=== PATIENT | female | born 1975 | race Caucasian/White ===

== ENCOUNTER → 2017-10-31 | Outpatient (CLI) | payer MEDICAID ==
[~2017-10-31] MED LIST: IOHEXOL 350 MG/ML 150 ML (OMNIPAQUE 350) VIAL IV ONE; NS 250 ML (IVPB) BAG IV ONE; RT-ALBUTEROL SULF 2.5 MG/3 ML PRE-MIX VIAL INH ONE
--- NOTE | 2017-10-31 15:38 | Diagnostic Imaging Report ---
PROCEDURE: CT angiography of the chest with contrast. TECHNIQUE: Multiple contiguous axial images were obtained through the chest after uneventful bolus administration of intravenous contrast. Reconstructed CTA MIP acquisitions were also performed. INDICATION: Bronchitis and shortness of air. COMPARISON: No prior studies are available for comparison. FINDINGS: Evaluation of the pulmonary arterial system is without evidence of thromboembolism. No filling defects are identified within the central, lobar or segmental branches. The thoracic aorta is normal caliber. No dissection is seen. No pericardial or pleural fluid is identified. No definite axillary, hilar or mediastinal lymphadenopathy is detected. Central airways are patent. Pulmonary parenchymal evaluation demonstrates the lungs to be clear. No mass or infiltrate is seen. Upper abdomen does show low density throughout the liver suggestive of hepatic steatosis. IMPRESSION: Essentially unremarkable CT angiogram of the chest. Dictated by: Dictated on workstation # [id number]
== END ==
LOC: RT 14:44
PROVIDERS: ATTEND Nurse Practitioner Family
DX: J40 Bronchitis, not specified as acute or chronic (principal); R06.00 Dyspnea, unspecified; Z72.0 Tobacco use
CPT/HCPCS: 71275; 94060; 94726; 94729

== ENCOUNTER 2017-11-25 07:13 | Day surgery (SDC) | payer MEDICAID ==
[~2017-11-25] VITALS: Ht 160 cm; Wt 90.3 kg
[~2017-11-25 07:13] MED LIST changes: +DESV100T PO; -IOHEXOL 350 MG/ML 150 ML (OMNIPAQUE 350) VIAL IV ONE; +LAMO100T69 PO; +LORA1TAB PO; +LTH450TCR PO; +MONT10TA21 PO; -NS 250 ML (IVPB) BAG IV ONE; +RT-ALBUINH IH; -RT-ALBUTEROL SULF 2.5 MG/3 ML PRE-MIX VIAL INH ONE; +SULF500T7 PO
--- OUTSIDE RECORDS SUMMARY | 2017-11-25 07:16 | XMS REPORT | CCD ---
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 Weight Measured 192 lbs 09/17/2015 12:53 Initial VS Height 63 in 09/17/2015 12:53 Initial VS BMI (Body Mass Index) 34.01 kg/m^2 09/17/2015 12:53 Initial VS BSA (Body Surface Area) 1.97 m^2 09/17/2015 12:53 Initial VS Respiratory Rate 17 bpm 09/18/2015 10:56 Initial VS Heart Rate 90 bpm 09/18/2015 10:56 Initial VS O2 % BldC Oximetry 95 % 09/18/2015 10:56 Initial VS BP Systolic 109 mmHg 09/18/2015 10:57 Initial VS BP Diastolic 49 mmHg 09/18/2015 10:57 Initial VS BP Systolic 107 mmHg 09/18/2015 11:36 Most Recent VS BP Diastolic 63 mmHg 09/18/2015 11:36 Most Recent VS Respiratory Rate 19 bpm 09/18/2015 11:37 Most Recent VS Heart Rate 70 bpm 09/18/2015 11:37 Most Recent VS O2 % BldC Oximetry 99 % 09/18/2015 11:37 Most Recent VS Allergies Allergy Code Allergy Type Reaction Status PENICILLIN 80167 Drug allergy NAUSEA; CHILDHOOD, Active Procedures Procedure Code Procedure Type Date Laparoscopy, surgical; cholecystectomy 49457 CPT 2015 PATHOLOGY ORDER [id number] SNOMED CT 09/18/2015 History of Immunizations Unknown or Not Available. Problems Problem Code Start Date Resolved Date Status Abdominal pain 91135251 09/12/2014 Active Ovarian torsion 83717820 09/13/2014 Active Post op pain 617126424 09/13/2014 Active Results Unknown or Not Available. Active Medications No Active Medications Medications Administered During Visit Unknown or Not Available. Encounters Encounter Diagnosis Diagnosis Code Start Date Calculus of gallbladder with chronic cholecystitis without obstruction K8010 09/18/2015 Social History Smoking Status Code Start Date End Date Current every day smoker [id number] Patient Decision Aids Patient Decision Aid CHOLECYSTECTOMY; AFTER THE PROCEDURE Discharge Instructions You were admitted to [facility] on 09/18/2015 07:23 with a principal diagnosis of Calculus of gallbladder with chronic cholecystitis without obstruction You had the following procedures done: Laparoscopy, surgical; cholecystectomy You were discharged from [facility] on 09/18/2015 12:32 Should you have any questions prior to discharge, please contact a member of your healthcare team. If you have left the hospital and have any questions, please contact your primary care physician. Chief Complaint and Reason For Visit Chief Complaint Date of Onset LAP KARIE Function Status Unknown or Not Available. Plan of Care Unknown or Not Available. Referral/Transition of Care Unknown or Not Available.
--- OUTSIDE RECORDS SUMMARY | 2017-11-25 07:16 | XMS REPORT | CCD ---
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 Problems Problem Code Start Date Resolved Date Status Abdominal pain 60308933 09/12/2014 Active Ovarian torsion 03269558 09/13/2014 Active Post op pain 594760482 09/13/2014 Active Results Unknown or Not Available. Active Medications No Active Medications Medications Administered During Visit Unknown or Not Available. Encounters Encounter Diagnosis Diagnosis Code Start Date Calculus of gallbladder with chronic cholecystitis without obstruction K8010 09/18/2015 Social History Smoking Status Code Start Date End Date Current every day smoker [id number] Patient Decision Aids Patient Decision Aid CHOLECYSTECTOMY; AFTER THE PROCEDURE Discharge Instructions You were admitted to [facility] on 09/18/2015 07:23 with a principal diagnosis of Calculus of gallbladder with chronic cholecystitis without obstruction You had the following procedures done: Laparoscopy, surgical; cholecystectomy You were discharged from [facility] on 09/18/2015 12:32 Should you have any [...]
--- OUTSIDE RECORDS SUMMARY | 2017-11-25 07:19 | XMS REPORT ---
Author Erica Briseno Organization [facility] Address [address] [place], [place] [id number] Care Team Providers Care Personal Clothing Laundry Aide Name Role Phone Erica Carver PCP Unavailable Erica Carver PreferredProvider Unavailable Allergies and Adverse Reactions Name Reaction Notes PENICILLINS told as a child Plan of Treatment Planned Activity Comments Planned Date Planned Time Plan/Goal Iron panel (iron, TIBC, transferrin saturation) 06/24/2015 12:00 AM Iron panel (iron, TIBC, transferrin saturation) 06/24/2015 12:00 AM Iron panel (iron, TIBC, transferrin saturation) 06/24/2015 12:00 AM Abdominal Ultrasound, single organ 06/24/2015 12:00 AM Cyanocobalamin measurement 09/24/2016 12:00 AM CMP 12/21/2016 12:00 AM CBC W/ AUTO DIFF (RFLX MAN DIFF IF IND). 12/21/2016 12:00 AM Spirometry 01/27/2017 12:00 AM BMP 01/30/2017 12:00 AM Medications Active Name Start Date Estimated Completion Date SIG Comments montelukast 10 mg oral tablet 06/25/2013 TAKE ONE TABLET BY MOUTH IN THE EVENING pantoprazole 40 mg oral tablet,delayed release (DR/EC) 07/30/2013 TAKE ONE TABLET BY MOUTH EVERY DAY hydroxychloroquine 200 mg oral tablet 08/13/2015 TAKE TWO TABLETS BY MOUTH ONCE DAILY WITH A MEAL OR A GLASS OF MILK hydroxychloroquine 200 mg oral tablet 02/25/2016 TAKE TWO TABLETS BY MOUTH ONCE DAILY WITH A MEAL OR A GLASS OF MILK Lamictal 100 mg oral tablet take 1 tablet (100 mg) by oral route 2 times per day Latuda 40 mg oral tablet take 1 tablet (40 mg) by oral route once daily with food (at least 350 calories) Ativan 1 mg oral tablet take 1 tablet (1 mg) by oral route 2 times per day as needed Pristiq oral Singulair 10 mg oral tablet 01/19/2017 take 1 tablet (10 mg) by oral route once daily in the evening for 30 days Flovent HFA 110 mcg/actuation inhalation HFA aerosol inhaler 01/25/2017 inhale 1 puff (110 mcg) by inhalation route 2 times per day prednisone 20 mg oral tablet 01/27/2017 take 2 tablets by mouth daily x2 days then 1 tablet daily x4 days ProAir HFA 90 mcg/actuation inhalation HFA aerosol inhaler 01/27/2017 inhale 1 puff (90 mcg) by inhalation route every 4-6 hours as needed Mariella Perles 100 mg oral capsule 01/30/2017 02/06/2017 take 1 capsule (100 mg) by oral route 3 times per day for 7 days promethazine-codeine 6.25-10 mg/5 mL oral syrup 01/31/2017 take 5 milliliters by oral route every 4-6 hours as needed, not to exceed 30 mL in 24 hours Name Start Date Expiration Date SIG Comments Bactrim DS 800-160 mg oral tablet 03/02/2010 03/09/2010 take 1 tablet by oral route every 12 hours for 7 days Zithromax Z-Berlin 250 mg oral tablet 03/25/2010 03/30/2010 take 2 tablets (500 mg) by oral route once daily for 1 day then 1 tablet (250 mg) by oral route once daily for 4 days ZOLOFT 50MG TAB 50 each 06/01/2010 07/01/2010 1QD - TAKE ONE TABLET BY MOUTH EVERY DAY Zoloft 50 mg oral tablet 07/06/2010 07/06/2010 take 1 tablet (50 mg) by oral route once daily hydrochlorothiazide 12.5 mg oral capsule 11/18/2010 12/18/2010 TAKE ONE CAPSULE BY MOUTH EVERY DAY Zithromax Z-Berlin 250 mg oral tablet 06/29/2011 07/04/2011 take 2 tablets (500 mg ) by oral route once daily for 1 day then 1 tablet (250 mg) by oral route once daily for 4 days Diflucan 200 mg oral tablet 06/29/2011 07/01/2011 take 1 tablet by oral route Bactrim DS 800-160 mg oral tablet 03/31/2012 04/07/2012 take 1 tablet by oral route every 12 hours for 7 days Singulair 10 mg oral tablet 03/31/2012 10/27/2012 take 1 tablet (10 mg) by oral route once daily in the evening for 30 days pantoprazole 40 mg oral tablet,delayed release (DR/EC) 05/31/2012 06/30/2012 TAKE ONE TABLET BY MOUTH EVERY DAY hydrochlorothiazide 25 mg oral tablet 06/08/2012 06/03/2013 take 1 tablet by oral route daily for 90 days Tamiflu 75 mg oral capsule 07/27/2012 08/01/2012 take 1 capsule (75 mg) by oral route 2 times per day for 5 days promethazine-codeine 6.25-10 mg/5 mL oral syrup 07/27/2012 take 5 milliliters by oral route every 4-6 hours as needed, not to exceed 30 mL in 24 hours albuterol sulfate 90 mcg/actuation inhalation HFA aerosol inhaler 07/27/2012 inhale 1 - 2 puffs by inhalation route every 6 hours as needed metronidazole 500 mg oral tablet 11/10/2012 11/17/2012 take 1 tablet (500 mg) by oral route every 12 hours for 7 days montelukast 10 mg oral tablet 11/13/2012 12/13/2012 TAKE ONE TABLET BY MOUTH IN THE EVENING Diflucan 150 mg oral tablet 12/14/2012 12/16/2012 take 1 tablet (150 mg) by oral route once for 1 day Zithromax Z-Berlin 250 mg oral tablet 01/23/2013 01/28/2013 take 2 tablets (500 mg ) by oral route once daily for 1 day then 1 tablet (250 mg) by oral route once daily for 4 days Zithromax Z-Berlin 250 mg oral tablet 03/27/2013 04/01/2013 take 2 tablets (500 mg) by oral route once daily for 1 day then 1 tablet (250 mg) by oral route once daily for 4 days polyethylene glycol 3350 17 gram/dose oral powder 05/31/2012 06/15/2012 MIX 17 GRAMS POWDER WITH 8 OUNCES OF WATER,JUICE,SODA,COFFEE, OR TEA AND TAKE BY MOUTH ONCE DAILY Medrol (Berlin) 4 mg oral tablets,dose pack 09/10/2013 take as directed Zyrtec-D 5-120 mg oral tablet extended release 12 hr 09/10/2013 take 1 tablet by oral route every 12 hours Zithromax Z-Berlin 250 mg oral tablet 10/01/2013 10/06/2013 take 2 tablets (500 mg) by oral route once daily for 1 day then 1 tablet (250 mg) by oral route once daily for 4 days gemfibrozil 600 mg oral tablet 03/11/2014 09/07/2014 take 1 tablet (600 mg) by oral route 2 times per day 30 minutes before morning and evening meal for 90 days tramadol 50 mg oral tablet 03/20/2014 04/03/2014 take 1 tablet by oral route daily for 14 days azithromycin 250 mg oral tablet 04/29/2014 05/04/2014 take 2 tablets (500 mg ) by oral route once daily for 1 day then 1 tablet (250 mg) by oral route once daily for 4 days promethazine-codeine 6.25-10 mg/5 mL oral syrup 04/29/2014 take 5 milliliters by oral route every 6 hours as needed, not to exceed 30 mL in 24 hours Cipro 500 mg oral tablet 06/11/2014 06/18/2014 take 1 tablet (500 mg) by oral route every 12 hours for 7 days Medrol (Berlin) 4 mg oral tablets,dose pack 06/11/2014 take as directed Zofran ODT 4 mg oral tablet,disintegrating 07/03/2014 07/06/2014 dissolve 1 tablet by oral route every 8 hours for 3 days azithromycin 250 mg oral tablet 07/19/2014 07/24/2014 take 2 tablets (500 mg) by oral route once daily for 1 day then 1 tablet (250 mg) by oral route once daily for 4 days prednisone 20 mg oral tablet 07/19/2014 07/24/2014 Take 3 tabs x 2 days; then Take 2 tabs x 2 days; then Take 1 tab x 1 days. Plaquenil 200 mg oral tablet 08/08/2014 02/04/2015 take 2 tablets (400 mg) by oral route once daily with a meal or a glass of milk for 30 days prednisone 5 mg oral tablet 10/03/2014 12/02/2014 take 1 tablet (5 mg) by oral route once daily for 30 days Macrobid 100 mg oral capsule 05/12/2015 05/19/2015 take 1 capsule (100 mg) by oral route 2 times per day with food for 7 days propranolol 60 mg oral capsule,extended release 24 hr 07/18/2015 01/14/2016 take 1 capsule by oral route daily for 30 days Macrobid 100 mg oral capsule 11/26/2015 12/03/2015 take 1 capsule (100 mg) by oral route every 12 hours with food for 7 days lorazepam 0.5 mg oral tablet 03/23/2016 04/22/2016 take 1 tablet (0.5 mg) by oral route 2 times per day as needed for 30 days Bactrim DS 800-160 mg oral tablet 04/02/2016 04/05/2016 take 1 tablet by oral route every 12 hours for 3 days Zithromax Z-Berlin 250 mg oral tablet 07/26/2016 07/31/2016 take 2 tablets (500 mg ) by oral route once daily for 1 day then 1 tablet (250 mg) by oral route once daily for 4 days ProAir HFA 90 mcg/actuation inhalation HFA aerosol inhaler 07/26/2016 08/25/2016 inhale 1 puff (90 mcg) by inhalation route every 6 hours as needed for 30 days hydroxyzine HCl 25 mg oral tablet 12/14/2016 12/24/2016 take 1 tablet (25 mg) by oral route 3 times per day for 10 days loratadine 10 mg oral tablet 12/14/2016 01/13/2017 take 1 tablet (10 mg) by oral route once daily for 30 days Lac-Hydrin Five 5 % topical lotion 12/14/2016 12/24/2016 apply to affected area by topical route 2 times a day for 10 days Discontinued Name Start Date Discontinued Date SIG Comments Rozerem 8 mg oral tablet 03/25/2010 04/15/2010 take 1 tablet (8 mg) by oral route once daily at bedtime Lexapro 20 mg oral tablet 03/25/2010 04/15/2010 take 1 tablet (20 mg) by oral route once daily for 28 days Paxil 20 mg oral tablet 04/15/2010 04/30/2010 take 1 tablet (20 mg) by oral route once daily for 30 days made her not sleep and gave her headaches Lunesta 2 mg oral tablet 04/15/2010 07/23/2010 take 1 tablet (2 mg) by oral route once daily at bedtime ZOLOFT 50MG TAB 50 each 07/06/2010 07/23/2010 1QD - TAKE ONE TABLET BY MOUTH EVERY DAY Seroquel 25 mg oral tablet 03/31/2012 take 1 tablet by oral route daily Topamax 25 mg oral tablet 02/19/2014 take 1tablet once daily Lamictal Oral 06/24/2015 Lexapro Oral 06/24/2015 Saphris Sublingual 12/26/2012 omeprazole 40 mg oral capsule,delayed release(DR/EC) 04/11/2012 05/25/2012 take 1 tablet by mouth daily Provera 10 mg oral tablet 06/27/2012 09/20/2012 take 1 tablet by oral route qhs Medrol (Berlin) 4 mg oral tablets,dose pack 07/27/2012 09/20/2012 take as directed Imitrex 50 mg oral tablet 12/29/2012 04/22/2014 take 1 tablet (50 mg) by oral route once with fluids as early as possible after the onset of a migraine attack ;may repeat after 2 hours if headache returns, not to exceed 200mg in 24hrs Medrol (Berlin) 4 mg oral tablets,dose pack 03/27/2013 09/10/2013 take as directed hydrochlorothiazide 25 mg oral tablet 06/25/2013 06/03/2014 TAKE ONE TABLET BY MOUTH EVERY DAY Zofran (as hydrochloride) 4 mg oral tablet 09/10/2013 02/19/2014 take 1 tablet by mouth q6 hours as needed Flonase 50 mcg/actuation nasal spray,suspension 10/01/2013 02/19/2014 inhale 1 spray (50 mcg) in each nostril by intranasal route once daily Tessalon Perles 100 mg oral capsule 10/05/2013 02/19/2014 take 1 capsule (100 mg) by oral route 3 times per day pantoprazole 40 mg oral tablet,delayed release (DR/EC) 01/22/2014 10/02/2014 TAKE ONE TABLET BY MOUTH EVERY DAY pantoprazole 40 mg oral tablet,delayed release (DR/EC) 01/22/2014 10/02/2014 TAKE ONE TABLET BY MOUTH EVERY DAY no longer taking Rheumatrex 2.5 mg oral tablets,dose pack 03/11/2014 04/22/2014 1 tab 3 days per week folic acid 1 mg oral tablet 03/11/2014 06/03/2014 take 1 tablet (1 mg) by oral route once daily for 90 days montelukast 10 mg oral tablet 07/11/2014 06/24/2015 TAKE ONE TABLET BY MOUTH IN THE EVENING Latuda 40 mg oral tablet 07/26/2016 take 1 tablet (40 mg) by oral route once daily with food (at least 350 calories) propranolol 20 mg oral tablet 10/03/2014 10/29/2014 take 1 tablet by oral route daily for 30 days Claritin 10 mg oral tablet 10/23/2014 06/19/2015 take 1 tablet (10 mg) by oral route once daily promethazine-codeine 6.25-10 mg/5 mL oral syrup 10/23/2014 06/24/2015 take 5 milliliters by oral route every 4-6 hours as needed, not to exceed 30 mL in 24 hours Zithromax Z-Berlin 250 mg oral tablet 06/19/2015 06/24/2015 take 2 tablets (500 mg ) by oral route once daily for 1 day then 1 tablet (250 mg) by oral route once daily for 4 days Lamictal 150 mg oral tablet 05/06/2016 take 1 tablet (150 mg) by oral route BID Lexapro 20 mg oral tablet 07/26/2016 take 1 tablet (20 mg) by oral route once daily Imitrex 5 mg/actuation nasal spray,non-aerosol 07/29/2015 03/01/2016 spray 1 spray (5 mg) by intranasal route into each nostril; may repeat once after 2 hours if headache returns, not to exceed 40 mg per day Chantix Starting Month Box 0.5 mg (11)- 1 mg (42) oral tablets,dose pack 201509/16/2015 take as directed on box Zyrtec-D 5-120 mg oral tablet extended release 12 hr 08/13/2015 03/01/2016 take 1 tablet by oral route every 12 hours Lunesta 3 mg oral tablet 03/23/2016 take 1 tablet (3 mg) by oral route once daily at bedtime tramadol 50 mg oral tablet 09/24/2015 03/01/2016 take 1 tablet (50 mg) by oral route every 6 hours as needed phenazopyridine 200 mg oral tablet 11/26/2015 03/01/2016 take 1 tablet (200 mg ) by oral route 3 times per day after meals gemfibrozil 600 mg oral tablet 12/22/2015 03/23/2016 TAKE ONE TABLET BY MOUTH TWICE DAILY 30 MINUTES BEFORE MORNING AND EVENING MEALS Saxenda 3 mg/0.5 mL (18 mg/3 mL) subcutaneous pen injector 01/12/20162015 taper up by 0.6mg at weekly intervals starting at 0.6mg going up to 3.0mg. Pen Needle 32 gauge x 5/32" miscellaneous needle 01/12/2016 03/01/2016 use as directed propranolol 60 mg oral capsule,extended release 24 hr 02/25/2016 03/23/2016 TAKE ONE CAPSULE BY MOUTH ONCE DAILY Medrol (Berlin) 4 mg oral tablets,dose pack 03/02/2016 03/23/2016 take as directed meclizine 25 mg oral tablet 03/02/2016 03/23/2016 take 1 tablet (25 mg) by oral route 3 times per day as needed hydroxychloroquine 200 mg oral tablet 06/21/2016 12/14/2016 TAKE TWO TABLETS BY MOUTH ONCE DAILY WITH A MEAL OR A GLASS OF MILK hydroxychloroquine 200 mg oral tablet 06/21/2016 12/14/2016 TAKE TWO TABLETS BY MOUTH ONCE DAILY WITH A MEAL OR A GLASS OF MILK not taking due to to much money without insurance Trintellix 20 mg oral tablet 09/24/2016 take 1 tablet (20 mg) by oral route once daily at the same time each day Problem List Description Status Onset Bipolar Disorder Active Hypertension Active Obesity Active Seasonal Allergies Active Arthritis, rheumatoid Active 06/04/2014 Gluten intolerance Active 06/04/2014 Cholelithiasis Active 09/16/2015 Chronic cholecystitis Active 09/16/2015 Vital Signs Date Time BP-Sys(mm[Hg] BP-Patti(mm[Hg]) HR(bpm) RR(rpm) Temp WT HT HC BMI BSA BMI Percentile O2 Sat(%) 01/31/2017 10:47:00 AM 117 mmHg 73 mmHg 89 bpm 18 rpm 98.9 F 169.125 lbs 63 in 29.96 kg/m2 1.85 m2 98 % 01/30/2017 1:06:00 PM 110 mmHg 88 mmHg 85 bpm 18 rpm 98 F 168.5 lbs 63 in 29.8481 kg/m 1.8432 m 99 % 01/27/2017 9:55:00 AM 120 mmHg 74 mmHg 98 bpm 18 rpm 97.5 F 165 lbs 63 in 29.23 kg/m2 1.82 m2 97 % 01/25/2017 9:59:00 AM 132 mmHg 72 mmHg 99 bpm 18 rpm 97.7 F 164.125 lbs 63 in 29.0731 kg/m 1.8191 m 98 % 01/19/2017 8:27:00 AM 136 mmHg 76 mmHg 79 bpm 18 rpm 97.4 F 167.5 lbs 63 in 29.67 kg/m2 1.84 m2 99 % 01/18/2017 5:11:00 PM 125 mmHg 83 mmHg 85 bpm 18 rpm 98.3 F 164.375 lbs 63 in 29.1174 kg/m 1.8205 m 99 % 01/10/2017 1:30:00 PM 121 mmHg 69 mmHg 92 bpm 99.2 F 165 lbs 63 in 29.23 kg/m2 1.82 m2 12/30/2016 6:50:00 PM 110 mmHg 78 mmHg 90 bpm 20 rpm 97.9 F 160 lbs 63 in 28.3424 kg/m 1.7961 m 99 % 12/14/2016 2:45:00 PM 120 mmHg 88 mmHg 94 bpm 16 rpm 97.7 F 159.5 lbs 63 in 28.25 kg/m2 1.79 m2 99 % 10/11/2016 7:49:00 PM 124 mmHg 66 mmHg 84 bpm 18 rpm 96.9 F 154 lbs 63 in 27.2796 kg/m 1.7621 m 99 % 09/24/2016 9:00:00 AM 124 mmHg 94 mmHg 85 bpm 16 rpm 98.5 F 162.375 lbs 63 in 28.76 kg/m2 1.81 m2 98 % 08/16/2016 5:10:00 PM 130 mmHg 70 mmHg 93 bpm 18 rpm 97.5 F 167 lbs 63 in 29.5824 kg/m 1.835 m 97 % 07/26/2016 9:42:00 AM 124 mmHg 72 mmHg 93 bpm 18 rpm 97.2 F 166.375 lbs 63 in 29.47 kg/m2 1.83 m2 99 % 05/26/2016 5:15:00 PM 124 mmHg 62 mmHg 99 bpm 18 rpm 97.5 F 169.125 lbs 63 in 29.9588 kg/m 1.8466 m 99 % 05/06/2016 2:03:00 PM 108 mmHg 72 mmHg 84 bpm 16 rpm 99.6 F 174 lbs 63 in 30.82 kg/m2 1.87 m2 97 % 04/02/2016 6:37:00 PM 122 mmHg 88 mmHg 82 bpm 98.3 F 176 lbs 63 in 31.1767 kg/m 1.8838 m 100 % 03/23/2016 8:44:00 AM 98 mmHg 70 mmHg 75 bpm 16 rpm 98.7 F 173 lbs 63 in 30.65 kg/m2 1.87 m2 98 % 03/01/2016 6:45:00 PM 122 mmHg 62 mmHg 80 bpm 18 rpm 98.3 F 175.375 lbs 63 in 31.066 kg/m 1.8804 m 99 % 01/12/2016 8:41:00 AM 118 mmHg 70 mmHg 77 bpm 18 rpm 97.9 F 185 lbs 63 in 32.77 kg/m2 1.93 m2 98 % 11/26/2015 5:48:00 PM 134 mmHg 76 mmHg 75 bpm 18 rpm 97.1 F 178.312 lbs 99 % 09/26/2015 11:12:00 AM 97 mmHg 57 mmHg 78 bpm 16 rpm 97.3 F 191 lbs 63 in 33.83 kg/m2 1.96 m2 09/16/2015 2:45:00 PM 122 mmHg 71 mmHg 75 bpm 20 rpm 98.2 F 192.5 lbs 63 in 34.0995 kg/m 1.9701 m 09/10/2015 6:23:00 PM 120 mmHg 80 mmHg 70 bpm 98.4 F 191 lbs 64 in 32.78 kg/m2 1.98 m2 98 % 08/06/2015 10:18:00 AM 130 mmHg 80 mmHg 78 bpm 16 rpm 96.7 F 194 lbs 64 in 33.2997 kg/m 1.9934 m 98 % 06/24/2015 8:35:00 AM 120 mmHg 78 mmHg 101 bpm 98.1 F 197.25 lbs 63 in 34.94 kg/m2 1.99 m2 100 % 06/19/2015 10:17:00 AM 116 mmHg 82 mmHg 87 bpm 18 rpm 97.2 F 195 lbs 63 in 34.5423 kg/m 1.9828 m 98 % 10/28/2014 2:04:00 PM 94 mmHg 62 mmHg 71 bpm 20 rpm 98 F 185.8 lbs 63 in 32.91 kg/m2 1.94 m2 97 % 10/23/2014 9:01:00 AM 124 mmHg 64 mmHg 64 bpm 18 rpm 97.9 F 187.562 lbs 63 in 33.2249 kg/m 1.9447 m 95 % 10/03/2014 3:58:00 PM 124 mmHg 78 mmHg 83 bpm 98.9 F 189.125 lbs 63 in 33.50 kg/m2 1.95 m2 100 % 10/02/2014 11:38:00 AM 121 mmHg 72 mmHg 73 bpm 98.3 F 188 lbs 63 in 33.3024 kg/m 1.9469 m 100 % 09/20/2014 11:28:00 AM 110 mmHg 60 mmHg 73 bpm 18 rpm 97 F 190 lbs 63 in 33.66 kg/m2 1.96 m2 07/19/2014 9:14:00 AM 105 mmHg 60 mmHg 61 bpm 16 rpm 96.9 F 186 lbs 63 in 32.9481 kg/m 1.9365 m 98 % 07/03/2014 9:03:00 AM 122 mmHg 75 mmHg 73 bpm 16 rpm 97.3 F 184 lbs 63 in 32.59 kg/m2 1.93 m2 97 % 06/11/2014 10:35:00 AM 110 mmHg 70 mmHg 72 bpm 16 rpm 98.2 F 188 lbs 63 in 33.3024 kg/m 1.9469 m 97 % 06/03/2014 4:08:00 PM 110 mmHg 70 mmHg 85 bpm 16 rpm 98.4 F 187 lbs 63 in 33.13 kg/m2 1.94 m2 100 % 04/29/2014 3:18:00 PM 112 mmHg 78 mmHg 66 bpm 16 rpm 97.8 F 183 lbs 63 in 32.4167 kg/m 1.9209 m 96 % 04/22/2014 4:18:00 PM 138 mmHg 80 mmHg 93 bpm 18 rpm 98.2 F 188.375 lbs 63 in 33.3688 kg/m 1.95 m2 99 % 03/11/2014 4:17:00 PM 125 mmHg 85 mmHg 94 bpm 18 rpm 97.8 F 198.25 lbs 63 in 35.12 kg/m2 1.9993 m 100 % 02/19/2014 8:23:00 AM 122 mmHg 88 mmHg 92 bpm 18 rpm 98 F 196 lbs 63 in 34.7195 kg/m 1.99 m2 98 % 10/01/2013 3:59:00 PM 138 mmHg 88 mmHg 103 bpm 18 rpm 98.5 F 203.25 lbs 63 in 36.00 kg/m2 2.0243 m 97 % 09/13/2013 11:13:00 AM 126 mmHg 64 mmHg 99 bpm 18 rpm 96.5 F 194.5 lbs 63 in 34.4538 kg/m 1.98 m2 99 % 09/10/2013 2:54:00 PM 126 mmHg 66 mmHg 100 bpm 18 rpm 97.6 F 197.25 lbs 63 in 34.94 kg/m2 1.9942 m 98 % 08/16/2013 11:40:00 AM 118 mmHg 82 mmHg 88 bpm 18 rpm 97.5 F 200.5 lbs 63 in 35.5166 kg/m 2.01 m2 96 % 03/27/2013 3:02:00 PM 126 mmHg 72 mmHg 101 bpm 18 rpm 97.6 F 193.125 lbs 63 in 34.21 kg/m2 1.9733 m 96 % 01/23/2013 10:31:00 AM 134 mmHg 72 mmHg 97 bpm 18 rpm 97.6 F 196.5 lbs 63 in 34.8081 kg/m 1.99 m2 99 % 01/19/2013 8:36:00 AM 132 mmHg 70 mmHg 12/29/2012 10:38:00 AM 126 mmHg 68 mmHg 67 bpm 18 rpm 96.8 F 193.25 lbs 63 in 34.2323 kg/m 1.97 m2 12/26/2012 3:25:00 PM 126 mmHg 68 mmHg 66 bpm 18 rpm 97.6 F 192 lbs 63 in 34.01 kg/m2 1.9675 m 12/14/2012 2:27:00 PM 132 mmHg 94 mmHg 104 bpm 97 F 200 lbs 63 in 35.428 kg/m 2.01 m2 11/09/2012 2:01:00 PM 115 mmHg 80 mmHg 88 bpm 97.2 F 210 lbs 63 in 37.20 kg/m2 2.0577 m 10/18/2012 3:38:00 PM 136 mmHg 89 mmHg 88 bpm 98.1 F 203 lbs 63 in 35.9595 kg/m 2.02 m2 09/20/2012 9:32:00 AM 125 mmHg 88 mmHg 93 bpm 97.7 F 204 lbs 63 in 36.14 kg/m2 2.0281 m 07/27/2012 10:18:00 AM 132 mmHg 84 mmHg 104 bpm 20 rpm 97.8 F 194.8 lbs 63 in 34.5069 kg/m 1.98 m2 99 % 06/22/2012 10:44:00 AM 138 mmHg 80 mmHg 85 bpm 190 lbs 63 in 33.66 kg/m2 1.9573 m 05/25/2012 9:34:00 AM 139 mmHg 85 mmHg 102 bpm 188 lbs 63 in 33.3024 kg/m 1.95 m2 04/11/2012 10:15:00 AM 128 mmHg 68 mmHg 64 bpm 18 rpm 98.9 F 181.125 lbs 63 in 32.08 kg/m2 1.911 m 03/31/2012 9:37:00 AM 136 mmHg 68 mmHg 68 bpm 18 rpm 98 F 184.375 lbs 63 in 32.6602 kg/m 1.93 m2 04/08/2011 11:10:00 AM 122 mmHg 75 mmHg 93 bpm 98.4 F 182.25 lbs 99 % 07/23/2010 4:14:00 PM 130 mmHg 96 mmHg 84 bpm 16 rpm 97.2 F 171.125 lbs 04/15/2010 2:58:00 PM 122 mmHg 70 mmHg 68 bpm 16 rpm 98.8 F 171.125 lbs 03/25/2010 3:01:00 PM 136 mmHg 80 mmHg 68 bpm 16 rpm 98.5 F 167.375 lbs 03/02/2010 3:58:00 PM 136 mmHg 90 mmHg 96 bpm 20 rpm 98.7 F 173.125 lbs 63 in 30.67 kg/m2 1.8683 m Social History Name Description Comments Single Alcohol Current some day Rarely Tobacco Current every day smoker 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 History of Procedures Date Ordered Description Order Status 06/19/2015 12:00 AM Decadron, Per 1 Mg [facility]# [address]-59 Reviewed 06/19/2015 12:00 AM Depo-Medrol 40mg Reviewed 06/24/2015 12:00 AM COMPLETE CBC W/AUTO DIFF WBC Reviewed 06/24/2015 12:00 AM COMPREHEN METABOLIC PANEL Reviewed 06/24/2015 12:00 AM LIPID PANEL Reviewed 06/24/2015 12:00 AM GLYCOSYLATED HEMOGLOBIN TEST Reviewed 06/24/2015 12:00 AM ASSAY OF FERRITIN Reviewed 08/06/2015 12:00 AM BEHAV CHNG SMOKING 3-10 MIN Reviewed 09/10/2015 12:00 AM Imitrex 6mg [facility] #82500-683-69 Reviewed 11/26/2015 5:56 PM URINALYSIS AUTO W/O SCOPE Reviewed 11/26/2015 12:00 AM URINE CULTURE/COLONY COUNT Reviewed 03/01/2016 12:00 AM COMPREHEN METABOLIC PANEL Reviewed 03/01/2016 12:00 AM COMPLETE CBC W/AUTO DIFF WBC Reviewed 03/01/2016 12:00 AM Imitrex 6 mg Reviewed 04/02/2016 6:41 PM URINALYSIS AUTO W/O SCOPE Reviewed 05/26/2016 12:00 AM Toradol 60 Mg Injection Reviewed 05/26/2016 12:00 AM Phenergan 50mg Injection Reviewed 05/26/2016 12:00 AM THER/PROPH/DIAG INJ SC/IM Reviewed 08/17/2016 12:00 AM X-RAY EXAM OF ABDOMEN Reviewed 08/16/2016 12:00 AM COMPLETE CBC W/AUTO DIFF WBC Reviewed 08/16/2016 12:00 AM COMPREHEN METABOLIC PANEL Reviewed 08/16/2016 12:00 AM ASSAY OF AMYLASE Reviewed 08/16/2016 12:00 AM ASSAY OF LIPASE Reviewed 08/16/2016 12:00 AM URNLS DIP STICK/TABLET RGNT AUTO W/O MICROSCOPY Reviewed 08/16/2016 12:00 AM X-RAY EXAM OF ABDOMEN Reviewed 09/24/2016 12:00 AM GLYCOSYLATED HEMOGLOBIN TEST Returned 09/24/2016 12:00 AM ASSAY THYROID STIM HORMONE Returned 09/24/2016 12:00 AM ASSAY OF FREE THYROXINE Returned 09/24/2016 12:00 AM X-RAY EXAM OF ABDOMEN Returned 09/24/2016 12:00 AM ASSAY OF MAGNESIUM Returned 10/11/2016 12:00 AM Toradol 60 Mg Injection Reviewed 10/11/2016 12:00 AM Phenergan 50mg Injection Reviewed 10/11/2016 12:00 AM Benadryl 50mg Injection Reviewed 12/30/2016 7:00 PM URINALYSIS AUTO W/O SCOPE Reviewed 12/30/2016 12:00 AM URINE CULTURE/COLONY COUNT Reviewed 12/30/2016 12:00 AM US EXAM PELVIC COMPLETE Reviewed 01/18/2017 12:00 AM THER/PROPH/DIAG INJ SC/IM Reviewed 01/18/2017 12:00 AM Toradol 60 Mg Injection Reviewed 01/18/2017 12:00 AM Benadryl 50mg Injection Reviewed 01/19/2017 12:00 AM Decadron, Per 1 Mg [facility]# [address]-88 Reviewed 01/19/2017 12:00 AM Depo-Medrol 40mg Injection Reviewed 01/30/2017 12:00 AM BL SMEAR W/DIFF WBC COUNT Returned 01/30/2017 12:00 AM CHEST X-RAY 2VW FRONTAL&LATL Returned 05/25/2012 12:00 AM CYTOPATH TBS C/V MANUAL Reviewed 05/25/2012 12:00 AM SPECIMEN HANDLING OFFICE-LAB Reviewed 05/25/2012 12:00 AM CHYLMD TRACH DNA AMP PROBE Reviewed 05/25/2012 12:00 AM N.GONORRHOEAE DNA AMP PROB Reviewed 05/25/2012 12:00 AM ASSAY OF GONADOTROPIN (FSH) Reviewed 05/25/2012 12:00 AM ASSAY OF PROLACTIN Reviewed 05/25/2012 12:00 AM ASSAY OF GONADOTROPIN (LH) Reviewed 05/25/2012 12:00 AM HIV-1ANTIBODY Reviewed 05/25/2012 12:00 AM HEPATITIS C AB TEST Reviewed 05/25/2012 12:00 AM SYPHILIS TEST NON-TREP QUAL Reviewed 05/25/2012 12:00 AM HEPATITIS B SURFACE AG EIA Reviewed 05/25/2012 12:00 AM HERPES SIMPLEX TYPE 1 TEST Reviewed 06/12/2012 12:00 AM US EXAM PELVIC COMPLETE Reviewed 06/22/2012 12:00 AM BX/CURETT OF CERVIX W/SCOPE Reviewed 06/22/2012 12:00 AM BIOPSY OF UTERUS LINING Reviewed 10/18/2012 12:00 AM COMPLETE CBC W/AUTO DIFF WBC Reviewed 10/18/2012 12:00 AM METABOLIC PANEL TOTAL CA Reviewed 10/18/2012 12:00 AM Type and screen Reviewed 12/26/2012 12:00 AM THER/PROPH/DIAG INJ SC/IM Reviewed 12/26/2012 12:00 AM Phenergan, Up to 50 Mg [facility]#0381-8150-72 Reviewed 12/26/2012 12:00 AM Toradol 60 Mg [facility]#7464-9553-54 Reviewed 12/29/2012 12:00 AM COMPLETE CBC W/AUTO DIFF WBC Reviewed 12/29/2012 12:00 AM COMPREHEN METABOLIC PANEL Reviewed 01/01/2013 12:[address] HEAD/BRAIN W/O & W/DYE Reviewed 01/19/2013 12:00 AM Blood Pressure Check-no charge Reviewed 01/23/2013 12:00 AM THER/PROPH/DIAG INJ SC/IM Reviewed 01/23/2013 12:00 AM Decadron, Per 1 Mg [facility]# [id number] Reviewed 01/23/2013 12:00 AM Depo-Medrol, Per 80 Mg [facility]#[id number] Reviewed 08/16/2013 12:00 AM THER/PROPH/DIAG INJ SC/IM Reviewed 08/16/2013 12:00 AM Decadron, Per 1 Mg [facility]# [address]-85 Reviewed 08/16/2013 12:00 AM Depo-Medrol, Per 80 Mg [facility]#4902-9050-39 Reviewed 09/13/2013 12:00 AM COMPLETE CBC W/AUTO DIFF WBC Reviewed 09/13/2013 12:00 AM COMPREHEN METABOLIC PANEL Reviewed 09/13/2013 12:00 AM ASSAY THYROID STIM HORMONE Reviewed 09/13/2013 12:00 AM Antinuclear Antibodies, (JOY), MESFIN, with reflex Reviewed 09/13/2013 12:00 AM RHEUMATOID FACTOR QUANT Reviewed 09/13/2013 12:00 AM RBC SED RATE AUTOMATED Reviewed 09/13/2013 12:00 AM C-REACTIVE PROTEIN Reviewed 03/02/2010 12:00 AM URINALYSIS AUTO W/O SCOPE Reviewed 02/19/2014 12:00 AM COMPLETE CBC W/AUTO DIFF WBC Reviewed 02/19/2014 12:00 AM COMPREHEN METABOLIC PANEL Reviewed 02/19/2014 12:00 AM GLYCOSYLATED HEMOGLOBIN TEST Reviewed 02/19/2014 12:00 AM RBC SED RATE AUTOMATED Reviewed 02/19/2014 12:00 AM ACUTE HEPATITIS PANEL Reviewed 02/19/2014 12:00 AM CHORIONIC GONADOTROPIN ASSAY Reviewed 02/19/2014 12:00 AM HTLV/HIV CONFIRMJ ANTIBODY Reviewed 02/19/2014 12:00 AM THROMBOPLASTIN TIME PARTIAL Reviewed 02/19/2014 12:00 AM PROTHROMBIN TIME Reviewed 02/19/2014 12:00 AM URINALYSIS Reviewed 02/19/2014 12:00 AM VITAMIN B-12 Reviewed 02/19/2014 12:00 AM ASSAY OF IRON Reviewed 02/19/2014 12:00 AM IRON BINDING TEST Reviewed 02/19/2014 12:00 AM ASSAY OF AMYLASE Reviewed 02/19/2014 12:00 AM ASSAY OF LIPASE Reviewed 02/19/2014 12:00 AM EXTRACTABLE NUCLEAR ANTIGEN ANTIBODY ANY METHOD Reviewed 02/19/2014 12:00 AM LIPID PANEL Reviewed 02/19/2014 12:00 AM IMMUNOASSAY NONANTIBODY Reviewed 02/19/2014 12:00 AM CCP ANTIBODY Reviewed 02/19/2014 12:00 AM HETEROPHILE ANTIBODY SCREEN Reviewed 02/19/2014 12:00 AM US EXAM ABDOM COMPLETE Reviewed 02/19/2014 12:00 AM ECHO EXAM OF ABDOMEN Reviewed 03/11/2014 12:00 AM HEPATIC FUNCTION PANEL Reviewed 07/23/2010 12:00 AM COMPREHEN METABOLIC PANEL Reviewed 06/03/2014 12:00 AM COMPLETE CBC W/AUTO DIFF WBC Reviewed 06/03/2014 12:00 AM COMPREHEN METABOLIC PANEL Reviewed 10/02/2014 12:00 AM MAMMOGRAM SCREENING Reviewed Results Summary Date and Description Results 05/25/2012 11:30 AM HIV AG/AB COMBO 0.23 HEPATITIS C 0.09 FSH 3.60 mIU/mLLH 9.20 mIU/mL 10/18/2012 5:35 PM ABO/Rh Type O Positive Antibody Screen-Gel Negative 10/25/2012 7:10 AM GLUCOSE 105.0 mg/dLSODIUM 140.0 mmol/LPOTASSIUM 3.70 mmol/ LCHLORIDE 112.0 mmol/LCO2 20.0 mmol/LBUN 9.0 mg/dLCREATININE 0.80 mg/dLCALCIUM 8.80 mg/dLAGE 37 GFR NonAA 80 GFR AA 97 eGFR 60 eGFR AA* 60 12/29/2012 11:26 AM GLUCOSE 104.0 mg/dLSODIUM 141.0 mmol/LPOTASSIUM 3.10 mmol/ LCHLORIDE 102.0 mmol/LCO2 27.0 mmol/LBUN 14.0 mg/dLCREATININE 1.0 mg/dLSGOT/AST 24.0 IU/LSGPT/ALT 34.0 IU/LALK PHOS 58.0 IU/LTOTAL PROTEIN 7.50 g/dLALBUMIN 4.40 g/dLTOTAL BILI 0.40 mg/dLCALCIUM 10.20 mg/dLAGE 37 GFR NonAA 62 GFR AA 75 eGFR 60 eGFR AA* 60 WBC 5.3 RBC 4.72 HGB 14.70 g/dLHCT 42.60 %MCV 90.0 fLMCH 31.10 pgMCHC 34.50 g/dLRDW SD 42 RDW CV 12.70 %MPV 10.80 fLPLT 284 NRBC# 0.00 NRBC% 0.0 %NEUT 38.30 %%LYMP 46.50 %%MONO 6.50 %%EOS 7.80 %%BASO 0.90 %#NEUT 2.02 #LYMP 2.45 #MONO 0.34 #EOS 0.41 #BASO 0.05 MANUAL DIFF NOT IND 09/13/2013 12:24 PM TSH 1.470 uIU/mLWBC 9.2 RBC 4.77 HGB 14.80 g/dLHCT 43.30 % MCV 91.0 fLMCH 31.0 pgMCHC 34.20 g/dLRDW SD 46 RDW CV 13.80 %MPV 10.0 fLPLT 323 NRBC# 0.00 NRBC% 0.0 %NEUT 63.10 %%LYMP 29.80 %%MONO 6.90 %%EOS 0.0 %%BASO 0.20 %#NEUT 5.83 #LYMP 2.75 #MONO 0.64 #EOS 0.00 #BASO 0.02 MANUAL DIFF NOT IND SEDRATE 29.0 mm/hrRA Factor <15.0 IU/mLGLUCOSE 95.0 mg/dLSODIUM 138.0 mmol/ LPOTASSIUM 3.40 mmol/LCHLORIDE 103.0 mmol/LCO2 23.0 mmol/LBUN 20.0 mg/ dLCREATININE 0.90 mg/dLSGOT/AST 29.0 IU/LSGPT/ALT 58.0 IU/LALK PHOS 90.0 IU/ LTOTAL PROTEIN 8.20 g/dLALBUMIN 4.70 g/dLTOTAL BILI 1.0 mg/dLCALCIUM 10.20 mg/ dLAGE 38 GFR NonAA 70 GFR AA 85 eGFR 60 eGFR AA* 60 C REACTIVE PROTEIN <0.5 MG/ DLANA Direct Negative 02/19/2014 4:25 PM WBC 7.7 RBC 4.24 HGB 13.60 g/dLHCT 39.90 %MCV 94.0 fLMCH 32.10 pgMCHC 34.10 g/dLRDW SD 47 RDW CV 13.60 %MPV 10.30 fLPLT 284 NRBC# 0.00 NRBC% 0.0 %NEUT 56.10 %%LYMP 37.10 %%MONO 3.30 %%EOS 2.70 %%BASO 0.80 %#NEUT 4.32 #LYMP 2.85 #MONO 0.25 #EOS 0.21 #BASO 0.06 MANUAL DIFF NOT IND MONO TEST NEGATIVE GLUCOSE 86.0 mg/dLSODIUM 139.0 mmol/LPOTASSIUM 3.40 mmol/LCHLORIDE 103.0 mmol/LCO2 21.0 mmol/LBUN 10.0 mg/dLCREATININE 0.80 mg/dLSGOT/AST 47.0 IU/ LSGPT/ALT 74.0 IU/LALK PHOS 78.0 IU/LTOTAL PROTEIN 7.60 g/dLALBUMIN 4.40 g/ dLTOTAL BILI 0.40 mg/dLCALCIUM 9.60 mg/dLAGE 38 GFR NonAA 80 GFR AA 97 eGFR 60 eGFR AA* 60 TRIGLYCERIDES 273.0 mg/dLCHOLESTEROL 203.0 mg/dLHDL 47.0 mg/dLTOT CHOL/HDL 4.3 LDL (CALC) 101.0 mg/dLAMYLASE 59 IU/LLIPASE 27.0 U/MIKAELA TOTAL 72.0 ug/dLTransferrin 256.0 mg/dLTIBC Calculation 320 %Saturation Calc 23 SEDRATE 17.0 mm/hrPROTIME 10.10 secsINR 1.0 PTT 25.10 secsHGB A1C 5.60 %Est Avg Glucose 114.0 mg/dLVITAMIN B12 389.0 pg/mLHIV AG/AB COMBO 0.08 Antiscleroderma- 70Antibodies <0.2 AIHep A Ab, IgM Negative HBsAg Screen Negative Hep B Core Ab, IgM Negative Hep C Virus Ab <0.1 t-Transglutaminase (tTG)IgG 6.0 U/mLCCP Antibodies IgG/IgA 21 Units 02/19/2014 4:40 PM COLOR YELLOW APPEARANCE CLEAR SPEC GRAV <=1.005 pH 6.0 PROTEIN NEGATIVE GLUCOSE NEGATIVE KETONE NEGATIVE BILIRUBIN NEGATIVE BLOOD NEGATIVE NITRITE NEGATIVE LEUK SCREEN NEGATIVE WBC/HPF RARE RBC/HPF NEGATIVE CASTS/LPF NEGATIVE CRYSTALS NEGATIVE MUCOUS THRDS NEGATIVE BACTERIA NEGATIVE EPITH CELLS FEW SQUAMOUS TRICHOMONAS NEGATIVE YEAST NEGATIVE 06/04/2014 4:25 PM WBC 6.5 RBC 4.08 HGB 13.20 g/dLHCT 38.80 %MCV 95.0 fLMCH 32.40 pgMCHC 34.0 g/dLRDW SD 45 RDW CV 13.10 %MPV 10.60 fLPLT 318 NRBC# 0.00 NRBC% 0.0 %NEUT 59.30 %%LYMP 31.90 %%MONO 5.10 %%EOS 3.10 %%BASO 0.60 %#NEUT 3.88 #LYMP 2.08 #MONO 0.33 #EOS 0.20 #BASO 0.04 MANUAL DIFF NOT IND GLUCOSE 82.0 mg/dLSODIUM 134.0 mmol/LPOTASSIUM 3.60 mmol/LCHLORIDE 100.0 mmol/LCO2 24.0 mmol/LBUN 14.0 mg/dLCREATININE 0.90 mg/dLSGOT/AST 23.0 IU/LSGPT/ALT 22.0 IU/ LALK PHOS 81.0 IU/LTOTAL PROTEIN 7.80 g/dLALBUMIN 4.80 g/dLTOTAL BILI 0.60 mg/ dLCALCIUM 9.80 mg/dLAGE 38 GFR NonAA 70 GFR AA 85 eGFR >60 mL/min/1.73 m2eGFR AA * >60 06/24/2015 9:22 AM WBC 7.9 RBC 4.10 HGB 14.10 g/dLHCT 42.30 %MCV 103.0 fLMCH 34.40 pgMCHC 33.30 g/dLRDW SD 54 RDW CV 14.30 %MPV 10.10 fLPLT 335 NRBC# 0.00 NRBC% 0.0 %NEUT 58.20 %%LYMP 28.10 %%MONO 8.10 %%EOS 5.0 %%BASO 0.60 %#NEUT 4.62 #LYMP 2.23 #MONO 0.64 #EOS 0.40 #BASO 0.05 MANUAL DIFF NOT IND TRIGLYCERIDES 93.0 mg/dLCHOLESTEROL 148.0 mg/dLHDL 44.0 mg/dLTOT CHOL/HDL 3.4 LDL (CALC) 85.0 mg/dLGLUCOSE 72.0 mg/dLSODIUM 138.0 mmol/LPOTASSIUM 3.90 mmol/ LCHLORIDE 105.0 mmol/LCO2 21.0 mmol/LBUN 13.0 mg/dLCREATININE 0.90 mg/dLSGOT/ AST 16.0 IU/LSGPT/ALT 18.0 IU/LALK PHOS 107.0 IU/LTOTAL PROTEIN 7.20 g/ dLALBUMIN 4.30 g/dLTOTAL BILI 0.40 mg/dLCALCIUM 9.70 mg/dLAGE 40 GFR NonAA 69 GFR AA 84 eGFR >60 mL/min/1.73meGFR AA* >60 FERRITIN 200.0 ng/mLHemoglobin A1c 5.60 %Estim. Avg Glu (eAG) 114 11/26/2015 5:56 PM Clarity Ur cloudy Color Ur dk red Glucose Ur-sCnc neg Bilirub Ur Ql Strip neg Ketones Ur Ql Strip neg Sp Gr Ur Qn >=1.030 Hgb Ur Ql Strip Large pH Ur-LsCnc 5.5 Prot Ur Ql Strip >=300 mg/dL Urobilinogen Ur-mCnc neg Nitrite Ur Ql Strip Large 03/01/2016 7:20 PM GLUCOSE 98.0 mg/dLSODIUM 136.0 mmol/LPOTASSIUM 3.90 mmol/ LCHLORIDE 101.0 mmol/LCO2 25.0 mmol/LBUN 13.0 mg/dLCREATININE 1.0 mg/dLSGOT/AST 21.0 IU/LSGPT/ALT 23.0 IU/LALK PHOS 86.0 IU/LTOTAL PROTEIN 7.40 g/dLALBUMIN 4.50 g/dLTOTAL BILI 0.60 mg/dLCALCIUM 10.40 mg/dLAGE 40 GFR NonAA 61 GFR AA 74 eGFR >60 mL/min/1.73meGFR AA* >60 WBC 9.8 RBC 4.72 HGB 15.40 g/dLHCT 46.30 % MCV 98.0 fLMCH 32.60 pgMCHC 33.30 g/dLRDW SD 49 RDW CV 13.60 %MPV 10.0 fLPLT 332 NRBC# 0.00 NRBC% 0.0 %NEUT 58.50 %%LYMP 28.0 %%MONO 8.30 %%EOS 3.70 %%BASO 0.70 %#NEUT 5.74 #LYMP 2.75 #MONO 0.81 #EOS 0.36 #BASO 0.07 MANUAL DIFF NOT IND 04/02/2016 6:41 PM Clarity Ur clear Color Ur yellow Glucose Ur-sCnc negative Bilirub Ur Ql Strip negative Ketones Ur Ql Strip negative Sp Gr Ur Qn <1.005 Hgb Ur Ql Strip negative pH Ur-LsCnc 6.5 Prot Ur Ql Strip negative Urobilinogen Ur-mCnc 0.2 Nitrite Ur Ql Strip negative WBC Est Ur Ql Strip small 08/16/2016 5:55 PM COLOR YELLOW APPEARANCE CLEAR SPEC GRAV <=1.005 pH 6.0 PROTEIN NEGATIVE GLUCOSE NEGATIVE mg/dLKETONE NEGATIVE BILIRUBIN NEGATIVE BLOOD NEGATIVE NITRITE NEGATIVE LEUK SCREEN NEGATIVE MICRO INDICATED? NOT INDICATED WBC 6.5 RBC 4.88 HGB 15.60 g/dLHCT 47.30 %MCV 97.0 fLMCH 32.0 pgMCHC 33.0 g/ dLRDW SD 46 RDW CV 12.90 %MPV 9.90 fLPLT 289 NRBC# 0.00 NRBC% 0.0 %NEUT 54.40 %% LYMP 32.80 %%MONO 8.0 %%EOS 2.80 %%BASO 0.90 %#NEUT 3.51 #LYMP 2.12 #MONO 0.52 # EOS 0.18 #BASO 0.06 MANUAL DIFF NOT IND GLUCOSE 84.0 mg/dLSODIUM 138.0 mmol/ LPOTASSIUM 4.10 mmol/LCHLORIDE 103.0 mmol/LCO2 24.0 mmol/LBUN 12.0 mg/ dLCREATININE 1.10 mg/dLSGOT/AST 16.0 IU/LSGPT/ALT 18.0 IU/LALK PHOS 87.0 IU/ LTOTAL PROTEIN 8.30 g/dLALBUMIN 4.70 g/dLTOTAL BILI 0.60 mg/dLCALCIUM 10.10 mg/ dLAGE 41 GFR NonAA 54 GFR AA 65 eGFR 54 eGFR AA* >60 LIPASE 23.0 U/LAMYLASE 57 IU/L History Of Immunizations Not available. History of Past Illness Name Date of Onset Comments Seasonal Allergies Bipolar Disorder Hypertension Obesity Urinary Tract Infection Mar 02 2010 4:00PM Depression and anxiety Mar 02 2010 4:00PM Pharyngitis, Acute Mar 25 2010 3:02PM Depression and anxiety Mar 25 2010 3:02PM Insomnia Mar 25 2010 3:02PM Arthritis, rheumatoid 06/04/2014 Gluten intolerance 06/04/2014 Anxiety Disorder Apr 15 2010 3:00PM Insomnia Apr 15 2010 3:00PM Upper Respiratory Infection Jul 23 2010 4:15PM Hypertension, Benign Essential Jul 23 2010 4:15PM Cholelithiasis 09/16/2015 Chronic cholecystitis 09/16/2015 Rhinitis, Allergic Apr 08 2011 11:06AM Hypertension Apr 08 2011 11:06AM Solitary Enlarged Lymph Node Mar 31 2012 9:39AM Seasonal Allergies Mar 31 2012 9:39AM Abdominal Pain Apr 11 2012 10:18AM Nausea Apr 11 2012 10:18AM Constipation Apr 11 2012 10:18AM Gynecological Exam May 25 2012 9:44AM Abnormal Uterine Bleeding May 25 2012 9:44AM Metrorrhagia May 25 2012 9:44AM Abnormal Uterine Bleeding May 25 2012 10:37AM Condyloma Acuminatum May 25 2012 9:44AM Low grade squamous intraepithelial lesion (LGSIL) on Pap smear Jun 22 2012 10: 49AM Abnormal Uterine Bleeding Jun 22 2012 10:49AM Influenza Jul 27 2012 10:23AM Abnormal Uterine Bleeding Sep 20 2012 9:40AM Abnormal Uterine Bleeding Oct 18 2012 3:43PM Postoperative Visit Nov 09 2012 2:06PM Bacterial Vaginitis Nov 09 2012 2:06PM Postoperative Visit Dec 14 2012 2:31PM Candidiasis, Vulvovaginal Dec 14 2012 2:31PM Migraine Dec 26 2012 3:27PM Migraine Dec 29 2012 10:40AM Headache Jan 01 2013 1:23PM Hypertension, Benign Essential Jan 19 2013 8:35AM Bronchitis, Acute Jan 23 2013 10:34AM Upper Respiratory Infections Mar 27 2013 3:04PM Migraine Mar 27 2013 3:04PM Upper Respiratory Infections Aug 16 2013 11:43AM Nausea With Vomiting Aug 16 2013 11:43AM Upper Respiratory Infections Sep 10 2013 2:56PM Nausea Sep 10 2013 2:56PM Joint Pain Sep 13 2013 11:15AM Fatigue Sep 13 2013 11:15AM Fever, unspecified Sep 13 2013 11:15AM Upper Respiratory Infections Oct 01 2013 4:05PM Eustachian Tube Dysfunction Oct 01 2013 4:05PM Abdominal Pain Feb 19 2014 8:28AM Bipolar Disorder Feb 19 2014 8:28AM Seasonal Allergies Feb 19 2014 8:28AM Arthralgia Feb 19 2014 8:28AM Myalgia Feb 19 2014 8:28AM Nausea Feb 19 2014 8:28AM Ecchymosis Feb 19 2014 8:28AM Fatigue Feb 19 2014 8:28AM Polydipsia Feb 19 2014 8:28AM Splenomegaly Feb 19 2014 8:28AM Elevated liver enzymes Mar 11 2014 4:18PM Rheumatoid arthritis Mar 11 2014 4:18PM GSE (gluten-sensitive enteropathy) Mar 11 2014 4:18PM Bipolar Disorder Apr 22 2014 4:24PM Seasonal Allergies Apr 22 2014 4:24PM 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 4:24PM Migraine Apr 22 2014 4:24PM Bronchitis, Acute Apr 29 2014 3:20PM Arthritis, rheumatoid Jun 03 2014 4:12PM 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 Jun 03 2014 4:12PM Gluten intolerance Jun 03 2014 4:12PM Sinusitis Jun 11 2014 10:36AM Bipolar Disorder Jun 03 2014 4:12PM Seasonal Allergies Jun 03 2014 4:12PM Viral gastroenteritis Jul 03 2014 9:05AM Upper Respiratory Infection Jul 19 2014 9:15AM Screening Mammogram Oct 02 2014 12:13PM Screening Examination for Breast Cancer Oct 02 2014 11:49AM Upper Respiratory Infections Oct 23 2014 9:03AM Bronchiolitis Oct 23 2014 9:03AM Chronic headaches Oct 28 2014 2:06PM Arthritis, rheumatoid Oct 03 2014 4:04PM Gluten intolerance Oct 03 2014 4:04PM Bipolar Disorder Oct 03 2014 4:04PM Hypertension Oct 03 2014 4:04PM Seasonal Allergies Oct 03 2014 4:04PM Tension headache Oct 03 2014 4:04PM Rheumatoid arthritis Oct 03 2014 4:04PM Acute bacterial rhinosinusitis Jun 19 2015 10:20AM Anemia Jun 24 2015 8:39AM Hyperlipidemia, Mixed Jun 24 2015 8:39AM Blood pressure check Jun 24 2015 8:39AM Medication monitoring encounter Jun 24 2015 8:39AM Rheumatoid arthritis involving multiple sites with positive rheumatoid factor Jun 24 2015 8:39AM RUQ abdominal pain Jun 24 2015 8:39AM Elevated fasting blood sugar b 2015 8:39AM Smoking addiction Aug 06 2015 10:19AM Migraine headache without aura Sep 10 2015 6:26PM Cholelithiasis Sep 16 2015 2:54PM Chronic Cholecystitis Sep 16 2015 2:54PM Acute cystitis with hematuria Nov 26 2015 5:50PM BMI 32.0-32.9,adult Jan 12 2016 8:44AM Vertigo Mar 01 2016 6:47PM Eustachian tube dysfunction, bilateral Mar 01 2016 6:47PM Acute intractable headache, unspecified headache type Mar 01 2016 6:47PM Near syncope Mar 23 2016 8:49AM Hypotension Mar 23 2016 8:49AM Sinusitis, Acute May 06 2016 2:08PM Acute intractable headache, unspecified headache type May 26 2016 5:17PM Eustachian tube dysfunction, bilateral May 26 2016 5:17PM Acute cystitis without hematuria Apr 02 2016 6:41PM Acute upper respiratory infection Jul 26 2016 9:44AM RLQ abdominal pain Aug 16 2016 5:12PM Ileus Aug 17 2016 10:01AM Abdominal Pain, RLQ Aug 20 2016 12:39PM Fatigue Sep 24 2016 9:05AM Bowel habit changes Sep 24 2016 9:05AM Intractable migraine without aura and without status migrainosus Oct 11 2016 7:50PM Generalized pruritus Dec 14 2016 2:48PM Pruritic condition Dec 21 2016 8:45AM Decreased urine stream Dec 30 2016 6:53PM Decreased urine output Dec 30 2016 6:53PM Dysuria Dec 30 2016 6:53PM Ovarian cyst, left Jan 10 2017 1:33PM Pelvic organ prolapse quantification stage 1 cystocele Jan 10 2017 1:33PM Pelvic organ prolapse quantification stage 1 rectocele Jan 10 2017 1:33PM Nocturia Jan 10 2017 1:33PM Dyspareunia in female Jan 10 2017 1:33PM Migraine Jan 18 2017 5:14PM Acute maxillary sinusitis, recurrence not specified Jan 19 2017 8:29AM Other migraine with status migrainosus, intractable Jan 19 2017 8:29AM Acute seasonal allergic rhinitis due to other allergen Jan 19 2017 8:29AM Acute upper respiratory infection Jan 25 2017 10:01AM Acute bronchitis, unspecified organism Jan 27 2017 9:56AM Bronchitis Jan 30 2017 1:10PM Wheezing Jan 30 2017 1:10PM Fever and chills Jan 30 2017 1:10PM COPD exacerbation Jan 31 2017 10:48AM Payers Insurance Name Company Name Plan Name Plan Number Policy Number Policy Group Number Start Date [employer] [facility] [id number] Tuesday, 2010 [facility] [id number] N/A [facility] Comm Plan of [id number] N/A History of Encounters Visit Date Visit Type Provider 01/31/2017 Office visit Erica Carver APRN 01/30/2017 Office visit 01/30/2017 Office visit Navin Tucker NP 01/27/2017 Office visit Erica Carver APRN 01/25/2017 Office visit Erica Carver APRN 01/19/2017 Office visit Erica Carver APRN 01/18/2017 Office visit Cecily Solorzano APRN 01/10/2017 Office visit Alireza Gutierrez MD 12/30/2016 Office visit Luz Brantley APRN 12/14/2016 Office visit Kaity Aguilar MD 10/11/2016 Office visit Vijay Rees APRN 09/24/2016 Office visit Kaity Aguilar MD 08/16/2016 Office visit Vijay Rees APRN 07/26/2016 Office visit Erica Carver INVESTIGATIVE [employer]PER 05/26/2016 Office visit Vijay Rees INVESTIGATIVE SHOPPER 05/06/2016 Office visit Kaity Aguilar MD 04/02/2016 Office visit Concepcion BORJA 03/23/2016 Office visit Kaity Aguilar MD 03/01/2016 Office visit Vijay Rees [employer]VESTIGATIVE [employer]OPPER 01/12/2016 Office visit Erica Carver INVESTIGATIVE SHOPPER 11/26/2015 Office visit Vijay Rees INVESTIGATIVE SHOPPER 09/26/2015 Surgery Noe Bouman DO 09/18/2015 Hospital Noe Bouman DO 09/16/2015 Office visit Noe Bouman DO 09/10/2015 Office visit Yi Staples MD 08/06/2015 Office visit Teresita Laureano [employer]IVE [employer] 06/24/2015 Office visit Kaity Aguilar MD 06/19/2015 Office visit Erica Carver INVESTIGATIVE SHOPPER 10/28/2014 Office visit Yris Lara INVESTIGATIVE SHOPPER 10/23/2014 Office visit Erica Carver INVESTIGATIVE SHOPPER 10/03/2014 Office visit Kaity Aguilar MD 10/02/2014 Office visit Niyah Jensen INVESTIGATIVE SHOPPER 09/20/2014 Office visit Noe Bouman DO 09/14/2014 Hospital Noe Bouman DO 09/13/2014 Hospital Noe Bouman DO 09/12/2014 Hospital Noe Bouman DO 07/19/2014 Office visit Vijay Rees IN[employer]IGATIVE [employer]PER 07/03/2014 Office visit Vijay Rees INVESTIGATIVE SHOPPER 06/11/2014 Office visit Vijay Rees INVESTIGATIVE SHOPPER 06/03/2014 Office visit Kaity Aguilar MD 04/29/2014 Office visit Vijay Rees INVESTIGATIVE SHOPPER 04/22/2014 Office visit Kaity Aguilar MD 03/11/2014 Office visit Kaity Aguilar MD 02/19/2014 Office visit Kaity Aguilar MD 10/01/2013 Office visit Erica Carver INVESTIGATIVE SHOPPER 09/13/2013 Office visit Erica Carver INVESTIGATIVE SHOPPER 09/10/2013 Office visit Erica Carver INVESTIGATIVE SHOPPER 08/16/2013 Office visit Erica Carver INVESTIGATIVE SHOPPER 03/27/2013 Office visit Erica Walker INVESTIGATIVE SHOPPER 01/23/2013 Office visit Erica Carver INVESTIGATIVE SHOPPER 01/19/2013 Voided Erica Walker [employer]STIGATIVE [employer]PER 12/29/2012 Office visit Erica Carver INVESTIGATIVE SHOPPER 12/26/2012 Office visit Erica Carver INVESTIGATIVE SHOPPER 12/14/2012 Surgery Tong Whatley MD 12/07/2012 Voided Tong Whatley MD 11/09/2012 Surgery Tong Whatley MD 10/24/2012 [facility] IvanaChika Barros MD 10/24/2012 [facility] Tong Whatley MD 10/18/2012 Surgery Tong Whatley MD 09/20/2012 Office visit Tong Whatley MD 07/27/2012 Office visit Yris Lara [employer]IGATIVE [employer]PER 06/22/2012 Procedures Tong Whatley MD 05/25/2012 Office visit Tong Whatley MD 04/11/2012 Office visit Erica Carver INVESTIGATIVE SHOPPER 03/31/2012 Office visit Erica Carver INVESTIGATIVE SHOPPER 04/08/2011 Office visit Eugenio Enamorado MD 07/23/2010 Office visit Elsa FIGUEROA 04/15/2010 Office visit Elsa FIGUEROA 03/25/2010 Office visit Elsa FIGUEROA 03/02/2010 Office visit Elsa FIGUEROA
[2017-11-25] MEDS ORDERED: AMPICILL/SULB 1.5 GM VIAL (UNASYN) ONE (07:20)
[2017-11-25] MEDS ORDERED: NS (IVPB) 0 ML ONE (07:20)
[2017-11-25] MEDS: LACTATED RINGERS 1,000 ML IV PRN ×3 (07:20→10:31)
[2017-11-25] MEDS ORDERED: HYDROCORTISONE 100 MG/2 ML (Solu-CORTEF) VIAL ONE (07:20)
--- OUTSIDE RECORDS SUMMARY | 2017-11-25 07:20 | XMS REPORT ---
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 Name Role Phone Vijay Rees PCP Allergies and Adverse Reactions Name Reaction Notes PENICILLINS Plan of Treatment Planned Activity Comments Planned Date Planned Time Plan/Goal ASSAY OF IRON 06/24/2015 12:00 AM IRON BINDING TEST 06/24/2015 12:00 AM ASSAY OF TRANSFERRIN 06/24/2015 12:00 AM ECHO EXAM OF ABDOMEN 06/24/2015 12:00 AM Medications Active Name Start Date Estimated Completion Date SIG Comments montelukast 10 mg oral tablet 06/25/2013 TAKE ONE TABLET BY MOUTH IN THE EVENING pantoprazole 40 mg oral tablet,delayed release (DR/EC) 07/30/2013 TAKE ONE TABLET BY MOUTH EVERY DAY Latuda 40 mg oral tablet take 1 tablet (40 mg) by oral route once daily with food (at least 350 calories) Lamictal 150 mg oral tablet take 1 tablet (150 mg) by oral route BID Lexapro 20 mg oral tablet take 1 tablet (20 mg) by oral route once daily gemfibrozil 600 mg oral tablet 06/27/2015 TAKE ONE TABLET BY MOUTH TWICE DAILY 30 MINUTES BEFORE MORNING AND EVENING MEALS propranolol 60 mg oral capsule,extended release 24 hr 07/18/2015 01/14/2016 take 1 capsule by oral route daily for 30 days Imitrex 5 mg/actuation nasal spray,non-aerosol 07/29/2015 spray 1 spray (5 mg) by intranasal route into each nostril; may repeat once after 2 hours if headache returns, not to exceed 40 mg per day Zyrtec-D 5-120 mg oral tablet extended release 12 hr 08/13/2015 take 1 tablet by oral route every 12 hours hydroxychloroquine 200 mg oral tablet 08/13/2015 TAKE TWO TABLETS BY MOUTH ONCE DAILY WITH A MEAL OR A GLASS OF MILK Lunesta 3 mg oral tablet take 1 tablet (3 mg) by oral route once daily at bedtime tramadol 50 mg oral tablet 09/24/2015 take 1 tablet (50 mg) by oral route every 6 hours as needed Macrobid 100 mg oral capsule 11/26/2015 12/03/2015 take 1 capsule (100 mg) by oral route every 12 hours with food for 7 days phenazopyridine 200 mg oral tablet 11/26/2015 take 1 tablet (200 mg) by oral route 3 times per day after meals Name Start Date Expiration Date SIG Comments [...] per day with food for 7 days Discontinued Name Start Date Discontinued Date [...] ONE TABLET BY MOUTH IN THE EVENING propranolol 20 mg oral tablet 10/03/2014 10/29/2014 [...] oral route once daily for 4 days Chantix Starting Month Box 0.5 mg (11)- 1 mg (42) oral tablets,dose pack 201509/16/2015 take as directed on box Problem List Description Status Onset Bipolar Disorder Active Hypertension Active Obesity Active Seasonal Allergies Active Arthritis, rheumatoid Active 06/04/2014 Gluten intolerance Active 06/04/2014 Cholelithiasis Active 09/16/2015 Chronic Cholecystitis Active 09/16/2015 Vital Signs Date Time BP-Sys(mm[Hg] BP-Patti(mm[Hg]) HR(bpm) RR(rpm) Temp WT HT HC BMI BSA BMI Percentile O2 Sat(%) 11/26/2015 5:48:00 PM 134 mmHg 76 mmHg 75 bpm 18 rpm 97.1 F 178.312 lbs 99 % 09/26/2015 11:12:00 AM 97 mmHg 57 mmHg 78 bpm 16 rpm 97.3 F 191 lbs 63 in 33.8338 kg/m 1.9624 m 09/16/2015 2:45:00 PM 122 mmHg 71 mmHg 75 bpm 20 rpm 98.2 F 192.5 lbs 63 in 34.10 kg/m2 1.97 m2 09/10/2015 6:23:00 PM 120 mmHg 80 mmHg 70 bpm 98.4 F 191 lbs 64 in 32.7847 kg/m 1.9779 m 98 % 08/06/2015 10:18:00 AM 130 mmHg 80 mmHg 78 bpm 16 rpm 96.7 F 194 lbs 64 in 33.30 kg/m2 1.99 m2 98 % 06/24/2015 8:35:00 AM 120 mmHg 78 mmHg 101 bpm 98.1 F 197.25 lbs 63 in 34.9409 kg/m 1.9942 m 100 % 06/19/2015 10:17:00 AM 116 mmHg 82 mmHg 87 bpm 18 rpm 97.2 F 195 lbs 63 in 34.54 kg/m2 1.98 m2 98 % 10/28/2014 2:04:00 PM 94 mmHg 62 mmHg 71 bpm 20 rpm 98 F 185.8 lbs 63 in 32.9127 kg/m 1.9355 m 97 % 10/23/2014 9:01:00 AM 124 mmHg 64 mmHg 64 bpm 18 rpm 97.9 F 187.562 lbs 63 in 33.22 kg/m2 1.94 m2 95 % 10/03/2014 3:58:00 PM 124 mmHg 78 mmHg 83 bpm 98.9 F 189.125 lbs 63 in 33.5016 kg/m 1.9527 m 100 % 10/02/2014 11:38:00 AM 121 mmHg 72 mmHg 73 bpm 98.3 F 188 lbs 63 in 33.30 kg/m2 1.95 m2 100 % 09/20/2014 11:28:00 AM 110 mmHg 60 mmHg 73 bpm 18 rpm 97 F 190 lbs 63 in 33.6566 kg/m 1.9573 m 07/19/2014 9:14:00 AM 105 mmHg 60 mmHg 61 bpm 16 rpm 96.9 F 186 lbs 63 in 32.95 kg/m2 1.94 m2 98 % 07/03/2014 9:03:00 AM 122 mmHg 75 mmHg 73 bpm 16 rpm 97.3 F 184 lbs 63 in 32.5938 kg/m 1.9261 m 97 % 06/11/2014 10:35:00 AM 110 mmHg 70 mmHg 72 bpm 16 rpm 98.2 F 188 lbs 63 in 33.30 kg/m2 1.95 m2 97 % 06/03/2014 4:08:00 PM 110 mmHg 70 mmHg 85 bpm 16 rpm 98.4 F 187 lbs 63 in 33.1252 kg/m 1.9417 m 100 % 04/29/2014 3:18:00 PM 112 mmHg 78 mmHg 66 bpm 16 rpm 97.8 F 183 lbs 63 in 32.42 kg/m2 1.92 m2 96 % 04/22/2014 4:18:00 PM 138 mmHg 80 mmHg 93 bpm 18 rpm 98.2 F 188.375 lbs 63 in 33.3688 kg/m 1.9489 m 99 % 03/11/2014 4:17:00 PM 125 mmHg 85 mmHg 94 bpm 18 rpm 97.8 F 198.25 lbs 63 in 35.12 kg/m2 2.00 m2 100 % 02/19/2014 8:23:00 AM 122 mmHg 88 mmHg 92 bpm 18 rpm 98 F 196 lbs 63 in 34.7195 kg/m 1.9879 m 98 % 10/01/2013 3:59:00 PM 138 mmHg 88 mmHg 103 bpm 18 rpm 98.5 F 203.25 lbs 63 in 36.00 kg/m2 2.02 m2 97 % 09/13/2013 11:13:00 AM 126 mmHg 64 mmHg 99 bpm 18 rpm 96.5 F 194.5 lbs 63 in 34.4538 kg/m 1.9803 m 99 % 09/10/2013 2:54:00 PM 126 mmHg 66 mmHg 100 bpm 18 rpm 97.6 F 197.25 lbs 63 in 34.94 kg/m2 1.99 m2 98 % 08/16/2013 11:40:00 AM 118 mmHg 82 mmHg 88 bpm 18 rpm 97.5 F 200.5 lbs 63 in 35.5166 kg/m 2.0106 m 96 % 03/27/2013 3:02:00 PM 126 mmHg 72 mmHg 101 bpm 18 rpm 97.6 F 193.125 lbs 63 in 34.21 kg/m2 1.97 m2 96 % 01/23/2013 10:31:00 AM 134 mmHg 72 mmHg 97 bpm 18 rpm 97.6 F 196.5 lbs 63 in 34.8081 kg/m 1.9904 m 99 % 01/19/2013 8:36:00 AM 132 mmHg 70 mmHg 12/29/2012 10:38:00 AM 126 mmHg 68 mmHg 67 bpm 18 rpm 96.8 F 193.25 lbs 63 in 34.2323 kg/m 1.9739 m 12/26/2012 3:25:00 PM 126 mmHg 68 mmHg 66 bpm 18 rpm 97.6 F 192 lbs 63 in 34.01 kg/m2 1.97 m2 12/14/2012 2:27:00 PM 132 mmHg 94 mmHg 104 bpm 97 F 200 lbs 63 in 35.428 kg/m 2.0081 m 11/09/2012 2:01:00 PM 115 mmHg 80 mmHg 88 bpm 97.2 F 210 lbs 63 in 37.20 kg/m2 2.06 m2 10/18/2012 3:38:00 PM 136 mmHg 89 mmHg 88 bpm 98.1 F 203 lbs 63 in 35.9595 kg/m 2.0231 m 09/20/2012 9:32:00 AM 125 mmHg 88 mmHg 93 bpm 97.7 F 204 lbs 63 in 36.14 kg/m2 2.03 m2 07/27/2012 10:18:00 AM 132 mmHg 84 mmHg 104 bpm 20 rpm 97.8 F 194.8 lbs 63 in 34.5069 kg/m 1.9818 m 99 % 06/22/2012 10:44:00 AM 138 mmHg 80 mmHg 85 bpm 190 lbs 63 in 33.66 kg/m2 1.96 m2 05/25/2012 9:34:00 AM 139 mmHg 85 mmHg 102 bpm 188 lbs 63 in 33.3024 kg/m 1.9469 m 04/11/2012 10:15:00 AM 128 mmHg 68 mmHg 64 bpm 18 rpm 98.9 F 181.125 lbs 63 in 32.08 kg/m2 1.91 m2 03/31/2012 9:37:00 AM 136 mmHg 68 mmHg 68 bpm 18 rpm 98 F 184.375 lbs 63 in 32.6602 kg/m 1.9281 m 04/08/2011 11:10:00 AM 122 mmHg 75 mmHg [...] F 173.125 lbs 63 in 30.67 kg/m2 1.87 m2 Social History Name Description Comments Single Alcohol Current some day Rarely Tobacco Current every day smoker 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 History of Procedures Date Ordered Description Order Status 06/19/2015 12:00 AM Decadron, Per 1 Mg [facility]# [address]-29 Reviewed 06/19/2015 12:00 AM Depo-Medrol 40mg Reviewed 06/24/2015 12:00 AM COMPLETE CBC W/AUTO DIFF WBC Returned 06/24/2015 12:00 AM COMPREHEN METABOLIC PANEL Returned 06/24/2015 12:00 AM LIPID PANEL Returned 06/24/2015 12:00 AM GLYCOSYLATED HEMOGLOBIN TEST Returned 06/24/2015 12:00 AM ASSAY OF FERRITIN Returned 08/06/2015 12:00 AM BEHAV CHNG SMOKING 3-10 MIN Reviewed 09/10/2015 12:00 AM Imitrex 6mg [facility] #90905-829-03 Reviewed 11/26/2015 5:56 PM URINALYSIS AUTO W/O SCOPE Reviewed 11/26/2015 12:00 AM URINE CULTURE/COLONY COUNT Returned 05/25/2012 12:00 AM CYTOPATH TBS C/V MANUAL Returned 05/25/2012 12:00 AM SPECIMEN HANDLING OFFICE-LAB Reviewed 05/25/2012 12:00 AM CHYLMD TRACH DNA AMP PROBE Returned 05/25/2012 12:00 AM N.GONORRHOEAE DNA AMP PROB Returned 05/25/2012 12:00 AM ASSAY OF GONADOTROPIN (FSH) Returned 05/25/2012 12:00 AM ASSAY OF PROLACTIN Returned 05/25/2012 12:00 AM ASSAY OF GONADOTROPIN (LH) Returned 05/25/2012 12:00 AM HIV-1ANTIBODY Returned 05/25/2012 12:00 AM HEPATITIS C AB TEST Returned 05/25/2012 12:00 AM SYPHILIS TEST NON-TREP QUAL Returned 05/25/2012 12:00 AM HEPATITIS B SURFACE AG EIA Returned 05/25/2012 12:00 AM HERPES SIMPLEX TYPE 1 TEST Reviewed 06/12/2012 12:00 AM US EXAM PELVIC COMPLETE Returned 06/22/2012 12:00 AM BX/CURETT OF CERVIX W/SCOPE Reviewed 06/22/2012 12:00 AM BIOPSY OF UTERUS LINING Returned 10/18/2012 12:00 AM COMPLETE CBC W/AUTO DIFF WBC Reviewed 10/18/2012 12:00 AM METABOLIC PANEL TOTAL CA Returned 10/18/2012 12:00 AM Type and screen Returned 12/26/2012 12:00 AM THER/PROPH/DIAG INJ SC/IM Reviewed 12/26/2012 12:00 AM Phenergan, Up to 50 Mg [facility]#3364-8464-23 Reviewed 12/26/2012 12:00 AM Toradol 60 Mg [facility]#5113-2116-94 Reviewed 12/29/2012 12:00 AM COMPLETE CBC W/AUTO DIFF WBC Returned 12/29/2012 12:00 AM COMPREHEN METABOLIC PANEL Returned 01/01/2013 12:[address] HEAD/BRAIN W/O & W/DYE Returned 01/23/2013 12:00 AM THER/PROPH/DIAG INJ SC/IM Reviewed 01/23/2013 12:00 AM Decadron, Per 1 Mg [facility]# [address]-96 Reviewed 01/23/2013 12:00 AM Depo-Medrol, Per 80 Mg [facility]#3898-6215-25 Reviewed 08/16/2013 12:00 AM THER/PROPH/DIAG INJ SC/IM Reviewed 08/16/2013 12:00 AM Decadron, Per 1 Mg [facility]# [address]-05 Reviewed 08/16/2013 12:00 AM Depo-Medrol, Per 80 Mg [facility]#4940-2681-87 Reviewed 09/13/2013 12:00 AM COMPLETE CBC W/AUTO DIFF WBC Returned 09/13/2013 12:00 AM COMPREHEN METABOLIC PANEL Returned 09/13/2013 12:00 AM ASSAY THYROID STIM HORMONE Returned 09/13/2013 12:00 AM Antinuclear Antibodies, (JOY), MESFIN, with reflex Returned 09/13/2013 12:00 AM RHEUMATOID FACTOR QUANT Returned 09/13/2013 12:00 AM RBC SED RATE AUTOMATED Returned 09/13/2013 12:00 AM C-REACTIVE PROTEIN Returned 03/02/2010 12:00 AM URINALYSIS AUTO W/O SCOPE Reviewed 02/19/2014 12:00 AM COMPLETE CBC W/AUTO DIFF WBC Returned 02/19/2014 12:00 AM COMPREHEN METABOLIC PANEL Returned 02/19/2014 12:00 AM GLYCOSYLATED HEMOGLOBIN TEST Returned 02/19/2014 12:00 AM RBC SED RATE AUTOMATED Returned 02/19/2014 12:00 AM ACUTE HEPATITIS PANEL Returned 02/19/2014 12:00 AM CHORIONIC GONADOTROPIN ASSAY Returned 02/19/2014 12:00 AM HTLV/HIV CONFIRMJ ANTIBODY Returned 02/19/2014 12:00 AM THROMBOPLASTIN TIME PARTIAL Returned 02/19/2014 12:00 AM PROTHROMBIN TIME Returned 02/19/2014 12:00 AM URINALYSIS Returned 02/19/2014 12:00 AM VITAMIN B-12 Returned 02/19/2014 12:00 AM ASSAY OF IRON Returned 02/19/2014 12:00 AM IRON BINDING TEST Returned 02/19/2014 12:00 AM ASSAY OF AMYLASE Returned 02/19/2014 12:00 AM ASSAY OF LIPASE Returned 02/19/2014 12:00 AM EXTRACTABLE NUCLEAR ANTIGEN ANTIBODY ANY METHOD Returned 02/19/2014 12:00 AM LIPID PANEL Returned 02/19/2014 12:00 AM IMMUNOASSAY NONANTIBODY Returned 02/19/2014 12:00 AM CCP ANTIBODY Returned 02/19/2014 12:00 AM HETEROPHILE ANTIBODY SCREEN Returned 02/19/2014 12:00 AM US EXAM ABDOM COMPLETE Returned 02/19/2014 12:00 AM ECHO EXAM OF ABDOMEN Returned 03/11/2014 12:00 AM HEPATIC FUNCTION PANEL Returned 07/23/2010 12:00 AM COMPREHEN METABOLIC PANEL Reviewed 06/03/2014 12:00 AM COMPLETE CBC W/AUTO DIFF WBC Returned 06/03/2014 12:00 AM COMPREHEN METABOLIC PANEL Returned 10/02/2014 12:00 AM MAMMOGRAM SCREENING Returned Results Summary Data and Description Results 05/25/2012 11:30 AM HIV AG/AB COMBO 0.23 HEPATITIS C 0.09 FSH 3.60 mIU/mLLH 9.20 mIU/mL 10/18/2012 5:35 PM WBC 6.8 RBC 4.46 HGB 14.10 g/dLHCT 42.0 %MCV 94.0 fLMCH 31.60 pgMCHC 33.60 g/dLRDW CV 13.70 %MPV 10.10 fLPLT 255 ABO/Rh Type O Positive 10/24/2012 8:20 AM TEST UR NEGATIVE 10/25/2012 7:10 AM WBC 9.4 RBC 3.73 HGB 11.70 g/dLHCT 35.70 %MCV 96.0 fLMCH 31.40 pgMCHC 32.80 g/dLRDW CV 13.80 %MPV 9.90 fLPLT 231 GLUCOSE 105.0 mg/ dLSODIUM 140.0 mmol/LPOTASSIUM 3.70 mmol/LCHLORIDE 112.0 mmol/LCO2 20.0 mmol/ LBUN 9.0 mg/dLCREATININE 0.80 mg/dLCALCIUM 8.80 mg/dLeGFR 60 12/29/2012 11:26 AM GLUCOSE 104.0 mg/dLSODIUM 141.0 mmol/LPOTASSIUM 3.10 mmol/ LCHLORIDE 102.0 mmol/LCO2 27.0 mmol/LBUN 14.0 mg/dLCREATININE 1.0 mg/dLSGOT/AST 24.0 IU/LSGPT/ALT 34.0 IU/LALK PHOS 58.0 IU/LTOTAL PROTEIN 7.50 g/dLALBUMIN 4.40 g/dLTOTAL BILI 0.40 mg/dLCALCIUM 10.20 mg/dLeGFR 60 WBC 5.3 RBC 4.72 HGB 14.70 g/dLHCT 42.60 %MCV 90.0 fLMCH 31.10 pgMCHC 34.50 g/dLRDW CV 12.70 %MPV 10.80 fLPLT 284 %NEUT 38.30 %%LYMP 46.50 %%MONO 6.50 %%EOS 7.80 %%BASO 0.90 %# NEUT 2.02 #LYMP 2.45 #MONO 0.34 #EOS 0.41 #BASO 0.05 09/13/2013 12:24 PM TSH 1.470 uIU/mLWBC 9.2 RBC 4.77 HGB 14.80 g/dLHCT 43.30 % MCV 91.0 fLMCH 31.0 pgMCHC 34.20 g/dLRDW CV 13.80 %MPV 10.0 fLPLT 323 %NEUT 63.10 %%LYMP 29.80 %%MONO 6.90 %%EOS 0.0 %%BASO 0.20 %#NEUT 5.83 #LYMP 2.75 # MONO 0.64 #EOS 0.00 #BASO 0.02 SEDRATE 29.0 mm/hrRA Factor <15.0 IU/mLGLUCOSE 95.0 mg/dLSODIUM 138.0 mmol/LPOTASSIUM 3.40 mmol/LCHLORIDE 103.0 mmol/LCO2 23.0 mmol/LBUN 20.0 mg/dLCREATININE 0.90 mg/dLSGOT/AST 29.0 IU/LSGPT/ALT 58.0 IU/ LALK PHOS 90.0 IU/LTOTAL PROTEIN 8.20 g/dLALBUMIN 4.70 g/dLTOTAL BILI 1.0 mg/ dLCALCIUM 10.20 mg/dLeGFR 60 C REACTIVE PROTEIN <0.5 MG/DLANA Direct Negative 02/19/2014 4:25 PM WBC 7.7 RBC 4.24 HGB 13.60 g/dLHCT 39.90 %MCV 94.0 fLMCH 32.10 pgMCHC 34.10 g/dLRDW CV 13.60 %MPV 10.30 fLPLT 284 %NEUT 56.10 %%LYMP 37.10 %%MONO 3.30 %%EOS 2.70 %%BASO 0.80 %#NEUT 4.32 #LYMP 2.85 #MONO 0.25 #EOS 0.21 #BASO 0.06 MONO TEST NEGATIVE GLUCOSE 86.0 mg/dLSODIUM 139.0 mmol/ LPOTASSIUM 3.40 mmol/LCHLORIDE 103.0 mmol/LCO2 21.0 mmol/LBUN 10.0 mg/ dLCREATININE 0.80 mg/dLSGOT/AST 47.0 IU/LSGPT/ALT 74.0 IU/LALK PHOS 78.0 IU/ LTOTAL PROTEIN 7.60 g/dLALBUMIN 4.40 g/dLTOTAL BILI 0.40 mg/dLCALCIUM 9.60 mg/ dLeGFR 60 CPK 43 IU/LTRIGLYCERIDES 273.0 mg/dLCHOLESTEROL 203.0 mg/dLHDL 47.0 mg /dLLDL (CALC) 101.0 mg/dLAMYLASE 59 IU/LLIPASE 27.0 U/MIKAELA TOTAL 72.0 ug/ dLTransferrin 256.0 mg/dLSEDRATE 17.0 mm/hrPROTIME 10.10 secsINR 1.0 PTT 25.10 secsHGB A1C 5.60 %Est Avg Glucose 114.0 mg/dLVITAMIN B12 389.0 pg/mLHIV AG/AB COMBO 0.08 Antiscleroderma-70Antibodies <0.2 AIHep A Ab, IgM Negative HBsAg Screen Negative Hep B Core Ab, IgM Negative Hep C Virus Ab <0.1 t- Transglutaminase (tTG)IgG 6.0 U/mLCCP Antibodies IgG/IgA 21 Units 02/19/2014 4:40 PM COLOR YELLOW APPEARANCE CLEAR SPEC GRAV <=1.005 pH 6.0 PROTEIN NEGATIVE GLUCOSE NEGATIVE KETONE NEGATIVE BILIRUBIN NEGATIVE BLOOD NEGATIVE NITRITE NEGATIVE LEUK SCREEN NEGATIVE CASTS/LPF NEGATIVE CRYSTALS NEGATIVE MUCOUS THRDS NEGATIVE BACTERIA NEGATIVE EPITH CELLS FEW SQUAMOUS TRICHOMONAS NEGATIVE YEAST NEGATIVE 06/04/2014 4:25 PM WBC 6.5 RBC 4.08 HGB 13.20 g/dLHCT 38.80 %MCV 95.0 fLMCH 32.40 pgMCHC 34.0 g/dLRDW CV 13.10 %MPV 10.60 fLPLT 318 %NEUT 59.30 %%LYMP 31.90 %%MONO 5.10 %%EOS 3.10 %%BASO 0.60 %#NEUT 3.88 #LYMP 2.08 #MONO 0.33 #EOS 0.20 #BASO 0.04 GLUCOSE 82.0 mg/dLSODIUM 134.0 mmol/LPOTASSIUM 3.60 mmol/ LCHLORIDE 100.0 mmol/LCO2 24.0 mmol/LBUN 14.0 mg/dLCREATININE 0.90 mg/dLSGOT/ AST 23.0 IU/LSGPT/ALT 22.0 IU/LALK PHOS 81.0 IU/LTOTAL PROTEIN 7.80 g/dLALBUMIN 4.80 g/dLTOTAL BILI 0.60 mg/dLCALCIUM 9.80 mg/dLeGFR >60 mL/min/1.73 m2 09/14/2014 6:15 AM WBC 6.8 RBC 3.40 HGB 10.90 g/dLHCT 33.60 %MCV 99.0 fLMCH 32.10 pgMCHC 32.40 g/dLRDW CV 13.70 %MPV 10.20 fLPLT 239 %NEUT 54.80 %%LYMP 32.40 %%MONO 6.80 %%EOS 5.60 %%BASO 0.40 %#NEUT 3.71 #LYMP 2.20 #MONO 0.46 #EOS 0.38 #BASO 0.03 GLUCOSE 94.0 mg/dLSODIUM 141.0 mmol/LPOTASSIUM 4.10 mmol/ LCHLORIDE 109.0 mmol/LCO2 25.0 mmol/LBUN 6.0 mg/dLCREATININE 0.70 mg/dLSGOT/AST 14.0 IU/LSGPT/ALT 14.0 IU/LALK PHOS 62.0 IU/LTOTAL PROTEIN 5.60 g/dLALBUMIN 3.50 g/dLTOTAL BILI 0.60 mg/dLCALCIUM 8.70 mg/dLeGFR >60 mL/min/1.73 m2 06/24/2015 9:22 AM WBC 7.9 RBC 4.10 HGB 14.10 g/dLHCT 42.30 %MCV 103.0 fLMCH 34.40 pgMCHC 33.30 g/dLRDW CV 14.30 %MPV 10.10 fLPLT 335 %NEUT 58.20 %%LYMP 28.10 %%MONO 8.10 %%EOS 5.0 %%BASO 0.60 %#NEUT 4.62 #LYMP 2.23 #MONO 0.64 #EOS 0.40 #BASO 0.05 IRON TOTAL 78.0 ug/dLTransferrin 311.0 mg/dLTRIGLYCERIDES 93.0 mg/dLCHOLESTEROL 148.0 mg/dLHDL 44.0 mg/dLLDL (CALC) 85.0 mg/dLGLUCOSE 72.0 mg/ dLSODIUM 138.0 mmol/LPOTASSIUM 3.90 mmol/LCHLORIDE 105.0 mmol/LCO2 21.0 mmol/ LBUN 13.0 mg/dLCREATININE 0.90 mg/dLSGOT/AST 16.0 IU/LSGPT/ALT 18.0 IU/LALK PHOS 107.0 IU/LTOTAL PROTEIN 7.20 g/dLALBUMIN 4.30 g/dLTOTAL BILI 0.40 mg/ dLCALCIUM 9.70 mg/dLeGFR >60 mL/min/1.73mFERRITIN 200.0 ng/mLHemoglobin A1c 5.60 % 11/26/2015 5:56 PM Clarity Ur cloudy Color Ur dk red Glucose Ur-sCnc neg Bilirub Ur Ql Strip neg Ketones Ur Ql Strip neg Sp Gr Ur Qn >=1.030 Hgb Ur Ql Strip Large pH Ur-LsCnc 5.5 Prot Ur Ql Strip >=300 mg/dL Urobilinogen Ur-mCnc neg Nitrite Ur Ql Strip Large History Of Immunizations Not available. History of [...] Jul 23 2010 4:15PM Cholelithiasis 09/16/2015 Chronic Cholecystitis 09/16/2015 Rhinitis, Allergic Apr 08 2011 11:06AM [...] 3:20PM Arthritis, rheumatoid Jun 03 2014 4:12PM senior care use of drug Jun 03 2014 4:12PM [...] 24 2015 8:39AM Elevated fasting blood sugar Jun 24 2015 8:39AM Smoking addiction Aug 06 2015 10:19AM Migraine headache without aura Sep 10 2015 6:26PM Cholelithiasis Sep 16 2015 2:54PM Chronic Cholecystitis Sep 16 2015 2:54PM Acute cystitis with hematuria Nov 26 2015 5:50PM Payers Insurance Name Company Name Plan Name Plan Number Policy Number Policy Group Number [facility] RHC Comm [id number] N/A [facility] Plan [facility] Comm Plan of [id number] N/A [employer] [facility] [id number] Tuesday, 2010 History of Encounters Visit Date Visit Type Provider 11/26/2015 Office visit Vijay Rees INVESTIGATOR NARCOTICS 09/26/2015 Surgery Noe Bouman DO 09/18/2015 Hospital Noe Bouman DO 09/16/2015 Office visit Noe Bouman DO 09/10/2015 Office visit Yi Staples MD 08/06/2015 Office visit Teresita Laureano INVESTIGATOR NARCOTICS 06/24/2015 Office visit Kaity Aguilar MD 06/19/2015 Office visit Erica Carver INVESTIGATOR NARCOTICS 10/28/2014 Office visit Yris Lara INVESTIGATOR NARCOTICS 10/23/2014 Office visit Erica Carver INVESTIGATOR NARCOTICS 10/03/2014 Office visit Kaity Aguilar MD 10/02/2014 Office visit Niyah Jensen INVESTIGATOR NARCOTICS 09/20/2014 Office visit Noe Bouman DO 09/14/2014 Hospital Noe Bouman DO 09/13/2014 Hospital Noe Bouman DO 09/12/2014 Hospital Noe Bouman DO 07/19/2014 Office visit Vijay Rees INVESTIGATOR NARCOTICS 07/03/2014 Office visit Vijay Rees INVESTIGATOR NARCOTICS 06/11/2014 Office visit Vijay Rees INVESTIGATOR NARCOTICS 06/03/2014 Office visit Kaity Aguilar MD 04/29/2014 Office visit Vijay Rees INVESTIGATOR NARCOTICS 04/22/2014 Office visit Kaity Aguilar MD 03/11/2014 Office visit Kaity Aguilar MD 02/19/2014 Office visit Kaity Aguilar MD 10/01/2013 Office visit Erica Carver INVESTIGATOR NARCOTICS 09/13/2013 Office visit Erica Carver INVESTIGATOR NARCOTICS 09/10/2013 Office visit Erica Carver INVESTIGATOR NARCOTICS 08/16/2013 Office visit Erica Carver INVESTIGATOR NARCOTICS 03/27/2013 Office visit Erica Carver INVESTIGATOR NARCOTICS 01/23/2013 Office visit Erica Carver INVESTIGATOR NARCOTICS 01/19/2013 Voided Erica Carver INVESTIGATOR NARCOTICS 12/29/2012 Office visit Erica Carver INVESTIGATOR NARCOTICS 12/26/2012 Office visit Erica Carver INVESTIGATOR NARCOTICS 12/14/2012 Surgery Tong Whatley MD 12/07/2012 Voided Tong Whatley MD 11/09/2012 Surgery Tong Whatley MD 10/24/2012 [facility] Eliceo Barros MD 10/24/2012 [facility] Tong Whatley MD 10/18/2012 Surgery Tong Whatley MD 09/20/2012 Office visit Tong Whatley MD 07/27/2012 Office visit Yris Lara INVESTIGATOR NARCOTICS 06/22/2012 Procedures Tong Whatley MD 05/25/2012 Office visit Tong Whatley MD 04/11/2012 Office visit Erica Carver INVESTIGATOR NARCOTICS 03/31/2012 Office visit Erica Carver INVESTIGATOR NARCOTICS 04/08/2011 Office visit Eugenio Enamorado MD 07/23/2010 Office visit Elsa FIGUEROA 04/15/2010 Office visit Elsa FIGUEROA 03/25/2010 Office visit Elsa FIGUEROA 03/02/2010 Office visit Elsa FIGUEROA
[2017-11-25] MEDS ORDERED: NS (IVPB) 100 ML ONE (07:22)
--- OUTSIDE RECORDS SUMMARY | 2017-11-25 07:23 | XMS REPORT ---
Author Fidel Hancock [facility] Address [address] [place], [place] [id number] Care Team Providers Care Nutrition Aide Name Role Phone Fidel Valencia PCP Kaity Aguilar PreferredProvider Allergies and Adverse Reactions Name Reaction Notes PENICILLINS told as a child glutens Bee Stings whole body swelling Xifaxan jerrod aggitation Plan of Treatment Planned Activity Comments Planned [...] 01/27/2017 12:00 AM BMP 01/30/2017 12:00 AM Hand Min 3Views - MOB 02/14/2017 12:00 AM Thyroid stimulating hormone (TSH) measurement 08/02/2017 12:00 AM VITAMIN B12 09/29/2017 12:00 AM Medications Active Name Start Date [...] by oral route 2 times per day lithium carbonate 450 mg oral tablet extended release take 1 tablet ( 450 mg) by oral route 2 times per day ProAir HFA 90 mcg/actuation inhalation HFA aerosol inhaler 08/17/2017 inhale 1 puff (90 mcg) by inhalation route every 4-6 hours as needed Flonase Allergy Relief 50 mcg/actuation nasal spray,suspension 08/17/2017 spray 1 - 2 sprays (50 - 100 mcg) in each nostril by intranasal route once daily Pristiq 100 mg oral tablet extended release 24 hr take 1 tablet (100 mg ) by oral route once daily Suprep Bowel Prep Kit 17.5-3.13-1.6 gram oral recon soln 08/23/2017 take as directed Zofran ODT 4 mg oral tablet,disintegrating 10/05/2017 dissolve 2 tablets by oral route daily sulfasalazine 500 mg oral tablet 10/25/2017 04/23/2018 take 1 tablet (500 mg) by oral route BID for two weeks then increase to 2 tabs two times per day after meals Viberzi 100 mg oral tablet 10/26/2017 01/24/2018 take 1 tablet (100 mg) by oral route 2 times per day for 30 days dicyclomine 20 mg oral tablet 10/26/2017 01/24/2018 take 1 tablet (20 mg) by oral route 4 times per day for 30 days Name Start Date Expiration Date SIG Comments [...] 6 hours as needed for 30 days Pristiq oral hydroxyzine HCl 25 mg oral tablet 12/14/2016 [...] 2 times a day for 10 days Tessalon Perles 100 mg oral capsule 01/30/2017 02/06/2017 take 1 capsule (100 mg) by oral route 3 times per day for 7 days montelukast 10 mg oral tablet 07/21/2017 07/21/2017 TAKE ONE TABLET BY MOUTH ONCE DAILY IN THE EVENING Discontinued Name Start Date Discontinued Date SIG [...] oral route once daily for 90 days Latuda 40 mg oral tablet 07/26/2016 take [...] to 3.0mg. Pen Needle 32 gauge x 32" miscellaneous needle 01/12/2016 03/01/2016 use as directed [...] daily at the same time each day Latuda 40 mg oral tablet 07/06/2017 take 1 tablet (40 mg) by oral route once daily with food (at least 350 calories) Ativan 1 mg oral tablet 07/06/2017 take 1 tablet (1 mg) by oral route 2 times per day as needed Singulair 10 mg oral tablet 01/19/2017 08/07/2017 take 1 tablet (10 mg) by oral route once daily in the evening for 30 days Duplication Flovent HFA 110 mcg/actuation inhalation HFA aerosol inhaler 01/25/20172016 inhale 1 puff (110 mcg) by inhalation route 2 times per day prednisone 20 mg oral tablet 01/27/2017 02/14/2017 take 2 tablets by mouth daily x2 days then 1 tablet daily x4 days ProAir HFA 90 mcg/actuation inhalation HFA aerosol inhaler 01/27/20172016 inhale 1 puff (90 mcg) by inhalation route every 4-6 hours as needed promethazine-codeine 6.25-10 mg/5 mL oral syrup 01/31/2017 02/14/2017 take 5 milliliters by oral route every 4-6 hours as needed, not to exceed 30 mL in 24 hours doxycycline monohydrate 100 mg oral tablet 02/04/2017 07/06/2017 take 1 tablet (100 mg) by oral route every 12 hours for 7 days indomethacin 50 mg oral capsule 02/14/2017 09/02/2017 take 1 capsule by oral route BID PRN with food Minipress 2 mg oral capsule 08/17/2017 take 1 capsule (2 mg) by oral route before bed Cipro 500 mg oral tablet 07/14/2017 08/02/2017 take 1 tablet (500 mg) by oral route every 12 hours for 7 days azithromycin 250 mg oral tablet 08/07/2017 08/17/2017 take 2 tablets (500 mg) by oral route once daily for 1 day then 1 tablet (250 mg) by oral route once daily for 4 days Tessalon Perles 100 mg oral capsule 08/07/2017 08/17/2017 take 1 capsule (100 mg) by oral route 3 times per day as needed for cough promethazine-codeine 6.25-10 mg/5 mL oral syrup 08/09/2017 08/17/2017 take 5 milliliters by oral route every 6 hours as needed, not to exceed 30 mL in 24 hours hyoscyamine sulfate 0.125 mg oral tablet 10/20/2017 take 1 tablet (0.125 mg ) by oral route 4 times per day PRN Prilosec 40 mg oral 10/20/2017 take one tablet PO QD Problem List Description Status Onset Bipolar Disorder Active Hypertension Active Obesity Active Seasonal Allergies Active Arthritis, rheumatoid Active 06/04/2014 Gluten intolerance Active 06/04/2014 Cholelithiasis Active 09/16/2015 Chronic cholecystitis Active 09/16/2015 Nausea Active 08/24/2017 Change in bowel habit Active 08/24/2017 Diarrhea Active 08/24/2017 Epigastric pain Active 08/24/2017 Right lower quadrant abdominal pain Active 08/24/2017 Vital Signs Date Time BP-Sys(mm[Hg] BP-Patti(mm[Hg]) HR(bpm) RR(rpm) Temp WT HT HC BMI BSA BMI Percentile O2 Sat(%) 10/26/2017 3:22:00 PM 130 mmHg 96 mmHg 109 bpm 20 rpm 98.1 F 193 lbs 63 in 34.1881 kg/m 1.9726 m 97 % 10/24/2017 6:04:00 PM 77 bpm 18 rpm 96.6 F 193.125 lbs 63 in 34.21 kg/m2 1.97 m2 96 % 10/20/2017 2:33:00 PM 129 mmHg 79 mmHg 102 bpm 18 rpm 98.1 F 197 lbs 63 in 34.8966 kg/m 1.993 m 98 % 10/12/2017 2:36:00 PM 135 mmHg 82 mmHg 92 bpm 98.1 F 196 lbs 63 in 34.72 kg/m2 1.99 m2 09/21/2017 3:29:00 PM 126 mmHg 68 mmHg 108 bpm 20 rpm 98.4 F 194.375 lbs 63 in 34.4316 kg/m 1.9797 m 97 % 09/02/2017 10:58:00 AM 118 mmHg 80 mmHg 101 bpm 18 rpm 98.2 F 192.375 lbs 63 in 34.08 kg/m2 1.97 m2 98 % 08/23/2017 3:54:00 PM 114 mmHg 75 mmHg 87 bpm 20 rpm 97 F 197 lbs 63 in 34.8966 kg/m 1.993 m 08/23/2017 10:26:00 AM 133 mmHg 80 mmHg 81 bpm 97.5 F 198 lbs 63 in 35.07 kg/m2 2.00 m2 08/17/2017 2:04:00 PM 118 mmHg 76 mmHg 101 bpm 18 rpm 96.3 F 197.25 lbs 63 in 34.9409 kg/m 1.9942 m 98 % 08/09/2017 9:07:00 AM 126 mmHg 84 mmHg 80 bpm 96.3 F 198 lbs 63 in 35.07 kg/m2 2.00 m2 08/07/2017 3:16:00 PM 122 mmHg 88 mmHg 90 bpm 18 rpm 97.5 F 196 lbs 63 in 34.7195 kg/m 1.9879 m 97 % 08/02/2017 2:36:00 PM 112 mmHg 86 mmHg 109 bpm 16 rpm 97.9 F 196.5 lbs 63 in 34.81 kg/m2 1.99 m2 96 % 07/14/2017 3:54:00 PM 128 mmHg 78 mmHg 88 bpm 99 F 201 lbs 63 in 35.6052 kg/m 2.0131 m 07/06/2017 1:35:00 PM 120 mmHg 82 mmHg 102 bpm 18 rpm 99.9 F 198.125 lbs 63 in 35.10 kg/m2 2.00 m2 95 % 02/14/2017 1:36:00 PM 122 mmHg 74 mmHg 82 bpm 16 rpm 97.3 F 170 lbs 63 in 30.1138 kg/m 1.8514 m 98 % 02/04/2017 8:28:00 AM 114 mmHg 66 mmHg 101 bpm 16 rpm 97.8 F 167 lbs 63 in 29.58 kg/m2 1.83 m2 98 % 01/31/2017 10:47:00 AM 117 mmHg 73 mmHg 89 bpm 18 rpm 98.9 F 169.125 lbs 63 in 29.9588 kg/m 1.8466 m 98 % 01/30/2017 1:06:00 PM 110 mmHg 88 mmHg 85 bpm 18 rpm 98 F 168.5 lbs 63 in 29.85 kg/m2 1.84 m2 99 % 01/27/2017 9:55:00 AM 120 mmHg 74 mmHg 98 bpm 18 rpm 97.5 F 165 lbs 63 in 29.2281 kg/m 1.8239 m 97 % 01/25/2017 9:59:00 AM 132 mmHg 72 mmHg 99 bpm 18 rpm 97.7 F 164.125 lbs 63 in 29.07 kg/m2 1.82 m2 98 % 01/19/2017 8:27:00 AM 136 mmHg 76 mmHg 79 bpm 18 rpm 97.4 F 167.5 lbs 63 in 29.671 kg/m 1.8377 m 99 % 01/18/2017 5:11:00 PM 125 mmHg 83 mmHg 85 bpm 18 rpm 98.3 F 164.375 lbs 63 in 29.12 kg/m2 1.82 m2 99 % 01/10/2017 1:30:00 PM 121 mmHg 69 mmHg 92 bpm 99.2 F 165 lbs 63 in 29.2281 kg/m 1.8239 m 12/30/2016 6:50:00 PM 110 mmHg 78 mmHg 90 bpm 20 rpm 97.9 F 160 lbs 63 in 28.34 kg/m2 1.80 m2 99 % 12/14/2016 2:45:00 PM 120 mmHg 88 mmHg 94 bpm 16 rpm 97.7 F 159.5 lbs 63 in 28.2539 kg/m 1.7933 m 99 % 10/11/2016 7:49:00 PM 124 mmHg 66 mmHg 84 bpm 18 rpm 96.9 F 154 lbs 63 in 27.28 kg/m2 1.76 m2 99 % 09/24/2016 9:00:00 AM 124 mmHg 94 mmHg 85 bpm 16 rpm 98.5 F 162.375 lbs 63 in 28.7631 kg/m 1.8094 m 98 % 08/16/2016 5:10:00 PM 130 mmHg 70 mmHg 93 bpm 18 rpm 97.5 F 167 lbs 63 in 29.58 kg/m2 1.83 m2 97 % 07/26/2016 9:42:00 AM 124 mmHg 72 mmHg 93 bpm 18 rpm 97.2 F 166.375 lbs 63 in 29.4717 kg/m 1.8315 m 99 % 05/26/2016 5:15:00 PM 124 mmHg 62 mmHg 99 bpm 18 rpm 97.5 F 169.125 lbs 63 in 29.96 kg/m2 1.85 m2 99 % 05/06/2016 2:03:00 PM 108 mmHg 72 mmHg 84 bpm 16 rpm 99.6 F 174 lbs 63 in 30.8224 kg/m 1.873 m 97 % 04/02/2016 6:37:00 PM 122 mmHg 88 mmHg 82 bpm 98.3 F 176 lbs 63 in 31.18 kg/m2 1.88 m2 100 % 03/23/2016 8:44:00 AM 98 mmHg 70 mmHg 75 bpm 16 rpm 98.7 F 173 lbs 63 in 30.6453 kg/m 1.8676 m 98 % 03/01/2016 6:45:00 PM 122 mmHg 62 mmHg 80 bpm 18 rpm 98.3 F 175.375 lbs 63 in 31.07 kg/m2 1.88 m2 99 % 01/12/2016 8:41:00 AM 118 mmHg 70 mmHg 77 bpm 18 rpm 97.9 F 185 lbs 63 in 32.7709 kg/m 1.9313 m 98 % 11/26/2015 5:48:00 PM 134 mmHg [...] rpm 98.2 F 188.375 lbs 63 in 33.37 kg/m2 1.95 m2 99 % 03/11/2014 4:17:00 PM 125 mmHg 85 mmHg 94 bpm 18 rpm 97.8 F 198.25 lbs 63 in 35.1181 kg/m 1.9993 m 100 % 02/19/2014 8:23:00 AM 122 mmHg 88 mmHg 92 bpm 18 rpm 98 F 196 lbs 63 in 34.72 kg/m2 1.99 m2 98 % 10/01/2013 3:59:00 PM 138 mmHg 88 mmHg 103 bpm 18 rpm 98.5 F 203.25 lbs 63 in 36.0038 kg/m 2.0243 m 97 % 09/13/2013 11:13:00 AM 126 mmHg 64 mmHg 99 bpm 18 rpm 96.5 F 194.5 lbs 63 in 34.45 kg/m2 1.98 m2 99 % 09/10/2013 2:54:00 PM 126 mmHg 66 mmHg 100 bpm 18 rpm 97.6 F 197.25 lbs 63 in 34.9409 kg/m 1.9942 m 98 % 08/16/2013 11:40:00 AM 118 mmHg 82 mmHg 88 bpm 18 rpm 97.5 F 200.5 lbs 63 in 35.52 kg/m2 2.01 m2 96 % 03/27/2013 3:02:00 PM 126 mmHg 72 mmHg 101 bpm 18 rpm 97.6 F 193.125 lbs 63 in 34.2102 kg/m 1.9733 m 96 % 01/23/2013 10:31:00 AM 134 mmHg 72 mmHg 97 bpm 18 rpm 97.6 F 196.5 lbs 63 in 34.81 kg/m2 1.99 m2 99 % 01/19/2013 8:36:00 AM 132 mmHg 70 mmHg 12/29/2012 10:38:00 AM 126 mmHg 68 mmHg 67 bpm 18 rpm 96.8 F 193.25 lbs 63 in 34.23 kg/m2 1.97 m2 12/26/2012 3:25:00 PM 126 mmHg 68 mmHg 66 bpm 18 rpm 97.6 F 192 lbs 63 in 34.0109 kg/m 1.9675 m 12/14/2012 2:27:00 PM 132 mmHg 94 mmHg 104 bpm 97 F 200 lbs 63 in 35.43 kg/m2 2.01 m2 11/09/2012 2:01:00 PM 115 mmHg 80 mmHg 88 bpm 97.2 F 210 lbs 63 in 37.1994 kg/m 2.0577 m 10/18/2012 3:38:00 PM 136 mmHg 89 mmHg 88 bpm 98.1 F 203 lbs 63 in 35.96 kg/m2 2.02 m2 09/20/2012 9:32:00 AM 125 mmHg 88 mmHg 93 bpm 97.7 F 204 lbs 63 in 36.1366 kg/m 2.0281 m 07/27/2012 10:18:00 AM 132 mmHg 84 mmHg 104 bpm 20 rpm 97.8 F 194.8 lbs 63 in 34.51 kg/m2 1.98 m2 99 % 06/22/2012 10:44:00 AM 138 mmHg 80 mmHg 85 bpm 190 lbs 63 in 33.6566 kg/m 1.9573 m 05/25/2012 9:34:00 AM 139 mmHg 85 mmHg 102 bpm 188 lbs 63 in 33.30 kg/m2 1.95 m2 04/11/2012 10:15:00 AM 128 mmHg 68 mmHg 64 bpm 18 rpm 98.9 F 181.125 lbs 63 in 32.0845 kg/m 1.911 m 03/31/2012 9:37:00 AM 136 mmHg 68 mmHg 68 bpm 18 rpm 98 F 184.375 lbs 63 in 32.66 kg/m2 1.93 m2 04/08/2011 11:10:00 AM 122 mmHg [...] rpm 98.7 F 173.125 lbs 63 in 30.6674 kg/m 1.8683 m Social History Name Description Comments Single Alcohol Never 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 History of Procedures Date Ordered Description Order Status 06/19/2015 12:00 AM Decadron, Per 1 Mg [facility]# [address]-93 Reviewed 06/19/2015 12:00 AM Depo-Medrol 40mg Reviewed 06/24/2015 12:00 AM COMPLETE CBC W/AUTO DIFF WBC Reviewed 06/24/2015 12:00 AM COMPREHEN METABOLIC PANEL Reviewed 06/24/2015 12:00 AM LIPID PANEL Reviewed 06/24/2015 12:00 AM GLYCOSYLATED HEMOGLOBIN TEST Reviewed 06/24/2015 12:00 AM ASSAY OF FERRITIN Reviewed 08/06/2015 12:00 AM BEHAV CHNG SMOKING 3-10 MIN Reviewed 09/10/2015 12:00 AM Imitrex 6mg [facility] #79763-546-37 Reviewed 11/26/2015 5:56 PM URINALYSIS AUTO W/O [...] 7:00 PM URINALYSIS AUTO W/O SCOPE Reviewed 01/18/2017 12:00 AM THER/PROPH/DIAG INJ SC/IM Reviewed 01/18/2017 12:00 AM Toradol 60 Mg Injection Reviewed 01/18/2017 12:00 AM Benadryl 50mg Injection Reviewed 01/19/2017 12:00 AM Decadron, Per 1 Mg [facility]# [address]-44 Reviewed 01/19/2017 12:00 AM Depo-Medrol 40mg Injection Reviewed 02/04/2017 12:00 AM Toradol 60 Mg Injection Reviewed 01/30/2017 12:00 AM BL SMEAR W/DIFF WBC COUNT Returned 01/30/2017 12:00 AM CHEST X-RAY 2VW FRONTAL&LATL Returned 12/30/2016 12:00 AM URINE CULTURE/COLONY COUNT Reviewed 12/30/2016 12:00 AM US EXAM PELVIC COMPLETE Reviewed 05/25/2012 12:00 AM CYTOPATH TBS C/V MANUAL [...] 12:00 AM US EXAM PELVIC COMPLETE Reviewed 07/07/2017 12:00 AM US EXAM PELVIC COMPLETE Reviewed 07/07/2017 12:00 AM TRANSVAGINAL US NON-OB Reviewed 06/22/2012 12:00 AM BX/CURETT OF CERVIX W/SCOPE Reviewed 06/22/2012 12:00 AM BIOPSY OF UTERUS LINING Reviewed 08/02/2017 12:00 AM COMPLETE CBC W/AUTO DIFF WBC Returned 08/02/2017 12:00 AM COMPREHEN METABOLIC PANEL Returned 08/02/2017 12:00 AM LIPID PANEL Returned 08/02/2017 12:[address] ABD & PELV W/CONTRAST Returned 08/02/2017 12:00 AM FECES CULTURE AEROBIC BACT Returned 08/09/2017 12:00 AM IMMUNOASSAY TUMOR CA 125 Reviewed 08/17/2017 12:00 AM Consult/Referral Reviewed 09/02/2017 12:00 AM CHEST X-RAY 2VW FRONTAL&LATL Returned 09/02/2017 12:00 AM PULMONARY COMPLIANCE STUDY Returned 09/05/2017 12:00 AM Consult/Referral Reviewed 09/05/2017 12:00 AM Consult/Referral Reviewed 08/07/2017 12:00 AM THER/PROPH/DIAG INJ SC/IM Reviewed 08/07/2017 12:00 AM Decadron 4mg Injection Reviewed 08/07/2017 12:00 AM Depo-Medrol 40mg Injection Reviewed 10/04/2017 12:00 AM US EXAM PELVIC COMPLETE Reviewed 10/04/2017 12:00 AM TRANSVAGINAL US NON-OB Reviewed 09/21/2017 12:00 AM IMMUNOASSAY QUANT NOS NONAB Reviewed 09/21/2017 12:00 AM [facility] Crohn's Prognostic test Reviewed 09/21/2017 12:00 AM [facility] Crohn's Prognostic test Reviewed 09/21/2017 12:00 AM [facility] Crohn's Prognostic test Reviewed 09/21/2017 12:00 AM IMMUNOFLUORESCENT STUDY Reviewed 09/29/2017 12:00 AM THERAPEUTIC PROPHYLACTIC/DX INJECTION SUBQ/IM Reviewed 10/03/2017 12:00 AM Consult/Referral Reviewed 10/12/2017 12:00 AM URINALYSIS AUTO W/SCOPE Reviewed 10/24/2017 12:00 AM Toradol 30 Mg Injection Reviewed 10/24/2017 12:00 AM Phenergan 25mg Injection Reviewed 10/18/2012 12:00 AM COMPLETE CBC W/AUTO DIFF WBC Reviewed 10/18/2012 12:00 AM METABOLIC PANEL TOTAL CA Reviewed 10/18/2012 12:00 AM Type and screen Reviewed 12/26/2012 12:00 AM THER/PROPH/DIAG INJ SC/IM Reviewed 12/26/2012 12:00 AM Phenergan, Up to 50 Mg [facility]#9347-1053-00 Reviewed 12/26/2012 12:00 AM Toradol 60 Mg [facility]#9869-5842-12 Reviewed 12/29/2012 12:00 AM COMPLETE CBC W/AUTO DIFF WBC Reviewed 12/29/2012 12:00 AM COMPREHEN METABOLIC PANEL Reviewed 01/01/2013 12:[address] HEAD/BRAIN W/O & W/DYE Reviewed 01/19/2013 12:00 AM Blood Pressure Check-no charge Reviewed 01/23/2013 12:00 AM THER/PROPH/DIAG INJ SC/IM Reviewed 01/23/2013 12:00 AM Decadron, Per 1 Mg [facility]# [address]-81 Reviewed 01/23/2013 12:00 AM Depo-Medrol, Per 80 Mg [facility]#6312-6286-23 Reviewed 08/16/2013 12:00 AM THER/PROPH/DIAG INJ SC/IM Reviewed 08/16/2013 12:00 AM Decadron, Per 1 Mg [facility]# [address]-08 Reviewed 08/16/2013 12:00 AM Depo-Medrol, Per 80 Mg [facility]#0313-7163-61 Reviewed 09/13/2013 12:00 AM COMPLETE CBC W/AUTO [...] AA* >60 LIPASE 23.0 U/LAMYLASE 57 IU/L 12/30/2016 7:00 PM Clarity Ur CLEAR Color Ur LT. YELLOW Glucose Ur-sCnc NEGATIVE Bilirub Ur Ql Strip NEGATIVE Ketones Ur Ql Strip NEGATIVE Sp Gr Ur Qn < =1.005 Hgb Ur Ql Strip NEGATIVE pH Ur-LsCnc 6.0 Prot Ur Ql Strip NEGATIVE Urobilinogen Ur-mCnc 0.2 E.U Nitrite Ur Ql Strip NEGATIVE WBC Est Ur Ql Strip TRACE 08/09/2017 10:10 AM Cancer Antigen (CA) 125 20.70 U/mL 10/12/2017 3:15 PM COLOR YELLOW APPEARANCE CLEAR SPEC GRAV 1.020 pH 6.0 PROTEIN NEGATIVE GLUCOSE NEGATIVE mg/dLKETONE NEGATIVE BILIRUBIN NEGATIVE BLOOD NEGATIVE NITRITE NEGATIVE LEUK SCREEN SMALL WBC/HPF 0-5 RBC/HPF NEGATIVE CASTS/ LPF NEGATIVE /LPFCRYSTALS TRACE AMORPH MUCOUS THRDS NEGATIVE BACTERIA FEW EPITH CELLS FEW SQUAMOUS /HPFTRICHOMONAS NEGATIVE YEAST NEGATIVE CULT SET UP? YES History Of Immunizations Not available. History of [...] 2010 4:15PM Cholelithiasis 09/16/2015 Chronic cholecystitis 09/16/2015 Nausea 08/24/2017 Change in bowel habit 08/24/2017 Diarrhea 08/24/2017 Epigastric pain 08/24/2017 Right lower quadrant abdominal pain 08/24/2017 Rhinitis, Allergic Apr 08 2011 11:06AM Hypertension [...] 3:20PM Arthritis, rheumatoid Jun 03 2014 4:12PM [facility] use of drug Jun 03 2014 4:12PM [...] 1:10PM COPD exacerbation Jan 31 2017 10:48AM Bronchitis, Acute Feb 04 2017 8:30AM Intractable migraine with status migrainosus, unspecified migraine type Feb 04 2017 8:30AM Hand pain, left Feb 14 2017 1:40PM Rheumatoid arthritis flare Feb 14 2017 1:40PM Left ovarian cyst Jun 29 2017 8:49AM Irritable bowel syndrome with diarrhea Jul 06 2017 1:39PM Migraine headache without aura Jul 06 2017 1:39PM Periumbilical abdominal pain Aug 02 2017 2:39PM Diarrhea Aug 02 2017 2:39PM Rheumatoid arthritis Aug 02 2017 2:39PM Fatigue Aug 02 2017 2:39PM Cough Aug 07 2017 3:18PM Headache Aug 07 2017 3:18PM Ovarian Cyst Aug 09 2017 9:10AM Cough Aug 09 2017 12:18PM Bronchitis, Acute Aug 17 2017 2:08PM Ovarian cyst Aug 23 2017 10:28AM Epigastric pain Aug 23 2017 4:01PM Diarrhea Aug 23 2017 4:01PM Nausea Aug 23 2017 4:01PM Change in bowel habit Aug 23 2017 4:01PM Right lower quadrant abdominal pain Aug 23 2017 4:01PM Chronic cough Sep 02 2017 11:10AM Unspecified abdominal pain Sep 02 2017 11:10AM Other chronic pain Sep 02 2017 11:10AM Rheumatoid arthritis Sep 02 2017 11:10AM Acute upper respiratory infection Aug 07 2017 3:18PM Left ovarian cyst Sep 19 2017 3:24PM Diarrhea, unspecified type Sep 21 2017 3:30PM Abdominal cramping Sep 21 2017 3:30PM Arthritis, rheumatoid Sep 29 2017 2:27PM Dysuria Oct 12 2017 2:41PM Ovarian cyst, follicular Oct 12 2017 2:40PM Irritable bowel syndrome with diarrhea Oct 26 2017 3:22PM Payers Insurance Name Company Name Plan Name Plan Number Policy Number Policy Group Number Start Date [place] [employer] Prog - [place] [employer] Prog - [facility] [id number] N/A [place] [id number] N/A [employer] [facility] [id number] Tuesday, 2010 [facility] - RHC - Community Plan of [facility] RHC Comm [id number] N/A [facility] Community Plan [facility] Comm Plan of [id number] N/A [facility] - RHC - Community Plan [facility] RHC Comm [id number] N/A History of Encounters Visit Date Visit Type Provider 10/26/2017 Office visit Fidel Valencia MD 10/24/2017 Office visit Vijay Rees HAIR AND MAKEUP DESIGNER 10/20/2017 Office visit Deric Goodman DO 10/12/2017 Office visit Alireza Gutierrez MD 10/06/2017 Surgery Fidel Valencia MD 09/29/2017 Nurse visit Kaity Aguilar MD 09/21/2017 Office visit 09/21/2017 Office visit Fidel Valencia MD 09/02/2017 Office visit Kaity Aguilar MD 08/29/2017 Surgery Noe Calderón DO 08/23/2017 Office visit Noe Calderón DO 08/23/2017 Office visit Alireza Gutierrez MD 08/17/2017 Office visit Erica Carver HAIR AND MAKEUP DESIGNER 08/09/2017 Office visit Alireza Gutierrez MD 08/07/2017 Office visit Luz Brantley HAIR AND MAKEUP DESIGNER 08/02/2017 Office visit Kaity Aguilar MD 07/14/2017 Office visit Alireza Gutierrez MD 07/06/2017 Office visit Kaity Aguilar MD 03/08/2017 Hospital Papo Ambriz MD 02/14/2017 Office visit Kaity Aguilar MD 02/04/2017 Office visit Erica Carver HAIR AND MAKEUP DESIGNER 01/31/2017 Office visit Erica Carver HAIR AND MAKEUP DESIGNER 01/30/2017 Office visit 01/30/2017 Office visit Navin Tucker NP 01/27/2017 Office visit Erica Carver HAIR AND MAKEUP DESIGNER 01/25/2017 Office visit Erica Carver HAIR AND MAKEUP DESIGNER 01/19/2017 Office visit Erica Carver HAIR AND MAKEUP DESIGNER 01/18/2017 Office visit Cecily Solorzano HAIR AND MAKEUP DESIGNER 01/10/2017 Office visit Alireza Gutierrez MD 12/30/2016 Office visit Luz Brantley HAIR AND MAKEUP DESIGNER 12/14/2016 Office visit Kaity Aguilar MD 10/11/2016 Office visit Vijay Rees HAIR AND MAKEUP DESIGNER 09/24/2016 Office visit Kaity Aguilar MD 08/16/2016 Office visit Vijay Rees HAIR AND MAKEUP DESIGNER 07/26/2016 Office visit Erica Carver HAIR AND MAKEUP DESIGNER 05/26/2016 Office visit Vijay Rees HAIR AND MAKEUP DESIGNER 05/06/2016 Office visit Kaity Aguilar MD 04/02/2016 Office visit Concepcion BORJA 03/23/2016 Office visit Kaity Aguilar MD 03/01/2016 Office visit Vijay Rees HAIR AND MAKEUP DESIGNER 01/12/2016 Office visit Erica Carver HAIR AND MAKEUP DESIGNER 11/26/2015 Office visit Vijay Rees HAIR AND MAKEUP DESIGNER 09/26/2015 Surgery Noe Bouman DO 09/18/2015 Hospital Noe Bouman DO 09/16/2015 Office visit Noe Bouman DO 09/10/2015 Office visit Yi Staples MD 08/06/2015 Office visit Teresita Laureano HAIR AND MAKEUP DESIGNER 06/24/2015 Office visit Kaity Aguilar MD 06/19/2015 Office visit Erica Carver HAIR AND MAKEUP DESIGNER 10/28/2014 Office visit Yris Lara HAIR AND MAKEUP DESIGNER 10/23/2014 Office visit Erica Carver HAIR AND MAKEUP DESIGNER 10/03/2014 Office visit Kaity Aguilar MD 10/02/2014 Office visit Niyah Jensen HAIR AND MAKEUP DESIGNER 09/20/2014 Office visit Noe Bouman DO 09/14/2014 Hospital Noe Bouman DO 09/13/2014 Hospital Noe Bouman DO 09/12/2014 Hospital Noe Bouman DO 07/19/2014 Office visit Vijay Rees HAIR AND MAKEUP DESIGNER 07/03/2014 Office visit Vijay Rees HAIR AND MAKEUP DESIGNER 06/11/2014 Office visit Vijay Negrita HAIR AND MAKEUP DESIGNER 06/03/2014 Office visit Kaity Aguilar MD 04/29/2014 Office visit Vijay Rees HAIR AND MAKEUP DESIGNER 04/22/2014 Office visit Kaity Aguilar MD 03/11/2014 Office visit Kaity Aguilar MD 02/19/2014 Office visit Kaity Aguilar MD 10/01/2013 Office visit Erica Walker HAIR AND MAKEUP DESIGNER 09/13/2013 Office visit Erica Walker HAIR AND MAKEUP DESIGNER 09/10/2013 Office visit Erica Walker HAIR AND MAKEUP DESIGNER 08/16/2013 Office visit Erica Walker HAIR AND MAKEUP DESIGNER 03/27/2013 Office visit Erica Walker HAIR AND MAKEUP DESIGNER 01/23/2013 Office visit Erica Walker HAIR AND MAKEUP DESIGNER 01/19/2013 Voided Erica Walker HAIR AND MAKEUP DESIGNER 12/29/2012 Office visit Erica Walker HAIR AND MAKEUP DESIGNER 12/26/2012 Office visit Erica Walker HAIR AND MAKEUP DESIGNER 12/14/2012 Surgery Tong Whatley MD 12/07/2012 Voided Tong Whatley MD 11/09/2012 Surgery Tong Whatley MD 10/24/2012 [facility]2012 [facility] Tong Whatley MD 10/18/2012 Surgery Tong Whatley MD 09/20/2012 Office visit Tong Whatley MD 07/27/2012 Office visit Yris Lara HAIR AND MAKEUP DESIGNER 06/22/2012 Procedures Tong Whatley MD 05/25/2012 Office visit Tong Whatley MD 04/11/2012 Office visit Erica Carver HAIR AND MAKEUP DESIGNER 03/31/2012 Office visit Erica Carver HAIR AND MAKEUP DESIGNER 04/08/2011 Office visit Eugenio Enamorado MD 07/23/2010 Office visit Elsa FIGUEROA 04/15/2010 Office visit Elsa FIGUEROA 03/25/2010 Office visit Elsa FIGUEROA 03/02/2010 Office visit Elsa FIGUEROA
--- OUTSIDE RECORDS SUMMARY | 2017-11-25 07:24 | XMS REPORT ---
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 History of Procedures Date Ordered Description Order Status 06/19/2015 12:00 AM Decadron, Per 1 Mg [facility]# [address]-31 Reviewed 06/19/2015 12:00 AM Depo-Medrol 40mg Reviewed 06/24/2015 12:00 AM COMPLETE CBC W/AUTO DIFF WBC Returned 06/24/2015 12:00 AM COMPREHEN METABOLIC PANEL Returned 06/24/2015 12:00 AM LIPID PANEL Returned 06/24/2015 12:00 AM GLYCOSYLATED HEMOGLOBIN TEST Returned 06/24/2015 12:00 AM ASSAY OF FERRITIN Returned 08/06/2015 12:00 AM BEHAV CHNG SMOKING 3-10 MIN Reviewed 09/10/2015 12:00 AM Imitrex 6mg [facility] #51598-414-42 Reviewed 05/25/2012 12:00 AM CYTOPATH TBS C/V [...] 12:00 AM Phenergan, Up to 50 Mg [facility]#6611-3530-83 Reviewed 12/26/2012 12:00 AM Toradol 60 Mg [facility]#6240-3321-34 Reviewed 12/29/2012 12:00 AM COMPLETE CBC W/AUTO DIFF WBC Returned 12/29/2012 12:00 AM COMPREHEN METABOLIC PANEL Returned 01/01/2013 12:[address] HEAD/BRAIN W/O & W/DYE Returned 01/23/2013 12:00 AM THER/PROPH/DIAG INJ SC/IM Reviewed 01/23/2013 12:00 AM Decadron, Per 1 Mg [facility]# [address]-51 Reviewed 01/23/2013 12:00 AM Depo-Medrol, Per 80 Mg [facility]#2142-6818-71 Reviewed 08/16/2013 12:00 AM THER/PROPH/DIAG INJ SC/IM Reviewed 08/16/2013 12:00 AM Decadron, Per 1 Mg [facility]# [address]-72 Reviewed 08/16/2013 12:00 AM Depo-Medrol, Per 80 Mg [facility]#1124-0408-22 Reviewed 09/13/2013 12:00 AM COMPLETE CBC W/AUTO [...] >60 mL/min/1.73mFERRITIN 200.0 ng/mLHemoglobin A1c 5.60 % History Of Immunizations Not available. 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 03 2014 4:12PM [...] 2:54PM Chronic Cholecystitis Sep 16 2015 2:54PM Payers Insurance Name Company Name Plan Name Plan Number Policy Number Policy Group Number Start Date [facility] - Community [facility] Comm [id number] N/A [facility] Comm Plan of [id number] N/A [facility] [id number] Tuesday, 2010 History of Encounters Visit Date Visit Type Provider 09/16/2015 Office visit Noe Calderón DO 09/10/2015 Office visit Yi Staples MD 08/06/2015 Office visit Teresita Laureano [employer] 06/24/2015 Office visit Kaity Aguilar MD 06/19/2015 Office visit Erica Carver [employer] 10/28/2014 Office visit Yris Lara [employer] 10/23/2014 Office visit Erica Carver [employer] 10/03/2014 Office visit Kaity Aguilar MD 10/02/2014 Office visit Niyah Jensen [employer] 09/20/2014 Office visit Noe Calderón DO 09/14/2014 Hospital Noe Calderón DO 09/13/2014 Hospital Noe Calderón DO 09/12/2014 Hospital Noe Calderón DO 07/19/2014 Office visit Vijay Rees [employer] 07/03/2014 Office visit Vijay Rees APRN 06/11/2014 Office visit Vijay Rees APRN 06/03/2014 Office visit Kaity Aguilar MD 04/29/2014 Office visit Vijay Rees [employer] 04/22/2014 Office visit Kaity Aguilar MD 03/11/2014 Office visit Kaity Aguilar MD 02/19/2014 Office visit aKity Aguilar MD 10/01/2013 Office visit Erica Walker [employer] 09/13/2013 Office visit Erica Walker [employer] 09/10/2013 Office visit Erica Walker [employer] 08/16/2013 Office visit Erica Walker [employer] 03/27/2013 Office visit Erica Walker [employer] 01/23/2013 Office visit Erica Walker [employer] 01/19/2013 Voided Erica Walker [employer] 12/29/2012 Office visit Erica Walker [employer] 12/26/2012 Office visit Erica Walker [employer] 12/14/2012 Surgery Tong Whatley MD 12/07/2012 Voided Tong Whatley MD 11/09/2012 Surgery [facility] Tong Whatley MD 10/18/2012 Surgery Tong Whatley MD 09/20/2012 Office visit Tong Whatley MD 07/27/2012 Office visit Yris Lara [employer] 06/22/2012 Procedures Tong Whatley MD 05/25/2012 Office visit Tong Whatley MD 04/11/2012 Office visit Erica Carver [employer] 03/31/2012 Office visit Erica Mehul [employer] 04/08/2011 Office visit Eugenio Enamorado MD 07/23/2010 Office visit Elsa FIGUEROA 04/15/2010 Office visit Elsa FIGUEROA 03/25/2010 Office visit Elsa FIGUEROA 03/02/2010 Office visit Elsa FIGUEROA
--- OUTSIDE RECORDS SUMMARY | 2017-11-25 07:26 | XMS REPORT ---
Author Kaity Rico Organization [facility] Address [address] [place], [place] [id number] Care Team Providers Care Farm Crew Member Name Role Phone Kaity Aguilar PCP Kaity Aguilar PreferredProvider Allergies and Adverse [...] stimulating hormone (TSH) measurement 08/02/2017 12:00 AM Medications Active Name Start Date [...] by oral route 2 times per day sulfasalazine 500 mg oral tablet 02/14/2017 take 1 tablet (500 mg) by oral route BID for two weeks then increase to 2 tabs two times per day after meals lithium carbonate 450 mg oral tablet extended [...] oral recon soln 08/23/2017 take as directed hyoscyamine sulfate 0.125 mg oral tablet take 1 tablet (0.125 mg) by oral route 4 times per day PRN Prilosec 40 mg oral take one tablet PO QD Name Start Date Expiration Date SIG Comments [...] tablets,dose pack 201509/16/2015 take as directed on jamaal Zyrtec-Pérez 5-120 mg oral tablet extended release 12 [...] to exceed 30 mL in 24 hours Problem List Description Status Onset Bipolar Disorder [...] HC BMI BSA BMI Percentile O2 Sat(%) 09/02/2017 10:58:00 AM 118 mmHg 80 mmHg 101 bpm 18 rpm 98.2 F 192.375 lbs 63 in 34.0774 kg/m 1.9694 m 98 % 08/23/2017 3:54:00 PM 114 mmHg 75 mmHg 87 bpm 20 rpm 97 F 197 lbs 63 in 34.90 kg/m2 1.99 m2 08/23/2017 10:26:00 AM 133 mmHg 80 mmHg 81 bpm 97.5 F 198 lbs 63 in 35.0738 kg/m 1.998 m 08/17/2017 2:04:00 PM 118 mmHg 76 mmHg 101 bpm 18 rpm 96.3 F 197.25 lbs 63 in 34.94 kg/m2 1.99 m2 98 % 08/09/2017 9:07:00 AM 126 mmHg [...] 06/19/2015 12:00 AM Decadron, Per 1 Mg [facility]# [address]-99 Reviewed 06/19/2015 12:00 AM Depo-Medrol 40mg Reviewed 06/24/2015 12:00 AM COMPLETE CBC W/AUTO DIFF WBC Reviewed 06/24/2015 12:00 AM COMPREHEN METABOLIC PANEL Reviewed 06/24/2015 12:00 AM LIPID PANEL Reviewed 06/24/2015 12:00 AM GLYCOSYLATED HEMOGLOBIN TEST Reviewed 06/24/2015 12:00 AM ASSAY OF FERRITIN Reviewed 08/06/2015 12:00 AM BEHAV CHNG SMOKING 3-10 MIN Reviewed 09/10/2015 12:00 AM Imitrex 6mg [facility] #70440-603-20 Reviewed 11/26/2015 5:56 PM URINALYSIS AUTO W/O [...] 01/19/2017 12:00 AM Decadron, Per 1 Mg [facility]# [address]-03 Reviewed 01/19/2017 12:00 AM Depo-Medrol 40mg Injection [...] 08/07/2017 12:00 AM Depo-Medrol 40mg Injection Reviewed 10/18/2012 12:00 AM COMPLETE CBC W/AUTO DIFF WBC Reviewed 10/18/2012 12:00 AM METABOLIC PANEL TOTAL CA Reviewed 10/18/2012 12:00 AM Type and screen Reviewed 12/26/2012 12:00 AM THER/PROPH/DIAG INJ SC/IM Reviewed 12/26/2012 12:00 AM Phenergan, Up to 50 Mg [facility]#0211-2606-89 Reviewed 12/26/2012 12:00 AM Toradol 60 Mg [facility]#4720-8719-09 Reviewed 12/29/2012 12:00 AM COMPLETE CBC W/AUTO DIFF WBC Reviewed 12/29/2012 12:00 AM COMPREHEN METABOLIC PANEL Reviewed 01/01/2013 12:[address] HEAD/BRAIN W/O & W/DYE Reviewed 01/19/2013 12:00 AM Blood Pressure Check-no charge Reviewed 01/23/2013 12:00 AM THER/PROPH/DIAG INJ SC/IM Reviewed 01/23/2013 12:00 AM Decadron, Per 1 Mg [facility]# [address]-56 Reviewed 01/23/2013 12:00 AM Depo-Medrol, Per 80 Mg [facility]#8901-6520-54 Reviewed 08/16/2013 12:00 AM THER/PROPH/DIAG INJ SC/IM Reviewed 08/16/2013 12:00 AM Decadron, Per 1 Mg [facility]# [address]-66 Reviewed 08/16/2013 12:00 AM Depo-Medrol, Per 80 Mg [facility]#4994-8999-71 Reviewed 09/13/2013 12:00 AM COMPLETE CBC W/AUTO [...] AM Cancer Antigen (CA) 125 20.70 U/mL History Of Immunizations Not available. 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 2014 4:12PM [facility] use of drug Jun 03 2014 4:12PM [...] upper respiratory infection Aug 07 2017 3:18PM Payers Insurance Name Company Name Plan Name Plan Number Policy Number Policy Group Number Start Date [place] [employer] [facility] [employer] [facility] - [facility] [id number] N/A [place] [facility] Medical Assistance Prog [id number] N/A BCBS [facility] [id number] Tuesday, 2010 [facility] [id number] N/A [facility] Community Plan of [facility] Comm Plan of [id number] N/A [facility] - [facility] - Community Plan of [facility] RHC Comm [id number] N/A History of Encounters Visit Date Visit Type Provider 09/02/2017 Office visit Kaity Aguilar MD 08/29/2017 Surgery Noe Calderón DO 08/23/2017 Office visit Noe Calderón DO 08/23/2017 Office visit Alireza Gutierrez MD 08/17/2017 Office visit Erica Carver ACCOUNT DEVELOPMENT ASSOCIATE 08/09/2017 Office visit Alireza Gutierrez MD 08/07/2017 Office visit Luz Brantley ACCOUNT DEVELOPMENT ASSOCIATE 08/02/2017 Office visit Kaity Aguilar MD 07/14/2017 Office visit Alireza Gutierrez MD 07/06/2017 Office visit Kaity Aguilar MD 03/08/2017 [facility] Reese Ambriz MD 02/14/2017 Office visit Kaity Aguilar MD 02/04/2017 Office visit Erica Carver ACCOUNT DEVELOPMENT ASSOCIATE 01/31/2017 Office visit Erica Carver ACCOUNT DEVELOPMENT ASSOCIATE 01/30/2017 Office visit 01/30/2017 Office visit Navin Tucker NP 01/27/2017 Office visit Erica Carver ACCOUNT DEVELOPMENT ASSOCIATE 01/25/2017 Office visit Erica Carver ACCOUNT DEVELOPMENT ASSOCIATE 01/19/2017 Office visit Erica Carver ACCOUNT DEVELOPMENT ASSOCIATE 01/18/2017 Office visit Cecily Solorzano ACCOUNT DEVELOPMENT ASSOCIATE 01/10/2017 Office visit Alireza Gutierrez MD 12/30/2016 Office visit Luz Brantley ACCOUNT DEVELOPMENT ASSOCIATE 12/14/2016 Office visit Kaity Aguilar MD 10/11/2016 Office visit Vijay Rees ACCOUNT DEVELOPMENT ASSOCIATE 09/24/2016 Office visit Kaity Aguilar MD 08/16/2016 Office visit Vijay Rees ACCOUNT DEVELOPMENT ASSOCIATE 07/26/2016 Office visit Erica Carver ACCOUNT DEVELOPMENT ASSOCIATE 05/26/2016 Office visit Vijay Rees ACCOUNT DEVELOPMENT ASSOCIATE 05/06/2016 Office visit Kaity Aguilar MD 04/02/2016 Office visit Concepcion BORJA 03/23/2016 Office visit Kaity Aguilar MD 03/01/2016 Office visit Vijay Rees ACCOUNT DEVELOPMENT ASSOCIATE 01/12/2016 Office visit Erica Carver ACCOUNT DEVELOPMENT ASSOCIATE 11/26/2015 Office visit Vijay Rees ACCOUNT DEVELOPMENT ASSOCIATE 09/26/2015 Surgery Noe Bouman DO 09/18/2015 Hospital Noe Bouman DO 09/16/2015 Office visit Noe Bouman DO 09/10/2015 Office visit Yi Staples MD 08/06/2015 Office visit Teresita Laureano ACCOUNT DEVELOPMENT ASSOCIATE 06/24/2015 Office visit Kaity Aguilar MD 06/19/2015 Office visit Erica Carver ACCOUNT DEVELOPMENT ASSOCIATE 10/28/2014 Office visit Yris Lara ACCOUNT DEVELOPMENT ASSOCIATE 10/23/2014 Office visit Erica Carver ACCOUNT DEVELOPMENT ASSOCIATE 10/03/2014 Office visit Kaity Aguilar MD 10/02/2014 Office visit Niyah Jensen ACCOUNT DEVELOPMENT ASSOCIATE 09/20/2014 Office visit Noe Bouman DO 09/14/2014 Hospital Noe Bouman DO 09/13/2014 [facility] Noe Bouman DO 09/12/2014 Hospital Noe Bouman DO 07/19/2014 Office visit Vijay Rees ACCOUNT DEVELOPMENT ASSOCIATE 07/03/2014 Office visit Vijay Rees ACCOUNT DEVELOPMENT ASSOCIATE 06/11/2014 Office visit Vijay Rees ACCOUNT DEVELOPMENT ASSOCIATE 06/03/2014 Office visit Kaity Aguilar MD 04/29/2014 Office visit Vijay Rees ACCOUNT DEVELOPMENT ASSOCIATE 04/22/2014 Office visit Kaity Aguilar MD 03/11/2014 Office visit Kaity Aguilar MD 02/19/2014 Office visit Kaity Aguilar MD 10/01/2013 Office visit Erica Carver ACCOUNT DEVELOPMENT ASSOCIATE 09/13/2013 Office visit Erica Carver ACCOUNT DEVELOPMENT ASSOCIATE 09/10/2013 Office visit Erica Carver ACCOUNT DEVELOPMENT ASSOCIATE 08/16/2013 Office visit Erica Carver ACCOUNT DEVELOPMENT ASSOCIATE 03/27/2013 Office visit Erica Carver ACCOUNT DEVELOPMENT ASSOCIATE 01/23/2013 Office visit Erica Carver ACCOUNT DEVELOPMENT ASSOCIATE 01/19/2013 Voided Erica Walker ACCOUNT DEVELOPMENT ASSOCIATE 12/29/2012 Office visit Erica Carver ACCOUNT DEVELOPMENT ASSOCIATE 12/26/2012 Office visit Erica Carver ACCOUNT DEVELOPMENT ASSOCIATE 12/14/2012 Surgery Tong Whatley MD 12/07/2012 Voided Tong Whatley MD 11/09/2012 Surgery Tong Whatley MD 10/24/2012 [facility] Neema Barros MD 10/24/2012 [facility] Tong Whatley MD 10/18/2012 Surgery Tong Whatley MD 09/20/2012 Office visit Tong Whatley MD 07/27/2012 Office visit Yris Lara ACCOUNT DEVELOPMENT ASSOCIATE 06/22/2012 Procedures Tong Whatley MD 05/25/2012 Office visit Tong Whatley MD 04/11/2012 Office visit Erica Carver ACCOUNT DEVELOPMENT ASSOCIATE 03/31/2012 Office visit Erica Carver ACCOUNT DEVELOPMENT ASSOCIATE 04/08/2011 Office visit Eugenio Enamorado MD 07/23/2010 Office visit Elsa FIGUEROA 04/15/2010 Office visit Elsa FIGUEROA 03/25/2010 Office visit Elsa FIGUEROA 03/02/2010 Office visit Elsa FIGUEROA
--- OUTSIDE RECORDS SUMMARY | 2017-11-25 07:27 | XMS REPORT ---
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 Medications Active Name Start Date Estimated Completion Date SIG Comments Lamictal Oral Lexapro Oral montelukast oral tablet 10 mg 06/25/2013 TAKE ONE TABLET BY MOUTH IN THE EVENING pantoprazole oral tablet,delayed release (DR/EC) 40 mg 07/30/2013 TAKE ONE TABLET BY MOUTH EVERY DAY montelukast oral tablet 10 mg 07/11/2014 TAKE ONE TABLET BY MOUTH IN THE EVENING propranolol oral capsule,extended release 24 hr 60 mg 08/08/2014 02/04/2015 take 1 capsule by oral route daily for 30 days Plaquenil oral tablet 200 mg 08/08/2014 02/04/2015 take 2 tablets (400 mg) by oral route once daily with a meal or a glass of milk for 30 days Latuda oral tablet 40 mg take 1 tablet (40 mg) by oral route once daily with food (at least 350 calories) prednisone oral tablet 5 mg 10/03/2014 12/02/2014 take 1 tablet (5 mg) by oral route once daily for 30 days Claritin oral tablet 10 mg 10/23/2014 take 1 tablet (10 mg) by oral route once daily promethazine-codeine oral syrup 6.25-10 mg/5 mL 10/23/2014 take 5 milliliters by oral route every 4-6 hours as needed, not to exceed 30 mL in 24 hours Imitrex nasal spray,non-aerosol 5 mg/actuation 10/29/2014 spray 1 spray (5 mg) by intranasal route into each nostril; may repeat once after 2 hours if headache returns, not to exceed 40 mg per day Name Start Date Expiration Date SIG Comments Bactrim DS Oral Tablet 800-160 mg 03/02/2010 03/09/2010 take 1 tablet by oral route every 12 hours for 7 days Zithromax Z-Berlin Oral Tablet 250 mg 03/25/2010 03/30/2010 take 2 tablets (500 mg) by oral route once daily for 1 day then 1 tablet (250 mg) by oral route once daily for 4 days ZOLOFT 50MG TAB 50 each 06/01/2010 07/01/2010 1QD - TAKE ONE TABLET BY MOUTH EVERY DAY Zoloft Oral Tablet 50 mg 07/06/2010 07/06/2010 take 1 tablet (50 mg) by oral route once daily hydrochlorothiazide Oral Capsule 12.5 mg 11/18/2010 12/18/2010 TAKE ONE CAPSULE BY MOUTH EVERY DAY Zithromax Z-Berlin Oral Tablet 250 mg 06/29/2011 07/04/2011 take 2 tablets (500 mg ) by oral route once daily for 1 day then 1 tablet (250 mg) by oral route once daily for 4 days Diflucan Oral Tablet 200 mg 06/29/2011 07/01/2011 take 1 tablet by oral route Bactrim DS Oral tablet 800-160 mg 03/31/2012 04/07/2012 take 1 tablet by oral route every 12 hours for 7 days Singulair Oral tablet 10 mg 03/31/2012 10/27/2012 take 1 tablet (10 mg) by oral route once daily in the evening for 30 days pantoprazole Oral tablet,delayed release (DR/EC) 40 mg 05/31/2012 06/30/2012 TAKE ONE TABLET BY MOUTH EVERY DAY hydrochlorothiazide Oral Tablet 25 mg 06/08/2012 06/03/2013 take 1 tablet by oral route daily for 90 days Tamiflu Oral capsule 75 mg 07/27/2012 08/01/2012 take 1 capsule (75 mg) by oral route 2 times per day for 5 days promethazine-codeine Oral Syrup 6.25-10 mg/5 mL 07/27/2012 take 5 milliliters by oral route every 4-6 hours as needed, not to exceed 30 mL in 24 hours albuterol sulfate Inhalation HFA Aerosol Inhaler 90 mcg/actuation 07/27/2012 inhale 1 - 2 puffs by inhalation route every 6 hours as needed metronidazole Oral tablet 500 mg 11/10/2012 11/17/2012 take 1 tablet (500 mg) by oral route every 12 hours for 7 days montelukast Oral tablet 10 mg 11/13/2012 12/13/2012 TAKE ONE TABLET BY MOUTH IN THE EVENING Diflucan Oral tablet 150 mg 12/14/2012 12/16/2012 take 1 tablet (150 mg) by oral route once for 1 day Zithromax Z-Berlin Oral tablet 250 mg 01/23/2013 01/28/2013 take 2 tablets (500 mg ) by oral route once daily for 1 day then 1 tablet (250 mg) by oral route once daily for 4 days Zithromax Z-Berlin Oral tablet 250 mg 03/27/2013 04/01/2013 take 2 tablets (500 mg) by oral route once daily for 1 day then 1 tablet (250 mg) by oral route once daily for 4 days polyethylene glycol 3350 oral powder 17 gram/dose 05/31/2012 06/15/2012 MIX 17 GRAMS POWDER WITH 8 OUNCES OF WATER,JUICE,SODA,COFFEE, OR TEA AND TAKE BY MOUTH ONCE DAILY Medrol (Berlin) oral tablets,dose pack 4 mg 09/10/2013 take as directed Zyrtec-D oral tablet extended release 12 hr 5-120 mg 09/10/2013 take 1 tablet by oral route every 12 hours Zithromax Z-Berlin oral tablet 250 mg 10/01/2013 10/06/2013 take 2 tablets (500 mg) by oral route once daily for 1 day then 1 tablet (250 mg) by oral route once daily for 4 days gemfibrozil oral tablet 600 mg 03/11/2014 09/07/2014 take 1 tablet (600 mg) by oral route 2 times per day 30 minutes before morning and evening meal for 90 days tramadol oral tablet 50 mg 03/20/2014 04/03/2014 take 1 tablet by oral route daily for 14 days azithromycin oral tablet 250 mg 04/29/2014 05/04/2014 take 2 tablets (500 mg ) by oral route once daily for 1 day then 1 tablet (250 mg) by oral route once daily for 4 days promethazine-codeine oral syrup 6.25-10 mg/5 mL 04/29/2014 take 5 milliliters by oral route every 6 hours as needed, not to exceed 30 mL in 24 hours Cipro oral tablet 500 mg 06/11/2014 06/18/2014 take 1 tablet (500 mg) by oral route every 12 hours for 7 days Medrol (Berlin) oral tablets,dose pack 4 mg 06/11/2014 take as directed Zofran ODT oral tablet,disintegrating 4 mg 07/03/2014 07/06/2014 dissolve 1 tablet by oral route every 8 hours for 3 days azithromycin oral tablet 250 mg 07/19/2014 07/24/2014 take 2 tablets (500 mg) by oral route once daily for 1 day then 1 tablet (250 mg) by oral route once daily for 4 days prednisone oral tablet 20 mg 07/19/2014 07/24/2014 Take 3 tabs x 2 days; then Take 2 tabs x 2 days; then Take 1 tab x 1 days. Discontinued Name Start Date Discontinued Date SIG Comments Rozerem Oral Tablet 8 mg 03/25/2010 04/15/2010 take 1 tablet (8 mg) by oral route once daily at bedtime Lexapro Oral Tablet 20 mg 03/25/2010 04/15/2010 take 1 tablet (20 mg) by oral route once daily for 28 days Paxil Oral Tablet 20 mg 04/15/2010 04/30/2010 take 1 tablet (20 mg) by oral route once daily for 30 days made her not sleep and gave her headaches Lunesta Oral Tablet 2 mg 04/15/2010 07/23/2010 take 1 tablet (2 mg) by oral route once daily at bedtime ZOLOFT 50MG TAB 50 each 07/06/2010 07/23/2010 1QD - TAKE ONE TABLET BY MOUTH EVERY DAY Seroquel Oral Tablet 25 mg 03/31/2012 take 1 tablet by oral route daily Topamax Oral Tablet 25 mg 02/19/2014 take 1tablet once daily Saphris Sublingual 12/26/2012 omeprazole Oral capsule,delayed release(DR/EC) 40 mg 04/11/2012 05/25/2012 take 1 tablet by mouth daily Provera Oral tablet 10 mg 06/27/2012 09/20/2012 take 1 tablet by oral route [facility] Medrol ([place]) Oral tablets,dose pack 4 mg 07/27/2012 09/20/2012 take as directed Imitrex Oral tablet 50 mg 12/29/2012 04/22/2014 take 1 tablet (50 mg) by oral route once with fluids as early as possible after the onset of a migraine attack ;may repeat after 2 hours if headache returns, not to exceed 200mg in 24hrs Medrol ([place]) Oral tablets,dose pack 4 mg 03/27/2013 09/10/2013 take as directed hydrochlorothiazide oral tablet 25 mg 06/25/2013 06/03/2014 TAKE ONE TABLET BY MOUTH EVERY DAY Zofran oral tablet 4 mg 09/10/2013 02/19/2014 take 1 tablet by mouth q6 hours as needed Flonase nasal spray,suspension 50 mcg/actuation 10/01/2013 02/19/2014 inhale 1 spray (50 mcg) in each nostril by intranasal route once daily Mariella Welch oral capsule 100 mg 10/05/2013 02/19/2014 take 1 capsule (100 mg) by oral route 3 times per day pantoprazole oral tablet,delayed release (DR/EC) 40 mg 01/22/2014 10/02/2014 TAKE ONE TABLET BY MOUTH EVERY DAY pantoprazole oral tablet,delayed release (DR/EC) 40 mg 01/22/2014 10/02/2014 TAKE ONE TABLET BY MOUTH EVERY DAY no longer taking Rheumatrex oral tablets,dose pack 2.5 mg 03/11/2014 04/22/2014 1 tab 3 days per week folic acid oral tablet 1 mg 03/11/2014 06/03/2014 take 1 tablet (1 mg) by oral route once daily for 90 days propranolol oral tablet 20 mg 10/03/2014 10/29/2014 take 1 tablet by oral route daily for 30 days Problem List Description Status Onset Bipolar Disorder Active Hypertension Active Obesity Active Seasonal Allergies Active Arthritis, rheumatoid Active 06/04/2014 Gluten intolerance Active 06/04/2014 Vital Signs Date Time BP-Sys(mm[Hg] BP-Patti(mm[Hg]) HR(bpm) RR(rpm) Temp WT HT HC BMI BSA BMI Percentile O2 Sat(%) 10/28/2014 2:04:00 PM 94 mmHg 62 mmHg [...] Social History Name Description Comments Single Alcohol Rarely 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 History of Procedures Date Ordered Description Order Status 05/25/2012 12:00 AM CYTOPATH TBS C/V MANUAL [...] 12/26/2012 12:00 AM THER/PROPH/DIAG INJ SC/IM Reviewed 12/29/2012 12:00 AM COMPLETE CBC W/AUTO DIFF WBC Returned 12/29/2012 12:00 AM COMPREHEN METABOLIC PANEL Returned 01/01/2013 12:[address] HEAD/BRAIN W/O & W/DYE Returned 01/23/2013 12:00 AM THER/PROPH/DIAG INJ SC/IM Reviewed 08/16/2013 12:00 AM THER/PROPH/DIAG INJ SC/IM Reviewed 09/13/2013 12:00 AM COMPLETE CBC W/AUTO DIFF WBC Returned 09/13/2013 12:00 AM COMPREHEN METABOLIC PANEL Returned 09/13/2013 12:00 AM ASSAY THYROID STIM HORMONE Returned 09/13/2013 12:00 AM RHEUMATOID FACTOR QUANT [...] ASSAY OF LIPASE Returned 02/19/2014 12:00 AM LIPID PANEL Returned [...] secsINR 1.0 PTT 25.10 secsHGB A1C 5.60 %VITAMIN B12 389.0 pg/mLHIV AG/AB COMBO 0.08 Antiscleroderma- [...] 0.60 mg/dLCALCIUM 8.70 mg/dLeGFR >60 mL/min/1.73 m2 History Of Immunizations Not available. 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 Jun 03 2014 4:12PM [...] 9:03AM Chronic headaches Oct 28 2014 2:06PM Payers Insurance Name Company Name Plan Name Plan Number Policy Number Policy Group Number [id number] Tuesday, 2010 History of Encounters Visit Date Visit Type Provider 10/28/2014 Office visit Yris Lara COSMETICIAN 10/23/2014 Office visit Erica Carver COSMETICIAN 10/03/2014 Office visit Kaity Aguilar MD 10/02/2014 Office visit Niyah Jensen COSMETICIAN 09/20/2014 Office visit Noe Calderón DO 09/14/2014 [facility] DO 09/13/2014 [facility] DO 09/12/2014 [facility] DO 07/19/2014 Office visit Vijay Rees COSMETICIAN 07/03/2014 Office visit Vijay Rees COSMETICIAN 06/11/2014 Office visit Vijay Rees COSMETICIAN 06/03/2014 Office visit Kaity Aguilar MD 04/29/2014 Office visit Vijay Rees COSMETICIAN 04/22/2014 Office visit Kaity Aguilar MD 03/11/2014 Office visit Kaity Aguilar MD 02/19/2014 Office visit Kaity Aguilar MD 10/01/2013 Office visit Erica Carver COSMETICIAN 09/13/2013 Office visit Erica Carver COSMETICIAN 09/10/2013 Office visit Erica Carver COSMETICIAN 08/16/2013 Office visit Erica Carver COSMETICIAN 03/27/2013 Office visit Erica Carver COSMETICIAN 01/23/2013 Office visit Erica Carver COSMETICIAN 01/19/2013 Voided Erica Carver COSMETICIAN 12/29/2012 Office visit Erica Carver COSMETICIAN 12/26/2012 Office visit Erica Carver COSMETICIAN 12/14/2012 Surgery Tong Whatley MD 12/07/2012 Voided Tong Whatley MD 11/09/2012 Surgery Tong Whatley MD 10/24/2012 Hospital Tong Whatley MD 10/24/2012 [facility] Neema Barros MD 10/18/2012 Surgery Tong Whatley MD 09/20/2012 Office visit Tong Whatley MD 07/27/2012 Office visit Yris Lara COSMETICIAN 06/22/2012 Procedures Tong Whatley MD 05/25/2012 Office visit Tong Whatley MD 04/11/2012 Office visit Erica Carver COSMETICIAN 03/31/2012 Office visit Erica Carver COSMETICIAN 04/08/2011 Office visit Eugenio Enamorado MD 07/23/2010 Office visit Elsa FIGUEROA 04/15/2010 Office visit Elsa FIGUEROA 03/25/2010 Office visit Elsa FIGUEROA 03/02/2010 Office visit Elsa FIGUEROA
--- OUTSIDE RECORDS SUMMARY | 2017-11-25 07:29 | XMS REPORT ---
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 Phone Erica Carver PCP Unavailable [...] inhalation route every 4-6 hours as needed Testezon Perles 100 mg oral capsule 01/30/2017 02/06/2017 take 1 capsule (100 mg) by oral route 3 times per day for 7 days promethazine-codeine 6.25-10 mg/5 mL oral syrup 01/31/2017 take 5 milliliters by oral route every 4-6 hours as needed, not to exceed 30 mL in 24 hours doxycycline monohydrate 100 mg oral tablet 02/04/2017 take 1 tablet (100 mg ) by oral route every 12 hours for 7 days Name Start Date Expiration Date SIG [...] HC BMI BSA BMI Percentile O2 Sat(%) 02/04/2017 8:28:00 AM 114 mmHg 66 mmHg [...] 06/19/2015 12:00 AM Decadron, Per 1 Mg [facility]# [address]-33 Reviewed 06/19/2015 12:00 AM Depo-Medrol 40mg Reviewed 06/24/2015 12:00 AM COMPLETE CBC W/AUTO DIFF WBC Reviewed 06/24/2015 12:00 AM COMPREHEN METABOLIC PANEL Reviewed 06/24/2015 12:00 AM LIPID PANEL Reviewed 06/24/2015 12:00 AM GLYCOSYLATED HEMOGLOBIN TEST Reviewed 06/24/2015 12:00 AM ASSAY OF FERRITIN Reviewed 08/06/2015 12:00 AM BEHAV CHNG SMOKING 3-10 MIN Reviewed 09/10/2015 12:00 AM Imitrex 6mg [facility] #59552-108-05 Reviewed 11/26/2015 5:56 PM URINALYSIS AUTO W/O [...] 01/19/2017 12:00 AM Decadron, Per 1 Mg [facility]# [address]-80 Reviewed 01/19/2017 12:00 AM Depo-Medrol 40mg Injection [...] 12:00 AM Phenergan, Up to 50 Mg [facility]#6293-1839-54 Reviewed 12/26/2012 12:00 AM Toradol 60 Mg [facility]#4122-4033-67 Reviewed 12/29/2012 12:00 AM COMPLETE CBC W/AUTO DIFF WBC Reviewed 12/29/2012 12:00 AM COMPREHEN METABOLIC PANEL Reviewed 01/01/2013 12:[address] HEAD/BRAIN W/O & W/DYE Reviewed 01/19/2013 12:00 AM Blood Pressure Check-no charge Reviewed 01/23/2013 12:00 AM THER/PROPH/DIAG INJ SC/IM Reviewed 01/23/2013 12:00 AM Decadron, Per 1 Mg [facility]# [address]-39 Reviewed 01/23/2013 12:00 AM Depo-Medrol, Per 80 Mg N[facility]#1784-4317-63 Reviewed 08/16/2013 12:00 AM THER/PROPH/DIAG INJ SC/IM Reviewed 08/16/2013 12:00 AM Decadron, Per 1 Mg [facility]# [address]-48 Reviewed 08/16/2013 12:00 AM Depo-Medrol, Per 80 Mg NDC#6615-2249-51 Reviewed 09/13/2013 12:00 AM COMPLETE CBC W/AUTO [...] 3:20PM 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, 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 Jun 03 2014 4:12PM [...] unspecified migraine type Feb 04 2017 8:30AM Payers Insurance Name Company Name Plan Name Plan Number Policy Number Policy Group Number Start Date [facility] [id number] Tuesday, 2010 [facility] Comm [id number] N/A [facility] Comm Plan of [id number] N/A History of Encounters Visit Date Visit Type Provider 02/04/2017 Office visit Erica Carver APRN 01/31/2017 Office visit Erica Carver APRN 01/30/2017 Office visit 01/30/2017 Office visit Navin Tucker NP 01/27/2017 Office visit Erica Carver APRN 01/25/2017 Office visit Erica Carver EXTERIOR DOOR INSTALLER 01/19/2017 Office visit Erica Carver EXTERIOR DOOR INSTALLER 01/18/2017 Office visit Cecily Solorzano EXTERIOR DOOR INSTALLER 01/10/2017 Office visit Alireza Gutierrez MD 12/30/2016 Office visit Luz Brantley EXTERIOR DOOR INSTALLER 12/14/2016 Office visit Kaity Aguilar MD 10/11/2016 Office visit Vijay Rees EXTERIOR DOOR INSTALLER 09/24/2016 Office visit Kaity Aguilar MD 08/16/2016 Office visit Vijay Rees EXTERIOR DOOR INSTALLER 07/26/2016 Office visit Erica Carver EXTERIOR DOOR INSTALLER 05/26/2016 Office visit Vijay Rees EXTERIOR DOOR INSTALLER 05/06/2016 Office visit Kaity Aguilar MD 04/02/2016 Office visit Concepcion BORJA 03/23/2016 Office visit Kaity Aguilar MD 03/01/2016 Office visit Vijay Rees EXTERIOR DOOR INSTALLER 01/12/2016 Office visit Erica Carver EXTERIOR DOOR INSTALLER 11/26/2015 Office visit Vijay Rees EXTERIOR DOOR INSTALLER 09/26/2015 Surgery Noe Bouman DO 09/18/2015 Hospital Noe Bouman DO 09/16/2015 Office visit Noe Randhawauman DO 09/10/2015 Office visit Yi Staples MD 08/06/2015 Office visit Teresita Laureano EXTERIOR DOOR INSTALLER 06/24/2015 Office visit Kaity Aguilar MD 06/19/2015 Office visit Erica Carver EXTERIOR DOOR INSTALLER 10/28/2014 Office visit Yris Lara EXTERIOR DOOR INSTALLER 10/23/2014 Office visit Erica Carver EXTERIOR DOOR INSTALLER 10/03/2014 Office visit Kaity Aguilar MD 10/02/2014 Office visit Niyah Jensen EXTERIOR DOOR INSTALLER 09/20/2014 Office visit Noe Bouman DO 09/14/2014 Hospital Noe Bouman DO 09/13/2014 Hospital Noe Bouman DO 09/12/2014 Hospital Noe Bouman DO 07/19/2014 Office visit Vijay Rees EXTERIOR DOOR INSTALLER 07/03/2014 Office visit Vijay Rees EXTERIOR DOOR INSTALLER 06/11/2014 Office visit Vijay Rees EXTERIOR DOOR INSTALLER 06/03/2014 Office visit Kaity Aguilar MD 04/29/2014 Office visit Vijay Rees EXTERIOR DOOR INSTALLER 04/22/2014 Office visit Kaity Aguilar MD 03/11/2014 Office visit Kaity Aguilar MD 02/19/2014 Office visit Kaity Aguilar MD 10/01/2013 Office visit Erica Carver EXTERIOR DOOR INSTALLER 09/13/2013 Office visit Erica Carver EXTERIOR DOOR INSTALLER 09/10/2013 Office visit Erica Walker EXTERIOR DOOR INSTALLER 08/16/2013 Office visit Erica Walker EXTERIOR DOOR INSTALLER 03/27/2013 Office visit Erica Carver EXTERIOR DOOR INSTALLER 01/23/2013 Office visit Erica Walker EXTERIOR DOOR INSTALLER 01/19/2013 Voided Erica Carver EXTERIOR DOOR INSTALLER 12/29/2012 Office visit Erica Carver EXTERIOR DOOR INSTALLER 12/26/2012 Office visit Erica Carver EXTERIOR DOOR INSTALLER 12/14/2012 Surgery Tong Whatley MD 12/07/2012 Voided Tong Whatley MD 11/09/2012 Surgery Tong Whatley MD 10/24/2012 [facility] Neema Barros MD 10/24/2012 [facility] Tong Whatley MD 10/18/2012 Surgery Tong Whatley MD 09/20/2012 Office visit Tong Whatley MD 07/27/2012 Office visit Yris Lara EXTERIOR DOOR INSTALLER 06/22/2012 Procedures Tong Whatley MD 05/25/2012 Office visit Tong Whatley MD 04/11/2012 Office visit Erica Carver EXTERIOR DOOR INSTALLER 03/31/2012 Office visit Erica Carver EXTERIOR DOOR INSTALLER 04/08/2011 Office visit Eugenio Enamorado MD 07/23/2010 Office visit Elsa FIGUEROA 04/15/2010 Office visit Elsa FIGUEROA 03/25/2010 Office visit Elsa FIGUEROA 03/02/2010 Office visit Elsa FIGUEROA
[2017-11-25 07:30] VITALS: BP 133/89
--- OUTSIDE RECORDS SUMMARY | 2017-11-25 07:31 | XMS REPORT ---
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 12/21/2016 12:00 AM Medications Active Name Start Date [...] oral Singulair 10 mg oral tablet 01/19/2017 04/19/2017 take 1 tablet (10 mg) by oral route once daily in the evening for 30 days Name Start Date Expiration [...] 09/20/2012 take 1 tablet by oral route [facility] Medrol ([place]) 4 mg oral tablets,dose pack [...] due to to much money without insurance Blasix 20 mg oral tablet 09/24/2016 take 1 [...] HC BMI BSA BMI Percentile O2 Sat(%) 01/19/2017 8:27:00 AM 136 mmHg 76 mmHg [...] F 191 lbs 63 in 33.8338 kg/m 1.96 m2 09/16/2015 2:45:00 PM 122 mmHg 71 mmHg 75 bpm 20 rpm 98.2 F 192.5 lbs 63 in 34.10 kg/m2 1.9701 m 09/10/2015 6:23:00 PM 120 mmHg 80 mmHg 70 bpm 98.4 F 191 lbs 64 in 32.7847 kg/m 1.98 m2 98 % 08/06/2015 10:18:00 AM 130 mmHg 80 mmHg 78 bpm 16 rpm 96.7 F 194 lbs 64 in 33.30 kg/m2 1.9934 m 98 % 06/24/2015 8:35:00 AM 120 mmHg 78 mmHg 101 bpm 98.1 F 197.25 lbs 63 in 34.9409 kg/m 1.99 m2 100 % 06/19/2015 10:17:00 AM 116 mmHg 82 mmHg 87 bpm 18 rpm 97.2 F 195 lbs 63 in 34.54 kg/m2 1.9828 m 98 % 10/28/2014 2:04:00 PM 94 mmHg 62 mmHg 71 bpm 20 rpm 98 F 185.8 lbs 63 in 32.9127 kg/m 1.94 m2 97 % 10/23/2014 9:01:00 AM 124 mmHg 64 mmHg 64 bpm 18 rpm 97.9 F 187.562 lbs 63 in 33.22 kg/m2 1.9447 m 95 % 10/03/2014 3:58:00 PM 124 mmHg 78 mmHg 83 bpm 98.9 F 189.125 lbs 63 in 33.5016 kg/m 1.95 m2 100 % 10/02/2014 11:38:00 AM 121 mmHg 72 mmHg 73 bpm 98.3 F 188 lbs 63 in 33.30 kg/m2 1.9469 m 100 % 09/20/2014 11:28:00 AM 110 mmHg 60 mmHg 73 bpm 18 rpm 97 F 190 lbs 63 in 33.6566 kg/m 1.96 m2 07/19/2014 9:14:00 AM 105 mmHg 60 mmHg 61 bpm 16 rpm 96.9 F 186 lbs 63 in 32.95 kg/m2 1.9365 m 98 % 07/03/2014 9:03:00 AM 122 mmHg 75 mmHg 73 bpm 16 rpm 97.3 F 184 lbs 63 in 32.5938 kg/m 1.93 m2 97 % 06/11/2014 10:35:00 AM 110 mmHg 70 mmHg 72 bpm 16 rpm 98.2 F 188 lbs 63 in 33.30 kg/m2 1.9469 m 97 % 06/03/2014 4:08:00 PM 110 mmHg 70 mmHg 85 bpm 16 rpm 98.4 F 187 lbs 63 in 33.1252 kg/m 1.94 m2 100 % 04/29/2014 3:18:00 PM 112 mmHg 78 mmHg 66 bpm 16 rpm 97.8 F 183 lbs 63 in 32.42 kg/m2 1.9209 m 96 % 04/22/2014 4:18:00 PM [...] 06/19/2015 12:00 AM Decadron, Per 1 Mg [facility]# [address]-84 Reviewed 06/19/2015 12:00 AM Depo-Medrol 40mg Reviewed 06/24/2015 12:00 AM COMPLETE CBC W/AUTO DIFF WBC Reviewed 06/24/2015 12:00 AM COMPREHEN METABOLIC PANEL Reviewed 06/24/2015 12:00 AM LIPID PANEL Reviewed 06/24/2015 12:00 AM GLYCOSYLATED HEMOGLOBIN TEST Reviewed 06/24/2015 12:00 AM ASSAY OF FERRITIN Reviewed 08/06/2015 12:00 AM BEHAV CHNG SMOKING 3-10 MIN Reviewed 09/10/2015 12:00 AM Imitrex 6mg [facility] #86609-898-66 Reviewed 11/26/2015 5:56 PM URINALYSIS AUTO W/O [...] 01/19/2017 12:00 AM Decadron, Per 1 Mg [facility]# [address]-51 Reviewed 01/19/2017 12:00 AM Depo-Medrol 40mg Injection Reviewed 05/25/2012 12:00 AM CYTOPATH TBS C/V [...] 12:00 AM Phenergan, Up to 50 Mg [facility]#4743-5840-68 Reviewed 12/26/2012 12:00 AM Toradol 60 Mg [facility]#3712-6593-30 Reviewed 12/29/2012 12:00 AM COMPLETE CBC W/AUTO DIFF WBC Reviewed 12/29/2012 12:00 AM COMPREHEN METABOLIC PANEL Reviewed 01/01/2013 12:[address] HEAD/BRAIN W/O & W/DYE Reviewed 01/19/2013 12:00 AM Blood Pressure Check-no charge Reviewed 01/23/2013 12:00 AM THER/PROPH/DIAG INJ SC/IM Reviewed 01/23/2013 12:00 AM Decadron, Per 1 Mg [facility]# [address]-31 Reviewed 01/23/2013 12:00 AM Depo-Medrol, Per 80 Mg [facility]#7860-7273-26 Reviewed 08/16/2013 12:00 AM THER/PROPH/DIAG INJ SC/IM Reviewed 08/16/2013 12:00 AM Decadron, Per 1 Mg [facility]# [address]-06 Reviewed 08/16/2013 12:00 AM Depo-Medrol, Per 80 Mg [facility]#8273-0640-12 Reviewed 09/13/2013 12:00 AM COMPLETE CBC W/AUTO [...] 3:20PM Arthritis, 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 Jun 03 2014 4:12PM [...] to other allergen Jan 19 2017 8:29AM Payers Insurance Name Company Name Plan Name Plan Number Policy Number Policy Group Number Start Date [facility] [id number] Tuesday, 2010 [facility] Comm [id number] N/A [facility] Comm Plan of [id number] N/A History of Encounters Visit Date Visit Type Provider 01/19/2017 Office visit Erica Carver APRN 01/18/2017 Office visit Cecily Solorzano APRN 01/10/2017 Office visit Alireza Gutierrez MD 12/30/2016 Office visit Luz Brantley APRN 12/14/2016 Office visit Kaity Aguilar MD 10/11/2016 Office visit Vijay Rees APRN 09/24/2016 Office visit Kaity Aguilar MD 08/16/2016 Office visit Vijay Rees APRN 07/26/2016 Office visit Erica Carver APRN 05/26/2016 Office visit Vijay Rees APRN 05/06/2016 Office visit Kaity Aguilar MD 04/02/2016 Office visit Concepcion BORJA 03/23/2016 Office visit Kaity Aguilar MD 03/01/2016 Office visit Vijay Rees RATE INSERTER 01/12/2016 Office visit Erica Carver RATE INSERTER 11/26/2015 Office visit Vijay Rees RATE INSERTER 09/26/2015 Surgery Noe Bouman DO 09/18/2015 Hospital Noe Bouman DO 09/16/2015 Office visit Noe Bouman DO 09/10/2015 Office visit Yi Staples MD 08/06/2015 Office visit Teresita Laureano RATE INSERTER 06/24/2015 Office visit Kaity Aguilar MD 06/19/2015 Office visit Erica Carver RATE INSERTER 10/28/2014 Office visit Yris Lara RATE INSERTER 10/23/2014 Office visit Erica Carver RATE INSERTER 10/03/2014 Office visit Kaity Aguilar MD 10/02/2014 Office visit Niyah Jensen RATE INSERTER 09/20/2014 Office visit Noe Bouman DO 09/14/2014 Hospital Noe Bouman DO 09/13/2014 Hospital Noe Bouman DO 09/12/2014 Hospital Noe Bouman DO 07/19/2014 Office visit Vijay Rees RATE INSERTER 07/03/2014 Office visit Vijay eRes RATE INSERTER 06/11/2014 Office visit Vijay Rees RATE INSERTER 06/03/2014 Office visit Kaity Aguilar MD 04/29/2014 Office visit Vijay Rees RATE INSERTER 04/22/2014 Office visit Kaity Aguilar MD 03/11/2014 Office visit Kaity Aguilar MD 02/19/2014 Office visit Kaity Aguilar MD 10/01/2013 Office visit Erica Carver RATE INSERTER 09/13/2013 Office visit Erica Carver RATE INSERTER 09/10/2013 Office visit Erica Carver RATE INSERTER 08/16/2013 Office visit Erica Carver RATE INSERTER 03/27/2013 Office visit Erica Carver RATE INSERTER 01/23/2013 Office visit Erica Carver RATE INSERTER 01/19/2013 Voided Erica Walker RATE INSERTER 12/29/2012 Office visit Erica Carver RATE INSERTER 12/26/2012 Office visit Erica Carver RATE INSERTER 12/14/2012 Surgery Tong Whatley MD 12/07/2012 Voided Tong Whatley MD 11/09/2012 Surgery Tong Whatley MD 10/24/2012 Hospital Neema Barros MD 10/24/2012 [facility] Tong Whatley MD 10/18/2012 Surgery Tong Whatley MD 09/20/2012 Office visit Tong Whatley MD 07/27/2012 Office visit Yris Lara RATE INSERTER 06/22/2012 Procedures Tong Whatley MD 05/25/2012 Office visit Tong Whatley MD 04/11/2012 Office visit Erica Carver RATE INSERTER 03/31/2012 Office visit Erica Carver RATE INSERTER 04/08/2011 Office visit Eugenio Enamorado MD 07/23/2010 Office visit Elsa FIGUEROA 04/15/2010 Office visit Elsa FIGUEROA 03/25/2010 Office visit Elsa FIGUEROA 03/02/2010 Office visit Elsa FIGUEROA
--- OUTSIDE RECORDS SUMMARY | 2017-11-25 07:33 | XMS REPORT ---
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 Name Role Phone Alireza Gutierrez PCP Kaity Aguilar PreferredProvider Allergies and Adverse [...] 1 tablet (100 mg) by oral route times per day Pristiq oral sulfasalazine 500 mg oral tablet 02/14/2017 take 1 tablet (500 mg) by oral route BID for two weeks then increase to 2 tabs two times per day after meals indomethacin 50 mg oral capsule 02/14/2017 take 1 capsule by oral route BID PRN with food lithium carbonate 450 mg oral tablet extended [...] each nostril by intranasal route once daily Name Start Date Expiration Date SIG Comments [...] each nostril by intranasal route once daily Testezon Perles 100 mg oral capsule 10/05/2013 02/19/2014 [...] daily in the evening for 30 days Singulair 10 mg oral tablet 01/19/2017 08/07/2017 [...] route every 12 hours for 7 days Minipress 2 mg oral capsule 08/17/2017 take [...] HC BMI BSA BMI Percentile O2 Sat(%) 08/23/2017 10:26:00 AM 133 mmHg 80 mmHg [...] Alcohol Current some day Rarely 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 History of Procedures Date Ordered Description Order Status 06/19/2015 12:00 AM Decadron, Per 1 Mg [facility]# [address]-14 Reviewed 06/19/2015 12:00 AM Depo-Medrol 40mg Reviewed 06/24/2015 12:00 AM COMPLETE CBC W/AUTO DIFF WBC Reviewed 06/24/2015 12:00 AM COMPREHEN METABOLIC PANEL Reviewed 06/24/2015 12:00 AM LIPID PANEL Reviewed 06/24/2015 12:00 AM GLYCOSYLATED HEMOGLOBIN TEST Reviewed 06/24/2015 12:00 AM ASSAY OF FERRITIN Reviewed 08/06/2015 12:00 AM BEHAV CHNG SMOKING 3-10 MIN Reviewed 09/10/2015 12:00 AM Imitrex 6mg [facility] #22899-971-03 Reviewed 11/26/2015 5:56 PM URINALYSIS AUTO W/O [...] 01/19/2017 12:00 AM Decadron, Per 1 Mg [facility]# [address]-97 Reviewed 01/19/2017 12:00 AM Depo-Medrol 40mg Injection [...] 12:00 AM FECES CULTURE AEROBIC BACT Returned 08/07/2017 12:00 AM THER/PROPH/DIAG INJ SC/IM Reviewed 08/07/2017 12:00 AM Decadron 4mg Injection Reviewed 08/07/2017 12:00 AM Depo-Medrol 40mg Injection Reviewed 08/09/2017 12:00 AM IMMUNOASSAY TUMOR CA 125 Reviewed 08/17/2017 12:00 AM Consult/Referral Reviewed 10/18/2012 12:00 AM COMPLETE CBC W/AUTO DIFF WBC Reviewed 10/18/2012 12:00 AM METABOLIC PANEL TOTAL CA Reviewed 10/18/2012 12:00 AM Type and screen Reviewed 12/26/2012 12:00 AM THER/PROPH/DIAG INJ SC/IM Reviewed 12/26/2012 12:00 AM Phenergan, Up to 50 Mg [facility]#2282-9718-28 Reviewed 12/26/2012 12:00 AM Toradol 60 Mg [facility]#8392-5071-15 Reviewed 12/29/2012 12:00 AM COMPLETE CBC W/AUTO DIFF WBC Reviewed 12/29/2012 12:00 AM COMPREHEN METABOLIC PANEL Reviewed 01/01/2013 12:[address] HEAD/BRAIN W/O & W/DYE Reviewed 01/19/2013 12:00 AM Blood Pressure Check-no charge Reviewed 01/23/2013 12:00 AM THER/PROPH/DIAG INJ SC/IM Reviewed 01/23/2013 12:00 AM Decadron, Per 1 Mg [facility]# [address]-95 Reviewed 01/23/2013 12:00 AM Depo-Medrol, Per 80 Mg [facility]#2322-4321-95 Reviewed 08/16/2013 12:00 AM THER/PROPH/DIAG INJ SC/IM Reviewed 08/16/2013 12:00 AM Decadron, Per 1 Mg [facility]# [address]-73 Reviewed 08/16/2013 12:00 AM Depo-Medrol, Per 80 Mg [facility]#6447-0749-68 Reviewed 09/13/2013 12:00 AM COMPLETE CBC W/AUTO DIFF WBC Reviewed 09/13/2013 12:00 AM COMPREHEN METABOLIC PANEL Reviewed 09/13/2013 12:00 AM ASSAY THYROID STIM HORMONE Reviewed 09/13/2013 12:00 AM Antinuclear Antibodies, (JOY), MEFSIN, with reflex Reviewed 09/13/2013 12:00 AM RHEUMATOID [...] 4.10 HGB 14.10 g/dLHCT 42.30 %MCV 103.0 fLH 34.40 pgHC 33.30 g/dLRDW SD 54 RDW CV 14.30 [...] 2:08PM Ovarian cyst Aug 23 2017 10:28AM Payers Insurance Name Company Name Plan Name Plan Number Policy Number Policy Group Number Start Date [place] Manager [facility] - [facility] [id number] N/A [employer] [facility] [id number] Tuesday, 2010 [facility] - C - Community Plan [facility] RHC Comm [id number] N/A [facility] Community Plan [facility] Comm Plan of [id number] N/A [facility] - RHC - Community Plan [facility] RHC Comm [id number] N/A History of Encounters Visit Date Visit Type Provider 08/23/2017 Office visit Alireza Gutierrez MD 08/17/2017 Office visit Erica Carver MASONRY CONTRACTOR 08/09/2017 Office visit Alireza Gutierrez MD 08/07/2017 Office visit Luz Brantley MASONRY CONTRACTOR 08/02/2017 Office visit Kaity Aguilar MD 07/14/2017 Office visit Alireza Gutierrez MD 07/06/2017 Office visit Kaity Aguilar MD 03/08/2017 [facility] Papo Ambriz MD 02/14/2017 Office visit Kaity Aguilar MD 02/04/2017 Office visit Erica Carver MASONRY CONTRACTOR 01/31/2017 Office visit Erica Carver MASONRY CONTRACTOR 01/30/2017 Office visit 01/30/2017 Office visit Navin Tucker NP 01/27/2017 Office visit Erica Carver MASONRY CONTRACTOR 01/25/2017 Office visit Erica Carver MASONRY CONTRACTOR 01/19/2017 Office visit Erica Carver MASONRY CONTRACTOR 01/18/2017 Office visit Cecily Solorzano MASONRY CONTRACTOR 01/10/2017 Office visit Alireza Gutierrez MD 12/30/2016 Office visit Luz LChika Brantley MASONRY CONTRACTOR 12/14/2016 Office visit Kaity Aguilar MD 10/11/2016 Office visit Vijay Rees MASONRY CONTRACTOR 09/24/2016 Office visit Kaity Aguilar MD 08/16/2016 Office visit Vijay Rees MASONRY CONTRACTOR 07/26/2016 Office visit Erica Carver MASONRY CONTRACTOR 05/26/2016 Office visit Vijay Rees MASONRY CONTRACTOR 05/06/2016 Office visit Kaity Aguilar MD 04/02/2016 Office visit Concepcion BORJA 03/23/2016 Office visit Kaity Aguilar MD 03/01/2016 Office visit Vijay Rees MASONRY CONTRACTOR 01/12/2016 Office visit Erica Carver MASONRY CONTRACTOR 11/26/2015 Office visit Vijay Rees MASONRY CONTRACTOR 09/26/2015 Surgery Noe Bouman DO 09/18/2015 Hospital Noe Bouman DO 09/16/2015 Office visit Noe Bouman DO 09/10/2015 Office visit Yi Staples MD 08/06/2015 Office visit Teresita Laureano MASONRY CONTRACTOR 06/24/2015 Office visit Kaity Aguilar MD 06/19/2015 Office visit Erica Carver MASONRY CONTRACTOR 10/28/2014 Office visit Yris Lara MASONRY CONTRACTOR 10/23/2014 Office visit Erica Carver MASONRY CONTRACTOR 10/03/2014 Office visit Kaity Aguilar MD 10/02/2014 Office visit Niyah Jensen MASONRY CONTRACTOR 09/20/2014 Office visit Noe Bouman DO 09/14/2014 Hospital Noe Bouman DO 09/13/2014 Hospital Noe Bouman DO 09/12/2014 Hospital Noe Bouman DO 07/19/2014 Office visit Vijay Rees MASONRY CONTRACTOR 07/03/2014 Office visit iVjay Rees MASONRY CONTRACTOR 06/11/2014 Office visit Vijay Rees MASONRY CONTRACTOR 06/03/2014 Office visit Kaity Aguilar MD 04/29/2014 Office visit Vijay Rees MASONRY CONTRACTOR 04/22/2014 Office visit Kaity Aguilar MD 03/11/2014 Office visit Kaity Aguilar MD 02/19/2014 Office visit Kaity Aguilar MD 10/01/2013 Office visit Erica Carver MASONRY CONTRACTOR 09/13/2013 Office visit Erica Carver MASONRY CONTRACTOR 09/10/2013 Office visit Erica Carver MASONRY CONTRACTOR 08/16/2013 Office visit Erica Carver MASONRY CONTRACTOR 03/27/2013 Office visit Erica Carver MASONRY CONTRACTOR 01/23/2013 Office visit Erica Carver MASONRY CONTRACTOR 01/19/2013 Voided Erica Carver MASONRY CONTRACTOR 12/29/2012 Office visit Erica Carver MASONRY CONTRACTOR 12/26/2012 Office visit Ercia Carver MASONRY CONTRACTOR 12/14/2012 Surgery Tong Whatley MD 12/07/2012 Voided Tong Whatley MD 11/09/2012 Surgery Tong Whatley MD 10/24/2012 [facility] Neema Barros MD 10/24/2012 [facility] Tong Whatley MD 10/18/2012 Surgery Tong Whatley MD 09/20/2012 Office visit Tong Whatley MD 07/27/2012 Office visit Yris Lara MASONRY CONTRACTOR 06/22/2012 Procedures Tong Whatley MD 05/25/2012 Office visit Tong Whatley MD 04/11/2012 Office visit Erica Mehul MASONRY CONTRACTOR 03/31/2012 Office visit Erica Mehul MASONRY CONTRACTOR 04/08/2011 Office visit Eugenio Enamorado MD 07/23/2010 Office visit Elsa FIGUEROA 04/15/2010 Office visit Elsa FIGUEROA 03/25/2010 Office visit Elsa FIGUEROA 03/02/2010 Office visit Elsa FIGUEROA
[2017-11-25] MEDS ORDERED: PHENYLEPHRINE 0.5% NASAL SPR (NEO-SYNEPHRINE) REG ONE (07:35)
[2017-11-25] MEDS ORDERED: LIDOCAINE/EPI 1%-1:200,000 (XYLOCAINE) 10 ML VIAL ONE (07:35)
[2017-11-25] MEDS ORDERED: COCAINE HCL 4% 2 ML SYR ONE (07:35)
[2017-11-25] MEDS ORDERED: BSS 15 ML ONE (07:35)
--- OUTSIDE RECORDS SUMMARY | 2017-11-25 07:35 | XMS REPORT ---
Author Erica Briseno Organization [facility] Address [address] [place], [place] [address] Care Team Providers Care Product Support Specialist Name Role Phone Erica Carver PCP Unavailable [...] 06/19/2015 12:00 AM Decadron, Per 1 Mg [facility]# [address]-14 Reviewed 06/19/2015 12:00 AM Depo-Medrol 40mg Reviewed 06/24/2015 12:00 AM COMPLETE CBC W/AUTO DIFF WBC Reviewed 06/24/2015 12:00 AM COMPREHEN METABOLIC PANEL Reviewed 06/24/2015 12:00 AM LIPID PANEL Reviewed 06/24/2015 12:00 AM GLYCOSYLATED HEMOGLOBIN TEST Reviewed 06/24/2015 12:00 AM ASSAY OF FERRITIN Reviewed 08/06/2015 12:00 AM BEHAV CHNG SMOKING 3-10 MIN Reviewed 09/10/2015 12:00 AM Imitrex 6mg [facility] #31897-032-75 Reviewed 11/26/2015 5:56 PM URINALYSIS AUTO W/O [...] 01/19/2017 12:00 AM Decadron, Per 1 Mg [facility]# [address]-07 Reviewed 01/19/2017 12:00 AM Depo-Medrol 40mg Injection [...] 12:00 AM Phenergan, Up to 50 Mg [facility]#3434-1488-33 Reviewed 12/26/2012 12:00 AM Toradol 60 Mg [facility]#8405-6562-03 Reviewed 12/29/2012 12:00 AM COMPLETE CBC W/AUTO DIFF WBC Reviewed 12/29/2012 12:00 AM COMPREHEN METABOLIC PANEL Reviewed 01/01/2013 12:[address] HEAD/BRAIN W/O & W/DYE Reviewed 01/19/2013 12:00 AM Blood Pressure Check-no charge Reviewed 01/23/2013 12:00 AM THER/PROPH/DIAG INJ SC/IM Reviewed 01/23/2013 12:00 AM Decadron, Per 1 Mg [facility]# 540[address]-2017-79 Reviewed 01/23/2013 12:00 AM Depo-Medrol, Per 80 Mg [facility]#7214-1554-01 Reviewed 08/16/2013 12:00 AM THER/PROPH/DIAG INJ SC/IM Reviewed 08/16/2013 12:00 AM Decadron, Per 1 Mg [facility]# [address]-83 Reviewed 08/16/2013 12:00 AM Depo-Medrol, Per 80 Mg [facility]#1221-0575-14 Reviewed 09/13/2013 12:00 AM COMPLETE CBC W/AUTO [...] 4.10 HGB 14.10 g/dLHCT 42.30 %MCV 103.0 [facility] 34.40 [facility] 33.[facility] g/dLRDW SD 54 RDW CV 14.30 [...] 3:20PM Arthritis, 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 Jun 03 2014 4:12PM [...] Policy Number Policy Group Number [id number] Tuesday, 2010 [facility] Comm [id number] N/A [facility] Plan [facility] Comm Plan of [id number] N/A History of Encounters Visit Date Visit Type Provider 02/04/2017 Office visit Erica Carver APRN 01/31/2017 Office visit Erica Carver APRN 01/30/2017 Office visit 01/30/2017 Office visit Navin Tucker NP 01/27/2017 Office visit Erica Carver MANAGER GIFT 01/25/2017 Office visit Erica Carver MANAGER GIFT 01/19/2017 Office visit Erica Carver MANAGER GIFT 01/18/2017 Office visit Cecily Solorzano MANAGER GIFT 01/10/2017 Office visit Alireza Gutierrez MD 12/30/2016 Office visit Luz Juju Brantley MANAGER GIFT 12/14/2016 Office visit Kaity Aguilar MD 10/11/2016 Office visit Vijay Rees MANAGER GIFT 09/24/2016 Office visit Kaity Aguilar MD 08/16/2016 Office visit Vijay Rees MANAGER GIFT 07/26/2016 Office visit Erica Carver MANAGER GIFT 05/26/2016 Office visit Vijay Rees MANAGER GIFT 05/06/2016 Office visit Kaity Aguilar MD 04/02/2016 Office visit Concepcion BORJA 03/23/2016 Office visit Kaity Aguilar MD 03/01/2016 Office visit Vijay Rees MANAGER GIFT 01/12/2016 Office visit Erica Carver MANAGER GIFT 11/26/2015 Office visit Vijay Rees MANAGER GIFT 09/26/2015 Surgery Noe Bouman DO 09/18/2015 Hospital Noe Bouman DO 09/16/2015 Office visit Noe Bouman DO 09/10/2015 Office visit Yi Staples MD 08/06/2015 Office visit Teresita Laureano MANAGER GIFT 06/24/2015 Office visit Kaity Aguilar MD 06/19/2015 Office visit Erica Carver MANAGER GIFT 10/28/2014 Office visit Yris Lara MANAGER GIFT 10/23/2014 Office visit Erica Carver MANAGER GIFT 10/03/2014 Office visit Kaity Aguilar MD 10/02/2014 Office visit Niyah Jensen MANAGER GIFT 09/20/2014 Office visit Noe Bouman DO 09/14/2014 Hospital Noe Bouman DO 09/13/2014 Hospital Noe Bouman DO 09/12/2014 Hospital Noe Bouman DO 07/19/2014 Office visit Vijay Rees MANAGER GIFT 07/03/2014 Office visit Vijay Rees MANAGER GIFT 06/11/2014 Office visit Vijay Rees MANAGER GIFT 06/03/2014 Office visit Kaity Aguilar MD 04/29/2014 Office visit iVjay Rees MANAGER GIFT 04/22/2014 Office visit Kaity Aguilar MD 03/11/2014 Office visit Kaity Aguilar MD 02/19/2014 Office visit Kaity Aguilar MD 10/01/2013 Office visit Erica Walker MANAGER GIFT 09/13/2013 Office visit Erica Walker MANAGER GIFT 09/10/2013 Office visit Erica Walker MANAGER GIFT 08/16/2013 Office visit Erica Walker MANAGER GIFT 03/27/2013 Office visit Erica Walker MANAGER GIFT 01/23/2013 Office visit Erica Walker MANAGER GIFT 01/19/2013 Voided Erica Walker MANAGER GIFT 12/29/2012 Office visit Erica Walker MANAGER GIFT 12/26/2012 Office visit Erica Walker MANAGER GIFT 12/14/2012 Surgery Tong Whatley MD 12/07/2012 Voided Tong Whatley MD 11/09/2012 Surgery Tong Whatley MD 10/24/2012 [facility] Neema Barros MD 10/24/2012 [facility] Tong Whatley MD 10/18/2012 Surgery Tong Whatley MD 09/20/2012 Office visit Tong Whatley MD 07/27/2012 Office visit Yris Lara MANAGER GIFT 06/22/2012 Procedures Tong Whatley MD 05/25/2012 Office visit Tong Whatley MD 04/11/2012 Office visit Erica Mehul MANAGER GIFT 03/31/2012 Office visit Erica Carver MANAGER GIFT 04/08/2011 Office visit Eugenio Enamorado MD 07/23/2010 Office visit Elsa FIGUEROA 04/15/2010 Office visit Elsa FIGUEROA 03/25/2010 Office visit Elsa FIGUEROA 03/02/2010 Office visit Elsa FIGUEROA
--- OUTSIDE RECORDS SUMMARY | 2017-11-25 07:36 | XMS REPORT ---
Author Author Alireza Gutierrez [facility] Address [address] [place], [place] [id number] Care Team Providers Care Rn Case Manager Hospice Name Role Phone Alireza Gutierrez PCP Unavailable Erica Carver PreferredProvider Unavailable Allergies [...] times per day as needed Pristiq oral Name Start Date Expiration Date SIG Comments [...] 09/20/2012 take 1 tablet by oral route [facility] [place] Medrol ([place]) 4 mg oral tablets,dose pack [...] HC BMI BSA BMI Percentile O2 Sat(%) 01/10/2017 1:30:00 PM 121 mmHg 69 mmHg [...] 06/19/2015 12:00 AM Decadron, Per 1 Mg [facility]# [address]-58 Reviewed 06/19/2015 12:00 AM Depo-Medrol 40mg Reviewed 06/24/2015 12:00 AM COMPLETE CBC W/AUTO DIFF WBC Reviewed 06/24/2015 12:00 AM COMPREHEN METABOLIC PANEL Reviewed 06/24/2015 12:00 AM LIPID PANEL Reviewed 06/24/2015 12:00 AM GLYCOSYLATED HEMOGLOBIN TEST Reviewed 06/24/2015 12:00 AM ASSAY OF FERRITIN Reviewed 08/06/2015 12:00 AM BEHAV CHNG SMOKING 3-10 MIN Reviewed 09/10/2015 12:00 AM Imitrex 6mg [facility] #94485-719-88 Reviewed 11/26/2015 5:56 PM URINALYSIS AUTO W/O [...] 12:00 AM Phenergan, Up to 50 Mg [facility]#6140-3238-68 Reviewed 12/26/2012 12:00 AM Toradol 60 Mg ND#6699-7951-04 Reviewed 12/29/2012 12:00 AM COMPLETE CBC W/AUTO DIFF WBC Reviewed 12/29/2012 12:00 AM COMPREHEN METABOLIC PANEL Reviewed 01/01/2013 12:[address] HEAD/BRAIN W/O & W/DYE Reviewed 01/19/2013 12:00 AM Blood Pressure Check-no charge Reviewed 01/23/2013 12:00 AM THER/PROPH/DIAG INJ SC/IM Reviewed 01/23/2013 12:00 AM Decadron, Per 1 Mg ND# [address]-35 Reviewed 01/23/2013 12:00 AM Depo-Medrol, Per 80 Mg NDC#5609-6111-69 Reviewed 08/16/2013 12:00 AM THER/PROPH/DIAG INJ SC/IM Reviewed 08/16/2013 12:00 AM Decadron, Per 1 Mg [facility]# [address]-16 Reviewed 08/16/2013 12:00 AM Depo-Medrol, Per 80 Mg NDC#4471-4762-29 Reviewed 09/13/2013 12:00 AM COMPLETE CBC W/AUTO [...] %MCV 94.0 fLMCH 31.60 pgMCHC 33.60 g/dLRDW SD 47 RDW CV 13.70 %MPV 10.10 fLPLT 255 NRBC# 0.00 NRBC% 0.0 ABO/Rh Type O Positive Antibody Screen-Gel Negative 10/24/2012 8:20 AM TEST UR NEGATIVE 10/25/2012 7:10 AM WBC 9.4 RBC 3.73 HGB 11.70 g/dLHCT 35.70 %MCV 96.0 fLMCH 31.40 pgMCHC 32.80 g/dLRDW SD 48 RDW CV 13.80 %MPV 9.90 fLPLT 231 NRBC# 0.00 NRBC% 0.0 GLUCOSE 105.0 mg/dLSODIUM 140.0 mmol/LPOTASSIUM 3.70 mmol/LCHLORIDE 112.0 mmol/LCO2 20.0 mmol/LBUN 9.0 mg/dLCREATININE 0.80 mg/dLCALCIUM 8.80 mg/ dLAGE 38 GFR NonAA 80 GFR AA 97 [...] 0.21 #BASO 0.06 MANUAL DIFF NOT IND TEST NEGATIVE MONO TEST NEGATIVE GLUCOSE 86.0 mg/dLSODIUM 139.0 mmol/LPOTASSIUM 3.40 mmol/LCHLORIDE 103.0 mmol/LCO2 21.0 mmol/LBUN 10.0 mg/dLCREATININE 0.80 mg/ dLSGOT/AST 47.0 IU/LSGPT/ALT 74.0 IU/LALK PHOS 78.0 IU/LTOTAL PROTEIN 7.60 g/ dLALBUMIN 4.40 g/dLTOTAL BILI 0.40 mg/dLCALCIUM 9.60 mg/dLAGE 38 GFR NonAA 80 GFR AA 97 eGFR 60 eGFR AA* 60 CPK 43 IU/LTRIGLYCERIDES 273.0 mg/dLCHOLESTEROL 203.0 mg/dLHDL 47.0 mg/dLTOT CHOL/HDL 4.3 LDL (CALC) 101.0 mg/dLAMYLASE 59 IU/ LLIPASE 27.0 U/MIKAELA TOTAL 72.0 ug/dLTransferrin 256.0 mg/dLTIBC [...] eGFR >60 mL/min/1.73 m2eGFR AA * >60 09/14/2014 6:15 AM WBC 6.8 RBC 3.40 HGB 10.90 g/dLHCT 33.60 %MCV 99.0 fLMCH 32.10 pgMCHC 32.40 g/dLRDW SD 50 RDW CV 13.70 %MPV 10.20 fLPLT 239 NRBC# 0.00 NRBC% 0.0 %NEUT 54.80 %%LYMP 32.40 %%MONO 6.80 %%EOS 5.60 %%BASO 0.40 %#NEUT 3.71 #LYMP 2.20 #MONO 0.46 #EOS 0.38 #BASO 0.03 MANUAL DIFF NOT IND GLUCOSE 94.0 mg/dLSODIUM 141.0 mmol/LPOTASSIUM 4.10 mmol/LCHLORIDE 109.0 mmol/LCO2 25.0 mmol/LBUN 6.0 mg/dLCREATININE 0.70 mg/dLSGOT/AST 14.0 IU/LSGPT/ALT 14.0 IU/LALK PHOS 62.0 IU/LTOTAL PROTEIN 5.60 g/dLALBUMIN 3.50 g/dLTOTAL BILI 0.60 mg/ dLCALCIUM 8.70 mg/dLAGE 40 GFR NonAA 93 GFR AA 113 eGFR >60 mL/min/1.73 m2eGFR AA* >60 06/24/2015 9:22 AM WBC 7.9 RBC 4.10 HGB 14.10 g/dLHCT 42.30 %MCV 103.0 fLMCH 34.40 pgMCHC 33.30 g/dLRDW SD 54 RDW CV 14.30 %MPV 10.10 fLPLT 335 NRBC# 0.00 NRBC% 0.0 %NEUT 58.20 %%LYMP 28.10 %%MONO 8.10 %%EOS 5.0 %%BASO 0.60 %#NEUT 4.62 #LYMP 2.23 #MONO 0.64 #EOS 0.40 #BASO 0.05 MANUAL DIFF NOT IND IRON TOTAL 78.0 ug/dLTransferrin 311.0 mg/dLTIBC Calculation 389 %Saturation Calc 20 TRIGLYCERIDES 93.0 mg/dLCHOLESTEROL 148.0 mg/dLHDL 44.0 mg/dLTOT [...] AA* >60 LIPASE 23.0 U/LAMYLASE 57 IU/L 09/24/2016 9:30 AM HGB A1C 4.90 %Est Avg Glucose 93.9 mg/dLMAGNESIUM 2.30 mg/ dLTSH 1.660 uIU/mLFREE T4 0.94 VITAMIN B12 426.0 pg/mL History Of Immunizations Not available. 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 attack controller use of drug Jun 03 2014 4:12PM [...] Dyspareunia in female Jan 10 2017 1:33PM Payers Insurance Name Company Name Plan Name Plan Number Policy Number Policy Group Number Start Date [employer] [place] [id number] Tuesday, 2010 [facility] - RHC - Community Plan [facility] RHC Comm [id number] N/A [facility] Community Plan [facility] Comm Plan of [id number] N/A History of Encounters Visit Date Visit Type Provider 01/10/2017 Office visit Alireza Gutierrez MD 12/30/2016 Office visit Luz Brantley TREE WRAPPER 12/14/2016 Office visit Kaity Aguilar MD 10/11/2016 Office visit Vijay Rees TREE WRAPPER 09/24/2016 Office visit Kaity Aguilar MD 08/16/2016 Office visit Vijay Rees TREE WRAPPER 07/26/2016 Office visit Erica Carver TREE WRAPPER 05/26/2016 Office visit Vijay Rees TREE WRAPPER 05/06/2016 Office visit Kaity Aguilar MD 04/02/2016 Office visit Concepcion BORJA 03/23/2016 Office visit Kaity Aguilar MD 03/01/2016 Office visit Vijay Rees TREE WRAPPER 01/12/2016 Office visit Erica Carver TREE WRAPPER 11/26/2015 Office visit Vijay Rees TREE WRAPPER 09/26/2015 Surgery Noe Calderón DO 09/18/2015 Hospital Noe Calderón DO 09/16/2015 Office visit Noe Calderón DO 09/10/2015 Office visit Yi Staples MD 08/06/2015 Office visit Teresita Laureano TREE WRAPPER 06/24/2015 Office visit Kaity Aguilar MD 06/19/2015 Office visit Erica Carver TREE WRAPPER 10/28/2014 Office visit Yris Lara TREE WRAPPER 10/23/2014 Office visit Erica Carver APRN 10/03/2014 Office visit Kaity Aguilar MD 10/02/2014 Office visit Niyah Jensen TREE WRAPPER 09/20/2014 Office visit Noe Calderón DO 09/14/2014 Hospital Noe Calderón DO 09/13/2014 Hospital Noe Bouman DO 09/12/2014 Hospital Noe Bouman DO 07/19/2014 Office visit Vijay Rees TREE WRAPPER 07/03/2014 Office visit Vijay Rees TREE WRAPPER 06/11/2014 Office visit Vijay Rees TREE WRAPPER 06/03/2014 Office visit Kaity Aguilar MD 04/29/2014 Office visit Vijay Rees TREE WRAPPER 04/22/2014 Office visit Kaity Aguilar MD 03/11/2014 Office visit Kaity Aguilar MD 02/19/2014 Office visit Kaity Aguilar MD 10/01/2013 Office visit Erica Walker TREE WRAPPER 09/13/2013 Office visit Erica Walker TREE WRAPPER 09/10/2013 Office visit Erica Walker TREE WRAPPER 08/16/2013 Office visit Erica Walker TREE WRAPPER 03/27/2013 Office visit Erica Walker TREE WRAPPER 01/23/2013 Office visit Erica Walker TREE WRAPPER 01/19/2013 Voided Erica Walker TREE WRAPPER 12/29/2012 Office visit Erica Walker TREE WRAPPER 12/26/2012 Office visit Erica Walker TREE WRAPPER 12/14/2012 Surgery Tong Whatley MD 12/07/2012 Voided Tong Whatley MD 11/09/2012 Surgery [facility] Tong Whatley MD 10/18/2012 Surgery Tong Whatley MD 09/20/2012 Office visit Tong Whatley MD 07/27/2012 Office visit Yris Lara TREE WRAPPER 06/22/2012 Procedures Tong Whatley MD 05/25/2012 Office visit Tong Whatley MD 04/11/2012 Office visit Erica Carver TREE WRAPPER 03/31/2012 Office visit Erica Carver TREE WRAPPER 04/08/2011 Office visit Eugenio Enamorado MD 07/23/2010 Office visit Elsa FIGUEROA 04/15/2010 Office visit Elsa FIGUEROA 03/25/2010 Office visit Elsa FIGUEROA 03/02/2010 Office visit Elsa FIGUEROA
--- OUTSIDE RECORDS SUMMARY | 2017-11-25 07:38 | XMS REPORT ---
Author Kaity Rico Organization [facility] Address [address] [place], [place] [address] Care Team Providers Care Telegraphic Typewriter Operator Name Role Phone Kaity Aguilar PCP Kaity [...] stimulating hormone (TSH) measurement 08/02/2017 12:00 AM Chest x-ray, PA and lateral 09/02/2017 12:00 AM Pulmonary Function Study 09/02/2017 12:00 AM Medications Active Name Start Date [...] 06/19/2015 12:00 AM Decadron, Per 1 Mg [facility]# [address]-31 Reviewed 06/19/2015 12:00 AM Depo-Medrol 40mg Reviewed 06/24/2015 12:00 AM COMPLETE CBC W/AUTO DIFF WBC Reviewed 06/24/2015 12:00 AM COMPREHEN METABOLIC PANEL Reviewed 06/24/2015 12:00 AM LIPID PANEL Reviewed 06/24/2015 12:00 AM GLYCOSYLATED HEMOGLOBIN TEST Reviewed 06/24/2015 12:00 AM ASSAY OF FERRITIN Reviewed 08/06/2015 12:00 AM BEHAV CHNG SMOKING 3-10 MIN Reviewed 09/10/2015 12:00 AM Imitrex 6mg [facility] #88022-446-36 Reviewed 11/26/2015 5:56 PM URINALYSIS AUTO W/O [...] 01/19/2017 12:00 AM Decadron, Per 1 Mg [facility]# [address]-79 Reviewed 01/19/2017 12:00 AM Depo-Medrol 40mg Injection [...] 12:00 AM Phenergan, Up to 50 Mg [facility]#1961-9103-76 Reviewed 12/26/2012 12:00 AM Toradol 60 Mg [facility]#0681-2011-53 Reviewed 12/29/2012 12:00 AM COMPLETE CBC W/AUTO DIFF WBC Reviewed 12/29/2012 12:00 AM COMPREHEN METABOLIC PANEL Reviewed 01/01/2013 12:[address] HEAD/BRAIN W/O & W/DYE Reviewed 01/19/2013 12:00 AM Blood Pressure Check-no charge Reviewed 01/23/2013 12:00 AM THER/PROPH/DIAG INJ SC/IM Reviewed 01/23/2013 12:00 AM Decadron, Per 1 Mg [facility]# [address]-13 Reviewed 01/23/2013 12:00 AM Depo-Medrol, Per 80 Mg [facility]#0324-4895-19 Reviewed 08/16/2013 12:00 AM THER/PROPH/DIAG INJ SC/IM Reviewed 08/16/2013 12:00 AM Decadron, Per 1 Mg [facility]# [address]-25 Reviewed 08/16/2013 12:00 AM Depo-Medrol, Per 80 Mg [facility]#6112-4491-53 Reviewed 09/13/2013 12:00 AM COMPLETE CBC W/AUTO [...] 3:20PM Arthritis, rheumatoid Jun 03 2014 4:12PM half-way use of drug Jun 03 2014 4:12PM [...] 11:10AM Rheumatoid arthritis Sep 02 2017 11:10AM Payers Insurance Name Company Name Plan Name Plan Number Policy Number Policy Group Number Start Date [place] [employer] - [place]HC [place] [employer] - [facility] [id number] N/A [place] [facility] [place] [facility] [place] [id number] N/A [employer]BS [employer] [place] [id number] Tuesday, 2010 [facility] - [facility] - [facility] Comm [id number] N/A [facility] Community Plan [facility] Comm Plan of [id number] N/A [facility] [id number] N/A History of Encounters Visit Date Visit Type Provider 09/02/2017 Office visit Kaity Aguilar MD 08/29/2017 Surgery Noe Bouman DO 08/23/2017 Office visit Noe Calderón DO 08/23/2017 Office visit Alireza Gutierrez MD 08/17/2017 Office visit Erica Carver SOLIDS CONTROL TECHNICIAN 08/09/2017 Office visit Alireza Gutierrez MD 08/07/2017 Office visit Luz Brantley SOLIDS CONTROL TECHNICIAN 08/02/2017 Office visit Kaity Aguilar MD 07/14/2017 Office visit Alireza Gutierrez MD 07/06/2017 Office visit Kaity Augilar MD 03/08/2017 [facility] Papo Ambriz MD 02/14/2017 Office visit Kaity Aguilar MD 02/04/2017 Office visit Erica Carver SOLIDS CONTROL TECHNICIAN 01/31/2017 Office visit Erica Carver SOLIDS CONTROL TECHNICIAN 01/30/2017 Office visit 01/30/2017 Office visit Navin Tucker NP 01/27/2017 Office visit Erica Carver SOLIDS CONTROL TECHNICIAN 01/25/2017 Office visit Ercia Carver SOLIDS CONTROL TECHNICIAN 01/19/2017 Office visit Erica Carver SOLIDS CONTROL TECHNICIAN 01/18/2017 Office visit Cecily Solorzano SOLIDS CONTROL TECHNICIAN 01/10/2017 Office visit Alireza Gutierrez MD 12/30/2016 Office visit Luz Brantley SOLIDS CONTROL TECHNICIAN 12/14/2016 Office visit Kaity Aguilar MD 10/11/2016 Office visit Vijay Rees SOLIDS CONTROL TECHNICIAN 09/24/2016 Office visit Kaity Aguilar MD 08/16/2016 Office visit Vijay Rees SOLIDS CONTROL TECHNICIAN 07/26/2016 Office visit Erica Carver SOLIDS CONTROL TECHNICIAN 05/26/2016 Office visit Vijay Rees SOLIDS CONTROL TECHNICIAN 05/06/2016 Office visit Kaity Aguilar MD 04/02/2016 Office visit Concepcion BORJA 03/23/2016 Office visit Kaity Aguilar MD 03/01/2016 Office visit Vijay Rees SOLIDS CONTROL TECHNICIAN 01/12/2016 Office visit Erica Carver SOLIDS CONTROL TECHNICIAN 11/26/2015 Office visit Vijay Rees APRN 09/26/2015 Surgery Noe Bouman DO 09/18/2015 Hospital Noe Bouman DO 09/16/2015 Office visit Noe Bouman DO 09/10/2015 Office visit Yi Staples MD 08/06/2015 Office visit Teresita Laureano SOLIDS CONTROL TECHNICIAN 06/24/2015 Office visit Kaity Aguilar MD 06/19/2015 Office visit Erica Carver SOLIDS CONTROL TECHNICIAN 10/28/2014 Office visit Yris Lara SOLIDS CONTROL TECHNICIAN 10/23/2014 Office visit Erica Carver SOLIDS CONTROL TECHNICIAN 10/03/2014 Office visit Kaity Aguilar MD 10/02/2014 Office visit Niyah Jensen SOLIDS CONTROL TECHNICIAN 09/20/2014 Office visit Noe Bouman DO 09/14/2014 Hospital Noe Bouman DO 09/13/2014 Hospital Noe Bouman DO 09/12/2014 Hospital Noe Bouman DO 07/19/2014 Office visit Vijay Rees SOLIDS CONTROL TECHNICIAN 07/03/2014 Office visit Vijay Rees SOLIDS CONTROL TECHNICIAN 06/11/2014 Office visit Vijay Rees SOLIDS CONTROL TECHNICIAN 06/03/2014 Office visit Kaity Aguilar MD 04/29/2014 Office visit Vijay Rees SOLIDS CONTROL TECHNICIAN 04/22/2014 Office visit Kaity Aguilar MD 03/11/2014 Office visit Kaity Aguilar MD 02/19/2014 Office visit Kaity Aguilar MD 10/01/2013 Office visit Erica Walker SOLIDS CONTROL TECHNICIAN 09/13/2013 Office visit Erica Walker SOLIDS CONTROL TECHNICIAN 09/10/2013 Office visit Reica Walker SOLIDS CONTROL TECHNICIAN 08/16/2013 Office visit Erica Walker SOLIDS CONTROL TECHNICIAN 03/27/2013 Office visit Erica Walker SOLIDS CONTROL TECHNICIAN 01/23/2013 Office visit Erica Walker SOLIDS CONTROL TECHNICIAN 01/19/2013 Voided Erica Walker SOLIDS CONTROL TECHNICIAN 12/29/2012 Office visit Erica Walker SOLIDS CONTROL TECHNICIAN 12/26/2012 Office visit Erica Carver SOLIDS CONTROL TECHNICIAN 12/14/2012 Surgery Togn Whatley MD 12/07/2012 Voided Tong Whatley MD 11/09/2012 Surgery Tong Whatley MD 10/24/2012 [facility] Neema Barros MD 10/24/2012 [facility] Tong Whatley MD 10/18/2012 Surgery Tong Whatley MD 09/20/2012 Office visit Tong Whatley MD 07/27/2012 Office visit Yris Lara SOLIDS CONTROL TECHNICIAN 06/22/2012 Procedures Tong Whatley MD 05/25/2012 Office visit Tong Whatley MD 04/11/2012 Office visit Erica Carver APRN 03/31/2012 Office visit Erica Carver APRN 04/08/2011 Office visit Eugenio Enamorado MD 07/23/2010 Office visit Elsa FIGUEROA 04/15/2010 Office visit Elsa FIGUEROA 03/25/2010 Office visit Elsa FIGUEROA 03/02/2010 Office visit Elsa FIGUEROA
--- OUTSIDE RECORDS SUMMARY | 2017-11-25 07:41 | XMS REPORT ---
Author Kaity Rico Organization [facility] Address [address] [place], [place] [address] Care Team Providers Care Minute Clerk Name Role Phone Kaity Aguilar PCP Kaity [...] 06/19/2015 12:00 AM Decadron, Per 1 Mg [facility]# [address]-86 Reviewed 06/19/2015 12:00 AM Depo-Medrol 40mg Reviewed 06/24/2015 12:00 AM COMPLETE CBC W/AUTO DIFF WBC Reviewed 06/24/2015 12:00 AM COMPREHEN METABOLIC PANEL Reviewed 06/24/2015 12:00 AM LIPID PANEL Reviewed 06/24/2015 12:00 AM GLYCOSYLATED HEMOGLOBIN TEST Reviewed 06/24/2015 12:00 AM ASSAY OF FERRITIN Reviewed 08/06/2015 12:00 AM BEHAV CHNG SMOKING 3-10 MIN Reviewed 09/10/2015 12:00 AM Imitrex 6mg [facility] #51124-974-30 Reviewed 11/26/2015 5:56 PM URINALYSIS AUTO W/O [...] 01/19/2017 12:00 AM Decadron, Per 1 Mg [facility]# [address]-61 Reviewed 01/19/2017 12:00 AM Depo-Medrol 40mg Injection [...] 125 Reviewed 08/17/2017 12:00 AM Consult/Referral Reviewed 09/05/2017 12:00 AM Consult/Referral Reviewed 09/05/2017 12:00 AM Consult/Referral Reviewed 10/18/2012 12:00 AM COMPLETE CBC W/AUTO DIFF WBC Reviewed 10/18/2012 12:00 AM METABOLIC PANEL TOTAL CA Reviewed 10/18/2012 12:00 AM Type and screen Reviewed 12/26/2012 12:00 AM THER/PROPH/DIAG INJ SC/IM Reviewed 12/26/2012 12:00 AM Phenergan, Up to 50 Mg [facility]#9533-9774-56 Reviewed 12/26/2012 12:00 AM Toradol 60 Mg [facility]#9518-4103-09 Reviewed 12/29/2012 12:00 AM COMPLETE CBC W/AUTO DIFF WBC Reviewed 12/29/2012 12:00 AM COMPREHEN METABOLIC PANEL Reviewed 01/01/2013 12:[address] HEAD/BRAIN W/O & W/DYE Reviewed 01/19/2013 12:00 AM Blood Pressure Check-no charge Reviewed 01/23/2013 12:00 AM THER/PROPH/DIAG INJ SC/IM Reviewed 01/23/2013 12:00 AM Decadron, Per 1 Mg [facility]# [address]-77 Reviewed 01/23/2013 12:00 AM Depo-Medrol, Per 80 Mg [facility]#7481-2721-56 Reviewed 08/16/2013 12:00 AM THER/PROPH/DIAG INJ SC/IM Reviewed 08/16/2013 12:00 AM Decadron, Per 1 Mg [facility]# [address]-69 Reviewed 08/16/2013 12:00 AM Depo-Medrol, Per 80 Mg [facility]#3236-5318-90 Reviewed 09/13/2013 12:00 AM COMPLETE CBC W/AUTO [...] 3:20PM Arthritis, rheumatoid Jun 03 2014 4:12PM FPC use of drug Jun 03 2014 4:12PM [...] Policy Number Policy Group Number Start Date [place] [facility] [id number] N/A [place] Medical Assistance Program [place] Medical Assistance Prog [id number] N/A BCBS [employer] [facility] [id number] Tuesday, 2010 [facility] - RHC - Community Plan of [facility] RHC Comm [id number] N/A [facility] Community Plan of [facility] Comm Plan of [id number] N/A [facility] - RHC - Community Plan of [facility] RHC Comm [id number] N/A History of Encounters Visit Date Visit Type Provider 09/02/2017 Office visit Kaity Aguilar MD 08/29/2017 Surgery Noe Calderón DO 08/23/2017 Office visit Noe Calderón DO 08/23/2017 Office visit Alireza Gutierrez MD 08/17/2017 Office visit Erica Carver TRACK MACHINE OPERATOR REPAIRER 08/09/2017 Office visit Alireza Gutierrez MD 08/07/2017 Office visit Luz Brantley TRACK MACHINE OPERATOR REPAIRER 08/02/2017 Office visit Kaity Aguilar MD 07/14/2017 Office visit Alireza Gutierrez MD 07/06/2017 Office visit Kaity Aguilar MD 03/08/2017 [facility] Reese Ambriz MD 02/14/2017 Office visit Kaity Aguilar MD 02/04/2017 Office visit Erica Carver TRACK MACHINE OPERATOR REPAIRER 01/31/2017 Office visit Erica Carver TRACK MACHINE OPERATOR REPAIRER 01/30/2017 Office visit 01/30/2017 Office visit Navin Tucker NP 01/27/2017 Office visit Erica Carver TRACK MACHINE OPERATOR REPAIRER 01/25/2017 Office visit Ercia Carver TRACK MACHINE OPERATOR REPAIRER 01/19/2017 Office visit Erica Carver TRACK MACHINE OPERATOR REPAIRER 01/18/2017 Office visit Cecily Solorzano TRACK MACHINE OPERATOR REPAIRER 01/10/2017 Office visit Alireza Gutierrez MD 12/30/2016 Office visit Luz Brantley TRACK MACHINE OPERATOR REPAIRER 12/14/2016 Office visit Kaity Aguilar MD 10/11/2016 Office visit Vijay Rees TRACK MACHINE OPERATOR REPAIRER 09/24/2016 Office visit Kaity Aguilar MD 08/16/2016 Office visit Vijay Rees TRACK MACHINE OPERATOR REPAIRER 07/26/2016 Office visit Erica Carver TRACK MACHINE OPERATOR REPAIRER 05/26/2016 Office visit Vijay Rees TRACK MACHINE OPERATOR REPAIRER 05/06/2016 Office visit Kaity Aguilar MD 04/02/2016 Office visit Concepcion BORJA 03/23/2016 Office visit Kaity Aguilar MD 03/01/2016 Office visit Vijay Rees TRACK MACHINE OPERATOR REPAIRER 01/12/2016 Office visit Erica Carver TRACK MACHINE OPERATOR REPAIRER 11/26/2015 Office visit Vijay Rees TRACK MACHINE OPERATOR REPAIRER 09/26/2015 Surgery Noe Bouman DO 09/18/2015 Hospital Noe Bouman DO 09/16/2015 Office visit Noe Bouman DO 09/10/2015 Office visit Yi Staples MD 08/06/2015 Office visit Teresita Laureano TRACK MACHINE OPERATOR REPAIRER 06/24/2015 Office visit Kaity Aguilar MD 06/19/2015 Office visit Erica Carver TRACK MACHINE OPERATOR REPAIRER 10/28/2014 Office visit Yris Lara TRACK MACHINE OPERATOR REPAIRER 10/23/2014 Office visit Erica Carver TRACK MACHINE OPERATOR REPAIRER 10/03/2014 Office visit Kaity Aguilar MD 10/02/2014 Office visit Niyah Jensen TRACK MACHINE OPERATOR REPAIRER 09/20/2014 Office visit Noe Bouman DO 09/14/2014 Hospital Noe Bouman DO 09/13/2014 Hospital Noe Bouman DO 09/12/2014 Hospital Noe Bouman DO 07/19/2014 Office visit Vijay Rees TRACK MACHINE OPERATOR REPAIRER 07/03/2014 Office visit Vijay Rees TRACK MACHINE OPERATOR REPAIRER 06/11/2014 Office visit Vijay Rees TRACK MACHINE OPERATOR REPAIRER 06/03/2014 Office visit Kaity Aguilar MD 04/29/2014 Office visit Vijay Rees TRACK MACHINE OPERATOR REPAIRER 04/22/2014 Office visit Kaity Aguilar MD 03/11/2014 Office visit Kaity Aguilar MD 02/19/2014 Office visit Kaity Aguilar MD 10/01/2013 Office visit Erica Carver TRACK MACHINE OPERATOR REPAIRER 09/13/2013 Office visit Erica Walker TRACK MACHINE OPERATOR REPAIRER 09/10/2013 Office visit Erica Carver TRACK MACHINE OPERATOR REPAIRER 08/16/2013 Office visit Erica Walker TRACK MACHINE OPERATOR REPAIRER 03/27/2013 Office visit Erica Walker TRACK MACHINE OPERATOR REPAIRER 01/23/2013 Office visit Erica Walker TRACK MACHINE OPERATOR REPAIRER 01/19/2013 Voided Erica Walker TRACK MACHINE OPERATOR REPAIRER 12/29/2012 Office visit Erica Walker TRACK MACHINE OPERATOR REPAIRER 12/26/2012 Office visit Erica Walker TRACK MACHINE OPERATOR REPAIRER 12/14/2012 Surgery Tong Whatley MD 12/07/2012 Voided Tong Whatley MD 11/09/2012 Surgery Tong Whatley MD 10/24/2012 [facility] Neema Barros MD 10/24/2012 [facility] Tong Whatley MD 10/18/2012 Surgery Tong Whatley MD 09/20/2012 Office visit Tong Whatley MD 07/27/2012 Office visit Yris Lraa TRACK MACHINE OPERATOR REPAIRER 06/22/2012 Procedures Tong Whatley MD 05/25/2012 Office visit Tong Whatley MD 04/11/2012 Office visit Erica Carver APRN 03/31/2012 Office visit Erica Carver APRN 04/08/2011 Office visit Eugenio Enamorado MD 07/23/2010 Office visit Elsa FIGUEROA 04/15/2010 Office visit Elsa FIGUEROA 03/25/2010 Office visit Elsa FIGUEROA 03/02/2010 Office visit Elsa FIGUEROA
--- OUTSIDE RECORDS SUMMARY | 2017-11-25 07:42 | XMS REPORT ---
Author Author Alireza Gutierrez Organization [facility] Address [address] [place], [place] [id number] Care Team Providers Care Macaroni Maker Name Role Phone Alireza Gutierrez PCP Kaity Aguilar PreferredProvider Allergies and Adverse Reactions Name Reaction Notes PENICILLINS told as a child glutens Bee Stings whole body swelling Plan of Treatment Planned Activity Comments Planned [...] Min 3Views - MOB 02/14/2017 12:00 AM Transabdominal / Transvaginal US (non-OB) 07/07/2017 12:00 AM Transabdominal / Transvaginal US (non-OB) 07/07/2017 12:00 AM Medications Active Name Start Date [...] by oral route 2 times per day Pristiq oral Singulair 10 mg oral tablet 01/19/2017 take 1 tablet (10 mg) by oral route once daily in the evening for 30 days sulfasalazine 500 mg oral tablet 02/14/2017 take [...] by oral route 2 times per day Minipress 2 mg oral capsule take 1 capsule (2 mg) by oral route before bed Cipro 500 mg oral tablet 07/14/2017 take 1 tablet (500 mg) by oral route every 12 hours for 7 days montelukast 10 mg oral tablet 07/21/2017 07/21/2017 TAKE ONE TABLET BY MOUTH ONCE DAILY IN THE EVENING Name Start Date Expiration Date SIG Comments [...] 3 times per day for 7 days Discontinued Name Start Date [...] pack 201509/16/2015 take as directed on jamaal Zyrtec-D 5-120 mg oral tablet extended release [...] to 3.0mg. Pen Needle 32 gauge x " miscellaneous needle 01/12/2016 03/01/2016 use as directed [...] route 2 times per day as needed Flovent HFA 110 mcg/actuation inhalation HFA aerosol [...] route every 12 hours for 7 days Problem List Description Status Onset Bipolar Disorder Active Hypertension Active Obesity Active Seasonal Allergies Active Arthritis, rheumatoid Active 06/04/2014 Gluten intolerance Active 06/04/2014 Cholelithiasis Active 09/16/2015 Chronic Cholecystitis Active 09/16/2015 Vital Signs Date Time BP-Sys(mm[Hg] BP-Patti(mm[Hg]) HR(bpm) RR(rpm) Temp WT HT HC BMI BSA BMI Percentile O2 Sat(%) 07/14/2017 3:54:00 PM 128 mmHg 78 mmHg 88 bpm 99 F 201 lbs 63 in 35.61 kg/m2 2.01 m2 07/06/2017 1:35:00 PM 120 mmHg 82 mmHg 102 bpm 18 rpm 99.9 F 198.125 lbs 63 in 35.0959 kg/m 1.9987 m 95 % 02/14/2017 1:36:00 PM 122 mmHg 74 mmHg 82 bpm 16 rpm 97.3 F 170 lbs 63 in 30.11 kg/m2 1.85 m2 98 % 02/04/2017 8:28:00 AM 114 mmHg 66 mmHg 101 bpm 16 rpm 97.8 F 167 lbs 63 in 29.5824 kg/m 1.835 m 98 % 01/31/2017 10:47:00 AM 117 mmHg [...] Per 1 Mg [facility]# [address]-56 Reviewed 06/19/2015 12:00 AM Depo-Medrol 40mg Reviewed 06/24/2015 12:00 AM COMPLETE CBC W/AUTO DIFF WBC Reviewed 06/24/2015 12:00 AM COMPREHEN METABOLIC PANEL Reviewed 06/24/2015 12:00 AM LIPID PANEL Reviewed 06/24/2015 12:00 AM GLYCOSYLATED HEMOGLOBIN TEST Reviewed 06/24/2015 12:00 AM ASSAY OF FERRITIN Reviewed 08/06/2015 12:00 AM BEHAV CHNG SMOKING 3-10 MIN Reviewed 09/10/2015 12:00 AM Imitrex 6mg [facility] #72352-072-83 Reviewed 11/26/2015 5:56 PM URINALYSIS AUTO W/O [...] Per 1 Mg [facility]# [address]-51 Reviewed 01/19/2017 12:00 AM Depo-Medrol 40mg Injection [...] to 50 Mg [facility]#4490-4682-75 Reviewed 12/26/2012 12:00 AM Toradol 60 Mg ND#5050-8560-83 Reviewed 12/29/2012 12:00 AM COMPLETE CBC W/AUTO DIFF WBC Reviewed 12/29/2012 12:00 AM COMPREHEN METABOLIC PANEL Reviewed 01/01/2013 12:[address] HEAD/BRAIN W/O & W/DYE Reviewed 01/19/2013 12:00 AM Blood Pressure Check-no charge Reviewed 01/23/2013 12:00 AM THER/PROPH/DIAG INJ SC/IM Reviewed 01/23/2013 12:00 AM Decadron, Per 1 Mg ND# [address]-54 Reviewed 01/23/2013 12:00 AM Depo-Medrol, Per 80 Mg ND#6518-3901-28 Reviewed 08/16/2013 12:00 AM THER/PROPH/DIAG INJ SC/IM Reviewed 08/16/2013 12:00 AM Decadron, Per 1 Mg [facility]# [address]-08 Reviewed 08/16/2013 12:00 AM Depo-Medrol, Per 80 Mg [facility]#4093-7896-71 Reviewed 09/13/2013 12:00 AM COMPLETE CBC W/AUTO [...] NEGATIVE WBC Est Ur Ql Strip TRACE History Of Immunizations Not available. 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 Comm Plan of [id number] N/A History of Encounters Visit Date Visit Type Provider 07/14/2017 Office visit Alireza Gutierrez MD 07/06/2017 Office visit Kaity Aguilar MD 03/08/2017 Hospital Papo Ambriz MD 02/14/2017 Office visit Kaity Aguilar MD 02/04/2017 Office visit Erica Carver IMPROVEMENT ADVISOR 01/31/2017 Office visit Erica Carver IMPROVEMENT ADVISOR 01/30/2017 Office visit 01/30/2017 Office visit Navin Tucker NP 01/27/2017 Office visit Erica Carver IMPROVEMENT ADVISOR 01/25/2017 Office visit Erica Carver IMPROVEMENT ADVISOR 01/19/2017 Office visit Erica Carver IMPROVEMENT ADVISOR 01/18/2017 Office visit Cecily Solorzano IMPROVEMENT ADVISOR 01/10/2017 Office visit Alireza Gutierrez MD 12/30/2016 Office visit Luz Brantley IMPROVEMENT ADVISOR 12/14/2016 Office visit Kaity Aguilar MD 10/11/2016 Office visit Vijay Rees IMPROVEMENT ADVISOR 09/24/2016 Office visit Kaity Aguilar MD 08/16/2016 Office visit Vijay Rees IMPROVEMENT ADVISOR 07/26/2016 Office visit Erica Carver IMPROVEMENT ADVISOR 05/26/2016 Office visit Vijay Rees IMPROVEMENT ADVISOR 05/06/2016 Office visit Kaity Aguilar MD 04/02/2016 Office visit Concepcion BORJA 03/23/2016 Office visit Kaity Aguilar MD 03/01/2016 Office visit Vijay Rees IMPROVEMENT ADVISOR 01/12/2016 Office visit Erica Carver IMPROVEMENT ADVISOR 11/26/2015 Office visit Vijay Rees IMPROVEMENT ADVISOR 09/26/2015 Surgery Noe Bouman DO 09/18/2015 Hospital Noe Bouman DO 09/16/2015 Office visit Noe Bouman DO 09/10/2015 Office visit Yi Staples MD 08/06/2015 Office visit Teresita Laureano IMPROVEMENT ADVISOR 06/24/2015 Office visit Kaity Aguilar MD 06/19/2015 Office visit Erica Carver IMPROVEMENT ADVISOR 10/28/2014 Office visit Yris Lara IMPROVEMENT ADVISOR 10/23/2014 Office visit Erica Carver IMPROVEMENT ADVISOR 10/03/2014 Office visit Kaity Aguilar MD 10/02/2014 Office visit Niyah Jensen IMPROVEMENT ADVISOR 09/20/2014 Office visit Noe Bouman DO 09/14/2014 Hospital Noe Bouman DO 09/13/2014 Hospital Noe Bouman DO 09/12/2014 Hospital Noe Bouman DO 07/19/2014 Office visit Vijay Rees IMPROVEMENT ADVISOR 07/03/2014 Office visit Vijay Rees IMPROVEMENT ADVISOR 06/11/2014 Office visit Vijay Negrita IMPROVEMENT ADVISOR 06/03/2014 Office visit Kaity Aguilar MD 04/29/2014 Office visit Vijay Rees IMPROVEMENT ADVISOR 04/22/2014 Office visit Kaity Aguilar MD 03/11/2014 Office visit Kaity Aguilar MD 02/19/2014 Office visit Kaity Aguilar MD 10/01/2013 Office visit Erica Walker IMPROVEMENT ADVISOR 09/13/2013 Office visit Erica Walker IMPROVEMENT ADVISOR 09/10/2013 Office visit Erica Walker IMPROVEMENT ADVISOR 08/16/2013 Office visit Erica Walker IMPROVEMENT ADVISOR 03/27/2013 Office visit Erica Walker IMPROVEMENT ADVISOR 01/23/2013 Office visit Erica Walker IMPROVEMENT ADVISOR 01/19/2013 Voided Erica Walker IMPROVEMENT ADVISOR 12/29/2012 Office visit Erica Walker IMPROVEMENT ADVISOR 12/26/2012 Office visit Erica Walker IMPROVEMENT ADVISOR 12/14/2012 Surgery Tong Whatley MD 12/07/2012 Voided Tong Whatley MD 11/09/2012 Surgery Tong Whatley MD 10/24/2012 [facility] 10[facility]2012 [facility] Tong Whatley MD 10/18/2012 Surgery Tong Whatley MD 09/20/2012 Office visit Tong Whatley MD 07/27/2012 Office visit Yris Lara IMPROVEMENT ADVISOR 06/22/2012 Procedures Tong Whatley MD 05/25/2012 Office visit Tong Whatley MD 04/11/2012 Office visit Erica Carver IMPROVEMENT ADVISOR 03/31/2012 Office visit Erica Carver IMPROVEMENT ADVISOR 04/08/2011 Office visit Eugenio Enamorado MD 07/23/2010 Office visit Elsa FIGUEROA 04/15/2010 Office visit Elsa FIGUEROA 03/25/2010 Office visit Elsa FIGUEROA 03/02/2010 Office visit Elsa FIGUEROA
--- OUTSIDE RECORDS SUMMARY | 2017-11-25 07:44 | XMS REPORT ---
Author Author Kaity Aguilar Organization [facility] Address [address] [place], [place] [id number] Care Team Providers Care Trailer Park Manager Name Role Phone Kaity Aguilar PCP Erica Carver PreferredProvider Unavailable Allergies and Adverse Reactions Name Reaction Notes PENICILLINS told as a child Plan of Treatment Planned Activity Comments Planned Date Planned Time Plan/Goal Iron panel (iron, TIBC, transferrin saturation) 06/24/2015 12:00 AM Iron panel (iron, TIBC, transferrin saturation) 06/24/2015 12:00 AM Iron panel (iron, TIBC, transferrin saturation) 06/24/2015 12:00 AM Abdominal Ultrasound, single organ 06/24/2015 12:00 AM Medications Active Name Start Date Estimated Completion Date SIG Comments montelukast 10 mg oral tablet 06/25/2013 TAKE ONE TABLET BY MOUTH IN THE EVENING pantoprazole 40 mg oral tablet,delayed release (DR/EC) 07/30/2013 TAKE ONE TABLET BY MOUTH EVERY DAY Latuda 40 mg oral tablet take 1 tablet (40 mg) by oral route once daily with food (at least 350 calories) Lexapro 20 mg oral tablet take 1 tablet (20 mg) by oral route once daily hydroxychloroquine 200 mg oral tablet 08/13/2015 TAKE [...] HFA 90 mcg/actuation inhalation HFA aerosol inhaler 05/06/20162016 inhale 1 puff (90 mcg) by inhalation route every 6 hours as needed for 30 days Name Start Date Expiration [...] route every 12 hours for 3 days Discontinued Name Start Date Discontinued Date [...] tablet (150 mg) by oral route BID Imitrex 5 mg/actuation nasal spray,non-aerosol 07/29/2015 03/01/2016 [...] route 3 times per day as needed Problem List Description Status Onset Bipolar Disorder Active Hypertension Active Obesity Active Seasonal Allergies Active Arthritis, rheumatoid Active 06/04/2014 Gluten intolerance Active 06/04/2014 Cholelithiasis Active 09/16/2015 Chronic cholecystitis Active 09/16/2015 Vital Signs Date Time BP-Sys(mm[Hg] BP-Patti(mm[Hg]) HR(bpm) RR(rpm) Temp WT HT HC BMI BSA BMI Percentile O2 Sat(%) 05/06/2016 2:03:00 PM 108 mmHg 72 mmHg [...] 12:00 AM Decadron, Per 1 Mg [facility]# [address]-85 Reviewed 06/19/2015 12:00 AM Depo-Medrol 40mg Reviewed 06/24/2015 12:00 AM COMPLETE CBC W/AUTO DIFF WBC Reviewed 06/24/2015 12:00 AM COMPREHEN METABOLIC PANEL Reviewed 06/24/2015 12:00 AM LIPID PANEL Reviewed 06/24/2015 12:00 AM GLYCOSYLATED HEMOGLOBIN TEST Reviewed 06/24/2015 12:00 AM ASSAY OF FERRITIN Reviewed 08/06/2015 12:00 AM BEHAV CHNG SMOKING 3-10 MIN Reviewed 09/10/2015 12:00 AM Imitrex 6mg [facility] #78952-257-45 Reviewed 11/26/2015 5:56 PM URINALYSIS AUTO W/O SCOPE Reviewed 11/26/2015 12:00 AM URINE CULTURE/COLONY COUNT Returned 03/01/2016 12:00 AM COMPREHEN METABOLIC PANEL Returned 03/01/2016 12:00 AM COMPLETE CBC W/AUTO DIFF WBC Returned 03/01/2016 12:00 AM Imitrex 6 mg Reviewed 04/02/2016 6:41 PM URINALYSIS AUTO W/O SCOPE Reviewed 05/25/2012 12:00 AM CYTOPATH TBS C/V [...] AM Phenergan, Up to 50 Mg [facility]#2828-0945-64 Reviewed 12/26/2012 12:00 AM Toradol 60 Mg [facility]#6339-4447-47 Reviewed 12/29/2012 12:00 AM COMPLETE CBC W/AUTO DIFF WBC Reviewed 12/29/2012 12:00 AM COMPREHEN METABOLIC PANEL Reviewed 01/01/2013 12:[address] HEAD/BRAIN W/O & W/DYE Reviewed 01/23/2013 12:00 AM THER/PROPH/DIAG INJ SC/IM Reviewed 01/23/2013 12:00 AM Decadron, Per 1 Mg [facility]# [address]-43 Reviewed 01/23/2013 12:00 AM Depo-Medrol, Per 80 Mg [facility]#4963-7160-34 Reviewed 08/16/2013 12:00 AM THER/PROPH/DIAG INJ SC/IM Reviewed 08/16/2013 12:00 AM Decadron, Per 1 Mg ND# [address]-01 Reviewed 08/16/2013 12:00 AM Depo-Medrol, Per 80 Mg ND#0566-7739-41 Reviewed 09/13/2013 12:00 AM COMPLETE CBC W/AUTO [...] 12:00 AM MAMMOGRAM SCREENING Reviewed Results Summary Data and Description Results 05/25/2012 [...] 0.36 #BASO 0.07 MANUAL DIFF NOT IND History Of Immunizations Not available. 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 Jun 03 2014 4:12PM [...] 2016 8:49AM Hypotension Mar 23 2016 8:49AM Payers Insurance Name Company Name Plan Name Plan Number Policy Number Policy Group Number Start Date [facility] - [facility] Comm [id number] N/A [facility] Comm Plan of [id number] N/A [facility] [id number] Tuesday, 2010 History of Encounters Visit Date Visit Type Provider 05/06/2016 Office visit Kaity Aguilar MD 04/02/2016 Office visit Concepcion BORJA 03/23/2016 Office visit Kaity Aguilar MD 03/01/2016 Office visit Vijay Rees RADIATION CONTROL SPECIALIST 01/12/2016 Office visit Erica Carver RADIATION CONTROL SPECIALIST 11/26/2015 Office visit Vijay Rees RADIATION CONTROL SPECIALIST 09/26/2015 Surgery Noe Calderón DO 09/18/2015 Hospital Noe Calderón DO 09/16/2015 Office visit Noe Bouman DO 09/10/2015 Office visit Yi Staples MD 08/06/2015 Office visit Teresita Laureano RADIATION CONTROL SPECIALIST 06/24/2015 Office visit Kaity Aguilar MD 06/19/2015 Office visit Erica Carver RADIATION CONTROL SPECIALIST 10/28/2014 Office visit Yris Lara RADIATION CONTROL SPECIALIST 10/23/2014 Office visit Erica Mehul RADIATION CONTROL SPECIALIST 10/03/2014 Office visit Kaity Aguilar MD 10/02/2014 Office visit Niyah Jensen RADIATION CONTROL SPECIALIST 09/20/2014 Office visit Noe Bouman DO 09/14/2014 Hospital Noe Bouman DO 09/13/2014 Hospital Noe Bouman DO 09/12/2014 Hospital Noe Bouman DO 07/19/2014 Office visit Vijay Rees RADIATION CONTROL SPECIALIST 07/03/2014 Office visit Vijay Rees RADIATION CONTROL SPECIALIST 06/11/2014 Office visit Vijay Rees RADIATION CONTROL SPECIALIST 06/03/2014 Office visit Kaity Aguilar MD 04/29/2014 Office visit Vijay Rees RADIATION CONTROL SPECIALIST 04/22/2014 Office visit Kaity Aguilar MD 03/11/2014 Office visit Kaity Aguilar MD 02/19/2014 Office visit Kaity Aguilar MD 10/01/2013 Office visit Erica Carver RADIATION CONTROL SPECIALIST 09/13/2013 Office visit Erica Walker RADIATION CONTROL SPECIALIST 09/10/2013 Office visit Erica Walker RADIATION CONTROL SPECIALIST 08/16/2013 Office visit Erica Walker RADIATION CONTROL SPECIALIST 03/27/2013 Office visit Erica Walker RADIATION CONTROL SPECIALIST 01/23/2013 Office visit Erica Walker RADIATION CONTROL SPECIALIST 01/19/2013 Voided Erica Walker RADIATION CONTROL SPECIALIST 12/29/2012 Office visit Erica Walker RADIATION CONTROL SPECIALIST 12/26/2012 Office visit Erica Walker RADIATION CONTROL SPECIALIST 12/14/2012 Surgery Tong Whatley MD 12/07/2012 Voided Tong Whatley MD 11/09/2012 Surgery Tong Whatley MD 10/24/2012 [facility] Neema Barros MD 10/24/2012 [facility] Tong Whatley MD 10/18/2012 Surgery Tong Whatley MD 09/20/2012 Office visit Tong Whatley MD 07/27/2012 Office visit Yris Lara RADIATION CONTROL SPECIALIST 06/22/2012 Procedures Tong Whatley MD 05/25/2012 Office visit Tong Whatley MD 04/11/2012 Office visit Erica Carver RADIATION CONTROL SPECIALIST 03/31/2012 Office visit Erica Carver APRN 04/08/2011 Office visit Eugenio Enamorado MD 07/23/2010 Office visit Elsa FIGUEROA 04/15/2010 Office visit Elsa FIGUEROA 03/25/2010 Office visit Elsa FIGUEROA 03/02/2010 Office visit Elsa FIGUEROA
[2017-11-25] MEDS ORDERED: MIDAZOLAM 2 MG/2 ML (VERSED) VIAL IV ONE (07:45)
--- OUTSIDE RECORDS SUMMARY | 2017-11-25 07:46 | XMS REPORT ---
Author Author Alireza Gutierrez Organization [facility] Address [address] [place], [place] [address] Care Team Providers Care Schedule Hanger Name Role Phone Alireza Gutierrez PCP Kaity [...] 12:00 AM VITAMIN B12 09/29/2017 12:00 AM URINALYSIS W/MICRO C&S IF IND 10/12/2017 12:00 AM Medications Active Name Start Date [...] mg oral take one tablet PO QD Zofran ODT 4 mg oral tablet,disintegrating 10/05/2017 dissolve 2 tablets by oral route daily Name Start Date Expiration Date SIG [...] HC BMI BSA BMI Percentile O2 Sat(%) 10/12/2017 2:36:00 PM 135 mmHg 82 mmHg 92 bpm 98.1 F 196 lbs 63 in 34.7195 kg/m 1.9879 m 09/21/2017 3:29:00 PM 126 mmHg 68 mmHg 108 bpm 20 rpm 98.4 F 194.375 lbs 63 in 34.43 kg/m2 1.98 m2 97 % 09/02/2017 10:58:00 AM 118 mmHg [...] 06/19/2015 12:00 AM Decadron, Per 1 Mg [facility]# [address]-18 Reviewed 06/19/2015 12:00 AM Depo-Medrol 40mg Reviewed 06/24/2015 12:00 AM COMPLETE CBC W/AUTO DIFF WBC Reviewed 06/24/2015 12:00 AM COMPREHEN METABOLIC PANEL Reviewed 06/24/2015 12:00 AM LIPID PANEL Reviewed 06/24/2015 12:00 AM GLYCOSYLATED HEMOGLOBIN TEST Reviewed 06/24/2015 12:00 AM ASSAY OF FERRITIN Reviewed 08/06/2015 12:00 AM BEHAV CHNG SMOKING 3-10 MIN Reviewed 09/10/2015 12:00 AM Imitrex 6mg [facility] #84291-018-42 Reviewed 11/26/2015 5:56 PM URINALYSIS AUTO W/O [...] 01/19/2017 12:00 AM Decadron, Per 1 Mg [facility]# [address]-31 Reviewed 01/19/2017 12:00 AM Depo-Medrol 40mg Injection [...] 10/04/2017 12:00 AM US EXAM PELVIC COMPLETE Returned 10/04/2017 12:00 AM TRANSVAGINAL US NON-OB Returned 09/21/2017 12:00 AM IMMUNOASSAY QUANT NOS NONAB Reviewed 09/21/2017 12:00 AM [facility] Crohn's Prognostic test Reviewed 09/21/2017 12:00 AM [facility] Crohn's Prognostic test Reviewed 09/21/2017 12:00 AM [facility] Crohn's Prognostic test Reviewed 09/21/2017 12:00 AM IMMUNOFLUORESCENT STUDY Reviewed 09/29/2017 12:00 AM THERAPEUTIC PROPHYLACTIC/DX INJECTION SUBQ/IM Reviewed 10/03/2017 12:00 AM Consult/Referral Reviewed 10/18/2012 12:00 AM COMPLETE CBC W/AUTO DIFF WBC Reviewed 10/18/2012 12:00 AM METABOLIC PANEL TOTAL CA Reviewed 10/18/2012 12:00 AM Type and screen Reviewed 12/26/2012 12:00 AM THER/PROPH/DIAG INJ SC/IM Reviewed 12/26/2012 12:00 AM Phenergan, Up to 50 Mg [facility]#3199-0357-48 Reviewed 12/26/2012 12:00 AM Toradol 60 Mg [facility]#8792-2363-73 Reviewed 12/29/2012 12:00 AM COMPLETE CBC W/AUTO DIFF WBC Reviewed 12/29/2012 12:00 AM COMPREHEN METABOLIC PANEL Reviewed 01/01/2013 12:[address] HEAD/BRAIN W/O & W/DYE Reviewed 01/19/2013 12:00 AM Blood Pressure Check-no charge Reviewed 01/23/2013 12:00 AM THER/PROPH/DIAG INJ SC/IM Reviewed 01/23/2013 12:00 AM Decadron, Per 1 Mg ND# [address]-31 Reviewed 01/23/2013 12:00 AM Depo-Medrol, Per 80 Mg [facility]#3299-8516-64 Reviewed 08/16/2013 12:00 AM THER/PROPH/DIAG INJ SC/IM Reviewed 08/16/2013 12:00 AM Decadron, Per 1 Mg ND# [address]-75 Reviewed 08/16/2013 12:00 AM Depo-Medrol, Per 80 Mg [facility]#4402-1868-46 Reviewed 09/13/2013 12:00 AM COMPLETE CBC W/AUTO [...] 3:20PM Arthritis, 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 [id number] N/A [place] [facility] [place] [facility] [id number] N/A [employer] [facility] [id number] Tuesday, 2010 [facility] - [facility] - [facility]HC Comm [id number] N/A [facility] Community Plan [facility] Comm Plan of [id number] N/A [facility] - RHC - Community Plan [facility] RHC Comm [id number] N/A History of Encounters Visit Date Visit Type Provider 10/12/2017 Office visit Alireza Gutierrez MD 10/06/2017 Surgery Fidel Valencia MD 09/29/2017 Nurse visit Kaity Aguilar MD 09/21/2017 Office visit 09/21/2017 Office visit Fidel Valencia MD 09/02/2017 Office visit Kaity Aguilar MD 08/29/2017 Surgery Noe Bouman DO 08/23/2017 Office visit Noe Calderón DO 08/23/2017 Office visit Alireza Gutierrez MD 08/17/2017 Office visit Erica Carver SAP BASIS ADMINISTRATOR 08/09/2017 Office visit Alireza Gutierrez MD 08/07/2017 Office visit Luz Brantley SAP BASIS ADMINISTRATOR 08/02/2017 Office visit Kaity Aguilar MD 07/14/2017 Office visit Alireza Gutierrez MD 07/06/2017 Office visit Kaity Aguilar MD 03/08/2017 Hospital Reese Ambriz MD 02/14/2017 Office visit Kaity Aguilar MD 02/04/2017 Office visit Erica Carver SAP BASIS ADMINISTRATOR 01/31/2017 Office visit Erica Carver SAP BASIS ADMINISTRATOR 01/30/2017 Office visit 01/30/2017 Office visit Navin Tucker NP 01/27/2017 Office visit Erica Carver SAP BASIS ADMINISTRATOR 01/25/2017 Office visit Erica Carver SAP BASIS ADMINISTRATOR 01/19/2017 Office visit Erica Carver SAP BASIS ADMINISTRATOR 01/18/2017 Office visit Cecily Solorzano SAP BASIS ADMINISTRATOR 01/10/2017 Office visit Alireza Gutierrez MD 12/30/2016 Office visit Luz Brantley SAP BASIS ADMINISTRATOR 12/14/2016 Office visit Kaity Aguilar MD 10/11/2016 Office visit Vijay Rees SAP BASIS ADMINISTRATOR 09/24/2016 Office visit Kaity Aguilar MD 08/16/2016 Office visit Vijay Rees SAP BASIS ADMINISTRATOR 07/26/2016 Office visit Erica Carver SAP BASIS ADMINISTRATOR 05/26/2016 Office visit Vijay Rees SAP BASIS ADMINISTRATOR 05/06/2016 Office visit Kaity Aguilar MD 04/02/2016 Office visit Concepcion BORJA 03/23/2016 Office visit Kaity Aguilar MD 03/01/2016 Office visit Vijay Rees SAP BASIS ADMINISTRATOR 01/12/2016 Office visit Erica Carver SAP BASIS ADMINISTRATOR 11/26/2015 Office visit Vijay Rees SAP BASIS ADMINISTRATOR 09/26/2015 Surgery Noe Bouman DO 09/18/2015 Hospital Noe Randhawauman DO 09/16/2015 Office visit Noe Calderón DO 09/10/2015 Office visit Yi Staples MD 08/06/2015 Office visit Teresita Laureano SAP BASIS ADMINISTRATOR 06/24/2015 Office visit Kaity Aguilar MD 06/19/2015 Office visit Erica Carver SAP BASIS ADMINISTRATOR 10/28/2014 Office visit Yris Lara SAP BASIS ADMINISTRATOR 10/23/2014 Office visit Erica Walker SAP BASIS ADMINISTRATOR 10/03/2014 Office visit Kaity Aguilar MD 10/02/2014 Office visit Niyah Jensen SAP BASIS ADMINISTRATOR 09/20/2014 Office visit Noe Bouman DO 09/14/2014 Hospital Noe Bouman DO 09/13/2014 Hospital Noe Bouman DO 09/12/2014 Hospital Noe Bouman DO 07/19/2014 Office visit Vijay Rees SAP BASIS ADMINISTRATOR 07/03/2014 Office visit Vijay Rees SAP BASIS ADMINISTRATOR 06/11/2014 Office visit Vijay Rees SAP BASIS ADMINISTRATOR 06/03/2014 Office visit Kaity Aguilar MD 04/29/2014 Office visit Vijay Rees SAP BASIS ADMINISTRATOR 04/22/2014 Office visit Kaity Aguilar MD 03/11/2014 Office visit Kaity Aguilar MD 02/19/2014 Office visit Kaity Aguilar MD 10/01/2013 Office visit Erica Walker SAP BASIS ADMINISTRATOR 09/13/2013 Office visit Erica Walker SAP BASIS ADMINISTRATOR 09/10/2013 Office visit Erica Walker SAP BASIS ADMINISTRATOR 08/16/2013 Office visit Erica Walker SAP BASIS ADMINISTRATOR 03/27/2013 Office visit Erica Walker SAP BASIS ADMINISTRATOR 01/23/2013 Office visit Erica Walker SAP BASIS ADMINISTRATOR 01/19/2013 Voided Erica Walker SAP BASIS ADMINISTRATOR 12/29/2012 Office visit Erica Walker SAP BASIS ADMINISTRATOR 12/26/2012 Office visit Erica Carver SAP BASIS ADMINISTRATOR 12/14/2012 Surgery Tong Whatley MD 12/07/2012 Voided Tong Whatley MD 11/09/2012 [facility] Tong Whatley MD 10/18/2012 Surgery Tong Whatley MD 09/20/2012 Office visit Tong Whatley MD 07/27/2012 Office visit Yris Lara SAP BASIS ADMINISTRATOR 06/22/2012 Procedures Tong Whatley MD 05/25/2012 Office visit Tong Whatley MD 04/11/2012 Office visit Erica Carver SAP BASIS ADMINISTRATOR 03/31/2012 Office visit Erica Carver SAP BASIS ADMINISTRATOR 04/08/2011 Office visit Eugenio Enamorado MD 07/23/2010 Office visit Elsa FIGUEROA 04/15/2010 Office visit Elsa FIGUEROA 03/25/2010 Office visit Elsa FIGUEROA 03/02/2010 Office visit Elsa FIGUEROA
--- OUTSIDE RECORDS SUMMARY | 2017-11-25 07:47 | XMS REPORT ---
Author Author Kaity Aguilar Organization [facility] Address [address] [place], [place] [address] Care Team Providers Care Plant Associate Name Role Phone Kaity Aguilar PCP Allergies and Adverse Reactions Name Reaction Notes PENICILLINS Plan of Treatment Planned Activity Comments Planned Date Planned Time Plan/Goal COMPLETE CBC W/AUTO DIFF WBC 06/24/2015 12:00 AM COMPREHEN METABOLIC PANEL 06/24/2015 12:00 AM LIPID PANEL 06/24/2015 12:00 AM GLYCOSYLATED HEMOGLOBIN TEST 06/24/2015 12:00 AM ASSAY OF IRON 06/24/2015 12:00 AM IRON BINDING TEST 06/24/2015 12:00 AM ASSAY OF TRANSFERRIN 06/24/2015 12:00 AM ASSAY OF FERRITIN 06/24/2015 12:00 AM ECHO EXAM OF ABDOMEN [...] daily with food (at least 350 calories) Imitrex 5 mg/actuation nasal spray,non-aerosol 10/29/2014 spray 1 spray (5 mg) by intranasal route into each nostril; may repeat once after 2 hours if headache returns, not to exceed 40 mg per day Zyrtec-D 5-120 mg oral tablet extended release 12 hr 06/19/2015 take 1 tablet by oral route every 12 hours Lamictal 150 mg oral tablet take 1 tablet (150 mg) by oral route BID Lexapro 20 mg oral tablet take 1 tablet (20 mg) by oral route once daily Name Start Date Expiration [...] then Take 1 tab x 1 days. propranolol 60 mg oral capsule,extended release 24 hr 08/08/2014 02/04/2015 take 1 capsule by oral route daily for 30 days Plaquenil 200 mg oral tablet 08/08/2014 02/04/2015 [...] oral route once daily for 4 days Problem List Description Status Onset Bipolar Disorder Active Hypertension Active Obesity Active Seasonal Allergies Active Arthritis, rheumatoid Active 06/04/2014 Gluten intolerance Active 06/04/2014 Vital Signs Date Time BP-Sys(mm[Hg] BP-Patti(mm[Hg]) HR(bpm) RR(rpm) Temp WT HT HC BMI BSA BMI Percentile O2 Sat(%) 06/24/2015 8:35:00 AM 120 mmHg 78 mmHg [...] [facility]# [address]-22 Reviewed 06/19/2015 12:00 AM Depo-Medrol 40mg Reviewed 05/25/2012 12:00 AM CYTOPATH TBS C/V [...] Mg [facility]#4718-5290-88 Reviewed 12/26/2012 12:00 AM Toradol 60 Mg [facility]#1704-4640-63 Reviewed 12/29/2012 12:00 AM COMPLETE CBC W/AUTO DIFF WBC Returned 12/29/2012 12:00 AM COMPREHEN METABOLIC PANEL Returned 01/01/2013 12:[address] HEAD/BRAIN W/O & W/DYE Returned 01/23/2013 12:00 AM THER/PROPH/DIAG INJ SC/IM Reviewed 01/23/2013 12:00 AM Decadron, Per 1 Mg [facility]# [address]-03 Reviewed 01/23/2013 12:00 AM Depo-Medrol, Per 80 Mg [facility]#7645-6325-54 Reviewed 08/16/2013 12:00 AM THER/PROPH/DIAG INJ SC/IM Reviewed 08/16/2013 12:00 AM Decadron, Per 1 Mg [facility]# [address]-78 Reviewed 08/16/2013 12:00 AM Depo-Medrol, Per 80 Mg [facility]#7634-[address]-52 Reviewed 09/13/2013 12:00 AM COMPLETE CBC W/AUTO [...] 17.0 mm/hrPROTIME 10.10 secsINR 1.0 PTT 25.10 secsEst Avg Glucose 114.0 mg/dLVITAMIN B12 389.0 pg/mLHIV AG/AB COMBO 0.08 Antiscleroderma-70Antibodies <0.2 AIHep A Ab, IgM Negative HBsAg Screen Negative Hep B Core Ab, IgM Negative Hep C Virus Ab <0.1 t-Transglutaminase (tTG )IgG 6.0 U/mLCCP Antibodies IgG/IgA 21 Units 02/19/2014 [...] 3:20PM Arthritis, rheumatoid Jun 03 2014 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 Jun 03 2014 4:12PM [...] multiple sites with positive rheumatoid factor Jun 2 2015 8:39AM RUQ abdominal pain Jun 24 2015 8:39AM Elevated fasting blood sugar b 2015 8:39AM Payers Insurance Name Company Name Plan Name Plan Number Policy Number Policy Group Number Start Date [facility] - RHC - Community Plan of [facility] RHC Comm [id number] N/A BCBS Bcbs [facility] [id number] Tuesday, 2010 History of Encounters Visit Date Visit Type Provider 06/24/2015 Office visit Kaity Aguilar MD 06/19/2015 Office visit Erica Carver FORMING ROLL OPERATOR HEAVY DUTY 10/28/2014 Office visit Yris Lara FORMING ROLL OPERATOR HEAVY DUTY 10/23/2014 Office visit Erica Carver FORMING ROLL OPERATOR HEAVY DUTY 10/03/2014 Office visit Kaity Aguilar MD 10/02/2014 Office visit Niyah Jensen FORMING ROLL OPERATOR HEAVY DUTY 09/20/2014 Office visit Noe Calderón DO 09/14/2014 [facility] 09/13/2014 Hospital Noe Bouman DO 09/12/2014 [facility] Noe Bouman DO 07/19/2014 Office visit Vijay Rees FORMING ROLL OPERATOR HEAVY DUTY 07/03/2014 Office visit Vijay Rees FORMING ROLL OPERATOR HEAVY DUTY 06/11/2014 Office visit Vijay Rees FORMING ROLL OPERATOR HEAVY DUTY 06/03/2014 Office visit Kaity Aguilar MD 04/29/2014 Office visit Vijay Rees FORMING ROLL OPERATOR HEAVY DUTY 04/22/2014 Office visit Kaity Aguilar MD 03/11/2014 Office visit Kaity Aguilar MD 02/19/2014 Office visit Kaity Aguilar MD 10/01/2013 Office visit Erica Carver FORMING ROLL OPERATOR HEAVY DUTY 09/13/2013 Office visit Erica Carver FORMING ROLL OPERATOR HEAVY DUTY 09/10/2013 Office visit Erica Carver FORMING ROLL OPERATOR HEAVY DUTY 08/16/2013 Office visit Erica Carver FORMING ROLL OPERATOR HEAVY DUTY 03/27/2013 Office visit Erica Carver FORMING ROLL OPERATOR HEAVY DUTY 01/23/2013 Office visit Erica Carver FORMING ROLL OPERATOR HEAVY DUTY 01/19/2013 Voided Erica Carver FORMING ROLL OPERATOR HEAVY DUTY 12/29/2012 Office visit Erica Carver FORMING ROLL OPERATOR HEAVY DUTY 12/26/2012 Office visit Erica Carver FORMING ROLL OPERATOR HEAVY DUTY 12/14/2012 Surgery Tong Whatley MD 12/07/2012 Voided Tong Whatley MD 11/09/2012 Surgery Tong Whatley MD 10/24/2012 [facility] Neema Barros MD 10/24/2012 [facility] Tong Whatley MD 10/18/2012 Surgery Tong Whatley MD 09/20/2012 Office visit Tong Whatley MD 07/27/2012 Office visit Yris Lara FORMING ROLL OPERATOR HEAVY DUTY 06/22/2012 Procedures Tong Whatley MD 05/25/2012 Office visit Tong Whatley MD 04/11/2012 Office visit Erica Carver APRN 03/31/2012 Office visit Erica Carver APRN 04/08/2011 Office visit Eugenio Enamorado MD 07/23/2010 Office visit Elsa FIGUEROA 04/15/2010 Office visit Elsa FIGUEROA 03/25/2010 Office visit Elas FIGUEROA 03/02/2010 Office visit Elsa FIGUEROA
--- OUTSIDE RECORDS SUMMARY | 2017-11-25 07:49 | XMS REPORT ---
Author Author Kaity Aguilar Organization [facility] Address [address] [place], [place] [id number] Care Team Providers Care Home School Teacher Name Role Phone Kaity Aguilar PCP Kaity [...] stimulating hormone (TSH) measurement 08/02/2017 12:00 AM Transabdominal / Transvaginal US (non-OB) 10/04/2017 12:00 AM Transabdominal / Transvaginal US (non-OB) 10/04/2017 12:00 AM [facility] Crohn's Prognostic test 09/21/2017 12:00 AM [facility] Crohn's Prognostic test 09/21/2017 12:00 AM [facility] Crohn's Prognostic test 09/21/2017 12:00 AM [facility] Crohn's Prognostic test 09/21/2017 12:00 AM [facility] Crohn's Prognostic test 09/21/2017 12:00 AM VITAMIN B12 09/29/2017 12:00 AM [...] Sublingual 12/26/2012 omeprazole 40 mg oral capsule,delayed release(/EC) 04/11/2012 05/25/2012 take 1 tablet by mouth daily Provera 10 mg oral tablet 06/27/2012 09/20/2012 take 1 tablet by oral route qhs Medrol (Brelin) 4 mg oral tablets,dose pack 07/27/2012 09/20/2012 [...] nostril by intranasal route once daily Mariella Perles 100 mg oral capsule 10/05/2013 02/19/2014 [...] HC BMI BSA BMI Percentile O2 Sat(%) 09/21/2017 3:29:00 PM 126 mmHg 68 mmHg [...] 06/19/2015 12:00 AM Decadron, Per 1 Mg [facility]# [address]-58 Reviewed 06/19/2015 12:00 AM Depo-Medrol 40mg Reviewed 06/24/2015 12:00 AM COMPLETE CBC W/AUTO DIFF WBC Reviewed 06/24/2015 12:00 AM COMPREHEN METABOLIC PANEL Reviewed 06/24/2015 12:00 AM LIPID PANEL Reviewed 06/24/2015 12:00 AM GLYCOSYLATED HEMOGLOBIN TEST Reviewed 06/24/2015 12:00 AM ASSAY OF FERRITIN Reviewed 08/06/2015 12:00 AM BEHAV CHNG SMOKING 3-10 MIN Reviewed 09/10/2015 12:00 AM Imitrex 6mg [facility] #10433-230-90 Reviewed 11/26/2015 5:56 PM URINALYSIS AUTO W/O [...] 01/19/2017 12:00 AM Decadron, Per 1 Mg [facility]# [address]-68 Reviewed 01/19/2017 12:00 AM Depo-Medrol 40mg Injection [...] 08/07/2017 12:00 AM Depo-Medrol 40mg Injection Reviewed 09/29/2017 12:00 AM THERAPEUTIC PROPHYLACTIC/DX INJECTION SUBQ/IM Reviewed 10/18/2012 12:00 AM COMPLETE CBC W/AUTO DIFF WBC Reviewed 10/18/2012 12:00 AM METABOLIC PANEL TOTAL CA Reviewed 10/18/2012 12:00 AM Type and screen Reviewed 12/26/2012 12:00 AM THER/PROPH/DIAG INJ SC/IM Reviewed 12/26/2012 12:00 AM Phenergan, Up to 50 Mg [facility]#5839-8615-21 Reviewed 12/26/2012 12:00 AM Toradol 60 Mg [facility]#3745-1455-16 Reviewed 12/29/2012 12:00 AM COMPLETE CBC W/AUTO DIFF WBC Reviewed 12/29/2012 12:00 AM COMPREHEN METABOLIC PANEL Reviewed 01/01/2013 12:[address] HEAD/BRAIN W/O & W/DYE Reviewed 01/19/2013 12:00 AM Blood Pressure Check-no charge Reviewed 01/23/2013 12:00 AM THER/PROPH/DIAG INJ SC/IM Reviewed 01/23/2013 12:00 AM Decadron, Per 1 Mg [facility]# [address]-90 Reviewed 01/23/2013 12:00 AM Depo-Medrol, Per 80 Mg [facility]#0495-3845-43 Reviewed 08/16/2013 12:00 AM THER/PROPH/DIAG INJ SC/IM Reviewed 08/16/2013 12:00 AM Decadron, Per 1 Mg [facility]# [address]-61 Reviewed 08/16/2013 12:00 AM Depo-Medrol, Per 80 Mg [facility]#6235-2950-20 Reviewed 09/13/2013 12:00 AM COMPLETE CBC W/AUTO [...] 3:20PM Arthritis, rheumatoid Jun 03 2014 4:12PM [facility] use of drug Jun 03 2014 4:12PM [...] 3:30PM Arthritis, rheumatoid Sep 29 2017 2:27PM Payers Insurance Name Company Name Plan Name Plan Number Policy Number Policy Group Number Start Date [place] [facility]g - [facility] [id number] N/A [place] [facility] [place] [facility] [place] Medical [place] Prog [id number] N/A BCBS Bcbs [facility] [id number] Tuesday, 2010 [facility] - RHC - Community Plan of [facility] RHC Comm [id number] N/A [facility] Community Plan [facility] Comm Plan of [id number] N/A [facility] - RHC - Community Plan [facility] RHC Comm [id number] N/A History of Encounters Visit Date Visit Type Provider 09/29/2017 Nurse visit Kaity Aguilar MD 09/21/2017 Office visit 09/21/2017 Office visit Fidel Valencia MD 09/02/2017 Office visit Kaity Aguilar MD 08/29/2017 Surgery Noe Calderón DO 08/23/2017 Office visit Noe Calderón DO 08/23/2017 Office visit Alireza Gutierrez MD 08/17/2017 Office visit Erica Carver SAVINGS COUNSELOR 08/09/2017 Office visit Alireza Gutierrez MD 08/07/2017 Office visit Luz Brantley SAVINGS COUNSELOR 08/02/2017 Office visit Kaity Aguilar MD 07/14/2017 Office visit Alireza Gutierrez MD 07/06/2017 Office visit Kaity Aguilar MD 03/08/2017 [facility] Papo Ambriz MD 02/14/2017 Office visit Kaity Aguilar MD 02/04/2017 Office visit Erica Carver SAVINGS COUNSELOR 01/31/2017 Office visit Erica Carver SAVINGS COUNSELOR 01/30/2017 Office visit 01/30/2017 Office visit Navin Tucker NP 01/27/2017 Office visit Erica Carver SAVINGS COUNSELOR 01/25/2017 Office visit Erica Carver SAVINGS COUNSELOR 01/19/2017 Office visit Erica Carver SAVINGS COUNSELOR 01/18/2017 Office visit Cecily Solorzano SAVINGS COUNSELOR 01/10/2017 Office visit Alireza Gutierrez MD 12/30/2016 Office visit Luz Brantley SAVINGS COUNSELOR 12/14/2016 Office visit Kaity Aguilar MD 10/11/2016 Office visit Vijay Rees SAVINGS COUNSELOR 09/24/2016 Office visit Kaity Aguilar MD 08/16/2016 Office visit Vijay Rees SAVINGS COUNSELOR 07/26/2016 Office visit Erica Carver SAVINGS COUNSELOR 05/26/2016 Office visit Vijay Rees SAVINGS COUNSELOR 05/06/2016 Office visit Kaity Aguilar MD 04/02/2016 Office visit Concepcion BORJA 03/23/2016 Office visit Kaity Aguilar MD 03/01/2016 Office visit Vijay Rees SAVINGS COUNSELOR 01/12/2016 Office visit Erica Carver SAVINGS COUNSELOR 11/26/2015 Office visit Vijay Rees SAVINGS COUNSELOR 09/26/2015 Surgery Noe Bouman DO 09/18/2015 Hospital Noe Bouman DO 09/16/2015 Office visit Noe Bouman DO 09/10/2015 Office visit Yi Staples MD 08/06/2015 Office visit Teresita Laureano SAVINGS COUNSELOR 06/24/2015 Office visit Kaity Aguilar MD 06/19/2015 Office visit Erica Carver SAVINGS COUNSELOR 10/28/2014 Office visit Yris Lara SAVINGS COUNSELOR 10/23/2014 Office visit Erica Carver SAVINGS COUNSELOR 10/03/2014 Office visit Kaity Aguilar MD 10/02/2014 Office visit Niyah Jensen SAVINGS COUNSELOR 09/20/2014 Office visit Noe Bouman DO 09/14/2014 Hospital Noe Bouman DO 09/13/2014 Hospital Noe Bouman DO 09/12/2014 Hospital Noe Bouman DO 07/19/2014 Office visit Vijay Rees SAVINGS COUNSELOR 07/03/2014 Office visit Vijay Rees SAVINGS COUNSELOR 06/11/2014 Office visit Vijay Rees SAVINGS COUNSELOR 06/03/2014 Office visit Kaity Aguilar MD 04/29/2014 Office visit Vijay Rees SAVINGS COUNSELOR 04/22/2014 Office visit Kaity Aguilar MD 03/11/2014 Office visit Kaity Aguilar MD 02/19/2014 Office visit Kaity Aguilar MD 10/01/2013 Office visit Erica Walker SAVINGS COUNSELOR 09/13/2013 Office visit Erica Walker SAVINGS COUNSELOR 09/10/2013 Office visit Erica Walker SAVINGS COUNSELOR 08/16/2013 Office visit Erica Walker SAVINGS COUNSELOR 03/27/2013 Office visit Erica Walker SAVINGS COUNSELOR 01/23/2013 Office visit Erica Walker SAVINGS COUNSELOR 01/19/2013 Voided Erica Walker SAVINGS COUNSELOR 12/29/2012 Office visit Erica Walker SAVINGS COUNSELOR 12/26/2012 Office visit Erica Walker SAVINGS COUNSELOR 12/14/2012 Surgery Tong Whatley MD 12/07/2012 Voided Tong Whatley MD 11/09/2012 Surgery Tong Whatley MD 10/24/2012 [facility] Neema Barros MD 10/24/2012 [facility] Tong Whatley MD 10/18/2012 Surgery Tong Whatley MD 09/20/2012 Office visit Tong Whatley MD 07/27/2012 Office visit Yris Lara SAVINGS COUNSELOR 06/22/2012 Procedures Tong Whatley MD 05/25/2012 Office visit Tong Whatley MD 04/11/2012 Office visit Erica Carver SAVINGS COUNSELOR 03/31/2012 Office visit Erica Carver SAVINGS COUNSELOR 04/08/2011 Office visit Eugenio Enamorado MD 07/23/2010 Office visit Elsa FIGUEROA 04/15/2010 Office visit Elsa FIGUEROA 03/25/2010 Office visit Elsa FIGUEROA 03/02/2010 Office visit Elsa FIGUEROA
--- OUTSIDE RECORDS SUMMARY | 2017-11-25 07:51 | XMS REPORT ---
Author Author Papo Ambriz [facility] Address [address] [place], [place] [address] Care Team Providers Care Hose Mender Name Role Phone Papo Ambriz PCP Erica Carver PreferredProvider Allergies and Adverse Reactions Name Reaction [...] daily in the evening for 30 days doxycycline monohydrate 100 mg oral tablet 02/04/2017 take 1 tablet (100 mg ) by oral route every 12 hours for 7 days sulfasalazine 500 mg oral tablet 02/14/2017 take 1 tablet (500 mg) by oral route BID for two weeks then increase to 2 tabs two times per day after meals indomethacin 50 mg oral capsule 02/14/2017 take 1 capsule by oral route BID PRN with food Name Start Date Expiration Date SIG Comments [...] daily at the same time each day Flovent HFA 110 mcg/actuation inhalation HFA aerosol [...] HC BMI BSA BMI Percentile O2 Sat(%) 02/14/2017 1:36:00 PM 122 mmHg 74 mmHg [...] 12:00 AM Decadron, Per [address] [facility]# [address]-54 Reviewed 06/19/2015 12:00 AM Depo-Medrol 40mg Reviewed 06/24/2015 12:00 AM COMPLETE CBC W/AUTO DIFF WBC Reviewed 06/24/2015 12:00 AM COMPREHEN METABOLIC PANEL Reviewed 06/24/2015 12:00 AM LIPID PANEL Reviewed 06/24/2015 12:00 AM GLYCOSYLATED HEMOGLOBIN TEST Reviewed 06/24/2015 12:00 AM ASSAY OF FERRITIN Reviewed 08/06/2015 12:00 AM BEHAV CHNG SMOKING 3-10 MIN Reviewed 09/10/2015 12:00 AM Imitrex [address] [facility] #42670-330-12 Reviewed 11/26/2015 5:56 PM URINALYSIS AUTO W/O [...] 12:00 AM Decadron, Per [address] [facility]# [address]-01 Reviewed 01/19/2017 12:00 AM Depo-Medrol 40mg Injection [...] AM Phenergan, Up to [address] [facility]#2743-0212-16 Reviewed 12/26/2012 12:00 AM Toradol [address] [facility]#0594-6809-55 Reviewed 12/29/2012 12:00 AM COMPLETE CBC W/AUTO DIFF WBC Reviewed 12/29/2012 12:00 AM COMPREHEN METABOLIC PANEL Reviewed 01/01/2013 12:[address] HEAD/BRAIN W/O & W/DYE Reviewed 01/19/2013 12:00 AM Blood Pressure Check-no charge Reviewed 01/23/2013 12:00 AM THER/PROPH/DIAG INJ SC/IM Reviewed 01/23/2013 12:00 AM Decadron, Per [address] [facility]# [address]-40 Reviewed 01/23/2013 12:00 AM Depo-Medrol, Per [address] [facility]#7944-7819-42 Reviewed 08/16/2013 12:00 AM THER/PROPH/DIAG INJ SC/IM Reviewed 08/16/2013 12:00 AM Decadron, Per [address] [facility]# [address]-90 Reviewed 08/16/2013 12:00 AM Depo-Medrol, Per [address] [facility]#7619-2759-41 Reviewed 09/13/2013 12:00 AM COMPLETE CBC W/AUTO [...] 3:20PM Arthritis, rheumatoid Jun 03 2014 4:12PM longterm use of drug Jun 03 2014 4:12PM [...] Left ovarian cyst Jun 29 2017 8:49AM Payers Insurance Name Company Name Plan Name Plan Number Policy Number Policy Group Number Start Date BCBS Bcbs [facility] [id number] Tuesday, 2010 [facility] - Community Plan [facility] RHC Comm [id number] N/A [facility] Comm Plan of [id number] N/A History of Encounters Visit Date Visit Type Provider 03/08/2017 [facility] Papo Ambriz MD 02/14/2017 Office visit Kaity Aguilar MD 02/04/2017 Office visit Erica Carver APRN 01/31/2017 [...] Kaity Aguilar MD 04/02/2016 Office visit Concepcion Andrea BORJA 03/23/2016 Office visit Kaity Aguilar MD 03/01/2016 Office visit Vijay Rees SASH STICKER 01/12/2016 Office visit Erica Carver SASH STICKER 11/26/2015 Office visit Vijay Rees SASH STICKER 09/26/2015 Surgery Noe Bouman DO 09/18/2015 Hospital Noe Bouman DO 09/16/2015 Office visit Noe Bouman DO 09/10/2015 Office visit Yi Staples MD 08/06/2015 Office visit Teresita Laureano SASH STICKER 06/24/2015 Office visit Kaity Aguilar MD 06/19/2015 Office visit Erica Carver SASH STICKER 10/28/2014 Office visit Yris Lara SASH STICKER 10/23/2014 Office visit Erica Carver SASH STICKER 10/03/2014 Office visit Kaity Aguilar MD 10/02/2014 Office visit Niyah Jensen SASH STICKER 09/20/2014 Office visit Noe Bouman DO 09/14/2014 [facility] Noe Bouman DO 09/13/2014 [facility] Noe Bouman DO 09/12/2014 [facility] Noe Bouman DO 07/19/2014 Office visit Vijay Rees SASH STICKER 07/03/2014 Office visit Vijay Rees SASH STICKER 06/11/2014 Office visit Vijay Rees SASH STICKER 06/03/2014 Office visit Kaity Aguilar MD 04/29/2014 Office visit Vijay Rees SASH STICKER 04/22/2014 Office visit Kaity Aguilar MD 03/11/2014 Office visit Kaity Aguilar MD 02/19/2014 Office visit Kaity Aguilar MD 10/01/2013 Office visit Erica Carver SASH STICKER 09/13/2013 Office visit Erica Carver SASH STICKER 09/10/2013 Office visit Erica Carver SASH STICKER 08/16/2013 Office visit Erica Carver SASH STICKER 03/27/2013 Office visit Erica Carver SASH STICKER 01/23/2013 Office visit Erica Carver SASH STICKER 01/19/2013 Voided Erica Walker SASH STICKER 12/29/2012 Office visit Erica Carver SASH STICKER 12/26/2012 Office visit Erica Carver SASH STICKER 12/14/2012 Surgery Tong Whatley MD 12/07/2012 Voided Tong Whatley MD 11/09/2012 Surgery Tong Whatley MD 10/24/2012 [facility] Neema Barros MD 10/24/2012 [facility] Tong Whatley MD 10/18/2012 Surgery Tong Whatley MD 09/20/2012 Office visit Tong Whatley MD 07/27/2012 Office visit Yris Lara SASH STICKER 06/22/2012 Procedures Tong Whatley MD 05/25/2012 Office visit Tong Whatley MD 04/11/2012 Office visit Erica Carver SASH STICKER 03/31/2012 Office visit Erica Carver SASH STICKER 04/08/2011 Office visit Eugenio Enamorado MD 07/23/2010 Office visit Elsa FIGUEROA 04/15/2010 Office visit Elsa FIGUEROA 03/25/2010 Office visit Elsa FIGUEROA 03/02/2010 Office visit Elsa FIGUEROA
--- OUTSIDE RECORDS SUMMARY | 2017-11-25 07:53 | XMS REPORT ---
Author Author Kaity Aguilar Organization [facility] Address [address] [place], [place] [id number] Care Team Providers Care Rn Plastic Surgery Name Role Phone Kaity Aguilar PCP Erica [...] 12:00 AM Cyanocobalamin measurement 09/24/2016 12:00 AM Medications Active Name Start Date [...] times per day as needed Pristiq oral hydroxyzine HCl 25 mg oral [...] 2 times a day for 10 days Name Start Date Expiration Date SIG [...] 6 hours as needed for 30 days Discontinued Name Start Date Discontinued Date [...] HC BMI BSA BMI Percentile O2 Sat(%) 12/14/2016 2:45:00 PM 120 mmHg 88 mmHg [...] 12:00 AM Decadron, Per [address] [facility]# [address]-41 Reviewed 06/19/2015 12:00 AM Depo-Medrol 40mg Reviewed 06/24/2015 12:00 AM COMPLETE CBC W/AUTO DIFF WBC Reviewed 06/24/2015 12:00 AM COMPREHEN METABOLIC PANEL Reviewed 06/24/2015 12:00 AM LIPID PANEL Reviewed 06/24/2015 12:00 AM GLYCOSYLATED HEMOGLOBIN TEST Reviewed 06/24/2015 12:00 AM ASSAY OF FERRITIN Reviewed 08/06/2015 12:00 AM BEHAV CHNG SMOKING 3-10 MIN Reviewed 09/10/2015 12:00 AM Imitrex 6mg [facility] #87134-317-13 Reviewed 11/26/2015 5:56 PM URINALYSIS AUTO W/O [...] 10/11/2016 12:00 AM Benadryl 50mg Injection Reviewed 05/25/2012 12:00 AM CYTOPATH TBS [...] AM Phenergan, Up to [address] [facility]#[id number] Reviewed 12/26/2012 12:00 AM Toradol [address] [facility]#2792-7341-41 Reviewed 12/29/2012 12:00 AM COMPLETE CBC W/AUTO DIFF WBC Reviewed 12/29/2012 12:00 AM COMPREHEN METABOLIC PANEL Reviewed 01/01/2013 12:[address] HEAD/BRAIN W/O & W/DYE Reviewed 01/19/2013 12:00 AM Blood Pressure Check-no charge Reviewed 01/23/2013 12:00 AM THER/PROPH/DIAG INJ SC/IM Reviewed 01/23/2013 12:00 AM Decadron, Per [address] [facility]# [address]-23 Reviewed 01/23/2013 12:00 AM Depo-Medrol, Per [address] [facility]#6810-0643-42 Reviewed 08/16/2013 12:00 AM THER/PROPH/DIAG INJ SC/IM Reviewed 08/16/2013 12:00 AM Decadron, Per [address] [facility]# [address]-91 Reviewed 08/16/2013 12:00 AM Depo-Medrol, Per [address] 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 [...] 7:50PM Generalized pruritus Dec 14 2016 2:48PM Payers Insurance Name Company Name Plan Name Plan Number Policy Number Policy Group Number Start Date [facility] [id number] Tuesday, 2010 [facility] - [facility] Comm [id number] N/A [facility] Comm Plan of [id number] N/A History of Encounters Visit Date Visit Type Provider 12/14/2016 Office visit Kaity Aguilar MD 10/11/2016 Office visit Vijay Rees CLAM TREADER 09/24/2016 Office visit Kaity Aguilar MD 08/16/2016 Office visit Vijay Rees APRN 07/26/2016 Office visit Erica Carver APRN 05/26/2016 Office visit Vijay Rees CLAM TREADER 05/06/2016 Office visit Kaity Aguilar MD 04/02/2016 Office visit Concepcion BORJA 03/23/2016 Office visit Kaity Aguilar MD 03/01/2016 Office visit Vijay Rees CLAM TREADER 01/12/2016 Office visit Erica Carver CLAM TREADER 11/26/2015 Office visit Vijay Rees CLAM TREADER 09/26/2015 Surgery Noe Bouman DO 09/18/2015 Hospital Noe Bouman DO 09/16/2015 Office visit Noe Bouman DO 09/10/2015 Office visit Yi Staples MD 08/06/2015 Office visit Teresita Laureano CLAM TREADER 06/24/2015 Office visit Kaity Aguilar MD 06/19/2015 Office visit Erica Carver CLAM TREADER 10/28/2014 Office visit Yris Lara CLAM TREADER 10/23/2014 Office visit Erica Carver CLAM TREADER 10/03/2014 Office visit Kaity Aguilar MD 10/02/2014 Office visit Niyah Jensen CLAM TREADER 09/20/2014 Office visit Noe Bouman DO 09/14/2014 Hospital Noe Bouman DO 09/13/2014 Hospital Noe Bouman DO 09/12/2014 Hospital Noe Bouman DO 07/19/2014 Office visit Vijay Rees CLAM TREADER 07/03/2014 Office visit Vijay Rees CLAM TREADER 06/11/2014 Office visit Vijay Rees CLAM TREADER 06/03/2014 Office visit Kaity Aguilar MD 04/29/2014 Office visit Vijay Rees CLAM TREADER 04/22/2014 Office visit Kaity Aguilar MD 03/11/2014 Office visit Kaity Aguilar MD 02/19/2014 Office visit Kaity Aguilar MD 10/01/2013 Office visit Erica Carver CLAM TREADER 09/13/2013 Office visit Erica Walker CLAM TREADER 09/10/2013 Office visit Erica Walker CLAM TREADER 08/16/2013 Office visit Erica Walker CLAM TREADER 03/27/2013 Office visit Erica Walker CLAM TREADER 01/23/2013 Office visit Erica Walker CLAM TREADER 01/19/2013 Voided Erica Walker CLAM TREADER 12/29/2012 Office visit Erica Walker CLAM TREADER 12/26/2012 Office visit Erica Walker CLAM TREADER 12/14/2012 Surgery Tong Whatley MD 12/07/2012 Voided Tong Whatley MD 11/09/2012 Surgery Tong Whatley MD 10/24/2012 [facility] Neema Barros MD 10/24/2012 [facility] Tong Whatley MD 10/18/2012 Surgery Tong Whatley MD 09/20/2012 Office visit Tong Whatley MD 07/27/2012 Office visit Yris Lara CLAM TREADER 06/22/2012 Procedures Tong Whatley MD 05/25/2012 Office visit Tong Whatley MD 04/11/2012 Office visit Erica Carver CLAM TREADER 03/31/2012 Office visit Erica Carver CLAM TREADER 04/08/2011 Office visit Eugenio Enamorado MD 07/23/2010 Office visit Elsa FIGUEROA 04/15/2010 Office visit Elsa FIGUEROA 03/25/2010 Office visit Elsa FIGUEROA 03/02/2010 Office visit Elsa FIGUEROA
--- OUTSIDE RECORDS SUMMARY | 2017-11-25 07:55 | XMS REPORT ---
Author Author Kaity Aguilar Organization [facility] Address [address] [place], [place] [address] Care Team Providers Care Results Engineer Name Role Phone Kaity Aguilar PCP Erica [...] by oral route 2 times per day hydroxychloroquine 200 mg oral tablet 06/21/2016 TAKE TWO TABLETS BY MOUTH ONCE DAILY WITH A MEAL OR A GLASS OF MILK Latuda 40 mg oral tablet take 1 tablet (40 mg) by oral route once daily with food (at least 350 calories) Ativan 1 mg oral tablet take 1 tablet (1 mg) by oral route 2 times per day as needed Name Start Date Expiration Date SIG Comments [...] route 3 times per day as needed Trintellix 20 mg oral tablet 09/24/2016 take [...] HC BMI BSA BMI Percentile O2 Sat(%) 09/24/2016 9:00:00 AM 124 mmHg 94 mmHg [...] Decadron, Per 1 Mg [facility]# [address]-57 Reviewed 06/19/2015 12:00 AM Depo-Medrol 40mg Reviewed 06/24/2015 12:00 AM COMPLETE CBC W/AUTO DIFF WBC Reviewed 06/24/2015 12:00 AM COMPREHEN METABOLIC PANEL Reviewed 06/24/2015 12:00 AM LIPID PANEL Reviewed 06/24/2015 12:00 AM GLYCOSYLATED HEMOGLOBIN TEST Reviewed 06/24/2015 12:00 AM ASSAY OF FERRITIN Reviewed 08/06/2015 12:00 AM BEHAV CHNG SMOKING 3-10 MIN Reviewed 09/10/2015 12:00 AM Imitrex 6mg [facility] #93827-262-37 Reviewed 11/26/2015 5:56 PM URINALYSIS AUTO W/O [...] 09/24/2016 12:00 AM ASSAY OF MAGNESIUM Returned 05/25/2012 12:00 AM CYTOPATH TBS C/V [...] 12:00 AM Phenergan, Up to 50 Mg N[facility]#3591-0931-56 Reviewed 12/26/2012 12:00 AM Toradol 60 Mg [facility]#0447-1089-62 Reviewed 12/29/2012 12:00 AM COMPLETE CBC W/AUTO DIFF WBC Reviewed 12/29/2012 12:00 AM COMPREHEN METABOLIC PANEL Reviewed 01/01/2013 12:[address] HEAD/BRAIN W/O & W/DYE Reviewed 01/23/2013 12:00 AM THER/PROPH/DIAG INJ SC/IM Reviewed 01/23/2013 12:00 AM Decadron, Per 1 Mg [facility]# [address]-77 Reviewed 01/23/2013 12:00 AM Depo-Medrol, Per 80 Mg [facility]#9166-4846-29 Reviewed 08/16/2013 12:00 AM THER/PROPH/DIAG INJ SC/IM Reviewed 08/16/2013 12:00 AM Decadron, Per 1 Mg [facility]# [address]-15 Reviewed 08/16/2013 12:00 AM Depo-Medrol, Per 80 Mg [facility]#1289-4550-13 Reviewed 09/13/2013 12:00 AM COMPLETE CBC W/AUTO [...] Arthritis, 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 [id number] Tuesday, 2010 [facility] Comm [id number] N/A [facility] Comm Plan of [id number] N/A History of Encounters Visit Date Visit Type Provider 09/24/2016 Office visit Kaity Aguilar MD 08/16/2016 Office visit Vijay Rees JANITOR CARETAKER 07/26/2016 Office visit Erica Carver JANITOR CARETAKER 05/26/2016 Office visit Vijay Rees JANITOR CARETAKER 05/06/2016 Office visit Kaity Aguilar MD 04/02/2016 Office visit Concepcion BORJA 03/23/2016 Office visit Kaity Aguilar MD 03/01/2016 Office visit Vijay Rees JANITOR CARETAKER 01/12/2016 Office visit Erica Carver JANITOR CARETAKER 11/26/2015 Office visit Vijay Rees JANITOR CARETAKER 09/26/2015 Surgery Noe Bouman DO 09/18/2015 Hospital Noe Bouman DO 09/16/2015 Office visit Noe Bouman DO 09/10/2015 Office visit Yi Staples MD 08/06/2015 Office visit Teresita Laureano JANITOR CARETAKER 06/24/2015 Office visit Kaity Aguilar MD 06/19/2015 Office visit Erica Carver JANITOR CARETAKER 10/28/2014 Office visit Yris Lara JANITOR CARETAKER 10/23/2014 Office visit Erica Carver JANITOR CARETAKER 10/03/2014 Office visit Kaity Aguilar MD 10/02/2014 Office visit Niyah Jensen JANITOR CARETAKER 09/20/2014 Office visit Noe Bouman DO 09/14/2014 Hospital Noe Bouman DO 09/13/2014 Hospital Noe Bouman DO 09/12/2014 Hospital Noe Bouman DO 07/19/2014 Office visit Vijay Rees JANITOR CARETAKER 07/03/2014 Office visit Vijay Rees JANITOR CARETAKER 06/11/2014 Office visit Vijay Rees APRN 06/03/2014 Office visit Kaity Aguilar MD 04/29/2014 Office visit Vijay Rees JANITOR CARETAKER 04/22/2014 Office visit Kaity Aguilar MD 03/11/2014 Office visit Kaity Aguilar MD 02/19/2014 Office visit Kaity Aguilar MD 10/01/2013 Office visit Erica Carver JANITOR CARETAKER 09/13/2013 Office visit Erica Carver APRN 09/10/2013 Office visit Erica Carver APRN 08/16/2013 Office visit Erica Carver JANITOR CARETAKER 03/27/2013 Office visit Erica Carver JANITOR CARETAKER 01/23/2013 Office visit Erica Carver JANITOR CARETAKER 01/19/2013 Voided Erica Carver JANITOR CARETAKER 12/29/2012 Office visit Erica Carver JANITOR CARETAKER 12/26/2012 Office visit Erica Carver JANITOR CARETAKER 12/14/2012 Surgery Tong Whatley MD 12/07/2012 Voided Tong Whatley MD 11/09/2012 Surgery [facility] Tong Whatley MD 10/18/2012 Surgery Tong Whatley MD 09/20/2012 Office visit Tong Whatley MD 07/27/2012 Office visit Yris Lara JANITOR CARETAKER 06/22/2012 Procedures Tong Whatley MD 05/25/2012 Office visit Tong Whatley MD 04/11/2012 Office visit Erica Mehul JANITOR CARETAKER 03/31/2012 Office visit Erica Carver JANITOR CARETAKER 04/08/2011 Office visit Eugenio Enamorado MD 07/23/2010 Office visit Elsa FIGUEROA 04/15/2010 Office visit Elsa FIGUEROA 03/25/2010 Office visit Elsa FIGUEROA 03/02/2010 Office visit Elsa FIGUEROA
--- OUTSIDE RECORDS SUMMARY | 2017-11-25 07:57 | XMS REPORT ---
Author Author Alireza Gutierrez Organization [facility] Address [address] [place], [place] [address] Care Team Providers Care Bluing Oven Tender Name Role Phone Alireza Gutierrez PCP Kaity [...] stimulating hormone (TSH) measurement 08/02/2017 12:00 AM CA 125 08/09/2017 12:00 AM Medications Active Name Start Date [...] route 2 times per day Pristiq oral sulfasalazine 500 [...] (2 mg) by oral route before bed azithromycin 250 mg oral tablet 08/07/2017 take 2 tablets (500 mg) by oral route once daily for 1 day then 1 tablet (250 mg) by oral route once daily for 4 days Tessalon Perles 100 mg oral capsule 08/07/2017 take 1 capsule (100 mg) by oral route 3 times per day as needed for cough promethazine-codeine 6.25-10 mg/5 mL oral syrup 08/09/2017 take 5 milliliters by oral route every [...] route every 12 hours for 7 days Cipro 500 mg oral tablet 07/14/2017 08/02/2017 [...] HC BMI BSA BMI Percentile O2 Sat(%) 08/09/2017 9:07:00 AM 126 mmHg 84 mmHg [...] 1 Mg [facility]# [address]-24 Reviewed 06/19/2015 12:00 AM Depo-Medrol 40mg Reviewed 06/24/2015 12:00 AM COMPLETE CBC W/AUTO DIFF WBC Reviewed 06/24/2015 12:00 AM COMPREHEN METABOLIC PANEL Reviewed 06/24/2015 12:00 AM LIPID PANEL Reviewed 06/24/2015 12:00 AM GLYCOSYLATED HEMOGLOBIN TEST Reviewed 06/24/2015 12:00 AM ASSAY OF FERRITIN Reviewed 08/06/2015 12:00 AM BEHAV CHNG SMOKING 3-10 MIN Reviewed 09/10/2015 12:00 AM Imitrex 6mg [facility] #76373-212-27 Reviewed 11/26/2015 5:56 PM URINALYSIS AUTO W/O [...] 1 Mg [facility]# [address]-76 Reviewed 01/19/2017 12:00 AM Depo-Medrol 40mg Injection [...] to 50 Mg [facility]#4616-9898-94 Reviewed 12/26/2012 12:00 AM Toradol 60 Mg [place]#7677-8739-44 Reviewed 12/29/2012 12:00 AM COMPLETE CBC W/AUTO DIFF WBC Reviewed 12/29/2012 12:00 AM COMPREHEN METABOLIC PANEL Reviewed 01/01/2013 12:[address] HEAD/BRAIN W/O & W/DYE Reviewed 01/19/2013 12:00 AM Blood Pressure Check-no charge Reviewed 01/23/2013 12:00 AM THER/PROPH/DIAG INJ SC/IM Reviewed 01/23/2013 12:00 AM Decadron, Per 1 Mg [place]# [address]-68 Reviewed 01/23/2013 12:00 AM Depo-Medrol, Per 80 Mg [place]#9207-6333-13 Reviewed 08/16/2013 12:00 AM THER/PROPH/DIAG INJ SC/IM Reviewed 08/16/2013 12:00 AM Decadron, Per 1 Mg ND# [address]-28 Reviewed 08/16/2013 12:00 AM Depo-Medrol, Per 80 Mg N[facility]#8103-4100-19 Reviewed 09/13/2013 12:00 AM COMPLETE CBC W/AUTO [...] 3:20PM Arthritis, 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 4:12PM [...] 2017 9:10AM Cough Aug 09 2017 12:18PM Payers Insurance Name Company Name Plan Name Plan Number Policy Number Policy Group Number Start Date [place] [employer] 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 Comm [id number] N/A History of Encounters Visit Date Visit Type Provider 08/09/2017 Office visit Alireza Gutierrez MD 08/07/2017 Office visit Luz Brantley ROOF FITTER 08/02/2017 Office visit Kaity Aguilar MD 07/14/2017 Office visit Alireza Gutierrez MD 07/06/2017 Office visit Kiaty Aguilar MD 03/08/2017 [facility] Reese Ambriz MD 02/14/2017 Office visit Kaity Aguilar MD 02/04/2017 Office visit Erica Carver ROOF FITTER 01/31/2017 Office visit Erica Carver ROOF FITTER 01/30/2017 Office visit 01/30/2017 Office visit Navin Tucker NP 01/27/2017 Office visit Erica Carver ROOF FITTER 01/25/2017 Office visit Erica Carver ROOF FITTER 01/19/2017 Office visit Erica Carver ROOF FITTER 01/18/2017 Office visit Cecily Solorzano ROOF FITTER 01/10/2017 Office visit Alireza Gutierrez MD 12/30/2016 Office visit Luz Brantley ROOF FITTER 12/14/2016 Office visit Kaity Aguilar MD 10/11/2016 Office visit Vijay Rees ROOF FITTER 09/24/2016 Office visit Kaity Aguilar MD 08/16/2016 Office visit Vijay Rees ROOF FITTER 07/26/2016 Office visit Erica Carver ROOF FITTER 05/26/2016 Office visit Vijay Rees ROOF FITTER 05/06/2016 Office visit Kaity Aguilar MD 04/02/2016 Office visit Concepcion BORJA 03/23/2016 Office visit Kaity Aguilar MD 03/01/2016 Office visit Vijay Rees ROOF FITTER 01/12/2016 Office visit Erica Carver ROOF FITTER 11/26/2015 Office visit Vijay Rees ROOF FITTER 09/26/2015 Surgery Noe Calderón DO 09/18/2015 Hospital Noe Calderón DO 09/16/2015 Office visit Noe Calderón DO 09/10/2015 Office visit Yi Staples MD 08/06/2015 Office visit Teresita Laureano ROOF FITTER 06/24/2015 Office visit Kaity Aguilar MD 06/19/2015 Office visit Erica Carver ROOF FITTER 10/28/2014 Office visit Yris Lara ROOF FITTER 10/23/2014 Office visit Erica Carver ROOF FITTER 10/03/2014 Office visit Kaity Aguilar MD 10/02/2014 Office visit Niyah Jensen ROOF FITTER 09/20/2014 Office visit Noe Calderón DO 09/14/2014 Hospital Noe Bouman DO 09/13/2014 Hospital Noe Bouman DO 09/12/2014 Hospital Noe Bouman DO 07/19/2014 Office visit Vijay Rees ROOF FITTER 07/03/2014 Office visit Vijay Rees ROOF FITTER 06/11/2014 Office visit Vijay Rees ROOF FITTER 06/03/2014 Office visit Kaity Aguilar MD 04/29/2014 Office visit Vijay Rees ROOF FITTER 04/22/2014 Office visit Kaity Aguilar MD 03/11/2014 Office visit Kaity Aguilar MD 02/19/2014 Office visit Kaity Aguilar MD 10/01/2013 Office visit Erica Carver ROOF FITTER 09/13/2013 Office visit Erica Carver ROOF FITTER 09/10/2013 Office visit Erica Carver ROOF FITTER 08/16/2013 Office visit Erica Carver ROOF FITTER 03/27/2013 Office visit Erica Carver ROOF FITTER 01/23/2013 Office visit Erica Carver ROOF FITTER 01/19/2013 Voided Erica Walker ROOF FITTER 12/29/2012 Office visit Erica Mehul ROOF FITTER 12/26/2012 Office visit Erica Carver ROOF FITTER 12/14/2012 Surgery Tong Whatley MD 12/07/2012 Voided Tong Whatley MD 11/09/2012 Surgery Tong Whatley MD 10/24/2012 [facility] Bar[facility] 10/24/2012 [facility] Tong Whatley MD 10/18/2012 Surgery Tong Whatley MD 09/20/2012 Office visit Tong Whatley MD 07/27/2012 Office visit Yris Lara ROOF FITTER 06/22/2012 Procedures Tong Whatley MD 05/25/2012 Office visit Tong Whatley MD 04/11/2012 Office visit Erica Carver ROOF FITTER 03/31/2012 Office visit Erica Carver ROOF FITTER 04/08/2011 Office visit Eugeino Enamorado MD 07/23/2010 Office visit Elsa FIGUEROA 04/15/2010 Office visit Elsa FIGUEROA 03/25/2010 Office visit Elsa FIGUEROA 03/02/2010 Office visit Elsa FIGUEROA
--- OUTSIDE RECORDS SUMMARY | 2017-11-25 07:58 | XMS REPORT ---
Author Erica Briseno Organization [facility] Address [address] [place], [place] [id number] Care Team Providers Care Vertical Borer Name Role Phone Erica Carver PCP Unavailable [...] daily in the evening for 30 days ProAir HFA 90 mcg/actuation inhalation HFA aerosol inhaler 01/25/2017 inhale 1 puff (90 mcg) by inhalation route every 4-6 hours as needed Flovent HFA 110 mcg/actuation inhalation HFA aerosol inhaler 01/25/2017 inhale 1 puff (110 mcg) by inhalation route 2 times per day promethazine-codeine 6.25-10 mg/5 mL oral syrup 01/25/2017 take 5 milliliters by oral route every [...] take 1 tablet by oral route [facility] Medrol ([place]) 4 mg oral tablets,dose [...] pack 201509/16/2015 take as directed on box Shankaryrtec-D 5-120 mg oral tablet extended release 12 [...] HC BMI BSA BMI Percentile O2 Sat(%) 01/25/2017 9:59:00 AM 132 mmHg 72 mmHg [...] 06/19/2015 12:00 AM Decadron, Per 1 Mg [facility]# [address]-83 Reviewed 06/19/2015 12:00 AM Depo-Medrol 40mg Reviewed 06/24/2015 12:00 AM COMPLETE CBC W/AUTO DIFF WBC Reviewed 06/24/2015 12:00 AM COMPREHEN METABOLIC PANEL Reviewed 06/24/2015 12:00 AM LIPID PANEL Reviewed 06/24/2015 12:00 AM GLYCOSYLATED HEMOGLOBIN TEST Reviewed 06/24/2015 12:00 AM ASSAY OF FERRITIN Reviewed 08/06/2015 12:00 AM BEHAV CHNG SMOKING 3-10 MIN Reviewed 09/10/2015 12:00 AM Imitrex 6mg [facility] #44429-367-98 Reviewed 11/26/2015 5:56 PM URINALYSIS AUTO W/O [...] 01/19/2017 12:00 AM Decadron, Per 1 Mg [facility]# [address]-17 Reviewed 01/19/2017 12:00 AM Depo-Medrol 40mg Injection [...] 12:00 AM Phenergan, Up to 50 Mg [facility]#4009-7102-60 Reviewed 12/26/2012 12:00 AM Toradol 60 Mg [facility]#0047-2686-92 Reviewed 12/29/2012 12:00 AM COMPLETE CBC W/AUTO DIFF WBC Reviewed 12/29/2012 12:00 AM COMPREHEN METABOLIC PANEL Reviewed 01/01/2013 12:[address] HEAD/BRAIN W/O & W/DYE Reviewed 01/19/2013 12:00 AM Blood Pressure Check-no charge Reviewed 01/23/2013 12:00 AM THER/PROPH/DIAG INJ SC/IM Reviewed 01/23/2013 12:00 AM Decadron, Per 1 Mg [facility]# [address]-22 Reviewed 01/23/2013 12:00 AM Depo-Medrol, Per 80 Mg [facility]#7035-9376-25 Reviewed 08/16/2013 12:00 AM THER/PROPH/DIAG INJ SC/IM Reviewed 08/16/2013 12:00 AM Decadron, Per 1 Mg [facility]# [address]-07 Reviewed 08/16/2013 12:00 AM Depo-Medrol, Per 80 Mg [facility]#4016-0770-72 Reviewed 09/13/2013 12:00 AM COMPLETE CBC W/AUTO [...] 3:20PM Arthritis, 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 4: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 [...] upper respiratory infection Jan 25 2017 10:01AM Payers Insurance Name Company Name Plan Name Plan Number Policy Number Policy Group Number Start Date BCBS [facility] [id number] Ezequiel, 2010 [facility] RHC Comm [id number] N/A [facility] Comm Plan of [id number] N/A History of Encounters Visit Date Visit Type Provider 01/25/2017 Office visit Erica Carver MAINTENANCE INSPECTOR 01/19/2017 Office visit Erica Carver MAINTENANCE INSPECTOR 01/18/2017 Office visit Cecily Solorzano MAINTENANCE INSPECTOR 01/10/2017 Office visit Alireza Gutierrez MD 12/30/2016 Office visit Luz Brantley MAINTENANCE INSPECTOR 12/14/2016 Office visit Kaity Aguilar MD 10/11/2016 Office visit Vijay Rees MAINTENANCE INSPECTOR 09/24/2016 Office visit Kaity Aguilar MD 08/16/2016 Office visit Vijay Rees MAINTENANCE INSPECTOR 07/26/2016 Office visit Erica Carver MAINTENANCE INSPECTOR 05/26/2016 Office visit Vijay Rees MAINTENANCE INSPECTOR 05/06/2016 Office visit Kaity Aguilar MD 04/02/2016 Office visit Concepcion BORJA 03/23/2016 Office visit Kaity Aguilar MD 03/01/2016 Office visit Vijay Rees MAINTENANCE INSPECTOR 01/12/2016 Office visit Erica Carver MAINTENANCE INSPECTOR 11/26/2015 Office visit Vijay Rees MAINTENANCE INSPECTOR 09/26/2015 Surgery Noe Bouman DO 09/18/2015 Hospital Noe Bouman DO 09/16/2015 Office visit Noe Calderón DO 09/10/2015 Office visit Yi Staples MD 08/06/2015 Office visit Teresita Laureano MAINTENANCE INSPECTOR 06/24/2015 Office visit Kaity Aguilar MD 06/19/2015 Office visit Erica Carver MAINTENANCE INSPECTOR 10/28/2014 Office visit Yris Lara MAINTENANCE INSPECTOR 10/23/2014 Office visit Erica Carver MAINTENANCE INSPECTOR 10/03/2014 Office visit Kaity Aguilar MD 10/02/2014 Office visit Niyah Jensen MAINTENANCE INSPECTOR 09/20/2014 Office visit Noe Bouman DO 09/14/2014 Hospital Noe Bouman DO 09/13/2014 Hospital Noe Bouman DO 09/12/2014 Hospital Noe Bouman DO 07/19/2014 Office visit Vijay Rees APRN 07/03/2014 Office visit Vijay Rees APRN 06/11/2014 Office visit Vijay Rees APRN 06/03/2014 Office visit Kaity Aguilar MD 04/29/2014 Office visit Vijay Rees MAINTENANCE INSPECTOR 04/22/2014 Office visit Kaity Aguilar MD 03/11/2014 Office visit Kaity Aguilar MD 02/19/2014 Office visit Kaity Aguilar MD 10/01/2013 Office visit Erica Walker MAINTENANCE INSPECTOR 09/13/2013 Office visit Erica Walker MAINTENANCE INSPECTOR 09/10/2013 Office visit Erica Walker MAINTENANCE INSPECTOR 08/16/2013 Office visit Erica Walker MAINTENANCE INSPECTOR 03/27/2013 Office visit Erica Walker MAINTENANCE INSPECTOR 01/23/2013 Office visit Erica Walker MAINTENANCE INSPECTOR 01/19/2013 Voided Erica Walker MAINTENANCE INSPECTOR 12/29/2012 Office visit Erica Walker MAINTENANCE INSPECTOR 12/26/2012 Office visit Erica Walker MAINTENANCE INSPECTOR 12/14/2012 Surgery Tong Whatley MD 12/07/2012 Voided Tong Whatley MD 11/09/2012 Surgery Tong Whatley MD 10/24/2012 [facility] Eliceo Barros MD 10/24/2012 [facility] Tong Whatley MD 10/18/2012 Surgery Tong Whatley MD 09/20/2012 Office visit Tong Whatley MD 07/27/2012 Office visit Yris Lara MAINTENANCE INSPECTOR 06/22/2012 Procedures Tong Whatley MD 05/25/2012 Office visit Tong Whatley MD 04/11/2012 Office visit Erica Carver MAINTENANCE INSPECTOR 03/31/2012 Office visit Erica Carver MAINTENANCE INSPECTOR 04/08/2011 Office visit Eugenio Enamorado MD 07/23/2010 Office visit Elsa FIGUEROA 04/15/2010 Office visit Elsa FIGUEROA 03/25/2010 Office visit Elsa FIGUEROA 03/02/2010 Office visit Elsa FIGUEROA
[2017-11-25] MEDS ORDERED: proPOfol 200 MG/20 ML (DIPRIVAN) VIAL IV ONE (07:59)
[2017-11-25] MEDS ORDERED: ROCURONIUM 10 MG/ML 5 ML SYRINGE IV ONE (07:59)
[2017-11-25] MEDS ORDERED: ONDANSETRON 4 MG/2 ML (SDV) Z0FRAN ONE (07:59)
[2017-11-25] MEDS ORDERED: LIDOCAINE PF 2% 5 ML (XYLOCAINE) VIAL ONE (07:59)
[2017-11-25] MEDS ORDERED: HYDROCORTISONE 100 MG/2 ML (Solu-CORTEF) VIAL IV ONE (08:00)
[2017-11-25] MEDS ORDERED: MIDAZOLAM 2 MG/2 ML (VERSED) VIAL ONE (08:00)
[2017-11-25] MEDS ORDERED: fentaNYL INJECTION 100 MCG/2 ML AMP ONE (08:00)
[2017-11-25] MEDS ORDERED: CATHETER FLUSH 10 ML SYR IV PRN ×2 (08:00)
[2017-11-25] MEDS ORDERED: AMPICILLIN/SULBACTAM 1.5 GM/NS 100 ML IVPB IV ONE ×2 (08:00)
--- OUTSIDE RECORDS SUMMARY | 2017-11-25 08:01 | XMS REPORT ---
Author Fidel Hancock [facility] Address [address] [place], [place] [id number] Care Team Providers Care Floor Covering Printer Assistant Name Role Phone Fidel Valencia PCP Kaity [...] 12:00 AM Decadron, Per 1 Mg [facility]# [address]-03 Reviewed 06/19/2015 12:00 AM Depo-Medrol 40mg Reviewed 06/24/2015 12:00 AM COMPLETE CBC W/AUTO DIFF WBC Reviewed 06/24/2015 12:00 AM COMPREHEN METABOLIC PANEL Reviewed 06/24/2015 12:00 AM LIPID PANEL Reviewed 06/24/2015 12:00 AM GLYCOSYLATED HEMOGLOBIN TEST Reviewed 06/24/2015 12:00 AM ASSAY OF FERRITIN Reviewed 08/06/2015 12:00 AM BEHAV CHNG SMOKING 3-10 MIN Reviewed 09/10/2015 12:00 AM Imitrex 6mg [facility] #23196-815-30 Reviewed 11/26/2015 5:56 PM URINALYSIS AUTO W/O [...] 12:00 AM Decadron, Per 1 Mg [facility]# [address]-95 Reviewed 01/19/2017 12:00 AM Depo-Medrol 40mg Injection [...] AM Phenergan, Up to 50 Mg [facility]#4872-3832-55 Reviewed 12/26/2012 12:00 AM Toradol 60 Mg [facility]#8504-2232-62 Reviewed 12/29/2012 12:00 AM COMPLETE CBC W/AUTO DIFF WBC Reviewed 12/29/2012 12:00 AM COMPREHEN METABOLIC PANEL Reviewed 01/01/2013 12:[address] HEAD/BRAIN W/O & W/DYE Reviewed 01/19/2013 12:00 AM Blood Pressure Check-no charge Reviewed 01/23/2013 12:00 AM THER/PROPH/DIAG INJ SC/IM Reviewed 01/23/2013 12:00 AM Decadron, Per 1 Mg [facility]# [address]-94 Reviewed 01/23/2013 12:00 AM Depo-Medrol, Per 80 Mg [facility]#5293-7651-63 Reviewed 08/16/2013 12:00 AM THER/PROPH/DIAG INJ SC/IM Reviewed 08/16/2013 12:00 AM Decadron, Per 1 Mg [facility]# [address]-25 Reviewed 08/16/2013 12:00 AM Depo-Medrol, Per 80 Mg [facility]#0211-027[address]-96 Reviewed 09/13/2013 12:00 AM COMPLETE CBC W/AUTO [...] syndrome with diarrhea Oct 26 2017 3:22PM Arthritis, rheumatoid Oct 20 2017 2:34PM Epigastric pain Oct 20 2017 2:34PM Bipolar Disorder Oct 20 2017 2:34PM Hypertension Oct 20 2017 2:34PM Payers Insurance Name Company Name Plan Name Plan Number Policy Number Policy Group Number Start Date [place] [employer] - [place] [employer] - [facility] [address] [id number] N/A [place] [facility] [place] [facility] [id number] N/A BCBS [facility] [id number] Tuesday, 2010 [facility] - RHC - Community Plan [facility] RHC Comm [id number] N/A [facility] Community Plan [facility] Comm Plan of [id number] N/A [facility] - RHC - Community Plan [facility] Comm [id number] N/A History of Encounters Visit Date Visit Type Provider 10/26/2017 Office visit Fidel Valencia MD 10/24/2017 Office visit Vijay Rees APRN 10/20/2017 Office visit Deric Goodman DO 10/12/2017 Office visit Alireza Gutierrez MD 10/06/2017 Surgery Fidel Valencia MD 09/29/2017 Nurse visit Kaity Aguilar MD 09/21/2017 Office visit 09/21/2017 Office visit Fidel Valencia MD 09/02/2017 Office visit Kaity Aguilar MD 08/29/2017 Surgery Noe Calderón DO 08/23/2017 Office visit Noe Calderón DO 08/23/2017 Office visit Alireza Gutierrez MD 08/17/2017 Office visit Erica Carver APRN 08/09/2017 Office visit Alireza Gutierrez MD 08/07/2017 Office visit Luz Brantley AUTO MECHANIC SUPERVISOR 08/02/2017 Office visit Kaity Aguilar MD 07/14/2017 Office visit Alireza Gutierrez MD 07/06/2017 Office visit Kaity Aguilar MD 03/08/2017 [facility] Papo Ambriz MD 02/14/2017 Office visit Kaity Aguilar MD 02/04/2017 Office visit Erica Carver AUTO MECHANIC SUPERVISOR 01/31/2017 Office visit Erica Carver AUTO MECHANIC SUPERVISOR 01/30/2017 Office visit 01/30/2017 Office visit Navin Tucker NP 01/27/2017 Office visit Erica Carver AUTO MECHANIC SUPERVISOR 01/25/2017 Office visit Erica Carver AUTO MECHANIC SUPERVISOR 01/19/2017 Office visit Erica Carver AUTO MECHANIC SUPERVISOR 01/18/2017 Office visit Cecily Solorzano AUTO MECHANIC SUPERVISOR 01/10/2017 Office visit Alireza Gutierrez MD 12/30/2016 Office visit Luz Brantley AUTO MECHANIC SUPERVISOR 12/14/2016 Office visit Kaity Aguilar MD 10/11/2016 Office visit Vijay Rees AUTO MECHANIC SUPERVISOR 09/24/2016 Office visit Kaity Aguilar MD 08/16/2016 Office visit Vijay Rees AUTO MECHANIC SUPERVISOR 07/26/2016 Office visit Erica Carver AUTO MECHANIC SUPERVISOR 05/26/2016 Office visit Vijay Rees AUTO MECHANIC SUPERVISOR 05/06/2016 Office visit Kaity Aguilar MD 04/02/2016 Office visit Concepcion BORJA 03/23/2016 Office visit Kaity Aguilar MD 03/01/2016 Office visit Vijay Rees AUTO MECHANIC SUPERVISOR 01/12/2016 Office visit Erica Carver AUTO MECHANIC SUPERVISOR 11/26/2015 Office visit Vijay Rees AUTO MECHANIC SUPERVISOR 09/26/2015 Surgery Noe Boden DO 09/18/2015 Hospital Noe Calderón DO 09/16/2015 Office visit Noe Calderón DO 09/10/2015 Office visit Yi Staples MD 08/06/2015 Office visit Teresita Laureano AUTO MECHANIC SUPERVISOR 06/24/2015 Office visit Kaity Aguilar MD 06/19/2015 Office visit Erica Carver AUTO MECHANIC SUPERVISOR 10/28/2014 Office visit Yris Lara AUTO MECHANIC SUPERVISOR 10/23/2014 Office visit Erica Carver AUTO MECHANIC SUPERVISOR 10/03/2014 Office visit Kaity Aguilar MD 10/02/2014 Office visit Niyah Jensen AUTO MECHANIC SUPERVISOR 09/20/2014 Office visit Noe Calderón DO 09/14/2014 Hospital Noe Boden DO 09/13/2014 Hospital Noe Bouman DO 09/12/2014 Hospital Noe Calderón DO 07/19/2014 Office visit Vijay Negrita AUTO MECHANIC SUPERVISOR 07/03/2014 Office visit Vijay Rees AUTO MECHANIC SUPERVISOR 06/11/2014 Office visit Vijay Rees AUTO MECHANIC SUPERVISOR 06/03/2014 Office visit Kaity Aguilar MD 04/29/2014 Office visit Vijay Rees AUTO MECHANIC SUPERVISOR 04/22/2014 Office visit Kaity Aguilar MD 03/11/2014 Office visit Kaity Aguilar MD 02/19/2014 Office visit Kaity Aguilar MD 10/01/2013 Office visit Erica Walker AUTO MECHANIC SUPERVISOR 09/13/2013 Office visit Erica Walker AUTO MECHANIC SUPERVISOR 09/10/2013 Office visit Erica Walker AUTO MECHANIC SUPERVISOR 08/16/2013 Office visit Erica Walker AUTO MECHANIC SUPERVISOR 03/27/2013 Office visit Erica Walker AUTO MECHANIC SUPERVISOR 01/23/2013 Office visit Erica Walker AUTO MECHANIC SUPERVISOR 01/19/2013 Voided Erica Walker AUTO MECHANIC SUPERVISOR 12/29/2012 Office visit Erica Walker AUTO MECHANIC SUPERVISOR 12/26/2012 Office visit Erica Walker AUTO MECHANIC SUPERVISOR 12/14/2012 Surgery Tong Whatley MD 12/07/2012 Voided Tong Whatley MD 11/09/2012 Surgery Tong Whatley MD 10/24/2012 [facility] 10/24/2012 [facility] Tong Whatley MD 10/18/2012 Surgery Tong Whatley MD 09/20/2012 Office visit Tong Whatley MD 07/27/2012 Office visit Yris Lara AUTO MECHANIC SUPERVISOR 06/22/2012 Procedures Tong Whatley MD 05/25/2012 Office visit Tong Whatley MD 04/11/2012 Office visit Erica Carver AUTO MECHANIC SUPERVISOR 03/31/2012 Office visit rEica aCrver AUTO MECHANIC SUPERVISOR 04/08/2011 Office visit Eugenio Enamorado MD 07/23/2010 Office visit Elsa FIGUEROA 04/15/2010 Office visit Elsa FIGUEROA 03/25/2010 Office visit Elsa FIGUEROA 03/02/2010 Office visit Elsa FIGUEROA
--- OUTSIDE RECORDS SUMMARY | 2017-11-25 08:03 | XMS REPORT ---
Author Author Alireza Gutierrez Organization [facility] Address [address] [place], [place] [id number] Care Team Providers Care Fireman Helper Name Role Phone Alireza Gutierrez PCP Kaity [...] 2 times a day for 10 days Mariella Perles 100 mg oral capsule 01/30/2017 [...] Decadron, Per 1 Mg [facility]# [address]-96 Reviewed 06/19/2015 12:00 AM Depo-Medrol 40mg Reviewed 06/24/2015 12:00 AM COMPLETE CBC W/AUTO DIFF WBC Reviewed 06/24/2015 12:00 AM COMPREHEN METABOLIC PANEL Reviewed 06/24/2015 12:00 AM LIPID PANEL Reviewed 06/24/2015 12:00 AM GLYCOSYLATED HEMOGLOBIN TEST Reviewed 06/24/2015 12:00 AM ASSAY OF FERRITIN Reviewed 08/06/2015 12:00 AM BEHAV CHNG SMOKING 3-10 MIN Reviewed 09/10/2015 12:00 AM Imitrex 6mg [facility] #57428-740-77 Reviewed 11/26/2015 5:56 PM URINALYSIS AUTO W/O [...] Decadron, Per 1 Mg [facility]# [address]-30 Reviewed 01/19/2017 12:00 AM Depo-Medrol 40mg Injection [...] Up to 50 Mg [facility]#5956-4641-10 Reviewed 12/26/2012 12:00 AM Toradol 60 Mg [facility]#1838-8356-25 Reviewed 12/29/2012 12:00 AM COMPLETE CBC W/AUTO DIFF WBC Reviewed 12/29/2012 12:00 AM COMPREHEN METABOLIC PANEL Reviewed 01/01/2013 12:[address] HEAD/BRAIN W/O & W/DYE Reviewed 01/19/2013 12:00 AM Blood Pressure Check-no charge Reviewed 01/23/2013 12:00 AM THER/PROPH/DIAG INJ SC/IM Reviewed 01/23/2013 12:00 AM Decadron, Per 1 Mg [place]# [address]-93 Reviewed 01/23/2013 12:00 AM Depo-Medrol, Per 80 Mg [place]#6721-4[address]-63 Reviewed 08/16/2013 12:00 AM THER/PROPH/DIAG INJ SC/IM Reviewed 08/16/2013 12:00 AM Decadron, Per 1 Mg [facility]# [address]-15 Reviewed 08/16/2013 12:00 AM Depo-Medrol, Per 80 Mg [facility]#4201-1301-76 Reviewed 09/13/2013 12:00 AM COMPLETE CBC W/AUTO [...] 3:20PM Arthritis, rheumatoid Jun 03 2014 4:12PM penitentiary use of drug Jun 03 2014 4:12PM [...] Number Policy Group Number Start Date BCBS [facility] [id number] Tuesday, 2010 [facility] - Community [facility] Comm [id number] N/A [facility] Comm Plan of [id number] N/A History of Encounters Visit Date Visit Type Provider 07/14/2017 Office visit Alireza Gutierrez MD 07/06/2017 Office visit Kaity Aguilar MD 03/08/2017 Hospital Papo Ambriz MD 02/14/2017 Office visit Kaity Aguilar MD 02/04/2017 Office visit Erica Carver ETHNOGRAPHER 01/31/2017 Office visit Erica Carver ETHNOGRAPHER 01/30/2017 Office visit 01/30/2017 Office visit Navin Tucker NP 01/27/2017 Office visit Erica Carver ETHNOGRAPHER 01/25/2017 Office visit Erica Carver ETHNOGRAPHER 01/19/2017 Office visit Erica Carver ETHNOGRAPHER 01/18/2017 Office visit Cecily Solorzano ETHNOGRAPHER 01/10/2017 Office visit Alrieza Gutierrez MD 12/30/2016 Office visit Luz Brantley ETHNOGRAPHER 12/14/2016 Office visit Kaity Aguilar MD 10/11/2016 Office visit Vijay Rees ETHNOGRAPHER 09/24/2016 Office visit Kaity Aguilar MD 08/16/2016 Office visit Vijay Rees ETHNOGRAPHER 07/26/2016 Office visit Erica Carver ETHNOGRAPHER 05/26/2016 Office visit Vijay Rees ETHNOGRAPHER 05/06/2016 Office visit Kaity Aguilar MD 04/02/2016 Office visit Concepcion BORJA 03/23/2016 Office visit Kaity Aguilar MD 03/01/2016 Office visit Vijay Rees ETHNOGRAPHER 01/12/2016 Office visit Erica Carver ETHNOGRAPHER 11/26/2015 Office visit Vijay Rees ETHNOGRAPHER 09/26/2015 Surgery Noe Bouman DO 09/18/2015 Hospital Noe Bouman DO 09/16/2015 Office visit Noe Bouman DO 09/10/2015 Office visit Yi Satples MD 08/06/2015 Office visit Teresita Laureano ETHNOGRAPHER 06/24/2015 Office visit Kaity Aguilar MD 06/19/2015 Office visit Erica Carver ETHNOGRAPHER 10/28/2014 Office visit Yris Lara ETHNOGRAPHER 10/23/2014 Office visit Erica Carver ETHNOGRAPHER 10/03/2014 Office visit Kaity Aguilar MD 10/02/2014 Office visit Niyah Jensen ETHNOGRAPHER 09/20/2014 Office visit Noe Bouman DO 09/14/2014 Hospital Noe Bouman DO 09/13/2014 Hospital Noe Bouman DO 09/12/2014 Hospital Noe Bouman DO 07/19/2014 Office visit Vijay Rees ETHNOGRAPHER 07/03/2014 Office visit Vijay Rees ETHNOGRAPHER 06/11/2014 Office visit Vijay Rees ETHNOGRAPHER 06/03/2014 Office visit Kaity Aguilar MD 04/29/2014 Office visit Vijay Rees ETHNOGRAPHER 04/22/2014 Office visit Kaity Aguilar MD 03/11/2014 Office visit Kaity Aguilar MD 02/19/2014 Office visit Kaity Aguilar MD 10/01/2013 Office visit Erica Walker ETHNOGRAPHER 09/13/2013 Office visit Erica Walker ETHNOGRAPHER 09/10/2013 Office visit Erica Walker ETHNOGRAPHER 08/16/2013 Office visit Erica Walker ETHNOGRAPHER 03/27/2013 Office visit Erica Walker ETHNOGRAPHER 01/23/2013 Office visit Erica Walker ETHNOGRAPHER 01/19/2013 Voided Erica Walker ETHNOGRAPHER 12/29/2012 Office visit Erica Walker ETHNOGRAPHER 12/26/2012 Office visit Erica Walker ETHNOGRAPHER 12/14/2012 Surgery Tong Whatley MD 12/07/2012 Voided Tong Whatley MD 11/09/2012 Surgery Tong Whatley MD 10/24/2012 [facility] 10[facility]2012 [facility] Tong Whatley MD 10/18/2012 Surgery Tong Whatley MD 09/20/2012 Office visit Tong Whatley MD 07/27/2012 Office visit Yris Lara ETHNOGRAPHER 06/22/2012 Procedures Tong Whatley MD 05/25/2012 Office visit Tong Whatley MD 04/11/2012 Office visit Erica Carver ETHNOGRAPHER 03/31/2012 Office visit Erica Carver ETHNOGRAPHER 04/08/2011 Office visit Eugenio Enamorado MD 07/23/2010 Office visit Elsa FIGUEROA 04/15/2010 Office visit Elsa FIGUEROA 03/25/2010 Office visit Elsa FIGUEROA 03/02/2010 Office visit Elsa FIGUEROA
--- OUTSIDE RECORDS SUMMARY | 2017-11-25 08:04 | XMS REPORT ---
Author Author Yi Staples [facility] Address [address] [place] [id number] Care Team Providers Care Wing Mailer Machine Operator Name Role Phone Yi Staples PCP Allergies and Adverse Reactions Name Reaction [...] (11)- 1 mg (42) oral tablets,dose pack 201511/04/2015 take as directed on box Zyrtec-D 5-120 mg oral tablet extended release 12 hr 08/13/2015 take 1 tablet by oral route every 12 hours hydroxychloroquine 200 mg oral tablet 08/13/2015 TAKE TWO TABLETS BY MOUTH ONCE DAILY WITH A MEAL OR A GLASS OF MILK Name Start Date Expiration Date SIG Comments [...] HC BMI BSA BMI Percentile O2 Sat(%) 09/10/2015 6:23:00 PM 120 mmHg 80 mmHg [...] 12:00 AM Decadron, Per 1 Mg [facility]# [address]-43 Reviewed 06/19/2015 12:00 AM Depo-Medrol 40mg Reviewed 06/24/2015 12:00 AM COMPLETE CBC W/AUTO DIFF WBC Returned 06/24/2015 12:00 AM COMPREHEN METABOLIC PANEL Returned 06/24/2015 12:00 AM LIPID PANEL Returned 06/24/2015 12:00 AM GLYCOSYLATED HEMOGLOBIN TEST Returned 06/24/2015 12:00 AM ASSAY OF FERRITIN Returned 08/06/2015 12:00 AM BEHAV CHNG SMOKING 3-10 MIN Reviewed 05/25/2012 12:00 AM CYTOPATH TBS C/V [...] AM Phenergan, Up to 50 Mg [facility]#1809-0345-01 Reviewed 12/26/2012 12:00 AM Toradol 60 Mg [facility]#7770-9514-43 Reviewed 12/29/2012 12:00 AM COMPLETE CBC W/AUTO DIFF WBC Returned 12/29/2012 12:00 AM COMPREHEN METABOLIC PANEL Returned 01/01/2013 12:[address] HEAD/BRAIN W/O & W/DYE Returned 01/23/2013 12:00 AM THER/PROPH/DIAG INJ SC/IM Reviewed 01/23/2013 12:00 AM Decadron, Per 1 Mg [facility]# [address]-27 Reviewed 01/23/2013 12:00 AM Depo-Medrol, Per 80 Mg [facility]#1807-6834-73 Reviewed 08/16/2013 12:00 AM THER/PROPH/DIAG INJ SC/IM Reviewed 08/16/2013 12:00 AM Decadron, Per 1 Mg [facility]# [address]-86 Reviewed 08/16/2013 12:00 AM Depo-Medrol, Per 80 Mg [facility]#2981-5724-13 Reviewed 09/13/2013 12:00 AM COMPLETE CBC W/AUTO [...] 3:20PM Arthritis, rheumatoid Jun 03 2014 4:12PM jail use of drug Jun 03 2014 4:12PM [...] bacterial rhinosinusitis Jun 19 2015 10:20AM Anemia b 2 2015 8:39AM Hyperlipidemia, Mixed Jun 24 2015 8:39AM Blood pressure check Jun 24 2015 8:39AM Medication monitoring encounter Jun 24 2015 8:39AM Rheumatoid arthritis involving multiple sites with positive rheumatoid factor Feb 2 2015 8:39AM RUQ abdominal pain Jun 24 2015 8:39AM Elevated fasting blood sugar Jun 24 2015 8:39AM Smoking addiction Aug 06 2015 10:19AM Migraine headache without aura Sep 10 2015 6:26PM Payers Insurance Name Company Name Plan Name Plan Number Policy Number Policy Group Number Start Date [facility] - RHC - Community Plan [facility] RHC Comm [id number] N/A [employer] [place] [id number] Tuesday, 2010 History of Encounters Visit Date Visit Type Provider 09/10/2015 Office visit Yi Staples MD 08/06/2015 Office visit Teresita Laureano RADIATOR MECHANIC 06/24/2015 Office visit Kaity Aguilar MD 06/19/2015 Office visit Erica Carver RADIATOR MECHANIC 10/28/2014 Office visit Yris Lara RADIATOR MECHANIC 10/23/2014 Office visit Erica Carver RADIATOR MECHANIC 10/03/2014 Office visit Kaity Aguilar MD 10/02/2014 Office visit Niyah Jensen RADIATOR MECHANIC 09/20/2014 Office visit Noe Calderón DO 09/14/2014 Hospital Noe Bouman DO 09/13/2014 Hospital Noe Bouman DO 09/12/2014 Hospital Noe Bouman DO 07/19/2014 Office visit Vijay Rees RADIATOR MECHANIC 07/03/2014 Office visit Vijay Rees RADIATOR MECHANIC 06/11/2014 Office visit Vijay Rees RADIATOR MECHANIC 06/03/2014 Office visit Kaity Aguilar MD 04/29/2014 Office visit Vijay Rees RADIATOR MECHANIC 04/22/2014 Office visit Kaity Aguilar MD 03/11/2014 Office visit Kaity Aguilar MD 02/19/2014 Office visit Kaity Aguilar MD 10/01/2013 Office visit Erica Carver RADIATOR MECHANIC 09/13/2013 Office visit Erica Carver RADIATOR MECHANIC 09/10/2013 Office visit Erica Carver RADIATOR MECHANIC 08/16/2013 Office visit Erica Carver RADIATOR MECHANIC 03/27/2013 Office visit Erica Carver RADIATOR MECHANIC 01/23/2013 Office visit Erica Carver RADIATOR MECHANIC 01/19/2013 Voided Erica Carver RADIATOR MECHANIC 12/29/2012 Office visit Erica Carver RADIATOR MECHANIC 12/26/2012 Office visit Erica Carver RADIATOR MECHANIC 12/14/2012 Surgery Tong Whatley MD 12/07/2012 Voided Tong Whatley MD 11/09/2012 Surgery Tong Whatley MD 10/24/2012 [facility] Neema Barros MD 10/24/2012 [facility] Tong Whatley MD 10/18/2012 Surgery Tong Whatley MD 09/20/2012 Office visit Tong Whatley MD 07/27/2012 Office visit Yris Lara RADIATOR MECHANIC 06/22/2012 Procedures Tong Whatley MD 05/25/2012 Office visit Tong Whatley MD 04/11/2012 Office visit Erica Carver RADIATOR MECHANIC 03/31/2012 Office visit Erica Carver RADIATOR MECHANIC 04/08/2011 Office visit Eugenio Enamorado MD 07/23/2010 Office visit Elsa FIGUEROA 04/15/2010 Office visit Elsa FIGUEROA 03/25/2010 Office visit Elsa FIGUEROA 03/02/2010 Office visit Elsa FIGUEROA
--- OUTSIDE RECORDS SUMMARY | 2017-11-25 08:06 | XMS REPORT ---
Author Author Erica Carver [facility] Address [address] [place], [place] [id number] Care Team Providers Care Telephone Service Adviser Name Role Phone Erica Carver PCP Unavailable [...] A MEAL OR A GLASS OF MILK Trintellix 20 mg oral tablet take 1 tablet (20 mg) by oral route once daily at the same time each day Zithromax Z-Berlin 250 mg oral tablet 07/26/2016 [...] exceed 30 mL in 24 hours Zithromax Z-Ebrlin 250 mg oral tablet 06/19/2015 06/24/2015 take [...] HC BMI BSA BMI Percentile O2 Sat(%) 07/26/2016 9:42:00 AM 124 mmHg 72 mmHg [...] 12:00 AM Decadron, Per 1 Mg [facility]# [address]-80 Reviewed 06/19/2015 12:00 AM Depo-Medrol 40mg Reviewed 06/24/2015 12:00 AM COMPLETE CBC W/AUTO DIFF WBC Reviewed 06/24/2015 12:00 AM COMPREHEN METABOLIC PANEL Reviewed 06/24/2015 12:00 AM LIPID PANEL Reviewed 06/24/2015 12:00 AM GLYCOSYLATED HEMOGLOBIN TEST Reviewed 06/24/2015 12:00 AM ASSAY OF FERRITIN Reviewed 08/06/2015 12:00 AM BEHAV CHNG SMOKING 3-10 MIN Reviewed 09/10/2015 12:00 AM Imitrex 6mg [facility] #35815-857-21 Reviewed 11/26/2015 5:56 PM URINALYSIS AUTO W/O [...] 05/26/2016 12:00 AM THER/PROPH/DIAG INJ SC/IM Reviewed 05/25/2012 12:00 AM CYTOPATH TBS C/V [...] AM Phenergan, Up to 50 Mg [facility]#5043-0217-38 Reviewed 12/26/2012 12:00 AM Toradol 60 Mg [facility]#8282-6611-48 Reviewed 12/29/2012 12:00 AM COMPLETE CBC W/AUTO DIFF WBC Reviewed 12/29/2012 12:00 AM COMPREHEN METABOLIC PANEL Reviewed 01/01/2013 12:[address] HEAD/BRAIN W/O & W/DYE Reviewed 01/23/2013 12:00 AM THER/PROPH/DIAG INJ SC/IM Reviewed 01/23/2013 12:00 AM Decadron, Per 1 Mg [facility]# [address]-16 Reviewed 01/23/2013 12:00 AM Depo-Medrol, Per 80 Mg [facility]#6645-5423-93 Reviewed 08/16/2013 12:00 AM THER/PROPH/DIAG INJ SC/IM Reviewed 08/16/2013 12:00 AM Decadron, Per 1 Mg [facility]# [address]-73 Reviewed 08/16/2013 12:00 AM Depo-Medrol, Per 80 Mg [facility]#4915-6400-48 Reviewed 09/13/2013 12:00 AM COMPLETE CBC W/AUTO [...] negative WBC Est Ur Ql Strip small History Of Immunizations Not available. History of [...] upper respiratory infection Jul 26 2016 9:44AM Payers Insurance Name Company Name Plan Name Plan Number Policy Number Policy Group Number Start Date [employer] [facility] [id number] Tuesday, 2010 [facility] - RHC - Community Plan [facility] RHC Comm [id number] N/A [facility] Comm Plan of [id number] N/A History of Encounters Visit Date Visit Type Provider 07/26/2016 Office visit Erica Carver APRN 05/26/2016 Office visit Vijay Rees APRN 05/06/2016 Office visit Kaity Aguilar MD 04/02/2016 Office visit Concepcion BORJA 03/23/2016 Office visit Kaity Aguilar MD 03/01/2016 Office visit Vijay Rees APRN 01/12/2016 Office visit Erica Carver ROLLER DIE CUTTING MACHINE OPERATOR 11/26/2015 Office visit Vijay Rees APRN 09/26/2015 Surgery Noe Calderón DO 09/18/2015 Hospital Noe Calderón DO 09/16/2015 Office visit Noe Calderón DO 09/10/2015 Office visit Yi Staples MD 08/06/2015 Office visit Teresita Laureano APRN 06/24/2015 Office visit Kaity Aguilar MD 06/19/2015 Office visit Erica Carver APRN 10/28/2014 Office visit Yris Lara ROLLER DIE CUTTING MACHINE OPERATOR 10/23/2014 Office visit Erica Carver APRN 10/03/2014 Office visit Kaity Aguilar MD 10/02/2014 Office visit Niyah MalenaChika Jensen ROLLER DIE CUTTING MACHINE OPERATOR 09/20/2014 Office visit Noe Calderón DO 09/14/2014 Hospital Noe Randhawauman DO 09/13/2014 Hospital Noe Bouman DO 09/12/2014 Hospital Noe Bouman DO 07/19/2014 Office visit Vijay Rees ROLLER DIE CUTTING MACHINE OPERATOR 07/03/2014 Office visit Vijay Rees ROLLER DIE CUTTING MACHINE OPERATOR 06/11/2014 Office visit Vijay Rees ROLLER DIE CUTTING MACHINE OPERATOR 06/03/2014 Office visit Kaity Aguilar MD 04/29/2014 Office visit Vijay Rees ROLLER DIE CUTTING MACHINE OPERATOR 04/22/2014 Office visit Kaity Aguilar MD 03/11/2014 Office visit Kaity Aguilar MD 02/19/2014 Office visit Kaity Aguilar MD 10/01/2013 Office visit Erica Carver ROLLER DIE CUTTING MACHINE OPERATOR 09/13/2013 Office visit Erica Carver ROLLER DIE CUTTING MACHINE OPERATOR 09/10/2013 Office visit Erica Carver ROLLER DIE CUTTING MACHINE OPERATOR 08/16/2013 Office visit Erica Carver ROLLER DIE CUTTING MACHINE OPERATOR 03/27/2013 Office visit Erica Carver ROLLER DIE CUTTING MACHINE OPERATOR 01/23/2013 Office visit Erica Carver ROLLER DIE CUTTING MACHINE OPERATOR 01/19/2013 Voided Erica Mehul ROLLER DIE CUTTING MACHINE OPERATOR 12/29/2012 Office visit Erica Carver ROLLER DIE CUTTING MACHINE OPERATOR 12/26/2012 Office visit Erica Carver ROLLER DIE CUTTING MACHINE OPERATOR 12/14/2012 Surgery Tong Whatley MD 12/07/2012 Voided Tong Whatley MD 11/09/2012 Surgery [facility]2012 [facility] Tong Whatley MD 10/18/2012 Surgery Tong Whatley MD 09/20/2012 Office visit Tong Whatley MD 07/27/2012 Office visit Yris Lara ROLLER DIE CUTTING MACHINE OPERATOR 06/22/2012 Procedures Tong Whatley MD 05/25/2012 Office visit Tong Whatley MD 04/11/2012 Office visit Erica Carver ROLLER DIE CUTTING MACHINE OPERATOR 03/31/2012 Office visit Erica Carver ROLLER DIE CUTTING MACHINE OPERATOR 04/08/2011 Office visit Eugenio Enamorado MD 07/23/2010 Office visit Elsa FIGUEROA 04/15/2010 Office visit Elsa FIGUEROA 03/25/2010 Office visit Elsa FIGUEROA 03/02/2010 Office visit Elsa FIGUEROA
--- OUTSIDE RECORDS SUMMARY | 2017-11-25 08:07 | XMS REPORT ---
Author Author Vijay Rees [facility] Address [address] [place], [place] [id number] Care Team Providers Care Lactation Consultant Name Role Phone Vijay Rees PCP Erica Carver PreferredProvider Unavailable Allergies and [...] route every 12 hours for 3 days ProAir HFA 90 mcg/actuation inhalation HFA [...] HC BMI BSA BMI Percentile O2 Sat(%) 05/26/2016 5:15:00 PM 124 mmHg 62 mmHg [...] 06/19/2015 12:00 AM Decadron, Per 1 Mg [facility]# [address]-76 Reviewed 06/19/2015 12:00 AM Depo-Medrol 40mg Reviewed 06/24/2015 12:00 AM COMPLETE CBC W/AUTO DIFF WBC Reviewed 06/24/2015 12:00 AM COMPREHEN METABOLIC PANEL Reviewed 06/24/2015 12:00 AM LIPID PANEL Reviewed 06/24/2015 12:00 AM GLYCOSYLATED HEMOGLOBIN TEST Reviewed 06/24/2015 12:00 AM ASSAY OF FERRITIN Reviewed 08/06/2015 12:00 AM BEHAV CHNG SMOKING 3-10 MIN Reviewed 09/10/2015 12:00 AM Imitrex 6mg [facility] #74819-744-84 Reviewed 11/26/2015 5:56 PM URINALYSIS AUTO W/O [...] 12:00 AM Phenergan, Up to 50 Mg [facility]#6660-9464-50 Reviewed 12/26/2012 12:00 AM Toradol 60 Mg [facility]#4081-3771-03 Reviewed 12/29/2012 12:00 AM COMPLETE CBC W/AUTO DIFF WBC Reviewed 12/29/2012 12:00 AM COMPREHEN METABOLIC PANEL Reviewed 01/01/2013 12:[address] HEAD/BRAIN W/O & W/DYE Reviewed 01/23/2013 12:00 AM THER/PROPH/DIAG INJ SC/IM Reviewed 01/23/2013 12:00 AM Decadron, Per 1 Mg [facility]# [address]-06 Reviewed 01/23/2013 12:00 AM Depo-Medrol, Per 80 Mg [facility]#0733-4375-03 Reviewed 08/16/2013 12:00 AM THER/PROPH/DIAG INJ SC/IM Reviewed 08/16/2013 12:00 AM Decadron, Per 1 Mg [facility]# [address]-16 Reviewed 08/16/2013 12:00 AM Depo-Medrol, Per 80 Mg [facility]#5023-1926-92 Reviewed 09/13/2013 12:00 AM COMPLETE CBC W/AUTO [...] 3:20PM Arthritis, 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 Comm Plan of [id number] N/A BCBS [employer] [facility] [id number] Tuesday, 2010 History of Encounters Visit Date Visit Type Provider 05/26/2016 Office visit Vijay Rees APRN 05/06/2016 Office visit Kaity Aguilar MD 04/02/2016 Office visit Concepcion BORJA 03/23/2016 Office visit Kaity Aguilar MD 03/01/2016 Office visit Vijay Rees APRN 01/12/2016 Office visit Erica Carver APRN 11/26/2015 Office visit Vijay Rees APRN 09/26/2015 Surgery Noe Bouman DO 09/18/2015 Hospital Noe Bouman DO 09/16/2015 Office visit Noe Calderón DO 09/10/2015 Office visit Yi Staples MD 08/06/2015 Office visit Teresita Laureano APRN 06/24/2015 Office visit Kaity Aguilar MD 06/19/2015 Office visit Erica Carver APRN 10/28/2014 Office visit Yris Lara MANHOLE BUILDER 10/23/2014 Office visit Erica Carver APRN 10/03/2014 Office visit Kaity Aguilar MD 10/02/2014 Office visit Niyah Jensen APRN 09/20/2014 Office visit Noe Randhawauman DO 09/14/2014 Hospital Noe Bouman DO 09/13/2014 Hospital Noe Bouman DO 09/12/2014 Hospital Noe Bouman DO 07/19/2014 Office visit Vijay Rees APRN 07/03/2014 Office visit Vijay Rees APRN 06/11/2014 Office visit Vijay Rees APRN 06/03/2014 Office visit Kaity Aguilar MD 04/29/2014 Office visit Vijay Rees APRN 04/22/2014 Office visit Kaity Aguilar MD 03/11/2014 Office visit Kaity Aguilar MD 02/19/2014 Office visit Kaity Aguilar MD 10/01/2013 Office visit Erica Walker MANHOLE BUILDER 09/13/2013 Office visit Erica Walker MANHOLE BUILDER 09/10/2013 Office visit Ercia Walker MANHOLE BUILDER 08/16/2013 Office visit Erica Walker MANHOLE BUILDER 03/27/2013 Office visit Erica Walker MANHOLE BUILDER 01/23/2013 Office visit Erica Walker MANHOLE BUILDER 01/19/2013 Voided Erica Walker MANHOLE BUILDER 12/29/2012 Office visit Erica Walker MANHOLE BUILDER 12/26/2012 Office visit Erica Carver MANHOLE BUILDER 12/14/2012 Surgery Tong Whatley MD 12/07/2012 Voided Tong Whatley MD 11/09/2012 Surgery Tong Whatley MD 10/24/2012 [facility] Neema Barros MD 10/24/2012 [facility] Tong Whatley MD 10/18/2012 Surgery Tong Whatley MD 09/20/2012 Office visit Tong Whatley MD 07/27/2012 Office visit Yris Lara MANHOLE BUILDER 06/22/2012 Procedures Tong Whatley MD 05/25/2012 Office visit Tong Whatley MD 04/11/2012 Office visit Erica Carver MANHOLE BUILDER 03/31/2012 Office visit Erica Mehul MANHOLE BUILDER 04/08/2011 Office visit Eugenio Enamorado MD 07/23/2010 Office visit Elsa FIGUEROA 04/15/2010 Office visit Elsa FIGUEROA 03/25/2010 Office visit Elsa FIGUEROA 03/02/2010 Office visit Elsa FIGUEROA
--- OUTSIDE RECORDS SUMMARY | 2017-11-25 08:08 | XMS REPORT ---
Author Noe Hanson [facility] Address [address] [place], [place] [address] Care Team Providers Care Fashion Coordinator Name Role Phone Noe Calderón PCP Unavailable [...] oral route every 6 hours as needed Name Start Date Expiration Date [...] HC BMI BSA BMI Percentile O2 Sat(%) 09/26/2015 11:12:00 AM 97 mmHg 57 mmHg [...] Per 1 Mg [facility]# [address]-41 Reviewed 06/19/2015 12:00 AM Depo-Medrol 40mg Reviewed 06/24/2015 12:00 AM COMPLETE CBC W/AUTO DIFF WBC Returned 06/24/2015 12:00 AM COMPREHEN METABOLIC PANEL Returned 06/24/2015 12:00 AM LIPID PANEL Returned 06/24/2015 12:00 AM GLYCOSYLATED HEMOGLOBIN TEST Returned 06/24/2015 12:00 AM ASSAY OF FERRITIN Returned 08/06/2015 12:00 AM BEHAV CHNG SMOKING 3-10 MIN Reviewed 09/10/2015 12:00 AM Imitrex 6mg [facility] #28605-409-01 Reviewed 05/25/2012 12:00 AM CYTOPATH TBS C/V [...] Up to 50 Mg [facility]#7661-0356-24 Reviewed 12/26/2012 12:00 AM Toradol 60 Mg [facility]#7680-7100-14 Reviewed 12/29/2012 12:00 AM COMPLETE CBC W/AUTO DIFF WBC Returned 12/29/2012 12:00 AM COMPREHEN METABOLIC PANEL Returned 01/01/2013 12:[address] HEAD/BRAIN W/O & W/DYE Returned 01/23/2013 12:00 AM THER/PROPH/DIAG INJ SC/IM Reviewed 01/23/2013 12:00 AM Decadron, Per 1 Mg [facility]# [address]-57 Reviewed 01/23/2013 12:00 AM Depo-Medrol, Per 80 Mg [place]#1480-9229-88 Reviewed 08/16/2013 12:00 AM THER/PROPH/DIAG INJ SC/IM Reviewed 08/16/2013 12:00 AM Decadron, Per 1 Mg [place]# [address]-00 Reviewed 08/16/2013 12:00 AM Depo-Medrol, Per 80 Mg [facility]#1465-0937-26 Reviewed 09/13/2013 12:00 AM COMPLETE CBC W/AUTO [...] Policy Number Policy Group Number Start Date [facility] - Community [facility] Comm [id number] N/A [facility] Comm Plan of [id number] N/A [facility] [id number] Tuesday, 2010 History of Encounters Visit Date Visit Type Provider 09/26/2015 Surgery Noe Calderón DO 09/18/2015 Hospital Noe Calderón DO 09/16/2015 Office visit Noe Calderón DO 09/10/2015 Office visit Yi Staples MD 08/06/2015 Office visit Teresita Laureano PUBLIC HEALTH SPECIALIST 06/24/2015 Office visit Kaity Aguilar MD 06/19/2015 Office visit Erica Carver PUBLIC HEALTH SPECIALIST 10/28/2014 Office visit Yris Lara PUBLIC HEALTH SPECIALIST 10/23/2014 Office visit Erica Carver PUBLIC HEALTH SPECIALIST 10/03/2014 Office visit Kaity Aguilar MD 10/02/2014 Office visit Niyah Jensen PUBLIC HEALTH SPECIALIST 09/20/2014 Office visit Noe Calderón DO 09/14/2014 Hospital Noe Calderón DO 09/13/2014 Hospital Noe Randhawauman DO 09/12/2014 Hospital Noe Bouman DO 07/19/2014 Office visit Vijay Rees PUBLIC HEALTH SPECIALIST 07/03/2014 Office visit Vijay Rees PUBLIC HEALTH SPECIALIST 06/11/2014 Office visit Vijay Rees PUBLIC HEALTH SPECIALIST 06/03/2014 Office visit Kaity Aguilar MD 04/29/2014 Office visit Vijay Rees PUBLIC HEALTH SPECIALIST 04/22/2014 Office visit Kaity Aguilar MD 03/11/2014 Office visit Kaity Aguilar MD 02/19/2014 Office visit Kaity Aguilar MD 10/01/2013 Office visit Erica Walker PUBLIC HEALTH SPECIALIST 09/13/2013 Office visit Erica Walker PUBLIC HEALTH SPECIALIST 09/10/2013 Office visit Erica Walker PUBLIC HEALTH SPECIALIST 08/16/2013 Office visit Erica Walker PUBLIC HEALTH SPECIALIST 03/27/2013 Office visit Erica Walker PUBLIC HEALTH SPECIALIST 01/23/2013 Office visit Erica Walker PUBLIC HEALTH SPECIALIST 01/19/2013 Voided Erica Walker PUBLIC HEALTH SPECIALIST 12/29/2012 Office visit Erica Walker PUBLIC HEALTH SPECIALIST 12/26/2012 Office visit Erica Walker PUBLIC HEALTH SPECIALIST 12/14/2012 Surgery Tong Whatley MD 12/07/2012 Voided Tong Whatley MD 11/09/2012 Surgery [facility]24[facility] Tong Whatley MD 10/18/2012 Surgery Tong Whatley MD 09/20/2012 Office visit Tong Whatley MD 07/27/2012 Office visit Yris Lara PUBLIC HEALTH SPECIALIST 06/22/2012 Procedures Tong Whatley MD 05/25/2012 Office visit Tong Whatley MD 04/11/2012 Office visit Erica Carver PUBLIC HEALTH SPECIALIST 03/31/2012 Office visit Erica Carver PUBLIC HEALTH SPECIALIST 04/08/2011 Office visit Eugenio Enamorado MD 07/23/2010 Office visit Elsa FIGUEROA 04/15/2010 Office visit Elsa FIGUEROA 03/25/2010 Office visit Elsa FIGUEROA 03/02/2010 Office visit Elsa FIGUEROA
--- OUTSIDE RECORDS SUMMARY | 2017-11-25 08:10 | XMS REPORT ---
Author Author Kaity Aguilar Organization [facility] Address [address] [place], [place] [id number] Care Team Providers Care Cisco Certified Network Associate Name Role Phone Kaity Aguilar PCP Erica [...] 06/19/2015 12:00 AM Decadron, Per 1 Mg [facility]# [address]-08 Reviewed 06/19/2015 12:00 AM Depo-Medrol 40mg Reviewed 06/24/2015 12:00 AM COMPLETE CBC W/AUTO DIFF WBC Reviewed 06/24/2015 12:00 AM COMPREHEN METABOLIC PANEL Reviewed 06/24/2015 12:00 AM LIPID PANEL Reviewed 06/24/2015 12:00 AM GLYCOSYLATED HEMOGLOBIN TEST Reviewed 06/24/2015 12:00 AM ASSAY OF FERRITIN Reviewed 08/06/2015 12:00 AM BEHAV CHNG SMOKING 3-10 MIN Reviewed 09/10/2015 12:00 AM Imitrex 6mg [facility] #38913-648-06 Reviewed 11/26/2015 5:56 PM URINALYSIS AUTO W/O [...] 12:00 AM Phenergan, Up to 50 Mg [facility]#8163-0795-32 Reviewed 12/26/2012 12:00 AM Toradol 60 Mg [facility]#7524-8645-71 Reviewed 12/29/2012 12:00 AM COMPLETE CBC W/AUTO DIFF WBC Reviewed 12/29/2012 12:00 AM COMPREHEN METABOLIC PANEL Reviewed 01/01/2013 12:[address] HEAD/BRAIN W/O & W/DYE Reviewed 01/23/2013 12:00 AM THER/PROPH/DIAG INJ SC/IM Reviewed 01/23/2013 12:00 AM Decadron, Per 1 Mg [facility]# [address]-24 Reviewed 01/23/2013 12:00 AM Depo-Medrol, Per 80 Mg [facility]#8295-4668-20 Reviewed 08/16/2013 12:00 AM THER/PROPH/DIAG INJ SC/IM Reviewed 08/16/2013 12:00 AM Decadron, Per 1 Mg [place]# [address]-37 Reviewed 08/16/2013 12:00 AM Depo-Medrol, Per 80 Mg ND#9717-3265-83 Reviewed 09/13/2013 12:00 AM COMPLETE CBC W/AUTO [...] 3:20PM 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, 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 4:12PM [...] 8:49AM Sinusitis, Acute May 06 2016 2:08PM Payers Insurance Name Company Name Plan Name Plan Number Policy Number Policy Group Number Start Date [facility] - [facility] - Community [facility] Comm [id number] N/A [facility] Comm Plan of [id number] N/A [facility] [id number] Tuesday, 2010 History of Encounters Visit Date Visit Type Provider 05/06/2016 Office visit Kaity Aguilar MD 04/02/2016 Office visit Concepcion BORJA 03/23/2016 Office visit Kaity Aguilar MD 03/01/2016 Office visit Vijay Rees APRN 01/12/2016 Office visit Erica Carver APRN 11/26/2015 Office visit Vijay Rees APRN 09/26/2015 Surgery Noe Calderón DO 09/18/2015 Hospital Noe Bouman DO 09/16/2015 Office visit Noe Bouman DO 09/10/2015 Office visit Yi Staples MD 08/06/2015 Office visit Teresita Laureano DUST HANDLER 06/24/2015 Office visit Kaity Aguilar MD 06/19/2015 Office visit Erica Carver DUST HANDLER 10/28/2014 Office visit Yris Lara DUST HANDLER 10/23/2014 Office visit Erica Carver DUST HANDLER 10/03/2014 Office visit Kaity Aguilar MD 10/02/2014 Office visit Niyah Jensen DUST HANDLER 09/20/2014 Office visit Noe Bouman DO 09/14/2014 Hospital Noe Bouman DO 09/13/2014 Hospital Noe Bouman DO 09/12/2014 Hospital Noe Bouman DO 07/19/2014 Office visit Vijay Rees DUST HANDLER 07/03/2014 Office visit Vijay Rees DUST HANDLER 06/11/2014 Office visit Vijay Rees DUST HANDLER 06/03/2014 Office visit Kiaty Aguilar MD 04/29/2014 Office visit Vijay Rees DUST HANDLER 04/22/2014 Office visit Kaity Aguilar MD 03/11/2014 Office visit Kaity Aguilar MD 02/19/2014 Office visit Kaity Aguilar MD 10/01/2013 Office visit Erica Carver DUST HANDLER 09/13/2013 Office visit Erica Walker DUST HANDLER 09/10/2013 Office visit Erica Walker DUST HANDLER 08/16/2013 Office visit Erica Walker DUST HANDLER 03/27/2013 Office visit Erica Walker DUST HANDLER 01/23/2013 Office visit Erica Walker DUST HANDLER 01/19/2013 Voided Erica Walker DUST HANDLER 12/29/2012 Office visit Erica Walker DUST HANDLER 12/26/2012 Office visit Erica Carver DUST HANDLER 12/14/2012 Surgery Tong Whatley MD 12/07/2012 Voided Tong Whatley MD 11/09/2012 Surgery Tong Whatley MD 10/24/2012 [facility] Neema Barros MD 10/24/2012 [facility] Tong Whatley MD 10/18/2012 Surgery Tong Whatley MD 09/20/2012 Office visit Tong Whatley MD 07/27/2012 Office visit Yris Lara DUST HANDLER 06/22/2012 Procedures Tong Whatley MD 05/25/2012 Office visit Tong Whatley MD 04/11/2012 Office visit Erica Carver APRN 03/31/2012 Office visit Erica Carver APRN 04/08/2011 Office visit Eugenio Enamorado MD 07/23/2010 Office visit Elsa FIGUEROA 04/15/2010 Office visit Elsa FIGUEROA 03/25/2010 Office visit Elsa FIGUEROA 03/02/2010 Office visit Elsa FIGUEROA
--- OUTSIDE RECORDS SUMMARY | 2017-11-25 08:12 | XMS REPORT ---
Author Author Vijay Rees [facility] Address [address] [place], [place] [id number] Care Team Providers Care Greenhouse Grower Name Role Phone Vijay Rees PCP Erica [...] Abdominal Ultrasound, single organ 06/24/2015 12:00 AM ABDOMEN 2 VIEW DECUB/UPRIGHT 08/17/2016 12:00 AM Medications Active Name Start Date [...] daily at the same time each day ProAir HFA 90 mcg/actuation inhalation HFA [...] oral route once daily for 4 days Discontinued Name Start Date Discontinued Date [...] to 3.0mg. Pen Needle 32 gauge x /32" miscellaneous needle 01/12/2016 03/01/2016 use as directed [...] HC BMI BSA BMI Percentile O2 Sat(%) 08/16/2016 5:10:00 PM 130 mmHg 70 mmHg [...] 06/19/2015 12:00 AM Decadron, Per 1 Mg [facility]# [address]-53 Reviewed 06/19/2015 12:00 AM Depo-Medrol 40mg Reviewed 06/24/2015 12:00 AM COMPLETE CBC W/AUTO DIFF WBC Reviewed 06/24/2015 12:00 AM COMPREHEN METABOLIC PANEL Reviewed 06/24/2015 12:00 AM LIPID PANEL Reviewed 06/24/2015 12:00 AM GLYCOSYLATED HEMOGLOBIN TEST Reviewed 06/24/2015 12:00 AM ASSAY OF FERRITIN Reviewed 08/06/2015 12:00 AM BEHAV CHNG SMOKING 3-10 MIN Reviewed 09/10/2015 12:00 AM Imitrex 6mg [facility] #57395-713-27 Reviewed 11/26/2015 5:56 PM URINALYSIS AUTO W/O [...] 05/26/2016 12:00 AM THER/PROPH/DIAG INJ SC/IM Reviewed 08/16/2016 12:00 AM COMPLETE CBC W/AUTO DIFF WBC Reviewed 08/16/2016 12:00 AM COMPREHEN METABOLIC PANEL Reviewed 08/16/2016 12:00 AM ASSAY OF AMYLASE Reviewed 08/16/2016 12:00 AM ASSAY OF LIPASE Reviewed 08/16/2016 12:00 AM URNLS DIP STICK/TABLET RGNT AUTO W/O MICROSCOPY Reviewed 08/16/2016 12:00 AM X-RAY EXAM OF ABDOMEN Reviewed 05/25/2012 12:00 AM CYTOPATH TBS C/V [...] 12:00 AM Phenergan, Up to 50 Mg [facility]#8800-6603-25 Reviewed 12/26/2012 12:00 AM Toradol 60 Mg [facility]#2960-0421-75 Reviewed 12/29/2012 12:00 AM COMPLETE CBC W/AUTO DIFF WBC Reviewed 12/29/2012 12:00 AM COMPREHEN METABOLIC PANEL Reviewed 01/01/2013 12:[address] HEAD/BRAIN W/O & W/DYE Reviewed 01/23/2013 12:00 AM THER/PROPH/DIAG INJ SC/IM Reviewed 01/23/2013 12:00 AM Decadron, Per 1 Mg [facility]# [address]-32 Reviewed 01/23/2013 12:00 AM Depo-Medrol, Per 80 Mg [facility]#0284-7928-37 Reviewed 08/16/2013 12:00 AM THER/PROPH/DIAG INJ SC/IM Reviewed 08/16/2013 12:00 AM Decadron, Per 1 Mg [facility]# [address]-40 Reviewed 08/16/2013 12:00 AM Depo-Medrol, Per 80 Mg [facility]#5727-6261-40 Reviewed 09/13/2013 12:00 AM COMPLETE CBC W/AUTO [...] 3:20PM Arthritis, rheumatoid Jun 03 2014 4:12PM long-term use of drug Jun 03 2014 4:12PM [...] 2016 5:12PM Ileus Aug 17 2016 10:01AM Payers Insurance Name Company Name Plan Name Plan Number Policy Number Policy Group Number [id number], [facility] [id number] N/A [facility] Comm Plan of [id number] N/A History of Encounters Visit Date Visit Type Provider 08/16/2016 Office visit Vijay Rees APRN 07/26/2016 [...] Carver APRN 10/28/2014 Office visit Yris Lara METAL BUGGY OPERATOR 10/23/2014 Office visit Erica Carvre METAL BUGGY OPERATOR 10/03/2014 Office visit Kaity Aguilar MD 10/02/2014 Office visit Niyah Jensen METAL BUGGY OPERATOR 09/20/2014 Office visit Noe Calderón DO 09/14/2014 Hospital Noe Bouman DO 09/13/2014 Hospital Noe Bouman DO 09/12/2014 Hospital Noe Bouman DO 07/19/2014 Office visit Vijay Rees METAL BUGGY OPERATOR 07/03/2014 Office visit Vijay Rees METAL BUGGY OPERATOR 06/11/2014 Office visit Vijay Rees METAL BUGGY OPERATOR 06/03/2014 Office visit Kaity Aguilar MD 04/29/2014 Office visit Vijay Rees METAL BUGGY OPERATOR 04/22/2014 Office visit Kaity Aguilar MD 03/11/2014 Office visit Kaity Aguilar MD 02/19/2014 Office visit Kaity Aguilar MD 10/01/2013 Office visit Erica Carver METAL BUGGY OPERATOR 09/13/2013 Office visit Erica Carver METAL BUGGY OPERATOR 09/10/2013 Office visit Erica Walker METAL BUGGY OPERATOR 08/16/2013 Office visit Erica Carver METAL BUGGY OPERATOR 03/27/2013 Office visit Erica Walker METAL BUGGY OPERATOR 01/23/2013 Office visit Erica Walker METAL BUGGY OPERATOR 01/19/2013 Voided Erica Walker METAL BUGGY OPERATOR 12/29/2012 Office visit Erica Walker METAL BUGGY OPERATOR 12/26/2012 Office visit Erica Carver METAL BUGGY OPERATOR 12/14/2012 Surgery Tong Whatley MD 12/07/2012 Voided Tong Whatley MD 11/09/2012 Surgery Tong Whatley MD 10/24/2012 [facility] 10/24/2012 [facility] Tong Whatley MD 10/18/2012 Surgery Tong Whatley MD 09/20/2012 Office visit Tong Whatley MD 07/27/2012 Office visit Yris Lara METAL BUGGY OPERATOR 06/22/2012 Procedures Togn Whatley MD 05/25/2012 Office visit Tong Whatley MD 04/11/2012 Office visit Erica aCrver METAL BUGGY OPERATOR 03/31/2012 Office visit Erica Carver METAL BUGGY OPERATOR 04/08/2011 Office visit Eugenio Enamorado MD 07/23/2010 Office visit Elsa FIGUEROA 04/15/2010 Office visit Elsa FIGUEROA 03/25/2010 Office visit Elsa FIGUEROA 03/02/2010 Office visit Elsa FIGUEROA
--- OUTSIDE RECORDS SUMMARY | 2017-11-25 08:13 | XMS REPORT ---
Author Erica Briseno Organization [facility] Address [address] [place], [place] [address] Care Team Providers Care Ironworker Name Role Phone Erica Carver PCP Unavailable [...] 2 times a day for 10 days Tesarnaud Perles 100 mg oral capsule 01/30/2017 02/06/2017 [...] 1 Mg [facility]# [address]-73 Reviewed 06/19/2015 12:00 AM Depo-Medrol 40mg Reviewed 06/24/2015 12:00 AM COMPLETE CBC W/AUTO DIFF WBC Reviewed 06/24/2015 12:00 AM COMPREHEN METABOLIC PANEL Reviewed 06/24/2015 12:00 AM LIPID PANEL Reviewed 06/24/2015 12:00 AM GLYCOSYLATED HEMOGLOBIN TEST Reviewed 06/24/2015 12:00 AM ASSAY OF FERRITIN Reviewed 08/06/2015 12:00 AM BEHAV CHNG SMOKING 3-10 MIN Reviewed 09/10/2015 12:00 AM Imitrex 6mg [facility] #49644-433-17 Reviewed 11/26/2015 5:56 PM URINALYSIS AUTO W/O [...] 1 Mg [facility]# [address]-81 Reviewed 01/19/2017 12:00 AM Depo-Medrol 40mg Injection [...] to 50 Mg [facility]#4411-0217-74 Reviewed 12/26/2012 12:00 AM Toradol 60 Mg [facility]#7913-5041-74 Reviewed 12/29/2012 12:00 AM COMPLETE CBC W/AUTO DIFF WBC Reviewed 12/29/2012 12:00 AM COMPREHEN METABOLIC PANEL Reviewed 01/01/2013 12:[address] HEAD/BRAIN W/O & W/DYE Reviewed 01/19/2013 12:00 AM Blood Pressure Check-no charge Reviewed 01/23/2013 12:00 AM THER/PROPH/DIAG INJ SC/IM Reviewed 01/23/2013 12:00 AM Decadron, Per 1 Mg [facility]# [address]-75 Reviewed 01/23/2013 12:00 AM Depo-Medrol, Per 80 Mg [facility]#6437-7895-68 Reviewed 08/16/2013 12:00 AM THER/PROPH/DIAG INJ SC/IM Reviewed 08/16/2013 12:00 AM Decadron, Per 1 Mg [facility]# [address]-61 Reviewed 08/16/2013 12:00 AM Depo-Medrol, Per 80 Mg [facility]#2823-6182-58 Reviewed 09/13/2013 12:00 AM COMPLETE CBC W/AUTO [...] 4.10 HGB 14.10 g/dLHCT 42.30 %MCV 103.0 [facility] 34.40 [facility] g/dLRDW SD 54 RDW CV 14.30 [...] Number Policy Group Number Start Date BCBS [facility] [id number] Tuesday, 2010 [facility] [id number] N/A [place] Comm Plan of [id number] N/A History of Encounters Visit Date Visit Type Provider 02/04/2017 Office visit Erica Carver BOILER OPERATORS SUPERVISOR 01/31/2017 Office visit Erica Carver BOILER OPERATORS SUPERVISOR 01/30/2017 Office visit 01/30/2017 Office visit Navin Tucker NP 01/27/2017 Office visit Erica Carver BOILER OPERATORS SUPERVISOR 01/25/2017 Office visit Erica Carver BOILER OPERATORS SUPERVISOR 01/19/2017 Office visit Erica Carver BOILER OPERATORS SUPERVISOR 01/18/2017 Office visit Cecily Solorzano BOILER OPERATORS SUPERVISOR 01/10/2017 Office visit Alireza Gutierrez MD 12/30/2016 Office visit Luz Brantley BOILER OPERATORS SUPERVISOR 12/14/2016 Office visit Kaity Aguilar MD 10/11/2016 Office visit Vijay Rees BOILER OPERATORS SUPERVISOR 09/24/2016 Office visit Kaity Aguilar MD 08/16/2016 Office visit Vijay Rees BOILER OPERATORS SUPERVISOR 07/26/2016 Office visit Erica Carver BOILER OPERATORS SUPERVISOR 05/26/2016 Office visit Vijay Rees BOILER OPERATORS SUPERVISOR 05/06/2016 Office visit Kaity Aguilar MD 04/02/2016 Office visit Concepcion BORJA 03/23/2016 Office visit Kaity Aguilar MD 03/01/2016 Office visit Vijay Rees BOILER OPERATORS SUPERVISOR 01/12/2016 Office visit Erica Carver BOILER OPERATORS SUPERVISOR 11/26/2015 Office visit Vijay Rees BOILER OPERATORS SUPERVISOR 09/26/2015 Surgery Noe Bouman DO 09/18/2015 Hospital Noe Bouman DO 09/16/2015 Office visit Noe Calderón DO 09/10/2015 Office visit iY Staples MD 08/06/2015 Office visit Teresita Laureano BOILER OPERATORS SUPERVISOR 06/24/2015 Office visit Kaity Aguilar MD 06/19/2015 Office visit Erica Carver BOILER OPERATORS SUPERVISOR 10/28/2014 Office visit Yris Lara BOILER OPERATORS SUPERVISOR 10/23/2014 Office visit Erica Carver BOILER OPERATORS SUPERVISOR 10/03/2014 Office visit Kaity Aguilar MD 10/02/2014 Office visit Niyah Jensne BOILER OPERATORS SUPERVISOR 09/20/2014 Office visit Noe Bouman DO 09/14/2014 Hospital Noe Bouman DO 09/13/2014 Hospital One Bouman DO 09/12/2014 Hospital Noe Bouman DO 07/19/2014 Office visit Vijay Rees BOILER OPERATORS SUPERVISOR 07/03/2014 Office visit Vijay Rees BOILER OPERATORS SUPERVISOR 06/11/2014 Office visit Vijay Rees BOILER OPERATORS SUPERVISOR 06/03/2014 Office visit Kaity Aguilar MD 04/29/2014 Office visit Vijay Rees BOILER OPERATORS SUPERVISOR 04/22/2014 Office visit Kaity Aguilar MD 03/11/2014 Office visit Kaity Aguilar MD 02/19/2014 Office visit Kaity Aguilar MD 10/01/2013 Office visit Erica Walker BOILER OPERATORS SUPERVISOR 09/13/2013 Office visit Erica Walker BOILER OPERATORS SUPERVISOR 09/10/2013 Office visit Erica Walker BOILER OPERATORS SUPERVISOR 08/16/2013 Office visit Erica Walker BOILER OPERATORS SUPERVISOR 03/27/2013 Office visit Erica Walker BOILER OPERATORS SUPERVISOR 01/23/2013 Office visit Erica Walker BOILER OPERATORS SUPERVISOR 01/19/2013 Voided Erica Walker BOILER OPERATORS SUPERVISOR 12/29/2012 Office visit Erica Walker BOILER OPERATORS SUPERVISOR 12/26/2012 Office visit Erica Walker BOILER OPERATORS SUPERVISOR 12/14/2012 Surgery Tong Whatley MD 12/07/2012 Voided Tong Whatley MD 11/09/2012 Surgery [facility]/24[facility] Tong Whatley MD 10/18/2012 Surgery Tong Whatley MD 09/20/2012 Office visit Tong Whatley MD 07/27/2012 Office visit Yris Lara BOILER OPERATORS SUPERVISOR 06/22/2012 Procedures Tong Whatley MD 05/25/2012 Office visit Tong Whatley MD 04/11/2012 Office visit Erica Carver BOILER OPERATORS SUPERVISOR 03/31/2012 Office visit Erica Carver BOILER OPERATORS SUPERVISOR 04/08/2011 Office visit Eugenio Enamorado MD 07/23/2010 Office visit Elsa FIGUEROA 04/15/2010 Office visit Elsa FIGUEROA 03/25/2010 Office visit Elsa FIGUEROA 03/02/2010 Office visit Elsa FIGUEROA
--- OUTSIDE RECORDS SUMMARY | 2017-11-25 08:16 | XMS REPORT ---
Author Fidel Hancock [facility] Address [address] [place], [place] [address] Care Team Providers Care Rail Transportation Operator Name Role Phone Fidel Valencia PCP Kaity [...] 06/19/2015 12:00 AM Decadron, Per 1 Mg [facility]# [address]-49 Reviewed 06/19/2015 12:00 AM Depo-Medrol 40mg Reviewed 06/24/2015 12:00 AM COMPLETE CBC W/AUTO DIFF WBC Reviewed 06/24/2015 12:00 AM COMPREHEN METABOLIC PANEL Reviewed 06/24/2015 12:00 AM LIPID PANEL Reviewed 06/24/2015 12:00 AM GLYCOSYLATED HEMOGLOBIN TEST Reviewed 06/24/2015 12:00 AM ASSAY OF FERRITIN Reviewed 08/06/2015 12:00 AM BEHAV CHNG SMOKING 3-10 MIN Reviewed 09/10/2015 12:00 AM Imitrex 6mg [facility] #12904-118-56 Reviewed 11/26/2015 5:56 PM URINALYSIS AUTO W/O [...] 01/19/2017 12:00 AM Decadron, Per 1 Mg [facility]# [address]-50 Reviewed 01/19/2017 12:00 AM Depo-Medrol 40mg Injection [...] 10/24/2017 12:00 AM Phenergan 25mg Injection Reviewed 10/24/2017 12:00 AM THER/PROPH/DIAG INJ SC/IM Reviewed 10/18/2012 12:00 AM COMPLETE CBC W/AUTO DIFF WBC Reviewed 10/18/2012 12:00 AM METABOLIC PANEL TOTAL CA Reviewed 10/18/2012 12:00 AM Type and screen Reviewed 12/26/2012 12:00 AM THER/PROPH/DIAG INJ SC/IM Reviewed 12/26/2012 12:00 AM Phenergan, Up to 50 Mg [facility]#1121-4344-65 Reviewed 12/26/2012 12:00 AM Toradol 60 Mg [facility]#8113-4458-27 Reviewed 12/29/2012 12:00 AM COMPLETE CBC W/AUTO DIFF WBC Reviewed 12/29/2012 12:00 AM COMPREHEN METABOLIC PANEL Reviewed 01/01/2013 12:[address] HEAD/BRAIN W/O & W/DYE Reviewed 01/19/2013 12:00 AM Blood Pressure Check-no charge Reviewed 01/23/2013 12:00 AM THER/PROPH/DIAG INJ SC/IM Reviewed 01/23/2013 12:00 AM Decadron, Per 1 Mg [facility]# [address]-53 Reviewed 01/23/2013 12:00 AM Depo-Medrol, Per 80 Mg [facility]#4610-5937-76 Reviewed 08/16/2013 12:00 AM THER/PROPH/DIAG INJ SC/IM Reviewed 08/16/2013 12:00 AM Decadron, Per 1 Mg [facility]# [address]-52 Reviewed 08/16/2013 12:00 AM Depo-Medrol, Per 80 Mg [facility]#1817-7306-07 Reviewed 09/13/2013 12:00 AM COMPLETE CBC W/AUTO [...] 3:20PM Arthritis, rheumatoid Jun 03 2014 4:12PM [facility] use of drug Jun 03 2014 4:12PM [...] 2017 2:34PM Hypertension Oct 20 2017 2:34PM Intractable migraine without status migrainosus, unspecified migraine type Oct 24 2017 6:06PM Non-intractable vomiting with nausea, unspecified vomiting type Oct 24 2017 6 :06PM Payers Insurance Name Company Name Plan Name Plan Number Policy Number Policy Group Number Start Date [place] [employer] [facility] - RH [id number] N/A [place] [facility] [place] [facility] [place] Prog [id number] N/A BCBS [employer] [place] [id number] Tuesday, 2010 [facility] - RHC - Community Plan [facility]HC Comm [id number] N/A [facility] Community Plan [facility] Comm Plan of [id number] N/A [facility] - [facility] - Community Plan [facility]HC Comm [id number] N/A History of Encounters Visit Date Visit [...] Noe Calderón DO 08/23/2017 Office visit Alireza Guteirrez MD 08/17/2017 Office visit Erica Carver CHIPPER FEEDER 08/09/2017 Office visit Alireza Gutierrez MD 08/07/2017 Office visit Luz Brantley CHIPPER FEEDER 08/02/2017 Office visit Kaity Aguilar MD 07/14/2017 Office visit Alireza Gutierrez MD 07/06/2017 Office visit Kaity Aguilar MD 03/08/2017 [facility] Reese Ambriz MD 02/14/2017 Office visit Kaity Aguilar MD 02/04/2017 Office visit Erica Carver CHIPPER FEEDER 01/31/2017 Office visit Erica Carver CHIPPER FEEDER 01/30/2017 Office visit 01/30/2017 Office visit Navin Tucker NP 01/27/2017 Office visit Erica Carver CHIPPER FEEDER 01/25/2017 Office visit Erica Carver CHIPPER FEEDER 01/19/2017 Office visit Erica Carver CHIPPER FEEDER 01/18/2017 Office visit Cecily Solorzano CHIPPER FEEDER 01/10/2017 Office visit Alireza Gutierrez MD 12/30/2016 Office visit Luz Brantley CHIPPER FEEDER 12/14/2016 Office visit Kaity Aguilar MD 10/11/2016 Office visit Vijay Rees CHIPPER FEEDER 09/24/2016 Office visit Kaity Aguilar MD 08/16/2016 Office visit Vijay Rees CHIPPER FEEDER 07/26/2016 Office visit Erica Carver CHIPPER FEEDER 05/26/2016 Office visit Vijay Rees CHIPPER FEEDER 05/06/2016 Office visit Kaity Aguilar MD 04/02/2016 Office visit Concepcion BORJA 03/23/2016 Office visit Kaity Aguilar MD 03/01/2016 Office visit Vijay Rees CHIPPER FEEDER 01/12/2016 Office visit Erica Carver CHIPPER FEEDER 11/26/2015 Office visit Vijay Rees CHIPPER FEEDER 09/26/2015 Surgery Noe Calderón DO 09/18/2015 Hospital Noe Calderón DO 09/16/2015 Office visit Noe Calderón DO 09/10/2015 Office visit Yi Staples MD 08/06/2015 Office visit Teresita Laureano CHIPPER FEEDER 06/24/2015 Office visit Kaity Aguilar MD 06/19/2015 Office visit Erica Carver CHIPPER FEEDER 10/28/2014 Office visit Yris Lara CHIPPER FEEDER 10/23/2014 Office visit Erica Carver CHIPPER FEEDER 10/03/2014 Office visit Kaity Aguilar MD 10/02/2014 Office visit Niyah GuyChika Jensen CHIPPER FEEDER 09/20/2014 Office visit Noe Calderón DO 09/14/2014 Hospital Noe Randhawauman DO 09/13/2014 Hospital Noe Bouman DO 09/12/2014 Hospital Noe Bouman DO 07/19/2014 Office visit Vijay Rees CHIPPER FEEDER 07/03/2014 Office visit Vijay Rees CHIPPER FEEDER 06/11/2014 Office visit Vijay Rees CHIPPER FEEDER 06/03/2014 Office visit Kaity Aguilar MD 04/29/2014 Office visit Vijay Rees CHIPPER FEEDER 04/22/2014 Office visit Kaity Aguilar MD 03/11/2014 Office visit Kaity Aguilar MD 02/19/2014 Office visit Kaity Aguilar MD 10/01/2013 Office visit Erica Carver CHIPPER FEEDER 09/13/2013 Office visit Erica Carver CHIPPER FEEDER 09/10/2013 Office visit Erica Carver CHIPPER FEEDER 08/16/2013 Office visit Erica Carver CHIPPER FEEDER 03/27/2013 Office visit Erica Carver CHIPPER FEEDER 01/23/2013 Office visit Erica Carver CHIPPER FEEDER 01/19/2013 Voided Erica Carver CHIPPER FEEDER 12/29/2012 Office visit Erica Carver CHIPPER FEEDER 12/26/2012 Office visit Erica Carver CHIPPER FEEDER 12/14/2012 Surgery Tong Whatley MD 12/07/2012 Voided Tong Whatley MD 11/09/2012 Surgery Tong Whatley MD 10/24/2012 [facility] Neema Barros MD 10/24/2012 [facility] Tong Whatley MD 10/18/2012 Surgery Tong Whatley MD 09/20/2012 Office visit Tong Whatley MD 07/27/2012 Office visit Yris Lara CHIPPER FEEDER 06/22/2012 Procedures Tong Whatley MD 05/25/2012 Office visit Tong Whatley MD 04/11/2012 Office visit Erica Carver CHIPPER FEEDER 03/31/2012 Office visit Erica Carver CHIPPER FEEDER 04/08/2011 Office visit Eugenio Enamorado MD 07/23/2010 Office visit Elsa FIGUEROA 04/15/2010 Office visit Elsa FIGUEROA 03/25/2010 Office visit Elsa FIGUEROA 03/02/2010 Office visit Elsa FIGUEROA
--- OUTSIDE RECORDS SUMMARY | 2017-11-25 08:17 | XMS REPORT ---
Author Author Erica Carver Organization [facility] Address [address] [place], [place] [id number] Care Team Providers Care Concrete Block Layer Name Role Phone Erica Carver PCP Unavailable [...] 09/20/2012 take 1 tablet by oral route [facility] Medrol ([place]) Oral tablets,dose pack 4 [...] 4:04PM Rheumatoid arthritis Oct 03 2014 4:04PM Payers Insurance Name Company Name Plan Name Plan Number Policy Number Policy Group Number Start Date [facility] [id number] Tuesday, 2010 History of Encounters Visit Date Visit Type Provider 10/28/2014 Office visit Yris Lara BLEACH BOILER PULLER 10/23/2014 Office visit Erica Carver BLEACH BOILER PULLER 10/03/2014 Office visit Kaity Aguilar MD 10/02/2014 Office visit Niyah Jensen BLEACH BOILER PULLER 09/20/2014 Office visit Noe Calderón DO 09/14/2014 Hospital Noe Calderón DO 09/13/2014 Hospital Noe Calderón DO 09/12/2014 Hospital Noe Calderón DO 07/19/2014 Office visit Vijay Rees BLEACH BOILER PULLER 07/03/2014 Office visit Vijay Rees BLEACH BOILER PULLER 06/11/2014 Office visit Vijay Rees BLEACH BOILER PULLER 06/03/2014 Office visit Kaity Aguilar MD 04/29/2014 Office visit Vijay Rees BLEACH BOILER PULLER 04/22/2014 Office visit Kaity Aguilar MD 03/11/2014 Office visit Kaity Aguilar MD 02/19/2014 Office visit Kaity Aguilar MD 10/01/2013 Office visit Erica Carver BLEACH BOILER PULLER 09/13/2013 Office visit Erica Walker BLEACH BOILER PULLER 09/10/2013 Office visit Erica Walker BLEACH BOILER PULLER 08/16/2013 Office visit Erica Walker BLEACH BOILER PULLER 03/27/2013 Office visit Erica Walker BLEACH BOILER PULLER 01/23/2013 Office visit Erica Walker BLEACH BOILER PULLER 01/19/2013 Voided Erica Carver BLEACH BOILER PULLER 12/29/2012 Office visit Erica Carver BLEACH BOILER PULLER 12/26/2012 Office visit Erica Carver BLEACH BOILER PULLER 12/14/2012 Surgery Tong Whatley MD 12/07/2012 Voided Tnog Whatley MD 11/09/2012 Surgery Tong Whatley MD 10/24/2012 Hospital Tong Whatley MD 10/24/2012 [facility] Neema Barros MD 10/18/2012 Surgery Tong Whatley MD 09/20/2012 Office visit Tong Whatley MD 07/27/2012 Office visit Yris Lara BLEACH BOILER PULLER 06/22/2012 Procedures Tong Whatley MD 05/25/2012 Office visit Tong Whatley MD 04/11/2012 Office visit Erica Carver BLEACH BOILER PULLER 03/31/2012 Office visit Erica Carver BLEACH BOILER PULLER 04/08/2011 Office visit Eugenio Enamorado MD 07/23/2010 Office visit Elsa FIGUEROA 04/15/2010 Office visit Elsa FIGUEROA 03/25/2010 Office visit Elsa FIGUEROA 03/02/2010 Office visit Elsa FIGUEROA
[2017-11-25] MEDS ORDERED: LEVOFLOXACIN 500 MG/100 ML IV 100 ML IV ONE (08:20)
--- OUTSIDE RECORDS SUMMARY | 2017-11-25 08:20 | XMS REPORT ---
Author Author Kaity Aguilar Organization [facility] Address [address] [place], [place] [address] Care Team Providers Care Consumer Lending Manager Name Role Phone Kaity Aguilar PCP Kaity [...] 06/19/2015 12:00 AM Decadron, Per 1 Mg [facility]# [address]-95 Reviewed 06/19/2015 12:00 AM Depo-Medrol 40mg Reviewed 06/24/2015 12:00 AM COMPLETE CBC W/AUTO DIFF WBC Reviewed 06/24/2015 12:00 AM COMPREHEN METABOLIC PANEL Reviewed 06/24/2015 12:00 AM LIPID PANEL Reviewed 06/24/2015 12:00 AM GLYCOSYLATED HEMOGLOBIN TEST Reviewed 06/24/2015 12:00 AM ASSAY OF FERRITIN Reviewed 08/06/2015 12:00 AM BEHAV CHNG SMOKING 3-10 MIN Reviewed 09/10/2015 12:00 AM Imitrex 6mg [facility] #59673-384-87 Reviewed 11/26/2015 5:56 PM URINALYSIS AUTO W/O [...] 01/19/2017 12:00 AM Decadron, Per 1 Mg [facility]# [address]-75 Reviewed 01/19/2017 12:00 AM Depo-Medrol 40mg Injection [...] 12:00 AM Phenergan, Up to 50 Mg [facility]#3604-0124-99 Reviewed 12/26/2012 12:00 AM Toradol 60 Mg [facility]#1323-8393-98 Reviewed 12/29/2012 12:00 AM COMPLETE CBC W/AUTO DIFF WBC Reviewed 12/29/2012 12:00 AM COMPREHEN METABOLIC PANEL Reviewed 01/01/2013 12:[address] HEAD/BRAIN W/O & W/DYE Reviewed 01/19/2013 12:00 AM Blood Pressure Check-no charge Reviewed 01/23/2013 12:00 AM THER/PROPH/DIAG INJ SC/IM Reviewed 01/23/2013 12:00 AM Decadron, Per 1 Mg [facility]# [address]-08 Reviewed 01/23/2013 12:00 AM Depo-Medrol, Per 80 Mg [facility]#2798-9070-39 Reviewed 08/16/2013 12:00 AM THER/PROPH/DIAG INJ SC/IM Reviewed 08/16/2013 12:00 AM Decadron, Per 1 Mg [facility]# [address]-16 Reviewed 08/16/2013 12:00 AM Depo-Medrol, Per 80 Mg [facility]#8564-9461-18 Reviewed 09/13/2013 12:00 AM COMPLETE CBC W/AUTO [...] 3:20PM Arthritis, rheumatoid Jun 03 2014 4:12PM alf use of drug Jun 03 2014 4:12PM [...] Policy Number Policy Group Number Start Date [place] Sheetfed Press Operator [facility] Sheet[facility] Press [facility] [id number] N/A [place] Medical Assistance Program [place] Medical Assistance Prog [id number] N/A BCBS [employer] [place] [id number] Tuesday, 2010 [facility] - RHC - Community Plan [facility] RHC Comm [id number] N/A [facility] Community [facility] Comm Plan of [id number] N/A [facility] - RHC - Community [facility] [id number] N/A History of Encounters Visit Date Visit Type Provider 09/29/2017 Nurse visit Kaity Augilar MD 09/21/2017 Office visit 09/21/2017 Office visit Fidel Valencia MD 09/02/2017 Office visit Kaity Aguilar MD 08/29/2017 Surgery Noe Calderón DO 08/23/2017 Office visit Noe Calderón DO 08/23/2017 Office visit Alireza Gutierrez MD 08/17/2017 Office visit Erica Carver JACK TAMP OPERATOR 08/09/2017 Office visit Alireza Gutierrez MD 08/07/2017 Office visit Luz Brantley JACK TAMP OPERATOR 08/02/2017 Office visit Kaity Aguilar MD 07/14/2017 Office visit Alireza Gutierrez MD 07/06/2017 Office visit Kaity Aguilar MD 03/08/2017 [facility] Papo Ambriz MD 02/14/2017 Office visit Kaity Aguilar MD 02/04/2017 Office visit Erica Carver JACK TAMP OPERATOR 01/31/2017 Office visit Erica Carver JACK TAMP OPERATOR 01/30/2017 Office visit 01/30/2017 Office visit Navin Tucker NP 01/27/2017 Office visit Erica Carver JACK TAMP OPERATOR 01/25/2017 Office visit Erica Carver JACK TAMP OPERATOR 01/19/2017 Office visit Erica Carver JACK TAMP OPERATOR 01/18/2017 Office visit Cecily Solorzano JACK TAMP OPERATOR 01/10/2017 Office visit Alireza Gutierrez MD 12/30/2016 Office visit Luz Brantley JACK TAMP OPERATOR 12/14/2016 Office visit Kaity Aguilar MD 10/11/2016 Office visit Vijay Rees JACK TAMP OPERATOR 09/24/2016 Office visit Kaity Aguilar MD 08/16/2016 Office visit Vijay Rees JACK TAMP OPERATOR 07/26/2016 Office visit Erica Carver JACK TAMP OPERATOR 05/26/2016 Office visit Vijay Rees JACK TAMP OPERATOR 05/06/2016 Office visit Kaity Aguilar MD 04/02/2016 Office visit Concepcion BORJA 03/23/2016 Office visit Kaity Aguilar MD 03/01/2016 Office visit Vijay Rees JACK TAMP OPERATOR 01/12/2016 Office visit Erica Carver JACK TAMP OPERATOR 11/26/2015 Office visit Vijay Rees JACK TAMP OPERATOR 09/26/2015 Surgery Noe Bouman DO 09/18/2015 Hospital Noe Bouman DO 09/16/2015 Office visit Noe Randhawauman DO 09/10/2015 Office visit Yi Staples MD 08/06/2015 Office visit Teresita Laureano JACK TAMP OPERATOR 06/24/2015 Office visit Kaity Aguilar MD 06/19/2015 Office visit Erica Carver JACK TAMP OPERATOR 10/28/2014 Office visit Yris Lara JACK TAMP OPERATOR 10/23/2014 Office visit Erica Carver JACK TAMP OPERATOR 10/03/2014 Office visit Kaity Aguilar MD 10/02/2014 Office visit Niyah Jensen JACK TAMP OPERATOR 09/20/2014 Office visit Noe Bouman DO 09/14/2014 Hospital Noe Bouman DO 09/13/2014 Hospital Noe Bouman DO 09/12/2014 Hospital Noe Bouman DO 07/19/2014 Office visit Vijay Rees JACK TAMP OPERATOR 07/03/2014 Office visit Vijay Rees JACK TAMP OPERATOR 06/11/2014 Office visit Vijay Rees JACK TAMP OPERATOR 06/03/2014 Office visit Kaity Aguilar MD 04/29/2014 Office visit Vijay Rees JACK TAMP OPERATOR 04/22/2014 Office visit Kaity Aguilar MD 03/11/2014 Office visit Kaity Aguilar MD 02/19/2014 Office visit Kaity Aguilar MD 10/01/2013 Office visit Erica Walker JACK TAMP OPERATOR 09/13/2013 Office visit Erica Walker JACK TAMP OPERATOR 09/10/2013 Office visit Erica Walker JACK TAMP OPERATOR 08/16/2013 Office visit Erica Walker JACK TAMP OPERATOR 03/27/2013 Office visit Erica Walker JACK TAMP OPERATOR 01/23/2013 Office visit Erica Walker JACK TAMP OPERATOR 01/19/2013 Voided Erica Walker JACK TAMP OPERATOR 12/29/2012 Office visit Erica Walker JACK TAMP OPERATOR 12/26/2012 Office visit Erica Walker JACK TAMP OPERATOR 12/14/2012 Surgery Tong Whatley MD 12/07/2012 Voided Tong Whatley MD 11/09/2012 Surgery [facility] What[facility]24[facility] Tong Whatley MD 10/18/2012 Surgery Tong Whatley MD 09/20/2012 Office visit Tong Whatley MD 07/27/2012 Office visit Yris Lara JACK TAMP OPERATOR 06/22/2012 Procedures Tong Whatley MD 05/25/2012 Office visit Tong Whatley MD 04/11/2012 Office visit Erica Carver JACK TAMP OPERATOR 03/31/2012 Office visit Erica Carver JACK TAMP OPERATOR 04/08/2011 Office visit Eugenio Enamorado MD 07/23/2010 Office visit Elsa FIGUEROA 04/15/2010 Office visit Elsa FIGUEROA 03/25/2010 Office visit Elsa FIGUEROA 03/02/2010 Office visit Elsa FIGUEROA
--- OUTSIDE RECORDS SUMMARY | 2017-11-25 08:23 | XMS REPORT ---
Author Author Alireza Gutierrez Organization [facility] Address [address] [place], [place] [address] Care Team Providers Care Spinning Frame Fixer Name Role Phone Alireza Gutierrez PCP Kaity [...] AM Decadron, Per 1 Mg [facility]# [address]-98 Reviewed 06/19/2015 12:00 AM Depo-Medrol 40mg Reviewed 06/24/2015 12:00 AM COMPLETE CBC W/AUTO DIFF WBC Reviewed 06/24/2015 12:00 AM COMPREHEN METABOLIC PANEL Reviewed 06/24/2015 12:00 AM LIPID PANEL Reviewed 06/24/2015 12:00 AM GLYCOSYLATED HEMOGLOBIN TEST Reviewed 06/24/2015 12:00 AM ASSAY OF FERRITIN Reviewed 08/06/2015 12:00 AM BEHAV CHNG SMOKING 3-10 MIN Reviewed 09/10/2015 12:00 AM Imitrex 6mg [facility] #82199-515-53 Reviewed 11/26/2015 5:56 PM URINALYSIS AUTO W/O [...] AM Decadron, Per 1 Mg [facility]# [address]-36 Reviewed 01/19/2017 12:00 AM Depo-Medrol 40mg Injection [...] Reviewed 10/12/2017 12:00 AM URINALYSIS AUTO W/SCOPE Returned 10/18/2012 12:00 AM COMPLETE CBC W/AUTO DIFF WBC Reviewed 10/18/2012 12:00 AM METABOLIC PANEL TOTAL CA Reviewed 10/18/2012 12:00 AM Type and screen Reviewed 12/26/2012 12:00 AM THER/PROPH/DIAG INJ SC/IM Reviewed 12/26/2012 12:00 AM Phenergan, Up to 50 Mg [facility]#7656-1319-07 Reviewed 12/26/2012 12:00 AM Toradol 60 Mg [facility]#1682-6693-74 Reviewed 12/29/2012 12:00 AM COMPLETE CBC W/AUTO DIFF WBC Reviewed 12/29/2012 12:00 AM COMPREHEN METABOLIC PANEL Reviewed 01/01/2013 12:[address] HEAD/BRAIN W/O & W/DYE Reviewed 01/19/2013 12:00 AM Blood Pressure Check-no charge Reviewed 01/23/2013 12:00 AM THER/PROPH/DIAG INJ SC/IM Reviewed 01/23/2013 12:00 AM Decadron, Per 1 Mg [facility]# [address]-69 Reviewed 01/23/2013 12:00 AM Depo-Medrol, Per 80 Mg [facility]#6637-6286-71 Reviewed 08/16/2013 12:00 AM THER/PROPH/DIAG INJ SC/IM Reviewed 08/16/2013 12:00 AM Decadron, Per 1 Mg [facility]# [address]-09 Reviewed 08/16/2013 12:00 AM Depo-Medrol, Per 80 Mg [facility]#8034-5118-11 Reviewed 09/13/2013 12:00 AM COMPLETE CBC W/AUTO [...] Policy Number Policy Group Number Start Date [place] [facility] [place] [id number] N/A [place] Medical Assistance Program [place] Medical Assistance Pro[place] [id number] N/A BCBS Bcbs [facility] [id number] Tuesday, 2010 [facility] - RHC - Community Plan of [facility] RHC Comm [id number] N/A [facility] Community Plan [facility] Comm Plan of [id number] N/A [facility] - RHC - Community Plan [facility] RHC Comm [id number] N/A History of Encounters Visit Date Visit Type Provider 10/12/2017 Office visit Alireza Gutierrez MD 10/06/2017 Surgery Fidel Valencia MD 09/29/2017 Nurse visit Kaity Aguilar MD 09/21/2017 Office visit 09/21/2017 Office visit Fidel Valencia MD 09/02/2017 Office visit Kaity Aguilar MD 08/29/2017 Surgery Noe Bouman DO 08/23/2017 Office visit Noe Calderón DO 08/23/2017 Office visit Alireza Gutierrez MD 08/17/2017 Office visit Erica Carver SANDWICH PEDDLER 08/09/2017 Office visit Alireza Gutierrez MD 08/07/2017 Office visit Luz Brantley SANDWICH PEDDLER 08/02/2017 Office visit Kaity Aguilar MD 07/14/2017 Office visit Alireza Gutierrez MD 07/06/2017 Office visit Kaity Aguilar MD 03/08/2017 Hospital Reese Ambriz MD 02/14/2017 Office visit Kaity Aguilar MD 02/04/2017 Office visit Erica Carver SANDWICH PEDDLER 01/31/2017 Office visit Erica Carver SANDWICH PEDDLER 01/30/2017 Office visit 01/30/2017 Office visit Navin Tucker NP 01/27/2017 Office visit Erica Carver SANDWICH PEDDLER 01/25/2017 Office visit Erica Carver SANDWICH PEDDLER 01/19/2017 Office visit Erica Carver SANDWICH PEDDLER 01/18/2017 Office visit Cecily Solorzano SANDWICH PEDDLER 01/10/2017 Office visit Alireza Gutierrez MD 12/30/2016 Office visit Luz Brantley SANDWICH PEDDLER 12/14/2016 Office visit Kaity Aguilar MD 10/11/2016 Office visit Vijay Rees SANDWICH PEDDLER 09/24/2016 Office visit Kaity Aguilar MD 08/16/2016 Office visit Vijay Rees SANDWICH PEDDLER 07/26/2016 Office visit Erica Carver SANDWICH PEDDLER 05/26/2016 Office visit Vijay Rees SANDWICH PEDDLER 05/06/2016 Office visit Kaity Aguilar MD 04/02/2016 Office visit Concepcion BORJA 03/23/2016 Office visit Kaity Aguilar MD 03/01/2016 Office visit Vijay Rees SANDWICH PEDDLER 01/12/2016 Office visit Erica Carver SANDWICH PEDDLER 11/26/2015 Office visit Vijay Rees SANDWICH PEDDLER 09/26/2015 Surgery Noe Bouman DO 09/18/2015 Hospital Noe Calderón DO 09/16/2015 Office visit Noe Calderón DO 09/10/2015 Office visit Yi Staples MD 08/06/2015 Office visit Teresita Laureano SANDWICH PEDDLER 06/24/2015 Office visit Kaity Aguilar MD 06/19/2015 Office visit Erica Carver SANDWICH PEDDLER 10/28/2014 Office visit Yris Lara SANDWICH PEDDLER 10/23/2014 Office visit Erica Carver SANDWICH PEDDLER 10/03/2014 Office visit Kaity Aguilar MD 10/02/2014 Office visit Niyah Jensen SANDWICH PEDDLER 09/20/2014 Office visit Noe Bouman DO 09/14/2014 Hospital Noe Bouman DO 09/13/2014 Hospital Noe Bouman DO 09/12/2014 Hospital Noe Bouman DO 07/19/2014 Office visit Vijay Rees SANDWICH PEDDLER 07/03/2014 Office visit Vijay Rees SANDWICH PEDDLER 06/11/2014 Office visit Vijay Rees SANDWICH PEDDLER 06/03/2014 Office visit Kaity Aguilar MD 04/29/2014 Office visit Vijay Rees SANDWICH PEDDLER 04/22/2014 Office visit Kaity Aguilar MD 03/11/2014 Office visit Kaity Aguilar MD 02/19/2014 Office visit Kaity Aguilar MD 10/01/2013 Office visit Erica Carver SANDWICH PEDDLER 09/13/2013 Office visit Erica Carver SANDWICH PEDDLER 09/10/2013 Office visit Erica Mehul SANDWICH PEDDLER 08/16/2013 Office visit Erica Carver SANDWICH PEDDLER 03/27/2013 Office visit Erica Carver SANDWICH PEDDLER 01/23/2013 Office visit Erica Carver SANDWICH PEDDLER 01/19/2013 Voided Erica Walker SANDWICH PEDDLER 12/29/2012 Office visit Erica Mehul SANDWICH PEDDLER 12/26/2012 Office visit Erica Carver SANDWICH PEDDLER 12/14/2012 Surgery Tong Whatley MD 12/07/2012 Voided Tong Whatley MD 11/09/2012 Surgery Tong Whatley MD 10/24/2012 [facility] Eliceo Barros MD 10/24/2012 [facility] Tong Whatley MD 10/18/2012 Surgery Tong Whatley MD 09/20/2012 Office visit Tong Whatley MD 07/27/2012 Office visit Yris Lara SANDWICH PEDDLER 06/22/2012 Procedures Tong Whatley MD 05/25/2012 Office visit Tong Whatley MD 04/11/2012 Office visit Erica Carver SANDWICH PEDDLER 03/31/2012 Office visit Erica Carver SANDWICH PEDDLER 04/08/2011 Office visit Eugenio Enamorado MD 07/23/2010 Office visit Elsa FIGUEROA 04/15/2010 Office visit Elsa FIGUEROA 03/25/2010 Office visit Elsa FIGUEROA 03/02/2010 Office visit Elsa FIGUEROA
[2017-11-25] MEDS ORDERED: LEVOFLOXACIN 500 MG/100 ML IV 100 ML ONE (08:24)
--- OUTSIDE RECORDS SUMMARY | 2017-11-25 08:26 | XMS REPORT ---
Author Kaity Rico Organization [facility] Address [address] [place], [place] [address] Care Team Providers Care Supervisor Claims Name Role Phone Kaity Aguilar PCP Kaity [...] / Transvaginal US (non-OB) 10/04/2017 12:00 AM Medications Active Name Start Date [...] to 3.0mg. Pen Needle 32 gauge x 532" miscellaneous needle 01/12/2016 03/01/2016 use as directed [...] 12:00 AM Decadron, Per 1 Mg [facility]# [address]-92 Reviewed 06/19/2015 12:00 AM Depo-Medrol 40mg Reviewed 06/24/2015 12:00 AM COMPLETE CBC W/AUTO DIFF WBC Reviewed 06/24/2015 12:00 AM COMPREHEN METABOLIC PANEL Reviewed 06/24/2015 12:00 AM LIPID PANEL Reviewed 06/24/2015 12:00 AM GLYCOSYLATED HEMOGLOBIN TEST Reviewed 06/24/2015 12:00 AM ASSAY OF FERRITIN Reviewed 08/06/2015 12:00 AM BEHAV CHNG SMOKING 3-10 MIN Reviewed 09/10/2015 12:00 AM Imitrex 6mg [facility] #10231-194-12 Reviewed 11/26/2015 5:56 PM URINALYSIS AUTO W/O [...] 12:00 AM Decadron, Per 1 Mg [facility]# [address]-75 Reviewed 01/19/2017 12:00 AM Depo-Medrol 40mg Injection [...] AM Phenergan, Up to 50 Mg [facility]#9667-7406-41 Reviewed 12/26/2012 12:00 AM Toradol 60 Mg [facility]#9482-4289-28 Reviewed 12/29/2012 12:00 AM COMPLETE CBC W/AUTO DIFF WBC Reviewed 12/29/2012 12:00 AM COMPREHEN METABOLIC PANEL Reviewed 01/01/2013 12:[address] HEAD/BRAIN W/O & W/DYE Reviewed 01/19/2013 12:00 AM Blood Pressure Check-no charge Reviewed 01/23/2013 12:00 AM THER/PROPH/DIAG INJ SC/IM Reviewed 01/23/2013 12:00 AM Decadron, Per 1 Mg [facility]# [address]-81 Reviewed 01/23/2013 12:00 AM Depo-Medrol, Per 80 Mg [facility]#4685-3627-41 Reviewed 08/16/2013 12:00 AM THER/PROPH/DIAG INJ SC/IM Reviewed 08/16/2013 12:00 AM Decadron, Per 1 Mg [facility]# [address]-40 Reviewed 08/16/2013 12:00 AM Depo-Medrol, Per 80 Mg [facility]#4540-1162-81 Reviewed 09/13/2013 12:00 AM COMPLETE CBC W/AUTO [...] Left ovarian cyst Sep 19 2017 3:24PM Payers Insurance Name Company Name Plan Name Plan Number Policy Number Policy Group Number Start Date [place] Outside Sales Manager Prog - RHC [place] Outside Sales Manager Prog - RHC [id number] N/A [place] Medical Assistance Program [place] Medical Assistance Prog [id number] N/[id number] Tuesday, 2010 [facility] - RHC - [facility] Comm [id number] N/A [facility] Community Plan [facility] Comm Plan of [id number] N/A [facility] - RHC - Community Plan [facility] RHC Comm [id number] N/A History of Encounters Visit Date Visit Type Provider 09/02/2017 Office visit Kaity Aguilar MD 08/29/2017 Surgery Noe Calderón DO 08/23/2017 Office visit Noe Calderón DO 08/23/2017 Office visit Alireza Gutierrez MD 08/17/2017 Office visit Erica Carver APRN 08/09/2017 Office visit Alireza Gutierrez MD 08/07/2017 Office visit Luz Brantley APRN 08/02/2017 Office visit Kaity Aguilar MD 07/14/2017 Office visit Alireza Gutierrez MD 07/06/2017 Office visit Kaity Aguilar MD 03/08/2017 [facility] Reese Ambriz MD 02/14/2017 Office visit Kaity [...] Carver APRN 05/26/2016 Office visit Vijay Rees BAROMETERS CALIBRATOR 05/06/2016 Office visit Kaity Aguilar MD 04/02/2016 Office visit Concepcion BORJA 03/23/2016 Office visit Kaity Aguilar MD 03/01/2016 Office visit Vijay Rees BAROMETERS CALIBRATOR 01/12/2016 Office visit Erica Carver BAROMETERS CALIBRATOR 11/26/2015 Office visit Vijay Rees BAROMETERS CALIBRATOR 09/26/2015 Surgery Noe Bouman DO 09/18/2015 Hospital Noe Bouman DO 09/16/2015 Office visit Noe Bouman DO 09/10/2015 Office visit Yi Staples MD 08/06/2015 Office visit Teresita Laureano BAROMETERS CALIBRATOR 06/24/2015 Office visit Kaity Aguilar MD 06/19/2015 Office visit Erica Carver BAROMETERS CALIBRATOR 10/28/2014 Office visit Yris Lara BAROMETERS CALIBRATOR 10/23/2014 Office visit Erica Carver BAROMETERS CALIBRATOR 10/03/2014 Office visit Kaity Aguilar MD 10/02/2014 Office visit Niyah Jensen BAROMETERS CALIBRATOR 09/20/2014 Office visit Noe Bouman DO 09/14/2014 Hospital Noe Bouman DO 09/13/2014 Hospital Noe Bouman DO 09/12/2014 Hospital Noe Bouman DO 07/19/2014 Office visit Vijay Rees BAROMETERS CALIBRATOR 07/03/2014 Office visit Vijay Rees BAROMETERS CALIBRATOR 06/11/2014 Office visit Vijay Rees BAROMETERS CALIBRATOR 06/03/2014 Office visit Kaity Aguilar MD 04/29/2014 Office visit Vijay Rees BAROMETERS CALIBRATOR 04/22/2014 Office visit Kaity Aguilar MD 03/11/2014 Office visit Kaity Aguilar MD 02/19/2014 Office visit Kaity Aguilar MD 10/01/2013 Office visit Erica Carver BAROMETERS CALIBRATOR 09/13/2013 Office visit Erica Carver BAROMETERS CALIBRATOR 09/10/2013 Office visit Erica Carver BAROMETERS CALIBRATOR 08/16/2013 Office visit Erica Carver BAROMETERS CALIBRATOR 03/27/2013 Office visit Erica Carver BAROMETERS CALIBRATOR 01/23/2013 Office visit Erica Carver BAROMETERS CALIBRATOR 01/19/2013 Voided Erica Walker BAROMETERS CALIBRATOR 12/29/2012 Office visit Erica Carver BAROMETERS CALIBRATOR 12/26/2012 Office visit Erica Carver BAROMETERS CALIBRATOR 12/14/2012 Surgery Tong Whatley MD 12/07/2012 Voided Tong Whatley MD 11/09/2012 Surgery Tong Whatley MD 10/24/2012 Hospital Neema Barros MD 10/24/2012 [facility] Tong Whatley MD 10/18/2012 Surgery Tong Whatley MD 09/20/2012 Office visit Tong Whatley MD 07/27/2012 Office visit Yris Lara BAROMETERS CALIBRATOR 06/22/2012 Procedures Tong Whatley MD 05/25/2012 Office visit Tong Whatley MD 04/11/2012 Office visit Erica Carver BAROMETERS CALIBRATOR 03/31/2012 Office visit Erica Carver BAROMETERS CALIBRATOR 04/08/2011 Office visit Eugenio Enamorado MD 07/23/2010 Office visit Elsa FIGUEROA 04/15/2010 Office visit Elsa FIGUEROA 03/25/2010 Office visit Elsa FIGUEROA 03/02/2010 Office visit Elsa FIGUEROA
--- OUTSIDE RECORDS SUMMARY | 2017-11-25 08:29 | XMS REPORT ---
Author Author Vijay Rees [facility] Address [address] [place], [place] [id number] Care Team Providers Care Mock Up Builder Name Role Phone Vijay Rees PCP Erica [...] Abdominal Ultrasound, single organ 06/24/2015 12:[address] ABD AND PELVIS W/CONTRAST 08/20/2016 12:00 AM Medications Active Name Start Date [...] Decadron, Per 1 Mg [facility]# [address]-02 Reviewed 06/19/2015 12:00 AM Depo-Medrol 40mg Reviewed 06/24/2015 12:00 AM COMPLETE CBC W/AUTO DIFF WBC Reviewed 06/24/2015 12:00 AM COMPREHEN METABOLIC PANEL Reviewed 06/24/2015 12:00 AM LIPID PANEL Reviewed 06/24/2015 12:00 AM GLYCOSYLATED HEMOGLOBIN TEST Reviewed 06/24/2015 12:00 AM ASSAY OF FERRITIN Reviewed 08/06/2015 12:00 AM BEHAV CHNG SMOKING 3-10 MIN Reviewed 09/10/2015 12:00 AM Imitrex 6mg [facility] #90230-299-66 Reviewed 11/26/2015 5:56 PM URINALYSIS AUTO W/O [...] 12:00 AM X-RAY EXAM OF ABDOMEN Reviewed 08/17/2016 12:00 AM X-RAY EXAM OF [...] Phenergan, Up to 50 Mg [facility]#8078-0289-41 Reviewed 12/26/2012 12:00 AM Toradol 60 Mg [facility]#4480-2585-88 Reviewed 12/29/2012 12:00 AM COMPLETE CBC W/AUTO DIFF WBC Reviewed 12/29/2012 12:00 AM COMPREHEN METABOLIC PANEL Reviewed 01/01/2013 12:[address] HEAD/BRAIN W/O & W/DYE Reviewed 01/23/2013 12:00 AM THER/PROPH/DIAG INJ SC/IM Reviewed 01/23/2013 12:00 AM Decadron, Per 1 Mg [facility]# [address]-48 Reviewed 01/23/2013 12:00 AM Depo-Medrol, Per 80 Mg [facility]#2577-6898-63 Reviewed 08/16/2013 12:00 AM THER/PROPH/DIAG INJ SC/IM Reviewed 08/16/2013 12:00 AM Decadron, Per 1 Mg [facility]# [address]-86 Reviewed 08/16/2013 12:00 AM Depo-Medrol, Per 80 Mg [facility]#6104-5557-78 Reviewed 09/13/2013 12:00 AM COMPLETE CBC W/AUTO [...] Abdominal Pain, RLQ Aug 20 2016 12:39PM Payers Insurance Name Company Name Plan Name Plan Number Policy Number Policy Group Number [id number] Tuesday, 2010 [id number] N/A [facility] Comm Plan of [id number] N/A History of Encounters Visit Date Visit Type Provider 08/16/2016 Office visit Vijay Rees APRN 07/26/2016 Office visit Erica Carver APRN 05/26/2016 Office visit Vijay Rees APRN 05/06/2016 Office visit Kaity Aguilar MD 04/02/2016 Office visit Concepcion BORJA 03/23/2016 Office visit Kaity Aguilar MD 03/01/2016 Office visit Vijay Rees APRN 01/12/2016 Office visit Erica Carver APRN 11/26/2015 Office visit Vijay Rees BALLISTICS EXPERT 09/26/2015 Surgery Noe Calderón DO 09/18/2015 Hospital Noe Calderón DO 09/16/2015 Office visit Noe Calderón DO 09/10/2015 Office visit Yi Staples MD 08/06/2015 Office visit Teresita Laureano BALLISTICS EXPERT 06/24/2015 Office visit Kaiyt Aguilar MD 06/19/2015 Office visit Erica Carver BALLISTICS EXPERT 10/28/2014 Office visit Yris Lara BALLISTICS EXPERT 10/23/2014 Office visit Erica Walker BALLISTICS EXPERT 10/03/2014 Office visit Kaity Aguilar MD 10/02/2014 Office visit Niyah Jensen BALLISTICS EXPERT 09/20/2014 Office visit Noe Bouman DO 09/14/2014 Hospital Noe Bouman DO 09/13/2014 Hospital Noe Bouman DO 09/12/2014 Hospital Noe Bouman DO 07/19/2014 Office visit Vijay Rees BALLISTICS EXPERT 07/03/2014 Office visit Vijay Rees BALLISTICS EXPERT 06/11/2014 Office visit Vijay Rees BALLISTICS EXPERT 06/03/2014 Office visit Kaity Aguilar MD 04/29/2014 Office visit Vijay Rees BALLISTICS EXPERT 04/22/2014 Office visit Kaity Aguilar MD 03/11/2014 Office visit Kaity Aguilar MD 02/19/2014 Office visit Kaity Aguilar MD 10/01/2013 Office visit Erica Walker BALLISTICS EXPERT 09/13/2013 Office visit Erica Walker BALLISTICS EXPERT 09/10/2013 Office visit Erica Walker BALLISTICS EXPERT 08/16/2013 Office visit Erica Walker BALLISTICS EXPERT 03/27/2013 Office visit Erica Walker BALLISTICS EXPERT 01/23/2013 Office visit Erica Walker BALLISTICS EXPERT 01/19/2013 Voided Erica Walker BALLISTICS EXPERT 12/29/2012 Office visit Erica Walker BALLISTICS EXPERT 12/26/2012 Office visit Erica Carver BALLISTICS EXPERT 12/14/2012 Surgery Tong Whatley MD 12/07/2012 Voided Tong Whatley MD 11/09/2012 Surgery [facility]2012 [facility] Tong Whatley MD 10/18/2012 Surgery Tong Whatley MD 09/20/2012 Office visit Tong Whatley MD 07/27/2012 Office visit Yris Lara BALLISTICS EXPERT 06/22/2012 Procedures Tong Whatley MD 05/25/2012 Office visit Tong Whatley MD 04/11/2012 Office visit Erica Carver BALLISTICS EXPERT 03/31/2012 Office visit Erica Carver BALLISTICS EXPERT 04/08/2011 Office visit Eugenio Enamorado MD 07/23/2010 Office visit Elsa FIGUEROA 04/15/2010 Office visit Elsa FIGUEROA 03/25/2010 Office visit Elsa FIGUEROA 03/02/2010 Office visit Elsa FIGUEROA
--- OUTSIDE RECORDS SUMMARY | 2017-11-25 08:31 | XMS REPORT ---
Author Author Vijay Rees [facility] Address [address] [place], [place] [id number] Care Team Providers Care Artificial Breeding Distributor Name Role Phone Vijay Rees PCP Erica [...] daily at the same time each day Name Start Date Expiration Date SIG [...] 06/19/2015 12:00 AM Decadron, Per [address] [facility]# [address]-89 Reviewed 06/19/2015 12:00 AM Depo-Medrol 40mg Reviewed 06/24/2015 12:00 AM COMPLETE CBC W/AUTO DIFF WBC Reviewed 06/24/2015 12:00 AM COMPREHEN METABOLIC PANEL Reviewed 06/24/2015 12:00 AM LIPID PANEL Reviewed 06/24/2015 12:00 AM GLYCOSYLATED HEMOGLOBIN TEST Reviewed 06/24/2015 12:00 AM ASSAY OF FERRITIN Reviewed 08/06/2015 12:00 AM BEHAV CHNG SMOKING 3-10 MIN Reviewed 09/10/2015 12:00 AM Imitrex [address]mg [facility] #10278-241-93 Reviewed 11/26/2015 5:56 PM URINALYSIS AUTO W/O [...] 12:00 AM Phenergan, Up to [address] [facility]#3851-5331-13 Reviewed 12/26/2012 12:00 AM Toradol [address] [facility]#7654-5398-10 Reviewed 12/29/2012 12:00 AM COMPLETE CBC W/AUTO DIFF WBC Reviewed 12/29/2012 12:00 AM COMPREHEN METABOLIC PANEL Reviewed 01/01/2013 12:[address] HEAD/BRAIN W/O & W/DYE Reviewed 01/23/2013 12:00 AM THER/PROPH/DIAG INJ SC/IM Reviewed 01/23/2013 12:00 AM Decadron, Per [address] [facility]# [address]-38 Reviewed 01/23/2013 12:00 AM Depo-Medrol, Per [address] [facility]#1402-7201-02 Reviewed 08/16/2013 12:00 AM THER/PROPH/DIAG INJ SC/IM Reviewed 08/16/2013 12:00 AM Decadron, Per [address] [facility]# [address]-97 Reviewed 08/16/2013 12:00 AM Depo-Medrol, Per [address] 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 - [facility] [id number] N/A [facility] Comm Plan of [id number] N/A History of Encounters Visit Date Visit Type Provider 08/16/2016 Office visit Vijay Rees APRN 07/26/2016 Office visit Erica Carver APRN 05/26/2016 Office visit Vijay Rees APRN 05/06/2016 Office visit Kaity Aguilar MD 04/02/2016 Office visit Concepcion BORJA 03/23/2016 Office visit Kaity Aguilar MD 03/01/2016 Office visit Vijay Rees APRN 01/12/2016 Office visit Erica Carver APRN 11/26/2015 Office visit Vijay Rees MEDICAL RECORD CLERK 09/26/2015 Surgery Noe Calderón DO 09/18/2015 Hospital Noe Calderón DO 09/16/2015 Office visit Noe Calderón DO 09/10/2015 Office visit Yi Staples MD 08/06/2015 Office visit Teresita Laureano MEDICAL RECORD CLERK 06/24/2015 Office visit Kaity Aguilar MD 06/19/2015 Office visit Erica Carver MEDICAL RECORD CLERK 10/28/2014 Office visit Yris Lara MEDICAL RECORD CLERK 10/23/2014 Office visit Erica Walker MEDICAL RECORD CLERK 10/03/2014 Office visit Kaity Aguilar MD 10/02/2014 Office visit Niyah Jensen MEDICAL RECORD CLERK 09/20/2014 Office visit Noe Bouman DO 09/14/2014 Hospital Noe Bouman DO 09/13/2014 Hospital Noe Bouman DO 09/12/2014 Hospital Noe Bouman DO 07/19/2014 Office visit Vijay Rees MEDICAL RECORD CLERK 07/03/2014 Office visit Vijay Rees MEDICAL RECORD CLERK 06/11/2014 Office visit Vijay Rees MEDICAL RECORD CLERK 06/03/2014 Office visit Kaity Aguilar MD 04/29/2014 Office visit Vijay Rees MEDICAL RECORD CLERK 04/22/2014 Office visit Kaity Aguilar MD 03/11/2014 Office visit Kaity Aguilar MD 02/19/2014 Office visit Kaity Aguilar MD 10/01/2013 Office visit Erica Walker MEDICAL RECORD CLERK 09/13/2013 Office visit Erica Walker MEDICAL RECORD CLERK 09/10/2013 Office visit Erica Walker MEDICAL RECORD CLERK 08/16/2013 Office visit Erica Walker MEDICAL RECORD CLERK 03/27/2013 Office visit Erica Walker MEDICAL RECORD CLERK 01/23/2013 Office visit Erica Walker MEDICAL RECORD CLERK 01/19/2013 Voided Erica Walker MEDICAL RECORD CLERK 12/29/2012 Office visit Erica Walker MEDICAL RECORD CLERK 12/26/2012 Office visit Erica Carver MEDICAL RECORD CLERK 12/14/2012 Surgery Tong Whatley MD 12/07/2012 Voided Tong Whatley MD 11/09/2012 Surgery [facility] 10/24/[facility]2012 [facility] Tong Whatley MD 10/18/2012 Surgery Tong Whatley MD 09/20/2012 Office visit Tong Whatley MD 07/27/2012 Office visit Yris Lara MEDICAL RECORD CLERK 06/22/2012 Procedures Tong Whatley MD 05/25/2012 Office visit Tong Whatley MD 04/11/2012 Office visit Erica Carver MEDICAL RECORD CLERK 03/31/2012 Office visit Erica Carver MEDICAL RECORD CLERK 04/08/2011 Office visit Eugenio Enamorado MD 07/23/2010 Office visit Elsa FIGUEROA 04/15/2010 Office visit Elsa FIGUEROA 03/25/2010 Office visit Elsa FIGUEROA 03/02/2010 Office visit Elsa FIGUEROA
--- OUTSIDE RECORDS SUMMARY | 2017-11-25 08:34 | XMS REPORT ---
Author Fidel Hancock [facility] Address [address] [place], [place] [id number] Care Team Providers Care Director Of Sales Marketing Name Role Phone Fidel Valencia PCP Kaity [...] 12:00 AM Decadron, Per 1 Mg [facility]# [address]-45 Reviewed 06/19/2015 12:00 AM Depo-Medrol 40mg Reviewed 06/24/2015 12:00 AM COMPLETE CBC W/AUTO DIFF WBC Reviewed 06/24/2015 12:00 AM COMPREHEN METABOLIC PANEL Reviewed 06/24/2015 12:00 AM LIPID PANEL Reviewed 06/24/2015 12:00 AM GLYCOSYLATED HEMOGLOBIN TEST Reviewed 06/24/2015 12:00 AM ASSAY OF FERRITIN Reviewed 08/06/2015 12:00 AM BEHAV CHNG SMOKING 3-10 MIN Reviewed 09/10/2015 12:00 AM Imitrex 6mg [facility] #93008-422-10 Reviewed 11/26/2015 5:56 PM URINALYSIS AUTO W/O [...] 12:00 AM Decadron, Per 1 Mg [facility]# [address]-50 Reviewed 01/19/2017 12:00 AM Depo-Medrol 40mg Injection [...] AM Phenergan, Up to 50 Mg [facility]#9560-2055-59 Reviewed 12/26/2012 12:00 AM Toradol 60 Mg [facility]#7455-7923-21 Reviewed 12/29/2012 12:00 AM COMPLETE CBC W/AUTO DIFF WBC Reviewed 12/29/2012 12:00 AM COMPREHEN METABOLIC PANEL Reviewed 01/01/2013 12:[address] HEAD/BRAIN W/O & W/DYE Reviewed 01/19/2013 12:00 AM Blood Pressure Check-no charge Reviewed 01/23/2013 12:00 AM THER/PROPH/DIAG INJ SC/IM Reviewed 01/23/2013 12:00 AM Decadron, Per 1 Mg [facility]# [address]-91 Reviewed 01/23/2013 12:00 AM Depo-Medrol, Per 80 Mg [facility]#3590-3707-02 Reviewed 08/16/2013 12:00 AM THER/PROPH/DIAG INJ SC/IM Reviewed 08/16/2013 12:00 AM Decadron, Per 1 Mg [facility]# [address]-90 Reviewed 08/16/2013 12:00 AM Depo-Medrol, Per 80 Mg [facility]#1532-5800-87 Reviewed 09/13/2013 12:00 AM COMPLETE CBC W/AUTO [...] Policy Number Policy Group Number Start Date [place] [facility] RH [id number] N/A [place] [facility] [place] [facility] Prog [id number] N/A [employer] [place] [id number] Tuesday, 2010 [facility] - RHC - Community Plan [facility] RHC Comm [id number] N/A [facility] Community Plan [facility] Comm Plan of [id number] N/A [facility] - [facility] - Community Plan [facility] RHC Comm [id number] N/A History of Encounters Visit Date Visit [...] Gutierrez MD 08/17/2017 Office visit Erica Carver TETRYL WRINGER OPERATOR 08/09/2017 Office visit Alireza Gutierrez MD 08/07/2017 Office visit Luz Brantley TETRYL WRINGER OPERATOR 08/02/2017 Office visit Kaity Aguilar MD 07/14/2017 Office visit Alireza Gutierrez MD 07/06/2017 Office visit Kaity Aguilar MD 03/08/2017 [facility] Reese Ambriz MD 02/14/2017 Office visit Kaity Aguilar MD 02/04/2017 Office visit Erica Carver TETRYL WRINGER OPERATOR 01/31/2017 Office visit Erica Carver TETRYL WRINGER OPERATOR 01/30/2017 Office visit 01/30/2017 Office visit Navin Tucker NP 01/27/2017 Office visit Erica Carver TETRYL WRINGER OPERATOR 01/25/2017 Office visit Erica Carver TETRYL WRINGER OPERATOR 01/19/2017 Office visit Erica Carver TETRYL WRINGER OPERATOR 01/18/2017 Office visit Cecily Solorzano TETRYL WRINGER OPERATOR 01/10/2017 Office visit Alireza Gutierrez MD 12/30/2016 Office visit Luz Brantley TETRYL WRINGER OPERATOR 12/14/2016 Office visit Kaity Aguilar MD 10/11/2016 Office visit Vijay Rees TETRYL WRINGER OPERATOR 09/24/2016 Office visit Kaity Aguilar MD 08/16/2016 Office visit Vijay Rees TETRYL WRINGER OPERATOR 07/26/2016 Office visit Erica Carver TETRYL WRINGER OPERATOR 05/26/2016 Office visit Vijay Rees TETRYL WRINGER OPERATOR 05/06/2016 Office visit aKity Aguilar MD 04/02/2016 Office visit Concepcion BORJA 03/23/2016 Office visit Kaity Aguilar MD 03/01/2016 Office visit Vijay Rees TETRYL WRINGER OPERATOR 01/12/2016 Office visit Erica Carver TETRYL WRINGER OPERATOR 11/26/2015 Office visit Vijay Rees TETRYL WRINGER OPERATOR 09/26/2015 Surgery Noe Calderón DO 09/18/2015 Hospital Noe Calderón DO 09/16/2015 Office visit Noe Calderón DO 09/10/2015 Office visit Yi Staples MD 08/06/2015 Office visit Teresita Laureano TETRYL WRINGER OPERATOR 06/24/2015 Office visit Kaity Aguilar MD 06/19/2015 Office visit Erica Carver TETRYL WRINGER OPERATOR 10/28/2014 Office visit Yris Lara TETRYL WRINGER OPERATOR 10/23/2014 Office visit Erica Carver TETRYL WRINGER OPERATOR 10/03/2014 Office visit Kaity Aguilar MD 10/02/2014 Office visit Niyah GuyChika Jensen TETRYL WRINGER OPERATOR 09/20/2014 Office visit Noe Calderón DO 09/14/2014 Hospital Noe Randhawauman DO 09/13/2014 Hospital Noe Bouman DO 09/12/2014 Hospital Noe Bouman DO 07/19/2014 Office visit Vijay Rees TETRYL WRINGER OPERATOR 07/03/2014 Office visit Vijay Rees TETRYL WRINGER OPERATOR 06/11/2014 Office visit Vijay Rees TETRYL WRINGER OPERATOR 06/03/2014 Office visit Kaity Aguilar MD 04/29/2014 Office visit Vijay Rees TETRYL WRINGER OPERATOR 04/22/2014 Office visit Kaity Aguilar MD 03/11/2014 Office visit Kaity Aguilar MD 02/19/2014 Office visit Kaity Aguilar MD 10/01/2013 Office visit Erica Carver TETRYL WRINGER OPERATOR 09/13/2013 Office visit Erica Carver TETRYL WRINGER OPERATOR 09/10/2013 Office visit Erica Carver TETRYL WRINGER OPERATOR 08/16/2013 Office visit Erica Carver TETRYL WRINGER OPERATOR 03/27/2013 Office visit Erica Carver TETRYL WRINGER OPERATOR 01/23/2013 Office visit Erica Carver TETRYL WRINGER OPERATOR 01/19/2013 Voided Erica Carver TETRYL WRINGER OPERATOR 12/29/2012 Office visit Erica Carver TETRYL WRINGER OPERATOR 12/26/2012 Office visit Erica Carver TETRYL WRINGER OPERATOR 12/14/2012 Surgery Tong Whatley MD 12/07/2012 Voided Tong Whatley MD 11/09/2012 Surgery Tong Whatley MD 10/24/2012 [facility] Neema Barros MD 10/24/2012 [facility] Tong Whatley MD 10/18/2012 Surgery Tong Whatley MD 09/20/2012 Office visit Tong Whatley MD 07/27/2012 Office visit Yris Lara TETRYL WRINGER OPERATOR 06/22/2012 Procedures Tong Whatley MD 05/25/2012 Office visit Tong Whatley MD 04/11/2012 Office visit Erica Carver TETRYL WRINGER OPERATOR 03/31/2012 Office visit Erica Carver TETRYL WRINGER OPERATOR 04/08/2011 Office visit Eugenio Enamorado MD 07/23/2010 Office visit Elsa FIGUEROA 04/15/2010 Office visit Elsa FIGUEROA 03/25/2010 Office visit Elsa FIGUEROA 03/02/2010 Office visit Elsa FIGUEROA
--- NOTE | 2017-11-25 08:35 | Progress Note-Pre Operative ---
Pre-Operative Progress Note H&P Reviewed The H&P was reviewed, patient examined and no changes noted. 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
--- OUTSIDE RECORDS SUMMARY | 2017-11-25 08:36 | XMS REPORT ---
Author Author Erica Carver Organization [facility] Address [address] [place], [place] [id number] Care Team Providers Care Food Service Specialist Name Role Phone Erica Carver PCP [...] with food (at least 350 calories) propranolol oral tablet 20 mg 10/03/2014 11/02/2014 take 1 tablet by oral route daily for 30 days prednisone oral tablet 5 mg 10/03/2014 12/02/2014 [...] 09/20/2012 take 1 tablet by oral route [facility] Medrol ([place]) Oral tablets,dose pack [...] nostril by intranasal route once daily Mariella Lloydes oral capsule 100 mg 10/05/2013 02/19/2014 take [...] oral route once daily for 90 days Problem List Description Status Onset Bipolar Disorder Active Hypertension Active Obesity Active Seasonal Allergies Active Arthritis, rheumatoid Active 06/04/2014 Gluten intolerance Active 06/04/2014 Vital Signs Date Time BP-Sys(mm[Hg] BP-Patti(mm[Hg]) HR(bpm) RR(rpm) Temp WT HT HC BMI BSA BMI Percentile O2 Sat(%) 10/23/2014 9:01:00 AM 124 mmHg 64 mmHg [...] 2014 9:03AM Bronchiolitis Oct 23 2014 9:03AM Payers Insurance Name Company Name Plan Name Plan Number Policy Number Policy Group Number Start Date [employer] [place] [id number] Tuesday, 2010 History of Encounters Visit Date Visit Type Provider 10/23/2014 Office visit Erica Carver DISINTEGRATOR 10/03/2014 Office visit Kaity Aguilar MD 10/02/2014 Office visit Niyah Jensen DISINTEGRATOR 09/20/2014 Office visit Noe Calderón DO 09/14/2014 [facility] DO 09/13/2014 [facility] DO 09/12/2014 [facility] DO 07/19/2014 Office visit Vijay Rees APRN 07/03/2014 Office visit Vijay Rees DISINTEGRATOR 06/11/2014 Office visit Vijay Rees APRN 06/03/2014 Office visit Kaity Aguilar MD 04/29/2014 Office visit Vijay Rees DISINTEGRATOR 04/22/2014 Office visit Kaity Aguilar MD 03/11/2014 Office visit Kaity Aguilar MD 02/19/2014 Office visit Kaity Aguilar MD 10/01/2013 Office visit Erica Carver DISINTEGRATOR 09/13/2013 Office visit Erica Carver DISINTEGRATOR 09/10/2013 Office visit Erica Carver DISINTEGRATOR 08/16/2013 Office visit Erica Carver DISINTEGRATOR 03/27/2013 Office visit Erica Carver DISINTEGRATOR 01/23/2013 Office visit Erica Carver DISINTEGRATOR 01/19/2013 Voided Erica Carver DISINTEGRATOR 12/29/2012 Office visit Erica Carver DISINTEGRATOR 12/26/2012 Office visit Erica Carver DISINTEGRATOR 12/14/2012 Surgery Tong Whatley MD 12/07/2012 Voided Tong Whatley MD 11/09/2012 Surgery Tong Whatley MD 10/24/2012 Hospital Tong Whatley MD 10/24/2012 [facility] Neema Barros MD 10/18/2012 Surgery Tong Whatley MD 09/20/2012 Office visit Tong Whatley MD 07/27/2012 Office visit Yris Lara DISINTEGRATOR 06/22/2012 Procedures Tong Whatley MD 05/25/2012 Office visit Tong Whatley MD 04/11/2012 Office visit Erica Carver DISINTEGRATOR 03/31/2012 Office visit Erica Carver DISINTEGRATOR 04/08/2011 Office visit Eugenio Enamorado MD 07/23/2010 Office visit Elsa FIGUEROA 04/15/2010 Office visit Elsa FIGUEROA 03/25/2010 Office visit Elsa FIGUEROA 03/02/2010 Office visit Elsa FIGUEROA
--- OUTSIDE RECORDS SUMMARY | 2017-11-25 08:38 | XMS REPORT ---
Author Cecily Eckert [facility] Address [address] [place], [place] [address] Care Team Providers Care Solid Waste Facility Operator Name Role Phone Cecily Solorzano PCP Erica Carver PreferredProvider Unavailable Allergies and [...] 09/20/2012 take 1 tablet by oral route [facility] Medrol ([place]) 4 mg oral tablets,dose [...] HC BMI BSA BMI Percentile O2 Sat(%) 01/18/2017 5:11:00 PM 125 mmHg 83 mmHg [...] Decadron, Per 1 Mg [facility]# [address]-26 Reviewed 06/19/2015 12:00 AM Depo-Medrol 40mg Reviewed 06/24/2015 12:00 AM COMPLETE CBC W/AUTO DIFF WBC Reviewed 06/24/2015 12:00 AM COMPREHEN METABOLIC PANEL Reviewed 06/24/2015 12:00 AM LIPID PANEL Reviewed 06/24/2015 12:00 AM GLYCOSYLATED HEMOGLOBIN TEST Reviewed 06/24/2015 12:00 AM ASSAY OF FERRITIN Reviewed 08/06/2015 12:00 AM BEHAV CHNG SMOKING 3-10 MIN Reviewed 09/10/2015 12:00 AM Imitrex 6mg [facility] #42983-368-01 Reviewed 11/26/2015 5:56 PM URINALYSIS AUTO W/O [...] 01/18/2017 12:00 AM Benadryl 50mg Injection Reviewed 05/25/2012 [...] Phenergan, Up to 50 Mg [facility]#5355-7579-18 Reviewed 12/26/2012 12:00 AM Toradol 60 Mg [facility]#2740-2952-81 Reviewed 12/29/2012 12:00 AM COMPLETE CBC W/AUTO DIFF WBC Reviewed 12/29/2012 12:00 AM COMPREHEN METABOLIC PANEL Reviewed 01/01/2013 12:[address] HEAD/BRAIN W/O & W/DYE Reviewed 01/19/2013 12:00 AM Blood Pressure Check-no charge Reviewed 01/23/2013 12:00 AM THER/PROPH/DIAG INJ SC/IM Reviewed 01/23/2013 12:00 AM Decadron, Per 1 Mg [facility]# [address]-15 Reviewed 01/23/2013 12:00 AM Depo-Medrol, Per 80 Mg [facility]#8699-3570-37 Reviewed 08/16/2013 12:00 AM THER/PROPH/DIAG INJ SC/IM Reviewed 08/16/2013 12:00 AM Decadron, Per 1 Mg [facility]# [address]-28 Reviewed 08/16/2013 12:00 AM Depo-Medrol, Per 80 Mg [facility]#0249-0513-45 Reviewed 09/13/2013 12:00 AM COMPLETE CBC W/AUTO [...] 2017 1:33PM Migraine Jan 18 2017 5:14PM Payers Insurance Name Company Name Plan Name Plan Number Policy Number Policy Group Number Start Date [employer] [place] [id number] Tuesday, 2010 [facility] - Community Plan [facility] RHC Comm [id number] N/A [facility] Comm Plan of [id number] N/A History of Encounters Visit Date Visit Type Provider 01/18/2017 Office visit Cecily Solorzano APRN 01/10/2017 Office visit Alireza Gutierrez MD 12/30/2016 Office visit Luz Brantley ART THERAPY CERTIFIED SUPERVISOR 12/14/2016 Office visit Kaity Aguilar MD 10/11/2016 Office visit Vijay Rees APRN 09/24/2016 Office visit Kaity Aguilar MD 08/16/2016 Office visit Vijay Rees APRN 07/26/2016 Office visit Erica Carver ART THERAPY CERTIFIED SUPERVISOR 05/26/2016 Office visit Vijay Rees ART THERAPY CERTIFIED SUPERVISOR 05/06/2016 Office visit Kaity Aguilar MD 04/02/2016 Office visit Concepcion BORJA 03/23/2016 Office visit Kaity Aguilar MD 03/01/2016 Office visit Vijay Rees APRN 01/12/2016 Office visit rEica Carver ART THERAPY CERTIFIED SUPERVISOR 11/26/2015 Office visit Vijay Rees APRN 09/26/2015 Surgery Noe Calderón DO 09/18/2015 Hospital Noe Calderón DO 09/16/2015 Office visit Noe Calderón DO 09/10/2015 Office visit Yi Staples MD 08/06/2015 Office visit Teresita Laureano APRN 06/24/2015 Office visit Kaity Aguilar MD 06/19/2015 Office visit Erica Carver APRN 10/28/2014 Office visit Yris Lara ART THERAPY CERTIFIED SUPERVISOR 10/23/2014 Office visit Erica Mehul ART THERAPY CERTIFIED SUPERVISOR 10/03/2014 Office visit Kaity Aguilar MD 10/02/2014 Office visit Niyah Jensen ART THERAPY CERTIFIED SUPERVISOR 09/20/2014 Office visit Noe Calderón DO 09/14/2014 Hospital Noe Bouman DO 09/13/2014 Hospital Noe Bouman DO 09/12/2014 Hospital Noe Bouman DO 07/19/2014 Office visit Vijay Rees ART THERAPY CERTIFIED SUPERVISOR 07/03/2014 Office visit Vijay Rees ART THERAPY CERTIFIED SUPERVISOR 06/11/2014 Office visit Vijay Rees ART THERAPY CERTIFIED SUPERVISOR 06/03/2014 Office visit Kaity Aguilar MD 04/29/2014 Office visit Vijay Rees ART THERAPY CERTIFIED SUPERVISOR 04/22/2014 Office visit Kaity Aguilar MD 03/11/2014 Office visit Kaity Aguilar MD 02/19/2014 Office visit Kaity Aguilar MD 10/01/2013 Office visit Erica Carver ART THERAPY CERTIFIED SUPERVISOR 09/13/2013 Office visit Erica Carver ART THERAPY CERTIFIED SUPERVISOR 09/10/2013 Office visit Erica Carver ART THERAPY CERTIFIED SUPERVISOR 08/16/2013 Office visit Erica Carver ART THERAPY CERTIFIED SUPERVISOR 03/27/2013 Office visit Erica Carver ART THERAPY CERTIFIED SUPERVISOR 01/23/2013 Office visit Erica Walker ART THERAPY CERTIFIED SUPERVISOR 01/19/2013 Voided Erica Walker ART THERAPY CERTIFIED SUPERVISOR 12/29/2012 Office visit Erica Walker ART THERAPY CERTIFIED SUPERVISOR 12/26/2012 Office visit Erica Carver ART THERAPY CERTIFIED SUPERVISOR 12/14/2012 Surgery Tong Whatley MD 12/07/2012 Voided Tong Whatley MD 11/09/2012 Surgery Tong Whatley MD 10/24/2012 [facility] Tong Whatley MD 10/18/2012 Surgery Tong Whatley MD 09/20/2012 Office visit Tong Whatley MD 07/27/2012 Office visit Yris Lara ART THERAPY CERTIFIED SUPERVISOR 06/22/2012 Procedures Tong Whatley MD 05/25/2012 Office visit Tong Whatley MD 04/11/2012 Office visit Erica Carver ART THERAPY CERTIFIED SUPERVISOR 03/31/2012 Office visit Erica Carver ART THERAPY CERTIFIED SUPERVISOR 04/08/2011 Office visit Eugenio Enamorado MD 07/23/2010 Office visit Elsa FIGUEROA 04/15/2010 Office visit Elsa FIGUEROA 03/25/2010 Office visit Elsa FIGUEROA 03/02/2010 Office visit Elsa FIGUEROA
--- OUTSIDE RECORDS SUMMARY | 2017-11-25 08:40 | XMS REPORT ---
Author Author Erica Carver Organization [facility] Address [address] [place], [place] [id number] Care Team Providers Care Neon Pumper Name Role Phone Erica Carver PCP Unavailable Allergies and Adverse Reactions Name Reaction Notes PENICILLINS Plan of Treatment Not available. Medications Active Name Start Date Estimated Completion Date SIG Comments Lamictal Oral Lexapro Oral montelukast 10 mg oral tablet 06/25/2013 TAKE ONE TABLET BY MOUTH IN THE EVENING pantoprazole 40 mg oral tablet,delayed release (DR/EC) 07/30/2013 TAKE ONE TABLET BY MOUTH EVERY DAY montelukast 10 mg oral tablet 07/11/2014 TAKE ONE TABLET BY MOUTH IN THE EVENING Latuda 40 mg oral tablet take 1 tablet (40 mg) by oral route once daily with food (at least 350 calories) promethazine-codeine 6.25-10 mg/5 mL oral syrup 10/23/2014 take 5 milliliters by oral route every 4-6 hours as needed, not to exceed 30 mL in 24 hours Imitrex 5 mg/actuation nasal spray,non-aerosol 10/29/2014 spray [...] oral route once daily for 4 days Name Start Date Expiration Date SIG [...] oral tablet 02/19/2014 take 1tablet once daily Saphris Sublingual 12/26/2012 omeprazole 40 mg oral capsule,delayed release(DR/EC) 04/11/2012 05/25/2012 take 1 tablet by mouth daily Provera 10 mg oral tablet 06/27/2012 09/20/2012 take 1 tablet by oral route [facility] Medrol ([place]) 4 mg oral tablets,dose [...] route once daily for 90 days propranolol 20 mg oral tablet 10/03/2014 10/29/2014 take 1 tablet by oral route daily for 30 days Claritin 10 mg oral tablet 10/23/2014 06/19/2015 take 1 tablet (10 mg) by oral route once daily Problem List Description Status Onset Bipolar Disorder Active Hypertension Active Obesity Active Seasonal Allergies Active Arthritis, rheumatoid Active 06/04/2014 Gluten intolerance Active 06/04/2014 Vital Signs Date Time BP-Sys(mm[Hg] BP-Patti(mm[Hg]) HR(bpm) RR(rpm) Temp WT HT HC BMI BSA BMI Percentile O2 Sat(%) 06/19/2015 10:17:00 AM 116 mmHg 82 mmHg [...] Decadron, Per 1 Mg [facility]# [address]-07 Reviewed 06/19/2015 12:00 AM Depo-Medrol 40mg Reviewed [...] Phenergan, Up to 50 Mg [facility]#9764-6901-65 Reviewed 12/26/2012 12:00 AM Toradol 60 Mg [facility]#9999-9645-27 Reviewed 12/29/2012 12:00 AM COMPLETE CBC W/AUTO DIFF WBC Returned 12/29/2012 12:00 AM COMPREHEN METABOLIC PANEL Returned 01/01/2013 12:[address] HEAD/BRAIN W/O & W/DYE Returned 01/23/2013 12:00 AM THER/PROPH/DIAG INJ SC/IM Reviewed 01/23/2013 12:00 AM Decadron, Per 1 Mg [facility]# [address]-72 Reviewed 01/23/2013 12:00 AM Depo-Medrol, Per 80 Mg [facility]#2973-9549-39 Reviewed 08/16/2013 12:00 AM THER/PROPH/DIAG INJ SC/IM Reviewed 08/16/2013 12:00 AM Decadron, Per 1 Mg [facility]# [address]-68 Reviewed 08/16/2013 12:00 AM Depo-Medrol, Per 80 Mg [facility]#7119-1481-40 Reviewed 09/13/2013 12:00 AM COMPLETE CBC W/AUTO [...] 3:20PM Arthritis, rheumatoid Jun 03 2014 4:12PM custodial use of drug Jun 03 2014 4:12PM [...] Acute bacterial rhinosinusitis Jun 19 2015 10:20AM Payers Insurance Name Company Name Plan Name Plan Number Policy Number Policy Group Number Start Date [facility] - RHC - Community Plan [facility] Comm [id number] N/A BCBS [employer] [facility] [id number] Tuesday, 2010 History of Encounters Visit Date Visit Type Provider 06/19/2015 Office visit Erica Carver CLAMP FORKLIFT OPERATOR 10/28/2014 Office visit Yris Lara CLAMP FORKLIFT OPERATOR 10/23/2014 Office visit Erica Carver CLAMP FORKLIFT OPERATOR 10/03/2014 Office visit Kaity Aguilar MD 10/02/2014 Office visit Niyah Jensen CLAMP FORKLIFT OPERATOR 09/20/2014 Office visit Noe Calderón DO 09/14/2014 [facility] Noe Calderón DO 09/13/2014 [facility] Noe Bouman DO 09/12/2014 [facility] Noe Bouman DO 07/19/2014 Office visit Vijay Rees CLAMP FORKLIFT OPERATOR 07/03/2014 Office visit Vijay Rees CLAMP FORKLIFT OPERATOR 06/11/2014 Office visit Vijay Rees CLAMP FORKLIFT OPERATOR 06/03/2014 Office visit Kaity Aguilar MD 04/29/2014 Office visit Vijay Rees APRN 04/22/2014 Office visit Kaity Aguilar MD 03/11/2014 Office visit Kaity Aguilar MD 02/19/2014 Office visit Kaity Aguilar MD 10/01/2013 Office visit Erica Carver APRN 09/13/2013 Office visit Erica Carver APRN 09/10/2013 Office visit Erica Carver CLAMP FORKLIFT OPERATOR 08/16/2013 Office visit Erica Carver CLAMP FORKLIFT OPERATOR 03/27/2013 Office visit Erica Carver CLAMP FORKLIFT OPERATOR 01/23/2013 Office visit Erica Carver CLAMP FORKLIFT OPERATOR 01/19/2013 Voided Erica Carver CLAMP FORKLIFT OPERATOR 12/29/2012 Office visit Erica Carver CLAMP FORKLIFT OPERATOR 12/26/2012 Office visit Erica Carver CLAMP FORKLIFT OPERATOR 12/14/2012 Surgery Tong Whatley MD 12/07/2012 Voided Tong Whatley MD 11/09/2012 Surgery Tong Whatley MD 10/24/2012 [facility] Neema Barros MD 10/24/2012 [facility] Tong Whatley MD 10/18/2012 Surgery Tong Whatley MD 09/20/2012 Office visit Tong Whatley MD 07/27/2012 Office visit Yris Lara CLAMP FORKLIFT OPERATOR 06/22/2012 Procedures Tong Whatley MD 05/25/2012 Office visit Tong Whatley MD 04/11/2012 Office visit Erica Carver CLAMP FORKLIFT OPERATOR 03/31/2012 Office visit Erica Carver CLAMP FORKLIFT OPERATOR 04/08/2011 Office visit Eugenio Enamorado MD 07/23/2010 Office visit Elsa FIGUEROA 04/15/2010 Office visit Elsa FIGUEROA 03/25/2010 Office visit Elsa FIGUEROA 03/02/2010 Office visit Elsa FIGUEROA
--- OUTSIDE RECORDS SUMMARY | 2017-11-25 08:42 | XMS REPORT ---
Author Author Teresita Laureano Organization [facility] Address [address] [place] [id number] Care Team Providers Care C Developer Name Role Phone Teresita Laureano PCP Unavailable Allergies and Adverse Reactions Name [...] daily with food (at least 350 calories) Zyrtec-D 5-120 mg oral tablet extended release [...] pack 201511/04/2015 take as directed on box Name Start Date Expiration Date SIG Comments [...] HC BMI BSA BMI Percentile O2 Sat(%) 08/06/2015 10:18:00 AM 130 mmHg 80 mmHg [...] 06/19/2015 12:00 AM Decadron, Per 1 Mg [facility]# [address]-03 Reviewed 06/19/2015 12:00 AM Depo-Medrol 40mg Reviewed [...] 12:00 AM Phenergan, Up to 50 Mg [facility]#7237-5629-58 Reviewed 12/26/2012 12:00 AM Toradol 60 Mg [facility]#8843-0042-98 Reviewed 12/29/2012 12:00 AM COMPLETE CBC W/AUTO DIFF WBC Returned 12/29/2012 12:00 AM COMPREHEN METABOLIC PANEL Returned 01/01/2013 12:[address] HEAD/BRAIN W/O & W/DYE Returned 01/23/2013 12:00 AM THER/PROPH/DIAG INJ SC/IM Reviewed 01/23/2013 12:00 AM Decadron, Per 1 Mg [facility]# [address]-16 Reviewed 01/23/2013 12:00 AM Depo-Medrol, Per 80 Mg [facility]#5401-6919-49 Reviewed 08/16/2013 12:00 AM THER/PROPH/DIAG INJ SC/IM Reviewed 08/16/2013 12:00 AM Decadron, Per 1 Mg [facility]# [address]-83 Reviewed 08/16/2013 12:00 AM Depo-Medrol, Per 80 Mg [facility]#1248-3432-44 Reviewed 09/13/2013 12:00 AM COMPLETE CBC W/AUTO [...] mg/ dLCALCIUM 9.70 mg/dLeGFR >60 mL/min/1.73mFERRITIN 200.0 ng/mL History Of Immunizations Not available. 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 2014 4:12PM assisted use of drug Jun 03 2014 4:12PM [...] 8:39AM Smoking addiction Aug 06 2015 10:19AM Payers Insurance Name Company Name Plan Name Plan Number Policy Number Policy Group Number Start Date [facility] - Community [facility] Comm [id number] N/A BCBS [employer] [facility] [id number] Tuesday, 2010 History of Encounters Visit Date Visit Type Provider 08/06/2015 Office visit Teresita Laureano SENIOR MANAGEMENT CONSULTANT 06/24/2015 Office visit Kaity Aguilar MD 06/19/2015 Office visit Erica Carver SENIOR MANAGEMENT CONSULTANT 10/28/2014 Office visit Yris Lara SENIOR MANAGEMENT CONSULTANT 10/23/2014 Office visit Erica Mehul SENIOR MANAGEMENT CONSULTANT 10/03/2014 Office visit Kaity Aguilar MD 10/02/2014 Office visit Niyah Jensen SENIOR MANAGEMENT CONSULTANT 09/20/2014 Office visit Noe Bouman DO 09/14/2014 Hospital Noe Bouman DO 09/13/2014 Hospital Noe Bouman DO 09/12/2014 Hospital Noe Bouman DO 07/19/2014 Office visit Vijay Rees SENIOR MANAGEMENT CONSULTANT 07/03/2014 Office visit Vijay Rees SENIOR MANAGEMENT CONSULTANT 06/11/2014 Office visit Vijay Rees SENIOR MANAGEMENT CONSULTANT 06/03/2014 Office visit Kaity Aguilar MD 04/29/2014 Office visit Vijay Rees SENIOR MANAGEMENT CONSULTANT 04/22/2014 Office visit Kaity Aguilar MD 03/11/2014 Office visit Kaity Aguilar MD 02/19/2014 Office visit Kaity Aguilar MD 10/01/2013 Office visit Erica Carver SENIOR MANAGEMENT CONSULTANT 09/13/2013 Office visit Erica Walker SENIOR MANAGEMENT CONSULTANT 09/10/2013 Office visit Erica Walker SENIOR MANAGEMENT CONSULTANT 08/16/2013 Office visit Erica Carver SENIOR MANAGEMENT CONSULTANT 03/27/2013 Office visit Erica Carver SENIOR MANAGEMENT CONSULTANT 01/23/2013 Office visit Erica Walker SENIOR MANAGEMENT CONSULTANT 01/19/2013 Voided Erica Walker SENIOR MANAGEMENT CONSULTANT 12/29/2012 Office visit Erica Walker SENIOR MANAGEMENT CONSULTANT 12/26/2012 Office visit Erica Walker SENIOR MANAGEMENT CONSULTANT 12/14/2012 Surgery Tong Whatley MD 12/07/2012 Voided Tong Whatley MD 11/09/2012 Surgery Tong Whatley MD 10/24/2012 [facility] Neema Barros MD 10/24/2012 [facility] Tong Whatley MD 10/18/2012 Surgery Tong Whatley MD 09/20/2012 Office visit Tong Whatley MD 07/27/2012 Office visit Yris Lara SENIOR MANAGEMENT CONSULTANT 06/22/2012 Procedures Tong Whatley MD 05/25/2012 Office visit Tong Whatley MD 04/11/2012 Office visit Erica Carver SENIOR MANAGEMENT CONSULTANT 03/31/2012 Office visit Erica Carver APRN 04/08/2011 Office visit Eugenio Enamorado MD 07/23/2010 Office visit Elsa FIGUEROA 04/15/2010 Office visit Elsa FIGUEROA 03/25/2010 Office visit Elsa FIGUEROA 03/02/2010 Office visit Elsa FIGUEROA
--- OUTSIDE RECORDS SUMMARY | 2017-11-25 08:45 | XMS REPORT ---
Author Kaity Rico Organization [facility] Address [address] [place], [place] [id number] Care Team Providers Care Mixing Picker Tender Name Role Phone Kaity Aguilar PCP Kaity [...] 06/19/2015 12:00 AM Decadron, Per [address] [facility]# [address]-94 Reviewed 06/19/2015 12:00 AM Depo-Medrol 40mg Reviewed 06/24/2015 12:00 AM COMPLETE CBC W/AUTO DIFF WBC Reviewed 06/24/2015 12:00 AM COMPREHEN METABOLIC PANEL Reviewed 06/24/2015 12:00 AM LIPID PANEL Reviewed 06/24/2015 12:00 AM GLYCOSYLATED HEMOGLOBIN TEST Reviewed 06/24/2015 12:00 AM ASSAY OF FERRITIN Reviewed 08/06/2015 12:00 AM BEHAV CHNG SMOKING 3-10 MIN Reviewed 09/10/2015 12:[address] [facility] #70413-143-37 Reviewed 11/26/2015 5:56 PM URINALYSIS AUTO W/O [...] 01/19/2017 12:00 AM Decadron, Per [address] [facility]# [address]-67 Reviewed 01/19/2017 12:00 AM Depo-Medrol 40mg Injection [...] 12:00 AM Phenergan, Up to [address] [facility]#2584-1818-16 Reviewed 12/26/2012 12:[address] [facility]#7669-4492-80 Reviewed 12/29/2012 12:00 AM COMPLETE CBC W/AUTO DIFF WBC Reviewed 12/29/2012 12:00 AM COMPREHEN METABOLIC PANEL Reviewed 01/01/2013 12:[address] HEAD/BRAIN W/O & W/DYE Reviewed 01/19/2013 12:00 AM Blood Pressure Check-no charge Reviewed 01/23/2013 12:00 AM THER/PROPH/DIAG INJ SC/IM Reviewed 01/23/2013 12:00 AM Decadron, Per [address] [facility]# [address]-31 Reviewed 01/23/2013 12:00 AM Depo-Medrol, Per [address] [facility]#5743-9104-32 Reviewed 08/16/2013 12:00 AM THER/PROPH/DIAG INJ SC/IM Reviewed 08/16/2013 12:00 AM Decadron, Per [address] [facility]# [address]-81 Reviewed 08/16/2013 12:00 AM Depo-Medrol, Per [address] [facility]#0220-9979-88 Reviewed 09/13/2013 12:00 AM COMPLETE CBC W/AUTO [...] Policy Number Policy Group Number Start Date [place] [employer] - RHC [employer] - RHC [id number] N/A [place] [facility] [place] [facility] [id number] N/A [facility] [id number] Tuesday, 2010 [facility] - RHC - Community [facility] [id number] N/A [facility] Community Plan [facility] Comm Plan of [id number] N/A [facility] - RHC - Community Plan [facility] RHC Comm [id number] N/A History of Encounters Visit Date Visit [...] 07/06/2017 Office visit Kaity Aguilar MD 03/08/2017 [facility] Reese Ambriz MD 02/14/2017 Office [...] Carver APRN 05/26/2016 Office visit Vijay Rees LIGHT INDUSTRIAL SUPERVISOR 05/06/2016 Office visit Kaity Aguilar MD 04/02/2016 Office visit Concepcion BORJA 03/23/2016 Office visit Kaity Aguilar MD 03/01/2016 Office visit Vijay Rees LIGHT INDUSTRIAL SUPERVISOR 01/12/2016 Office visit Erica Carver LIGHT INDUSTRIAL SUPERVISOR 11/26/2015 Office visit Vijay Rees LIGHT INDUSTRIAL SUPERVISOR 09/26/2015 Surgery Noe Bouman DO 09/18/2015 Hospital Noe Bouman DO 09/16/2015 Office visit Noe Bouman DO 09/10/2015 Office visit Yi Staples MD 08/06/2015 Office visit Teresita Laureano LIGHT INDUSTRIAL SUPERVISOR 06/24/2015 Office visit Kaity Aguilar MD 06/19/2015 Office visit Erica Carver LIGHT INDUSTRIAL SUPERVISOR 10/28/2014 Office visit Yris Lara LIGHT INDUSTRIAL SUPERVISOR 10/23/2014 Office visit Erica Carver LIGHT INDUSTRIAL SUPERVISOR 10/03/2014 Office visit Kaity Aguilar MD 10/02/2014 Office visit Niyah Jensen LIGHT INDUSTRIAL SUPERVISOR 09/20/2014 Office visit Noe Bouman DO 09/14/2014 Hospital Noe Bouman DO 09/13/2014 Hospital Noe Bouman DO 09/12/2014 Hospital Noe Bouman DO 07/19/2014 Office visit Vijay Rees LIGHT INDUSTRIAL SUPERVISOR 07/03/2014 Office visit Vijay Rees LIGHT INDUSTRIAL SUPERVISOR 06/11/2014 Office visit Vijay Rees LIGHT INDUSTRIAL SUPERVISOR 06/03/2014 Office visit Kaity Aguilar MD 04/29/2014 Office visit Vijay Rees LIGHT INDUSTRIAL SUPERVISOR 04/22/2014 Office visit Kaity Aguilar MD 03/11/2014 Office visit Kaity Aguilar MD 02/19/2014 Office visit Kaity Aguilar MD 10/01/2013 Office visit Erica Carver LIGHT INDUSTRIAL SUPERVISOR 09/13/2013 Office visit Erica Carver LIGHT INDUSTRIAL SUPERVISOR 09/10/2013 Office visit Erica Carver LIGHT INDUSTRIAL SUPERVISOR 08/16/2013 Office visit Erica Carver LIGHT INDUSTRIAL SUPERVISOR 03/27/2013 Office visit Erica Carver LIGHT INDUSTRIAL SUPERVISOR 01/23/2013 Office visit Erica Carver LIGHT INDUSTRIAL SUPERVISOR 01/19/2013 Voided Erica Walker LIGHT INDUSTRIAL SUPERVISOR 12/29/2012 Office visit Erica Carver LIGHT INDUSTRIAL SUPERVISOR 12/26/2012 Office visit Erica Carver LIGHT INDUSTRIAL SUPERVISOR 12/14/2012 Surgery Tong Whatley MD 12/07/2012 Voided Tong Whatley MD 11/09/2012 Surgery Tong Whatley MD 10/24/2012 Hospital Neema Barros MD 10/24/2012 [facility] Tong Whatley MD 10/18/2012 Surgery Tong Whatley MD 09/20/2012 Office visit Tong Whatley MD 07/27/2012 Office visit Yris Lara LIGHT INDUSTRIAL SUPERVISOR 06/22/2012 Procedures Tong Whatley MD 05/25/2012 Office visit Tong Whatley MD 04/11/2012 Office visit Erica Carver LIGHT INDUSTRIAL SUPERVISOR 03/31/2012 Office visit Erica Carver LIGHT INDUSTRIAL SUPERVISOR 04/08/2011 Office visit Eugenio Enamorado MD 07/23/2010 Office visit Elsa FIGUEROA 04/15/2010 Office visit Elsa FIGUEROA 03/25/2010 Office visit Elsa FIGUEROA 03/02/2010 Office visit Elsa FIGUEROA
--- OUTSIDE RECORDS SUMMARY | 2017-11-25 08:46 | XMS REPORT ---
Author Noe Hanson [facility] Address [address] [place], [place] [id number] Care Team Providers Care Diver'S Tender Name Role Phone Noe Calderón PCP Unavailable [...] 12:00 AM Decadron, Per 1 Mg [facility]# [address]-38 Reviewed 06/19/2015 12:00 AM Depo-Medrol 40mg Reviewed 06/24/2015 12:00 AM COMPLETE CBC W/AUTO DIFF WBC Returned 06/24/2015 12:00 AM COMPREHEN METABOLIC PANEL Returned 06/24/2015 12:00 AM LIPID PANEL Returned 06/24/2015 12:00 AM GLYCOSYLATED HEMOGLOBIN TEST Returned 06/24/2015 12:00 AM ASSAY OF FERRITIN Returned 08/06/2015 12:00 AM BEHAV CHNG SMOKING 3-10 MIN Reviewed 09/10/2015 12:00 AM Imitrex 6mg [facility] #78896-977-30 Reviewed 05/25/2012 12:00 AM CYTOPATH TBS C/V [...] AM Phenergan, Up to 50 Mg [facility]#6693-8274-02 Reviewed 12/26/2012 12:00 AM Toradol 60 Mg [facility]#4325-1019-30 Reviewed 12/29/2012 12:00 AM COMPLETE CBC W/AUTO DIFF WBC Returned 12/29/2012 12:00 AM COMPREHEN METABOLIC PANEL Returned 01/01/2013 12:[address] HEAD/BRAIN W/O & W/DYE Returned 01/23/2013 12:00 AM THER/PROPH/DIAG INJ SC/IM Reviewed 01/23/2013 12:00 AM Decadron, Per 1 Mg [facility]# [address]-63 Reviewed 01/23/2013 12:00 AM Depo-Medrol, Per 80 Mg [facility]#5546-5454-16 Reviewed 08/16/2013 12:00 AM THER/PROPH/DIAG INJ SC/IM Reviewed 08/16/2013 12:00 AM Decadron, Per 1 Mg [facility]# [address]-24 Reviewed 08/16/2013 12:00 AM Depo-Medrol, Per 80 Mg [facility]#0935-1563-48 Reviewed 09/13/2013 12:00 AM COMPLETE CBC W/AUTO [...] involving multiple sites with positive rheumatoid factor b 2015 8:39AM RUQ abdominal pain Jun 24 2015 8:39AM Elevated fasting blood sugar Jun 24 2015 8:39AM Smoking addiction Aug 06 2015 10:19AM Migraine headache without aura Sep 10 2015 6:26PM Cholelithiasis Sep 16 2015 2:54PM Chronic Cholecystitis Sep 16 2015 2:54PM Payers Insurance Name Company Name Plan Name Plan Number Policy Number Policy Group Number Start Date [facility] RHC Comm [id number] N/A [facility] Comm Plan of [id number] N/A [id number] Tuesday, 2010 History of Encounters Visit Date Visit Type Provider 09/18/2015 [facility] Noe Calderón DO 09/16/2015 Office visit Noe Calderón DO 09/10/2015 Office visit Yi Staples MD 08/06/2015 Office visit Teresita Laureano LEARNING TECHNOLOGIES SPECIALIST 06/24/2015 Office visit Kaity Aguilar MD 06/19/2015 Office visit Erica Carver LEARNING TECHNOLOGIES SPECIALIST 10/28/2014 Office visit Yris Lara LEARNING TECHNOLOGIES SPECIALIST 10/23/2014 Office visit Erica Carver LEARNING TECHNOLOGIES SPECIALIST 10/03/2014 Office visit Kaity Aguilar MD 10/02/2014 Office visit Niyah Jensen LEARNING TECHNOLOGIES SPECIALIST 09/20/2014 Office visit Noe Calderón DO 09/14/2014 Hospital Noe Calderón DO 09/13/2014 [facility] Noe Calderón DO 09/12/2014 Hospital Noe Calderón DO 07/19/2014 Office visit Vijay Rees LEARNING TECHNOLOGIES SPECIALIST 07/03/2014 Office visit Vijay Rees APRN 06/11/2014 Office visit Vijay Rees LEARNING TECHNOLOGIES SPECIALIST 06/03/2014 Office visit Kaity Aguilar MD 04/29/2014 Office visit Vijay Rees LEARNING TECHNOLOGIES SPECIALIST 04/22/2014 Office visit Kaity Aguilar MD 03/11/2014 Office visit Kaity Aguilar MD 02/19/2014 Office visit Kaity Aguilar MD 10/01/2013 Office visit Erica Walker LEARNING TECHNOLOGIES SPECIALIST 09/13/2013 Office visit Erica Walker LEARNING TECHNOLOGIES SPECIALIST 09/10/2013 Office visit Erica Walker LEARNING TECHNOLOGIES SPECIALIST 08/16/2013 Office visit Erica Walker LEARNING TECHNOLOGIES SPECIALIST 03/27/2013 Office visit Erica Walker LEARNING TECHNOLOGIES SPECIALIST 01/23/2013 Office visit Erica Walker LEARNING TECHNOLOGIES SPECIALIST 01/19/2013 Voided Erica Walker LEARNING TECHNOLOGIES SPECIALIST 12/29/2012 Office visit Erica Walker LEARNING TECHNOLOGIES SPECIALIST 12/26/2012 Office visit Erica Walker LEARNING TECHNOLOGIES SPECIALIST 12/14/2012 Surgery Tong Whatley MD 12/07/2012 Voided Tong Whatley MD 11/09/2012 Surgery Tong Whatley MD 10/24/2012 [facility] Neema Barros MD 10/24/2012 [facility] Tong Whaltey MD 10/18/2012 Surgery Tong Whatley MD 09/20/2012 Office visit Tong Whatley MD 07/27/2012 Office visit Yris Lara LEARNING TECHNOLOGIES SPECIALIST 06/22/2012 Procedures Tong Whatley MD 05/25/2012 Office visit Tong Whatley MD 04/11/2012 Office visit Erica Carver LEARNING TECHNOLOGIES SPECIALIST 03/31/2012 Office visit Erica Mehul LEARNING TECHNOLOGIES SPECIALIST 04/08/2011 Office visit Eugenio Enamorado MD 07/23/2010 Office visit Elsa FIGUEROA 04/15/2010 Office visit Elsa FIGUEROA 03/25/2010 Office visit Elsa FIGUEROA 03/02/2010 Office visit Elsa FIGUEROA
--- OUTSIDE RECORDS SUMMARY | 2017-11-25 08:54 | XMS REPORT ---
Author Author Kaity Aguilar Organization [facility] Address [address] [place], [place] [id number] Care Team Providers Care Cnc Programmer Name Role Phone Kaity Aguilar PCP Erica [...] Min 3Views - MOB 02/14/2017 12:00 AM Medications Active Name Start Date [...] 12:00 AM Decadron, Per 1 Mg [facility]# [address]-08 Reviewed 06/19/2015 12:00 AM Depo-Medrol 40mg Reviewed 06/24/2015 12:00 AM COMPLETE CBC W/AUTO DIFF WBC Reviewed 06/24/2015 12:00 AM COMPREHEN METABOLIC PANEL Reviewed 06/24/2015 12:00 AM LIPID PANEL Reviewed 06/24/2015 12:00 AM GLYCOSYLATED HEMOGLOBIN TEST Reviewed 06/24/2015 12:00 AM ASSAY OF FERRITIN Reviewed 08/06/2015 12:00 AM BEHAV CHNG SMOKING 3-10 MIN Reviewed 09/10/2015 12:00 AM Imitrex 6mg [facility] #78315-077-28 Reviewed 11/26/2015 5:56 PM URINALYSIS AUTO W/O [...] 12:00 AM Decadron, Per 1 Mg [facility]# [address]-54 Reviewed 01/19/2017 12:00 AM Depo-Medrol 40mg Injection [...] AM Phenergan, Up to 50 Mg [facility]#6972-0645-69 Reviewed 12/26/2012 12:00 AM Toradol 60 Mg [facility]#9844-9856-80 Reviewed 12/29/2012 12:00 AM COMPLETE CBC W/AUTO DIFF WBC Reviewed 12/29/2012 12:00 AM COMPREHEN METABOLIC PANEL Reviewed 01/01/2013 12:[address] HEAD/BRAIN W/O & W/DYE Reviewed 01/19/2013 12:00 AM Blood Pressure Check-no charge Reviewed 01/23/2013 12:00 AM THER/PROPH/DIAG INJ SC/IM Reviewed 01/23/2013 12:00 AM Decadron, Per 1 Mg [facility]# [address]-13 Reviewed 01/23/2013 12:00 AM Depo-Medrol, Per 80 Mg [facility]#0031-1700-48 Reviewed 08/16/2013 12:00 AM THER/PROPH/DIAG INJ SC/IM Reviewed 08/16/2013 12:00 AM Decadron, Per 1 Mg [facility]# [address]-98 Reviewed 08/16/2013 12:00 AM Depo-Medrol, Per 80 Mg [facility]#5130-3435-59 Reviewed 09/13/2013 12:00 AM COMPLETE CBC W/AUTO [...] 3:20PM Arthritis, rheumatoid Jun 03 2014 4:12PM 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 Jun 03 2014 4:12PM [...] Rheumatoid arthritis flare Feb 14 2017 1:40PM Payers Insurance Name Company Name Plan Name Plan Number Policy Number Policy Group Number Start Date BCBS Bcbs [facility] [id number] Tuesday, 2010 [facility] - Community Plan [facility] RHC Comm [id number] N/A [facility] Comm Plan of [id number] N/A History of Encounters Visit Date Visit Type Provider 02/14/2017 Office visit Kaity Aguilar MD 02/04/2017 [...] Staples MD 08/06/2015 Office visit Teresita Laureano HOGSHEAD HEAD MATCHER 06/24/2015 Office visit Kaity Aguilar MD 06/19/2015 Office visit Erica Carver HOGSHEAD HEAD MATCHER 10/28/2014 Office visit Yris Lara HOGSHEAD HEAD MATCHER 10/23/2014 Office visit Erica Carver HOGSHEAD HEAD MATCHER 10/03/2014 Office visit Kaity Aguilar MD 10/02/2014 Office visit Niyah Jensen HOGSHEAD HEAD MATCHER 09/20/2014 Office visit Noe Bouman DO 09/14/2014 Hospital Noe Bouman DO 09/13/2014 Hospital Noe Bouman DO 09/12/2014 Hospital Noe Bouman DO 07/19/2014 Office visit Vijay Rees HOGSHEAD HEAD MATCHER 07/03/2014 Office visit Vijay Rees HOGSHEAD HEAD MATCHER 06/11/2014 Office visit Vijay Rees HOGSHEAD HEAD MATCHER 06/03/2014 Office visit Kaity Aguilar MD 04/29/2014 Office visit Vijay Rees HOGSHEAD HEAD MATCHER 04/22/2014 Office visit Kaity Aguilar MD 03/11/2014 Office visit Kaity Aguilar MD 02/19/2014 Office visit Kaity Aguilar MD 10/01/2013 Office visit Erica Carver HOGSHEAD HEAD MATCHER 09/13/2013 Office visit Erica Carver HOGSHEAD HEAD MATCHER 09/10/2013 Office visit Erica Carver HOGSHEAD HEAD MATCHER 08/16/2013 Office visit Erica Carver HOGSHEAD HEAD MATCHER 03/27/2013 Office visit Erica Carver HOGSHEAD HEAD MATCHER 01/23/2013 Office visit Erica Carver HOGSHEAD HEAD MATCHER 01/19/2013 Voided Erica Walker HOGSHEAD HEAD MATCHER 12/29/2012 Office visit Erica Walker HOGSHEAD HEAD MATCHER 12/26/2012 Office visit Erica Carver HOGSHEAD HEAD MATCHER 12/14/2012 Surgery Tong Whatley MD 12/07/2012 Voided Tong Whatley MD 11/09/2012 Surgery Tong Whatley MD 10/24/2012 [facility] Neema Barros MD 10/24/2012 [facility] Tong Whatley MD 10/18/2012 Surgery Tong Whatley MD 09/20/2012 Office visit Tong Whatley MD 07/27/2012 Office visit Yris Lara HOGSHEAD HEAD MATCHER 06/22/2012 Procedures Tong Whatley MD 05/25/2012 Office visit Tong Whatley MD 04/11/2012 Office visit Erica Carver APRN 03/31/2012 Office visit Erica Carver APRN 04/08/2011 Office visit Eugenio Enamorado MD 07/23/2010 Office visit Elsa FIGUEROA 04/15/2010 Office visit Elsa FIGUEROA 03/25/2010 Office visit Elsa FIGUEROA 03/02/2010 Office visit Elsa FIGUEROA
--- OUTSIDE RECORDS SUMMARY | 2017-11-25 09:04 | XMS REPORT ---
Author Author Erica Carver Organization [facility] Address [address] [place], [place] [id number] Care Team Providers Care Betting Agency Counter Clerk Name Role Phone Erica Carver PCP Unavailable [...] (20 mg) by oral route once daily propranolol 60 mg oral capsule,extended release 24 [...] needed phenazopyridine 200 mg oral tablet 11/26/2015 take 1 tablet (200 mg) by oral route 3 times per day after meals gemfibrozil 600 mg oral tablet 12/22/2015 TAKE ONE TABLET BY MOUTH TWICE DAILY 30 MINUTES BEFORE MORNING AND EVENING MEALS Saxenda 3 mg/0.5 mL (18 mg/3 mL) subcutaneous pen injector 01/12/2016 taper up by 0.6mg at weekly intervals starting at 0.6mg going up to 3.0mg. Pen Needle 32 gauge x 32" miscellaneous needle 01/12/2016 use as directed Name Start Date Expiration Date SIG Comments [...] per day with food for 7 days Macrobid 100 mg oral capsule 11/26/2015 12/03/2015 take 1 capsule (100 mg) by oral route every 12 hours with food for 7 days Discontinued Name [...] HC BMI BSA BMI Percentile O2 Sat(%) 01/12/2016 8:41:00 AM 118 mmHg 70 mmHg [...] 1 Mg [facility]# [address]-30 Reviewed 06/19/2015 12:00 AM Depo-Medrol 40mg Reviewed 06/24/2015 12:00 AM COMPLETE CBC W/AUTO DIFF WBC Returned 06/24/2015 12:00 AM COMPREHEN METABOLIC PANEL Returned 06/24/2015 12:00 AM LIPID PANEL Returned 06/24/2015 12:00 AM GLYCOSYLATED HEMOGLOBIN TEST Returned 06/24/2015 12:00 AM ASSAY OF FERRITIN Returned 08/06/2015 12:00 AM BEHAV CHNG SMOKING 3-10 MIN Reviewed 09/10/2015 12:00 AM Imitrex 6mg [facility] #52733-900-72 Reviewed 11/26/2015 5:56 PM URINALYSIS AUTO W/O [...] to 50 Mg [facility]#9330-8637-14 Reviewed 12/26/2012 12:00 AM Toradol 60 Mg [facility]#4625-1127-89 Reviewed 12/29/2012 12:00 AM COMPLETE CBC W/AUTO DIFF WBC Returned 12/29/2012 12:00 AM COMPREHEN METABOLIC PANEL Returned 01/01/2013 12:[address] HEAD/BRAIN W/O & W/DYE Returned 01/23/2013 12:00 AM THER/PROPH/DIAG INJ SC/IM Reviewed 01/23/2013 12:00 AM Decadron, Per 1 Mg [facility]# [address]-95 Reviewed 01/23/2013 12:00 AM Depo-Medrol, Per 80 Mg [place]#9987-3873-99 Reviewed 08/16/2013 12:00 AM THER/PROPH/DIAG INJ SC/IM Reviewed 08/16/2013 12:00 AM Decadron, Per 1 Mg [place]# [address]-07 Reviewed 08/16/2013 12:00 AM Depo-Medrol, Per 80 Mg [facility]#5773-7575-48 Reviewed 09/13/2013 12:00 AM COMPLETE CBC W/AUTO [...] HEPATIC FUNCTION PANEL Returned 07/23/2010 12:00 AM [employer] METABOLIC PANEL Reviewed 06/03/2014 12:00 AM COMPLETE CBC W/AUTO DIFF WBC Returned 06/03/2014 12:00 AM [employer] METABOLIC PANEL Returned 10/02/2014 12:00 AM MAMMOGRAM [...] rhinosinusitis Jun 19 2015 10:20AM Anemia b 2015 8:39AM Hyperlipidemia, Mixed Jun 24 2015 [...] 5:50PM BMI 32.0-32.9,adult Jan 12 2016 8:44AM Payers Insurance Name Company Name Plan Name Plan Number Policy Number Policy Group Number Start Date [facility] - RHC - Community Plan [facility] RHC Comm [id number] N/A [facility] Community Plan [facility] Comm Plan of [id number] N/A BCBS Bcbs [facility] [id number] Tuesday, 2010 History of Encounters Visit Date Visit Type Provider 01/12/2016 Office visit Erica Carver SODA DIALYZER 11/26/2015 Office visit Vijay Rees SODA DIALYZER 09/26/2015 Surgery Noe Calderón DO 09/18/2015 [facility] 09/16/2015 Office visit Noe Calderón DO 09/10/2015 Office visit Yi Staples MD 08/06/2015 Office visit Teresita Laureano SODA DIALYZER 06/24/2015 Office visit Kaity Aguilar MD 06/19/2015 Office visit Erica Carver SODA DIALYZER 10/28/2014 Office visit Yris Lara SODA DIALYZER 10/23/2014 Office visit Erica Carver SODA DIALYZER 10/03/2014 Office visit Kaity Aguilar MD 10/02/2014 Office visit Niyah Jensen SODA DIALYZER 09/20/2014 Office visit Noe Calderón DO 09/14/2014 Hospital Noe Bouman DO 09/13/2014 Hospital Noe Bouman DO 09/12/2014 Hospital Noe Bouman DO 07/19/2014 Office visit Vijay Rees APRN 07/03/2014 Office visit Vijay Rees APRN 06/11/2014 Office visit Vijay Rees APRN 06/03/2014 Office visit Kaity Aguilar MD 04/29/2014 Office visit Vijay Rees SODA DIALYZER 04/22/2014 Office visit Kaity Aguilar MD 03/11/2014 Office visit Kaity Aguilar MD 02/19/2014 Office visit Kaity Aguilar MD 10/01/2013 Office visit Erica Carver SODA DIALYZER 09/13/2013 Office visit Erica Walker SODA DIALYZER 09/10/2013 Office visit Erica Walker SODA DIALYZER 08/16/2013 Office visit Erica Walker SODA DIALYZER 03/27/2013 Office visit Erica Walker SODA DIALYZER 01/23/2013 Office visit Erica Walker SODA DIALYZER 01/19/2013 Voided Erica Carver SODA DIALYZER 12/29/2012 Office visit Erica Carver SODA DIALYZER 12/26/2012 Office visit Erica Carver SODA DIALYZER 12/14/2012 Surgery Tong Whatley MD 12/07/2012 Voided Tong Whatley MD 11/09/2012 Surgery Tong Whatley MD 10/24/2012 [facility] Neema Barros MD 10/24/2012 [facility] Tong Whatley MD 10/18/2012 Surgery Tong Whatley MD 09/20/2012 Office visit Tong Whatley MD 07/27/2012 Office visit Yris Lara SODA DIALYZER 06/22/2012 Procedures Tong Whatley MD 05/25/2012 Office visit Tong Whatley MD 04/11/2012 Office visit Erica Carver SODA DIALYZER 03/31/2012 Office visit Erica Carver SODA DIALYZER 04/08/2011 Office visit Eugenio Enamorado MD 07/23/2010 Office visit Elsa FIGUEROA 04/15/2010 Office visit Elsa FIGUEROA 03/25/2010 Office visit Elsa FIGUEROA 03/02/2010 Office visit Elsa FIGUEROA
--- OUTSIDE RECORDS SUMMARY | 2017-11-25 09:10 | XMS REPORT ---
Author Noe Hanson [facility] Address [address] [place], [place] [id number] Care Team Providers Care Manager School Name Role Phone Noe Calderón PCP Kaity Aguilar PreferredProvider Allergies and Adverse [...] oral recon soln 08/23/2017 take as directed Name Start Date Expiration Date [...] BMI BSA BMI Percentile O2 Sat(%) 08/23/2017 3:54:00 PM 114 mmHg 75 mmHg [...] 06/19/2015 12:00 AM Decadron, Per 1 Mg [facility]# [address]-94 Reviewed 06/19/2015 12:00 AM Depo-Medrol 40mg Reviewed 06/24/2015 12:00 AM COMPLETE CBC W/AUTO DIFF WBC Reviewed 06/24/2015 12:00 AM COMPREHEN METABOLIC PANEL Reviewed 06/24/2015 12:00 AM LIPID PANEL Reviewed 06/24/2015 12:00 AM GLYCOSYLATED HEMOGLOBIN TEST Reviewed 06/24/2015 12:00 AM ASSAY OF FERRITIN Reviewed 08/06/2015 12:00 AM BEHAV CHNG SMOKING 3-10 MIN Reviewed 09/10/2015 12:00 AM Imitrex 6mg [facility] #98922-421-49 Reviewed 11/26/2015 5:56 PM URINALYSIS AUTO W/O [...] 01/19/2017 12:00 AM Decadron, Per 1 Mg [facility]# [address]-19 Reviewed 01/19/2017 12:00 AM Depo-Medrol 40mg Injection [...] 12:00 AM Phenergan, Up to 50 Mg [facility]#5195-9475-67 Reviewed 12/26/2012 12:00 AM Toradol 60 Mg [facility]#0865-7567-65 Reviewed 12/29/2012 12:00 AM COMPLETE CBC W/AUTO DIFF WBC Reviewed 12/29/2012 12:00 AM COMPREHEN METABOLIC PANEL Reviewed 01/01/2013 12:[address] HEAD/BRAIN W/O & W/DYE Reviewed 01/19/2013 12:00 AM Blood Pressure Check-no charge Reviewed 01/23/2013 12:00 AM THER/PROPH/DIAG INJ SC/IM Reviewed 01/23/2013 12:00 AM Decadron, Per 1 Mg [facility]# [address]-22 Reviewed 01/23/2013 12:00 AM Depo-Medrol, Per 80 Mg [facility]#6909-2880-96 Reviewed 08/16/2013 12:00 AM THER/PROPH/DIAG INJ SC/IM Reviewed 08/16/2013 12:00 AM Decadron, Per 1 Mg [facility]# [address]-39 Reviewed 08/16/2013 12:00 AM Depo-Medrol, Per 80 Mg [facility]#8410-8770-07 Reviewed 09/13/2013 12:00 AM COMPLETE CBC W/AUTO [...] Arthritis, 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 - Community Plan [facility] RHC Comm [id number] N/A [facility] Community [facility] Comm Plan of [id number] N/A [facility] - RHC - Community [facility] RHC Comm [id number] N/A History of Encounters Visit Date Visit Type Provider 08/29/2017 Surgery Noe Calderón DO 08/23/2017 Office visit Noe Calderón DO 08/23/2017 Office visit Alireza Gutierrez MD 08/17/2017 Office visit Erica Carver EDGE POLISHER 08/09/2017 Office visit Alireza Gutierrez MD 08/07/2017 Office visit Luz Brantley EDGE POLISHER 08/02/2017 Office visit Kaity Aguilar MD 07/14/2017 Office visit Alireza Gutierrez MD 07/06/2017 Office visit Kaity Aguilar MD 03/08/2017 [facility] Papo Ambriz MD 02/14/2017 Office visit Kaity Aguilar MD 02/04/2017 Office visit Erica Carver EDGE POLISHER 01/31/2017 Office visit Erica Carver EDGE POLISHER 01/30/2017 Office visit 01/30/2017 Office visit Navin Tucker NP 01/27/2017 Office visit Erica Carver EDGE POLISHER 01/25/2017 Office visit Erica Carver EDGE POLISHER 01/19/2017 Office visit Erica Carver EDGE POLISHER 01/18/2017 Office visit Cecily Solorzano EDGE POLISHER 01/10/2017 Office visit Alireza Gutierrez MD 12/30/2016 Office visit Luz Brantley EDGE POLISHER 12/14/2016 Office visit Kaity Aguilar MD 10/11/2016 Office visit Vijay Rees EDGE POLISHER 09/24/2016 Office visit Kaity Aguilar MD 08/16/2016 Office visit Vijay Rees EDGE POLISHER 07/26/2016 Office visit Erica Carver EDGE POLISHER 05/26/2016 Office visit Vijay Rees EDGE POLISHER 05/06/2016 Office visit Kaity Aguilar MD 04/02/2016 Office visit Concepcion BORJA 03/23/2016 Office visit Kaity Aguilar MD 03/01/2016 Office visit Vijay Rees EDGE POLISHER 01/12/2016 Office visit Erica Carver EDGE POLISHER 11/26/2015 Office visit Vijay Rees EDGE POLISHER 09/26/2015 Surgery Noe Bouman DO 09/18/2015 Hospital Noe Bouman DO 09/16/2015 Office visit Noe Calderón DO 09/10/2015 Office visit Yi Staples MD 08/06/2015 Office visit Teresita Laureano EDGE POLISHER 06/24/2015 Office visit Kaity Aguilar MD 06/19/2015 Office visit Erica Carver EDGE POLISHER 10/28/2014 Office visit Yris Lara EDGE POLISHER 10/23/2014 Office visit Erica Carver EDGE POLISHER 10/03/2014 Office visit Kaity Aguilar MD 10/02/2014 Office visit Niyah Jensen EDGE POLISHER 09/20/2014 Office visit Noe Bouman DO 09/14/2014 Hospital Noe Bouman DO 09/13/2014 Hospital Noe Bouman DO 09/12/2014 Hospital Noe Bouman DO 07/19/2014 Office visit Vijay Rees EDGE POLISHER 07/03/2014 Office visit Vijay Rees EDGE POLISHER 06/11/2014 Office visit Vijay Rees EDGE POLISHER 06/03/2014 Office visit Kaity Aguilar MD 04/29/2014 Office visit Vijay Rees EDGE POLISHER 04/22/2014 Office visit Kaity Aguilar MD 03/11/2014 Office visit Kaity Aguilar MD 02/19/2014 Office visit Kaity Aguilar MD 10/01/2013 Office visit Erica Walker EDGE POLISHER 09/13/2013 Office visit Erica Walker EDGE POLISHER 09/10/2013 Office visit Erica Walker EDGE POLISHER 08/16/2013 Office visit Erica Walker EDGE POLISHER 03/27/2013 Office visit Erica Walker EDGE POLISHER 01/23/2013 Office visit Erica Walker EDGE POLISHER 01/19/2013 Voided Erica Walker EDGE POLISHER 12/29/2012 Office visit Erica Walker EDGE POLISHER 12/26/2012 Office visit Erica Walker EDGE POLISHER 12/14/2012 Surgery Tong Whatley MD 12/07/2012 Voided Tong Whatley MD 11/09/2012 Surgery [facility]/24[facility] Tong Whatley MD 10/18/2012 Surgery Tong Whatley MD 09/20/2012 Office visit Tong Whatley MD 07/27/2012 Office visit Yris Lara EDGE POLISHER 06/22/2012 Procedures Tong Whatley MD 05/25/2012 Office visit Tong Whatley MD 04/11/2012 Office visit Erica Carver EDGE POLISHER 03/31/2012 Office visit Erica Carver EDGE POLISHER 04/08/2011 Office visit Eugenio Enamorado MD 07/23/2010 Office visit Elsa FIGUEROA 04/15/2010 Office visit Elsa FIGUEROA 03/25/2010 Office visit Elsa FIGUEROA 03/02/2010 Office visit Elsa FIGUEROA
--- OUTSIDE RECORDS SUMMARY | 2017-11-25 09:12 | XMS REPORT ---
Author Author Vijay Rees [facility] Address [address] [place], [place] [id number] Care Team Providers Care Finishing Area Operator Name Role Phone Vijay Rees PCP [...] by oral route once daily at bedtime gemfibrozil 600 mg oral tablet 12/22/2015 TAKE ONE TABLET BY MOUTH TWICE DAILY 30 MINUTES BEFORE MORNING AND EVENING MEALS hydroxychloroquine 200 mg oral tablet 02/25/2016 TAKE TWO TABLETS BY MOUTH ONCE DAILY WITH A MEAL OR A GLASS OF MILK propranolol 60 mg oral capsule,extended release 24 hr 02/25/2016 TAKE ONE CAPSULE BY MOUTH ONCE DAILY lorazepam 1 mg oral tablet take 1 tablet (1 mg) by oral route 2 times per day Medrol ([place]) 4 mg oral tablets,dose pack 03/02/2016 take as directed meclizine 25 mg oral tablet 03/02/2016 take 1 tablet (25 mg) by oral route 3 times per day as needed Name Start [...] oral route once daily for 4 days Imitrex 5 mg/actuation nasal spray,non-aerosol 07/29/2015 03/01/2016 [...] tablet by oral route every 12 hours tramadol 50 mg oral tablet 09/24/2015 03/01/2016 take 1 tablet (50 mg) by oral route every 6 hours as needed phenazopyridine 200 mg oral tablet 11/26/2015 03/01/2016 take 1 tablet (200 mg ) by oral route 3 times per day after meals Saxenda 3 mg/0.5 mL (18 mg/3 mL) subcutaneous pen injector 01/12/20162015 taper up by 0.6mg at weekly intervals starting at 0.6mg going up to 3.0mg. Pen Needle 32 gauge x /32" miscellaneous needle 01/12/2016 03/01/2016 use as directed Problem List Description Status Onset Bipolar Disorder Active Hypertension Active Obesity Active Seasonal Allergies Active Arthritis, rheumatoid Active 06/04/2014 Gluten intolerance Active 06/04/2014 Cholelithiasis Active 09/16/2015 Chronic Cholecystitis Active 09/16/2015 Vital Signs Date Time BP-Sys(mm[Hg] BP-Patti(mm[Hg]) HR(bpm) RR(rpm) Temp WT HT HC BMI BSA BMI Percentile O2 Sat(%) 03/01/2016 6:45:00 PM 122 mmHg 62 mmHg [...] 06/19/2015 12:00 AM Decadron, Per 1 Mg [facility]# [address]-97 Reviewed 06/19/2015 12:00 AM Depo-Medrol 40mg Reviewed 06/24/2015 12:00 AM COMPLETE CBC W/AUTO DIFF WBC Returned 06/24/2015 12:00 AM COMPREHEN METABOLIC PANEL Returned 06/24/2015 12:00 AM LIPID PANEL Returned 06/24/2015 12:00 AM GLYCOSYLATED HEMOGLOBIN TEST Returned 06/24/2015 12:00 AM ASSAY OF FERRITIN Returned 08/06/2015 12:00 AM BEHAV CHNG SMOKING 3-10 MIN Reviewed 09/10/2015 12:00 AM Imitrex 6mg [facility] #17448-124-78 Reviewed 11/26/2015 5:56 PM URINALYSIS AUTO W/O SCOPE Reviewed 11/26/2015 12:00 AM URINE CULTURE/COLONY COUNT Returned 03/01/2016 12:00 AM COMPREHEN METABOLIC PANEL Returned 03/01/2016 12:00 AM COMPLETE CBC W/AUTO DIFF WBC Returned 03/01/2016 12:00 AM Imitrex 6 mg Reviewed 05/25/2012 12:00 AM CYTOPATH TBS C/V [...] 12:00 AM Phenergan, Up to 50 Mg [facility]#3804-3892-05 Reviewed 12/26/2012 12:00 AM Toradol 60 Mg [facility]#9678-2682-42 Reviewed 12/29/2012 12:00 AM COMPLETE CBC W/AUTO DIFF WBC Returned 12/29/2012 12:00 AM COMPREHEN METABOLIC PANEL Returned 01/01/2013 12:[address] HEAD/BRAIN W/O & W/DYE Returned 01/23/2013 12:00 AM THER/PROPH/DIAG INJ SC/IM Reviewed 01/23/2013 12:00 AM Decadron, Per 1 Mg [facility]# [address]-01 Reviewed 01/23/2013 12:00 AM Depo-Medrol, Per 80 Mg [facility]#7577-6013-20 Reviewed 08/16/2013 12:00 AM THER/PROPH/DIAG INJ SC/IM Reviewed 08/16/2013 12:00 AM Decadron, Per 1 Mg [facility]# [address]-01 Reviewed 08/16/2013 12:00 AM Depo-Medrol, Per 80 Mg [facility]#6928-4411-37 Reviewed 09/13/2013 12:00 AM COMPLETE CBC W/AUTO [...] dLCALCIUM 9.70 mg/dLeGFR >60 mL/min/1.73mFERRITIN 200.0 ng/mL 11/26/2015 5:56 PM Clarity Ur cloudy Color [...] g/dLALBUMIN 4.50 g/dLTOTAL BILI 0.60 mg/dLCALCIUM 10.40 mg/dLeGFR >60 mL/min/1.73mWBC 9.8 RBC 4.72 HGB 15.40 g/dLHCT 46.30 %MCV 98.0 fLMCH 32.60 pgMCHC 33.30 g/dLRDW CV 13.60 %MPV 10.0 fLPLT 332 %NEUT 58.50 %%LYMP 28.0 %%MONO 8.30 %%EOS 3.70 %%BASO 0.70 %#NEUT 5.74 #LYMP 2.75 #MONO 0.81 #EOS 0.36 #BASO 0.07 History Of Immunizations Not available. History of [...] involving multiple sites with positive rheumatoid factor Fe2015 8:39AM RUQ abdominal pain Jun 24 2015 [...] unspecified headache type Mar 01 2016 6:47PM Payers Insurance Name Company Name Plan Name Plan Number Policy Number Policy Group Number Start Date [facility] - Community Plan [facility] RHC Comm [id number] N/A [facility] Community Plan [facility] Comm Plan of [id number] N/A [facility] [id number] Tuesday, 2010 History of Encounters Visit Date Visit Type Provider 03/01/2016 Office visit Vijay Rees APRN 01/12/2016 Office visit Erica Carver UNEMPLOYMENT SPECIALIST 11/26/2015 Office visit Vijay Rees UNEMPLOYMENT SPECIALIST 09/26/2015 Surgery Noe Boden DO 09/18/2015 Hospital Noe Calderón DO 09/16/2015 Office visit Noe Calderón DO 09/10/2015 Office visit Yi Staples MD 08/06/2015 Office visit Teresita Laureano APRN 06/24/2015 Office visit Kaity Aguilar MD 06/19/2015 Office visit Erica Carver APRN 10/28/2014 Office visit Yris Lara UNEMPLOYMENT SPECIALIST 10/23/2014 Office visit Erica Carver UNEMPLOYMENT SPECIALIST 10/03/2014 Office visit Kaity Aguilar MD 10/02/2014 Office visit Niyah Jensen UNEMPLOYMENT SPECIALIST 09/20/2014 Office visit Noe Calderón DO [...] Aguilar MD 10/01/2013 Office visit Erica Walker UNEMPLOYMENT SPECIALIST 09/13/2013 Office visit Erica Walker UNEMPLOYMENT SPECIALIST 09/10/2013 Office visit Erica Walker UNEMPLOYMENT SPECIALIST 08/16/2013 Office visit Erica Walker UNEMPLOYMENT SPECIALIST 03/27/2013 Office visit Erica Walker UNEMPLOYMENT SPECIALIST 01/23/2013 Office visit Erica Walker UNEMPLOYMENT SPECIALIST 01/19/2013 Voided Erica Walker UNEMPLOYMENT SPECIALIST 12/29/2012 Office visit Erica Walker UNEMPLOYMENT SPECIALIST 12/26/2012 Office visit Erica Walker UNEMPLOYMENT SPECIALIST 12/14/2012 Surgery Togn Whatley MD 12/07/2012 Voided Tong Whatley MD 11/09/2012 Surgery Tong Whatley MD 10/24/2012 [facility] 10/24/2012 [facility] Tong Whatley MD 10/18/2012 Surgery Tong Whatley MD 09/20/2012 Office visit Tong Whatley MD 07/27/2012 Office visit Yris Lara UNEMPLOYMENT SPECIALIST 06/22/2012 Procedures Tong Whatley MD 05/25/2012 Office visit Tong Whatley MD 04/11/2012 Office visit Erica Carver UNEMPLOYMENT SPECIALIST 03/31/2012 Office visit Erica Carver UNEMPLOYMENT SPECIALIST 04/08/2011 Office visit Eugenio Enamorado MD 07/23/2010 Office visit Elsa FIGUEROA 04/15/2010 Office visit Esla FIGUEROA 03/25/2010 Office visit Elsa FIGUEROA 03/02/2010 Office visit Elsa FIGUEROA
[2017-11-25] MEDS ORDERED: SEVOFLURANE (ULTANE) 15 ML INHAL SOLN ONE ×2 (09:17→09:40)
[2017-11-25] MEDS ORDERED: PHENYLEPHRINE 100 MCG/ML 10 ML (ANESTHESIA) SYR ONE (09:18)
--- OUTSIDE RECORDS SUMMARY | 2017-11-25 09:20 | XMS REPORT ---
Author Author Erica Carver Organization [facility] Address [address] [place], [place] [id number] Care Team Providers Care Patient Financial Representative Name Role Phone Erica Carver PCP Unavailable [...] 12/21/2016 12:00 AM Spirometry 01/27/2017 12:00 AM Medications Active Name Start Date [...] to exceed 30 mL in 24 hours prednisone 20 mg oral tablet 01/27/2017 take 2 tablets by mouth daily x2 days then 1 tablet daily x4 days ProAir HFA 90 mcg/actuation inhalation HFA aerosol inhaler 01/27/2017 inhale 1 puff (90 mcg) by inhalation route every 4-6 hours as needed Name Start Date Expiration [...] HC BMI BSA BMI Percentile O2 Sat(%) 01/27/2017 9:55:00 AM 120 mmHg 74 mmHg [...] 06/19/2015 12:00 AM Decadron, Per 1 Mg [facility]# [address]-92 Reviewed 06/19/2015 12:00 AM Depo-Medrol 40mg Reviewed 06/24/2015 12:00 AM COMPLETE CBC W/AUTO DIFF WBC Reviewed 06/24/2015 12:00 AM COMPREHEN METABOLIC PANEL Reviewed 06/24/2015 12:00 AM LIPID PANEL Reviewed 06/24/2015 12:00 AM GLYCOSYLATED HEMOGLOBIN TEST Reviewed 06/24/2015 12:00 AM ASSAY OF FERRITIN Reviewed 08/06/2015 12:00 AM BEHAV CHNG SMOKING 3-10 MIN Reviewed 09/10/2015 12:00 AM Imitrex 6mg [facility] #23678-066-53 Reviewed 11/26/2015 5:56 PM URINALYSIS AUTO W/O [...] 01/19/2017 12:00 AM Decadron, Per 1 Mg [facility]# [address]-80 Reviewed 01/19/2017 12:00 AM Depo-Medrol 40mg Injection [...] 12:00 AM Phenergan, Up to 50 Mg [facility]#2445-4889-84 Reviewed 12/26/2012 12:00 AM Toradol 60 Mg [facility]#5550-9667-03 Reviewed 12/29/2012 12:00 AM COMPLETE CBC W/AUTO DIFF WBC Reviewed 12/29/2012 12:00 AM COMPREHEN METABOLIC PANEL Reviewed 01/01/2013 12:[address] HEAD/BRAIN W/O & W/DYE Reviewed 01/19/2013 12:00 AM Blood Pressure Check-no charge Reviewed 01/23/2013 12:00 AM THER/PROPH/DIAG INJ SC/IM Reviewed 01/23/2013 12:00 AM Decadron, Per 1 Mg [facility]# [address]-72 Reviewed 01/23/2013 12:00 AM Depo-Medrol, Per 80 Mg [facility]#2181-5134-45 Reviewed 08/16/2013 12:00 AM THER/PROPH/DIAG INJ SC/IM Reviewed 08/16/2013 12:00 AM Decadron, Per 1 Mg [facility]# [address]-27 Reviewed 08/16/2013 12:00 AM Depo-Medrol, Per 80 Mg [facility]#1560-3469-89 Reviewed 09/13/2013 12:00 AM COMPLETE CBC W/AUTO [...] 3:20PM Arthritis, rheumatoid Jun 03 2014 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 Jun 03 2014 4:12PM [...] bronchitis, unspecified organism Jan 27 2017 9:56AM Payers Insurance Name Company Name Plan Name Plan Number Policy Number Policy Group Number Start Date [id number] Tuesday, 2010 [facility] Community [facility] RHC Comm [id number] N/A [facility] Comm Plan of [id number] N/A History of Encounters Visit Date Visit Type Provider 01/27/2017 Office visit Erica Carver APRN 01/25/2017 Office visit Erica Carver APRN 01/19/2017 Office visit Erica Carver APRN 01/18/2017 Office visit Cecily Solorzano APRN 01/10/2017 Office visit Alireza Gutierrez MD 12/30/2016 Office visit Luz Brantley SPORTS COMPLEX ATTENDANT 12/14/2016 Office visit Kaity Aguilar MD 10/11/2016 Office visit Vijay Rees APRN 09/24/2016 Office visit Kaity Aguilar MD 08/16/2016 Office visit Vijay Rees APRN 07/26/2016 Office visit Erica Carver SPORTS COMPLEX ATTENDANT 05/26/2016 Office visit Vijay Rees APRN 05/06/2016 [...] Carver APRN 10/28/2014 Office visit Yris Lara APRN 10/23/2014 Office visit Erica Carver APRN 10/03/2014 Office visit Kaity Aguilar MD 10/02/2014 Office visit Niyah Jensen SPORTS COMPLEX ATTENDANT 09/20/2014 Office visit Noe Calderón DO 09/14/2014 Hospital Noe Calderón DO 09/13/2014 Hospital Noe Calderón DO 09/12/2014 Hospital Noecarmencita Calderón DO 07/19/2014 Office visit Vijay Rees SPORTS COMPLEX ATTENDANT 07/03/2014 Office visit Vijay Negrita SPORTS COMPLEX ATTENDANT 06/11/2014 Office visit Vijay Rees SPORTS COMPLEX ATTENDANT 06/03/2014 Office visit Kaity Aguilar MD 04/29/2014 Office visit Vijay Rees SPORTS COMPLEX ATTENDANT 04/22/2014 Office visit Kaity Aguilar MD 03/11/2014 Office visit Kaity Aguilar MD 02/19/2014 Office visit Kaity Aguilar MD 10/01/2013 Office visit Erica Walker SPORTS COMPLEX ATTENDANT 09/13/2013 Office visit Erica Walker SPORTS COMPLEX ATTENDANT 09/10/2013 Office visit Erica Walker SPORTS COMPLEX ATTENDANT 08/16/2013 Office visit Erica Walker SPORTS COMPLEX ATTENDANT 03/27/2013 Office visit Erica Walker SPORTS COMPLEX ATTENDANT 01/23/2013 Office visit Erica Walker SPORTS COMPLEX ATTENDANT 01/19/2013 Voided Erica Walker SPORTS COMPLEX ATTENDANT 12/29/2012 Office visit Erica Walker SPORTS COMPLEX ATTENDANT 12/26/2012 Office visit Erica Carver SPORTS COMPLEX ATTENDANT 12/14/2012 Surgery Tong Whatley MD 12/07/2012 Voided Tong Whatley MD 11/09/2012 Surgery [facility] Tong Whatley MD 10/18/2012 Surgery Tong Whatley MD 09/20/2012 Office visit Tong Whatley MD 07/27/2012 Office visit Yris Lara SPORTS COMPLEX ATTENDANT 06/22/2012 Procedures Tong Whatley MD 05/25/2012 Office visit Tong Whatley MD 04/11/2012 Office visit Erica Carver SPORTS COMPLEX ATTENDANT 03/31/2012 Office visit Erica Carver SPORTS COMPLEX ATTENDANT 04/08/2011 Office visit Eugenio Enamorado MD 07/23/2010 Office visit Elsa FIGUEROA 04/15/2010 Office visit Elsa FIGUEROA 03/25/2010 Office visit Elsa FIGUEROA 03/02/2010 Office visit Elsa FIUGEROA
--- OUTSIDE RECORDS SUMMARY | 2017-11-25 09:24 | XMS REPORT ---
Author Yris Contreras [facility] Address [address] [place] [id number] Care Team Providers Care Job Estimator Name Role Phone Yris Lara PCP Unavailable Allergies and Adverse Reactions Name [...] daily with food (at least 350 calories) Claritin 10 mg oral tablet 10/23/2014 take 1 tablet (10 mg) by [...] not to exceed 40 mg per day Macrobid 100 mg oral capsule 05/12/2015 05/19/2015 take 1 capsule (100 mg) by oral route 2 times per day with food for 7 days Name Start Date Expiration [...] oral route once daily for 30 days Discontinued Name Start Date [...] 09/20/2012 take 1 tablet by oral route [facility] Medrol ([place]) 4 mg oral tablets,dose pack [...] Phenergan, Up to 50 Mg [facility]#8318-4984-75 Reviewed 12/26/2012 12:00 AM Toradol 60 Mg [facility]#9336-3561-19 Reviewed 12/29/2012 12:00 AM COMPLETE CBC W/AUTO DIFF WBC Returned 12/29/2012 12:00 AM COMPREHEN METABOLIC PANEL Returned 01/01/2013 12:[address] HEAD/BRAIN W/O & W/DYE Returned 01/23/2013 12:00 AM THER/PROPH/DIAG INJ SC/IM Reviewed 01/23/2013 12:00 AM Decadron, Per 1 Mg [facility]# [address]-32 Reviewed 01/23/2013 12:00 AM Depo-Medrol, Per 80 Mg [facility]#3399-8797-00 Reviewed 08/16/2013 12:00 AM THER/PROPH/DIAG INJ SC/IM Reviewed 08/16/2013 12:00 AM Decadron, Per 1 Mg [facility]# [address]-29 Reviewed 08/16/2013 12:00 AM Depo-Medrol, Per 80 Mg [facility]#8367-3855-67 Reviewed 09/13/2013 12:00 AM COMPLETE CBC W/AUTO [...] 3:20PM Arthritis, rheumatoid Jun 03 2014 4:12PM 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 Jun 03 2014 [...] Number Policy Group Number Start Date [facility] [place] [id number] Tuesday, 2010 History of Encounters Visit Date Visit Type Provider 10/28/2014 Office visit Yris Lara COACH DRIVER 10/23/2014 Office visit Erica Carver COACH DRIVER 10/03/2014 Office visit Kaity Aguilar MD 10/02/2014 Office visit Niyah Jensen COACH DRIVER 09/20/2014 Office visit Noe Edisuman DO 09/14/2014 Hospital Noe Bouman DO 09/13/2014 Hospital Noe Bouman DO 09/12/2014 Hospital Noe Bouman DO 07/19/2014 Office visit Vijay Rees COACH DRIVER 07/03/2014 Office visit Vijay Rees COACH DRIVER 06/11/2014 Office visit Vijay Rees COACH DRIVER 06/03/2014 Office visit Kaity Aguilar MD 04/29/2014 Office visit Vijay Rees COACH DRIVER 04/22/2014 Office visit Kaity Aguilar MD 03/11/2014 Office visit Kaity Aguilar MD 02/19/2014 Office visit Kaity Aguilar MD 10/01/2013 Office visit Erica Carver COACH DRIVER 09/13/2013 Office visit Erica Carver COACH DRIVER 09/10/2013 Office visit Erica Carver COACH DRIVER 08/16/2013 Office visit Erica Carver COACH DRIVER 03/27/2013 Office visit Erica Carver COACH DRIVER 01/23/2013 Office visit Erica Carver COACH DRIVER 01/19/2013 Voided Erica Carver COACH DRIVER 12/29/2012 Office visit rEica Carver COACH DRIVER 12/26/2012 Office visit Erica Carver COACH DRIVER 12/14/2012 Surgery Tong Whatley MD 12/07/2012 Voided Tong Whatley MD 11/09/2012 Surgery Tong Whatley MD 10/24/2012 [facility] Neema Barros MD 10/24/2012 [facility] Tong Whatley MD 10/18/2012 Surgery Tong Whatley MD 09/20/2012 Office visit Tong Whatley MD 07/27/2012 Office visit Yris Lara COACH DRIVER 06/22/2012 Procedures Tong Whatley MD 05/25/2012 Office visit Tong Whatley MD 04/11/2012 Office visit Erica Carver COACH DRIVER 03/31/2012 Office visit Erica Carver APRN 04/08/2011 Office visit Eugenio Enamorado MD 07/23/2010 Office visit Elsa FIGUEROA 04/15/2010 Office visit Elsa FIGUEROA 03/25/2010 Office visit Elsa FIGUEROA 03/02/2010 Office visit Elsa FIGUEROA
--- OUTSIDE RECORDS SUMMARY | 2017-11-25 09:27 | XMS REPORT ---
Author Author Kaity Aguilar Organization [facility] Address [address] [place], [place] [id number] Care Team Providers Care Sand Slinger Operator Name Role Phone Kaity Aguilar PCP Allergies [...] AM ASSAY OF FERRITIN 06/24/2015 12:00 AM Medications Active Name Start [...] 06/19/2015 12:00 AM Decadron, Per 1 Mg [facility]# [address]-44 Reviewed 06/19/2015 12:00 AM Depo-Medrol 40mg Reviewed [...] 12:00 AM Phenergan, Up to 50 Mg [facility]#9685-4705-99 Reviewed 12/26/2012 12:00 AM Toradol 60 Mg [facility]#3563-5106-43 Reviewed 12/29/2012 12:00 AM COMPLETE CBC W/AUTO DIFF WBC Returned 12/29/2012 12:00 AM COMPREHEN METABOLIC PANEL Returned 01/01/2013 12:[address] HEAD/BRAIN W/O & W/DYE Returned 01/23/2013 12:00 AM THER/PROPH/DIAG INJ SC/IM Reviewed 01/23/2013 12:00 AM Decadron, Per 1 Mg [facility]# [address]-67 Reviewed 01/23/2013 12:00 AM Depo-Medrol, Per 80 Mg [facility]#8587-4700-79 Reviewed 08/16/2013 12:00 AM THER/PROPH/DIAG INJ SC/IM Reviewed 08/16/2013 12:00 AM Decadron, Per 1 Mg [facility]# [address]-71 Reviewed 08/16/2013 12:00 AM Depo-Medrol, Per 80 Mg [facility]#7074-7640-72 Reviewed 09/13/2013 12:00 AM COMPLETE CBC W/AUTO [...] Feb 2 2015 8:39AM RUQ abdominal pain b 2 2015 8:39AM Elevated fasting blood sugar Feb 2 2015 8:39AM Payers Insurance Name Company Name Plan Name Plan Number Policy Number Policy Group Number Start Date [employer] [facility] RHC - Community Plan [facility] Comm [id number] N/A BCBS [facility] [place] [id number] Tuesday, 2010 History of Encounters Visit Date Visit Type Provider 06/24/2015 Office visit Kaity Aguilar MD 06/19/2015 Office visit Erica Carver BULB FARMWORKER 10/28/2014 Office visit Yris Lara BULB FARMWORKER 10/23/2014 Office visit Erica Carver BULB FARMWORKER 10/03/2014 Office visit Kaity Aguilar MD 10/02/2014 Office visit Niyah Jensen BULB FARMWORKER 09/20/2014 Office visit oNe Randhawauman DO 09/14/2014 Hospital Noe Bouman DO 09/13/2014 Hospital Noe Bouman DO 09/12/2014 Hospital Noe Bouman DO 07/19/2014 Office visit Vijay Rees BULB FARMWORKER 07/03/2014 Office visit Vijay Rees BULB FARMWORKER 06/11/2014 Office visit Vijay Rees BULB FARMWORKER 06/03/2014 Office visit Kaity Aguilar MD 04/29/2014 Office visit Vijay Rees BULB FARMWORKER 04/22/2014 Office visit Kaity Aguilar MD 03/11/2014 Office visit Kaity Aguilar MD 02/19/2014 Office visit Kaity Aguilar MD 10/01/2013 Office visit Erica Carver BULB FARMWORKER 09/13/2013 Office visit Erica Carver BULB FARMWORKER 09/10/2013 Office visit Erica Carver BULB FARMWORKER 08/16/2013 Office visit Erica Carver BULB FARMWORKER 03/27/2013 Office visit Erica Carver BULB FARMWORKER 01/23/2013 Office visit Erica Carver BULB FARMWORKER 01/19/2013 Voided Erica Carver BULB FARMWORKER 12/29/2012 Office visit Erica Carver BULB FARMWORKER 12/26/2012 Office visit Erica Carver BULB FARMWORKER 12/14/2012 Surgery Tong Whatley MD 12/07/2012 Voided Tong Whatley MD 11/09/2012 Surgery Tong Whatley MD 10/24/2012 [facility] Neema Barros MD 10/24/2012 [facility] Tong Whatley MD 10/18/2012 Surgery Tong Whatley MD 09/20/2012 Office visit Tong Whatley MD 07/27/2012 Office visit Yris Lara BULB FARMWORKER 06/22/2012 Procedures Tong Whatley MD 05/25/2012 Office visit Tong Whatley MD 04/11/2012 Office visit Erica Carver APRN 03/31/2012 Office visit Erica Carver APRN 04/08/2011 Office visit Eugenio Enamorado MD 07/23/2010 Office visit Elsa FIGUEROA 04/15/2010 Office visit Elsa FIGUEROA 03/25/2010 Office visit Elsa FIGUEROA 03/02/2010 Office visit Elsa FIGUEROA
--- OUTSIDE RECORDS SUMMARY | 2017-11-25 09:30 | XMS REPORT ---
Author Author Vijay Rees [facility] Address [address] [place], [place] [id number] Care Team Providers Care Library Helper Name Role Phone Vijay Rees PCP Erica [...] HC BMI BSA BMI Percentile O2 Sat(%) 10/11/2016 7:49:00 PM 124 mmHg 66 mmHg [...] 06/19/2015 12:00 AM Decadron, Per 1 Mg [facility]# [address]-04 Reviewed 06/19/2015 12:00 AM Depo-Medrol 40mg Reviewed 06/24/2015 12:00 AM COMPLETE CBC W/AUTO DIFF WBC Reviewed 06/24/2015 12:00 AM COMPREHEN METABOLIC PANEL Reviewed 06/24/2015 12:00 AM LIPID PANEL Reviewed 06/24/2015 12:00 AM GLYCOSYLATED HEMOGLOBIN TEST Reviewed 06/24/2015 12:00 AM ASSAY OF FERRITIN Reviewed 08/06/2015 12:00 AM BEHAV CHNG SMOKING 3-10 MIN Reviewed 09/10/2015 12:00 AM Imitrex 6mg [facility] #31419-483-88 Reviewed 11/26/2015 5:56 PM URINALYSIS AUTO W/O [...] 12:00 AM Phenergan, Up to 50 Mg [facility] 2001#3771-6546-11 Reviewed 12/26/2012 12:00 AM Toradol 60 Mg [facility] 2001#9859-9887-66 Reviewed 12/29/2012 12:00 AM COMPLETE CBC W/AUTO DIFF WBC Reviewed 12/29/2012 12:00 AM COMPREHEN METABOLIC PANEL Reviewed 01/01/2013 12:[address] HEAD/BRAIN W/O & W/DYE Reviewed 01/19/2013 12:00 AM Blood Pressure Check-no charge Reviewed 01/23/2013 12:00 AM THER/PROPH/DIAG INJ SC/IM Reviewed 01/23/2013 12:00 AM Decadron, Per 1 Mg ND# [address]-11 Reviewed 01/23/2013 12:00 AM Depo-Medrol, Per 80 Mg NDC#9480-3513-95 Reviewed 08/16/2013 12:00 AM THER/PROPH/DIAG INJ SC/IM Reviewed 08/16/2013 12:00 AM Decadron, Per 1 Mg ND# [address]-25 Reviewed 08/16/2013 12:00 AM Depo-Medrol, Per 80 Mg [facility] 2001#0005-8353-25 Reviewed 09/13/2013 12:00 AM COMPLETE CBC W/AUTO [...] without status migrainosus Oct 11 2016 7:50PM Payers Insurance Name Company Name Plan Name Plan Number Policy Number Policy Group Number [facility] Date [id number] Tuesday, 2010 [facility] Community [facility] RHC Comm [id number] N/A [facility] Comm Plan of [id number] N/A History of Encounters Visit Date Visit Type Provider 10/11/2016 Office visit Vijay Rees APRN 09/24/2016 Office visit Kaity Aguilar MD 08/16/2016 Office visit Vijay Rees APRN 07/26/2016 Office visit Erica Carver TUFTING MACHINE FIXER 05/26/2016 Office visit Vijay Rees APRN 05/06/2016 Office visit Kaity Aguilar MD 04/02/2016 Office visit Concepcion BORJA 03/23/2016 Office visit Kaity Aguilar MD 03/01/2016 Office visit Vijay Rees TUFTING MACHINE FIXER 01/12/2016 Office visit Erica Carver APRN 11/26/2015 Office visit Vijay Rees TUFTING MACHINE FIXER 09/26/2015 Surgery Noe Calderón DO 09/18/2015 Hospital Noe Calderón DO 09/16/2015 Office visit Noe Calderón DO 09/10/2015 Office visit Yi Staples MD 08/06/2015 Office visit Teresita Laureano APRN 06/24/2015 Office visit Kaity Aguilar MD 06/19/2015 Office visit Erica Carver APRN 10/28/2014 Office visit Yris Lara TUFTING MACHINE FIXER 10/23/2014 Office visit Erica Carver APRN 10/03/2014 Office visit Kaity Aguilar MD 10/02/2014 Office visit Niyah Jensen TUFTING MACHINE FIXER 09/20/2014 Office visit Noe Calderón DO 09/14/2014 Hospital Noe Calderón DO 09/13/2014 Hospital Noe Calderón DO 09/12/2014 Hospital Noe Calderón DO 07/19/2014 Office visit Vijay Negrita TUFTING MACHINE FIXER 07/03/2014 Office visit Vijay Rees TUFTING MACHINE FIXER 06/11/2014 Office visit Vijay Rees TUFTING MACHINE FIXER 06/03/2014 Office visit Kaity Aguilar MD 04/29/2014 Office visit Vijay Rees TUFTING MACHINE FIXER 04/22/2014 Office visit Kaity Aguilar MD 03/11/2014 Office visit Kaity Aguilar MD 02/19/2014 Office visit Kaity Aguilar MD 10/01/2013 Office visit Erica Walker TUFTING MACHINE FIXER 09/13/2013 Office visit Erica Walker TUFTING MACHINE FIXER 09/10/2013 Office visit Erica Walker TUFTING MACHINE FIXER 08/16/2013 Office visit Erica Walker TUFTING MACHINE FIXER 03/27/2013 Office visit Erica Walker TUFTING MACHINE FIXER 01/23/2013 Office visit Erica Walker TUFTING MACHINE FIXER 01/19/2013 Voided Erica Walker TUFTING MACHINE FIXER 12/29/2012 Office visit Erica Walker TUFTING MACHINE FIXER 12/26/2012 Office visit Erica Walker TUFTING MACHINE FIXER 12/14/2012 Surgery Tong Whatley MD 12/07/2012 Voided Tong Whatley MD 11/09/2012 Surgery Tong Whatley MD 10/24/2012 [facility] Chika Barros MD 10/24/2012 [facility] Tong Whatley MD 10/18/2012 Surgery Tong Whatley MD 09/20/2012 Office visit Tong Whatley MD 07/27/2012 Office visit Yris Lara TUFTING MACHINE FIXER 06/22/2012 Procedures Tong Whatley MD 05/25/2012 Office visit Tong Whatley MD 04/11/2012 Office visit Erica Carver TUFTING MACHINE FIXER 03/31/2012 Office visit Erica Carver TUFTING MACHINE FIXER 04/08/2011 Office visit Eugenio Enamorado MD 07/23/2010 Office visit Elsa FIGUEROA 04/15/2010 Office visit Elsa FIGUEROA 03/25/2010 Office visit Elsa FIGUEROA 03/02/2010 Office visit Elsa FIGUEROA
--- OUTSIDE RECORDS SUMMARY | 2017-11-25 09:36 | XMS REPORT ---
Author Author Alireza Gutierrez Organization [facility] Address [address] [place], [place] [id number] Care Team Providers Care Semiconductor Technician Name Role Phone Alireza Gutierrez PCP Kaity [...] 12:00 AM Decadron, Per 1 Mg [facility]# [address]-98 Reviewed 06/19/2015 12:00 AM Depo-Medrol 40mg Reviewed 06/24/2015 12:00 AM COMPLETE CBC W/AUTO DIFF WBC Reviewed 06/24/2015 12:00 AM COMPREHEN METABOLIC PANEL Reviewed 06/24/2015 12:00 AM LIPID PANEL Reviewed 06/24/2015 12:00 AM GLYCOSYLATED HEMOGLOBIN TEST Reviewed 06/24/2015 12:00 AM ASSAY OF FERRITIN Reviewed 08/06/2015 12:00 AM BEHAV CHNG SMOKING 3-10 MIN Reviewed 09/10/2015 12:00 AM Imitrex 6mg [facility] #22427-331-04 Reviewed 11/26/2015 5:56 PM URINALYSIS AUTO W/O [...] 12:00 AM Decadron, Per 1 Mg [facility]# [address]-29 Reviewed 01/19/2017 12:00 AM Depo-Medrol 40mg Injection [...] AM Phenergan, Up to 50 Mg [facility]#4721-1108-94 Reviewed 12/26/2012 12:00 AM Toradol 60 Mg [facility]#9962-1363-13 Reviewed 12/29/2012 12:00 AM COMPLETE CBC W/AUTO DIFF WBC Reviewed 12/29/2012 12:00 AM COMPREHEN METABOLIC PANEL Reviewed 01/01/2013 12:[address] HEAD/BRAIN W/O & W/DYE Reviewed 01/19/2013 12:00 AM Blood Pressure Check-no charge Reviewed 01/23/2013 12:00 AM THER/PROPH/DIAG INJ SC/IM Reviewed 01/23/2013 12:00 AM Decadron, Per 1 Mg ND# [address]-14 Reviewed 01/23/2013 12:00 AM Depo-Medrol, Per 80 Mg NDC#0104-8602-27 Reviewed 08/16/2013 12:00 AM THER/PROPH/DIAG INJ SC/IM Reviewed 08/16/2013 12:00 AM Decadron, Per 1 Mg ND# [address]-30 Reviewed 08/16/2013 12:00 AM Depo-Medrol, Per 80 Mg NDC#5456-7524-50 Reviewed 09/13/2013 12:00 AM COMPLETE CBC W/AUTO [...] Policy Number Policy Group Number Start Date [place] [facility] [place] [id number] N/A [place] [facility] [place] [facility] [place] Prog [id number] N/A BCBS [facility] [id number] Tuesday, 2010 [facility] - RHC - Community Plan of [facility] RHC Comm [id number] N/A [facility] Community Plan [facility] Comm Plan of [id number] N/A [facility] - RHC - Community Plan [facility] RHC Comm [id number] N/A History of Encounters Visit Date Visit Type Provider 10/12/2017 Office visit Alireza Gutierrez MD 10/06/2017 Surgery Fidel Valencia MD 09/29/2017 Nurse visit Kaity Aguilar MD 09/21/2017 Office visit 09/21/2017 Office visit Fidel Valnecia MD 09/02/2017 Office visit Kaity Aguilar MD 08/29/2017 Surgery Noe Bouman DO 08/23/2017 Office visit Noe Calderón DO 08/23/2017 Office visit Alireza Gutierrez MD 08/17/2017 Office visit Erica Carver MATERIAL HANDLER LOADER 08/09/2017 Office visit lAireza Gutierrez MD 08/07/2017 Office visit Luz Brantley MATERIAL HANDLER LOADER 08/02/2017 Office visit Kaity Aguilar MD 07/14/2017 Office visit Alireza Gutierrez MD 07/06/2017 Office visit Kaity Aguilar MD 03/08/2017 Hospital Reese Ambriz MD 02/14/2017 Office visit Kaity Aguilar MD 02/04/2017 Office visit Erica Carver MATERIAL HANDLER LOADER 01/31/2017 Office visit Erica Carver MATERIAL HANDLER LOADER 01/30/2017 Office visit 01/30/2017 Office visit Navin Tucker NP 01/27/2017 Office visit Erica Carver MATERIAL HANDLER LOADER 01/25/2017 Office visit Erica Carver MATERIAL HANDLER LOADER 01/19/2017 Office visit Erica Carver MATERIAL HANDLER LOADER 01/18/2017 Office visit Cecily Solorzano MATERIAL HANDLER LOADER 01/10/2017 Office visit Alireza Gutierrez MD 12/30/2016 Office visit Luz Brantley MATERIAL HANDLER LOADER 12/14/2016 Office visit Kaity Aguilar MD 10/11/2016 Office visit Vijay Rees MATERIAL HANDLER LOADER 09/24/2016 Office visit Kaity Aguilar MD 08/16/2016 Office visit Vijay Rees MATERIAL HANDLER LOADER 07/26/2016 Office visit Erica Carver MATERIAL HANDLER LOADER 05/26/2016 Office visit Vijay Rees MATERIAL HANDLER LOADER 05/06/2016 Office visit Kaity Aguilar MD 04/02/2016 Office visit Concepcion BORJA 03/23/2016 Office visit Kaity Aguilar MD 03/01/2016 Office visit Vijay Rees MATERIAL HANDLER LOADER 01/12/2016 Office visit Erica Carver MATERIAL HANDLER LOADER 11/26/2015 Office visit Vijay Rees MATERIAL HANDLER LOADER 09/26/2015 Surgery Noe Bouman DO 09/18/2015 Hospital Noe Randhawauman DO 09/16/2015 Office visit Noe Calderón DO 09/10/2015 Office visit Yi Staples MD 08/06/2015 Office visit Teresita Laureano MATERIAL HANDLER LOADER 06/24/2015 Office visit Kaity Aguilar MD 06/19/2015 Office visit Erica Carver MATERIAL HANDLER LOADER 10/28/2014 Office visit Yris Lara MATERIAL HANDLER LOADER 10/23/2014 Office visit Erica Walker MATERIAL HANDLER LOADER 10/03/2014 Office visit Kaity Aguilar MD 10/02/2014 Office visit Niyah Jensen MATERIAL HANDLER LOADER 09/20/2014 Office visit Noe Bouman DO 09/14/2014 Hospital Noe Bouman DO 09/13/2014 Hospital Noe Bouman DO 09/12/2014 Hospital Noe Bouman DO 07/19/2014 Office visit Vijay Rees MATERIAL HANDLER LOADER 07/03/2014 Office visit Vijay Rees MATERIAL HANDLER LOADER 06/11/2014 Office visit Vijya Rees MATERIAL HANDLER LOADER 06/03/2014 Office visit Kaity Aguilar MD 04/29/2014 Office visit Vijay Rees MATERIAL HANDLER LOADER 04/22/2014 Office visit Kaity Aguilar MD 03/11/2014 Office visit Kaity Aguilar MD 02/19/2014 Office visit Kaity Aguilar MD 10/01/2013 Office visit Erica Walker MATERIAL HANDLER LOADER 09/13/2013 Office visit Erica Walker MATERIAL HANDLER LOADER 09/10/2013 Office visit Erica Walker MATERIAL HANDLER LOADER 08/16/2013 Office visit Erica Walker MATERIAL HANDLER LOADER 03/27/2013 Office visit Erica Walker MATERIAL HANDLER LOADER 01/23/2013 Office visit Erica Walker MATERIAL HANDLER LOADER 01/19/2013 Voided Erica Walker MATERIAL HANDLER LOADER 12/29/2012 Office visit Erica Walker MATERIAL HANDLER LOADER 12/26/2012 Office visit Erica Carver MATERIAL HANDLER LOADER 12/14/2012 Surgery Tong Whatley MD 12/07/2012 Voided Tong Whatley MD 11/09/2012 Surgery [facility]2012 [facility] Tong Whatley MD 10/18/2012 Surgery Tong Whatley MD 09/20/2012 Office visit Tong Whatley MD 07/27/2012 Office visit Yris Lara MATERIAL HANDLER LOADER 06/22/2012 Procedures Tong Whatley MD 05/25/2012 Office visit Tong Whatley MD 04/11/2012 Office visit Erica Carver MATERIAL HANDLER LOADER 03/31/2012 Office visit Erica Carver MATERIAL HANDLER LOADER 04/08/2011 Office visit Eugenio Enamorado MD 07/23/2010 Office visit Elsa FIGUEROA 04/15/2010 Office visit Elsa FIGUEROA 03/25/2010 Office visit Elsa FIGUEROA 03/02/2010 Office visit Elsa FIGUEROA
[2017-11-25] MEDS ORDERED: GLYCOPYRROLATE 0.2 MG/ML (ROBINUL) 2 ML VIAL ONE (09:40)
[2017-11-25] MEDS ORDERED: NEOSTIGMINE 1 MG/ML 5 ML SYRINGE ONE (09:40)
[2017-11-25] MEDS ORDERED: ACETAMINOPHEN 325 MG TABLET PO PRN (09:45)
[2017-11-25] MEDS ORDERED: predniSONE 20 MG TAB PO ONE (09:45)
[2017-11-25] MEDS ORDERED: D5 1/2 NS W/KCL 20 MEQ/L 1,000 ML IV SCH (09:45)
[2017-11-25] MEDS ORDERED: HYDROcodone/APAP 5 MG/325 MG (LORTAB) TAB PO PRN (09:45)
[2017-11-25] MEDS ORDERED: PROMETHAZINE INJ 25 MG/ML (PHENERGAN) AMP IVP PRN (09:45)
--- NOTE | 2017-11-25 09:45 | Progress Note-Post Operative ---
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 Specimen(s) collected/removed bilat chrnic sinus disease RICHARD BLISS MD Nov 25, 2017 9:45 am
--- NOTE | 2017-11-25 10:05 | Anesthesia-General Post-Op ---
General Patient Condition Mental Status/LOC: Same as Preop Cardiovascular: Satisfactory Nausea/Vomiting: Absent Respiratory: Satisfactory Pain: Controlled Complications: Absent Post Op Complications Complications None Follow Up Care/Instructions Patient Instructions None needed. Anesthesia/Patient Condition Patient Condition Patient is doing well, no complaints, stable vital signs, no apparent adverse anesthesia problems. No complications reported per nursing. JAMES COATES CRNA Nov 25, 2017 10:05
[2017-11-25] MEDS: morphine INJ 10 MG/ML 1ML (SYR OR VIAL) IVP PRN ×2 (10:17→10:25)
[2017-11-25] MEDS: ONDANSETRON 4 MG/2 ML (SDV) Z0FRAN IVP PRN ×2 (10:30→10:42)
[2017-11-25 10:55] VITALS: BP 140/77
[2017-11-25 10:56] VITALS: BP 140/77
[2017-11-25] MEDS ORDERED: LEVO500T2 PO (11:12)
[2017-11-25] MEDS ORDERED: PRD20T PO (11:12)
[2017-11-25] MEDS ORDERED: HYDR-3812 PO (11:12)
[2017-11-25 11:25] VITALS: BP 130/71
[2017-11-25 11:55] VITALS: BP 103/56
== END 2017-11-25 12:30 | disposition home or self-care (01) ==
LOC: SDC 07:13
PROVIDERS: ATTEND Otolaryngology Otolaryngology/Facial Plastic Surgery
DX: J32.2 Chronic ethmoidal sinusitis (principal); J32.3 Chronic sphenoidal sinusitis; J32.0 Chronic maxillary sinusitis; J34.3 Hypertrophy of nasal turbinates; J45.909 Unspecified asthma, uncomplicated; F17.210 Nicotine dependence, cigarettes, uncomplicated; Z79.899 Other long term (current) drug therapy